=== PATIENT | male | born 1945 | race Caucasian/White ===

== ENCOUNTER → 2016-07-06 | Outpatient (CLI) | payer MEDICARE, BC ==
[2014-03-29 17:30] VITALS: BP 121/77
[~2016-07-06] MED LIST: ALPR0.5T PO; BUPR75TA6 PO; CELE50CA PO; CITA10TA8 PO; CLON0.12 PO; DESV50TA PO; DIAZ2TAB PO; DOCU100C PO; DULO20CA PO; FLUO10CA13 PO; GABA-585 PO; HYDR-963 PO; HYDR2TAB13 PO; HYDR8TAB PO; LIDO700A4 TP; LORA0.5T96 PO; MELO-150 PO; METH10OR PO; METH10TA2 PO; OXYC-250 PO; OXYC20TA PO; PREG20SO PO; PROP10TA PO; RIZA10TA PO; RIZA10TA6 PO; SERT100T PO; SERT25TA PO; SERT50TA PO; SUMA50TA3 PO; TEST1.25 TD; TEST30SO TD; TIZA4CAP3 PO; TIZA4TAB PO; TOPI25TA32 PO; ZOLP5TAB PO; [UNRECOGNIZED DRUG - CODE] TD
--- NOTE | 2016-07-06 13:13 | PAIN ---
DATE OF SERVICE: 07/06/2016 PROGRESS NOTE DIAGNOSES: 1. Lumbar radiculopathy with post-lumbar laminectomy syndrome. 2. Cervical radiculopathy. 3. Myofascial pain. 4. Right chest wall pain. HISTORY OF PRESENT ILLNESS: The patient is a 71-year-old male who returns for followup status post medication management with both methadone and oxycodone. The patient also using a Voltaren gel and EMLA cream for his right chest. We did some intercostal blocks x 3 different occasions, initially with good results, but limited. After his injection, the patient reports the pain actually is not decreased at all. He is not interested in pursuing any further interventions for this pain. The patient still has significant pain in the low back, mid back, upper back, neck, shoulders, low back and legs, hips, becoming more debilitating. The patient reports he is unable to do any type of activity and essentially because of the pain, especially in the right chest wall, which has been very uncomfortable, again he had a fall on the right side, but about 7 months ago without significant improvement. The patient has had multiple x-rays of the ribs and spine without any significant findings to explain the pain. Initially, intercostal blocks were helping, but again this has become much less helpful as well. The patient reports he cannot get comfortable, at 8-9 on a scale of 10 without significant side effects with his medications, reports that medications do decrease the pain significantly, but only by about 50-60% at this time, again with no specific side effects with methadone and the oxycodone. The patient's old chart was reviewed and his current medication regimen updated. Current review of systems updated today as well. PHYSICAL EXAMINATION: VITAL SIGNS: Today, the patient's blood pressure 104/63, pulse 60, respirations 18, temperature 97.6 degrees Fahrenheit, height 6 feet 1 inch, weight 191 pounds. GENERAL: The patient is awake, alert, oriented, appropriate, very pleasant demeanor. HEENT: Head shows normocephalic, atraumatic. Extraocular movements are intact and symmetrical. Oral cavity shows mucous membranes moist and pink. Dentition is intact. NECK: Shows anterior throat supple. CHEST: Shows breath sounds clear to auscultation bilaterally. HEART: Shows S1 and S2 clear. The patient has significant tenderness in the right lateral aspect of the ribs from the mid to lower rib margin in the mid axillary line and most especially in the middle of the back in approximately T8-T9 region of the ribs with direct palpation over the ribs at about 10 cm from the midline to the right side, but without any palpable abnormalities or fractures noted. The patient has good chest excursion with inhalation and exhalation without significant increase in pain at this time. ABDOMEN: The patient's abdomen is soft, nontender, nondistended. No palpable organomegaly is noted. BACK: The patient's back shows well healed surgical scarring with diffuse tenderness throughout the upper, middle and lower distribution of the lumbar and thoracic paraspinous musculature, lower distribution without specific radiation. EXTREMITIES: The patient's extremities show deep tendon reflexes at 1+ in the patellar and tendo calcaneus tendons. Motor exam is approximately 4 on a scale of 5 with dorsiflexion, extension and equal. The patient is using a cane to ambulate. PLAN: Options were discussed with the patient and the patient's spouse who accompanies him to his visit today. We will foregoing further intercostal blocks at this time, we will also add levorphanol in substitution for oxycodone and see if this may help decrease the pain. He is most likely developing some physiologic tolerance to the oxycodone. We discussed this in some detail today. We have the levorphanol bordered and once this process and delivered, we will have him substitute the oxycodone with this to see if this may afford some better analgesia. Also, we will add naproxen at 500 mg twice daily to see if this may help some of the chest wall pain that he is experiencing as well. FIDENCIO QUINTANA MD DR: CAMERON/mayra JOB#: [id number] / [id number]
== END | disposition home or self-care (01) ==
LOC: PNCL 10:31
PROVIDERS: ATTEND Anesthesiology
DX: M96.1 Postlaminectomy syndrome, not elsewhere classified (principal); M54.12 Radiculopathy, cervical region; M79.1 Myalgia; R07.89 Other chest pain
CPT/HCPCS: G0463

== ENCOUNTER 2016-07-23 13:54 | Inpatient (IN) | payer MEDICARE, BC ==
[~2016-07-23] VITALS: Ht 185.4 cm; Wt 86.2 kg
--- NOTE | 2016-07-23 15:46 | EKG ---
[facility] [address] [place] [address] Test Date: 2016-07-23 Test Time: 15:40:37 Pat Name: DERREK HERMOSILLO Department: Room: Gender: M [employer] Teacher: : 1945 Requested By: MICHELLE CMAPOS Order Number: [id number] Reading MD: Siomara Portillo Measurements Intervals [place] Rate: 83 P: 90 CT: 114 QRS: 64 QRSD: 112 T: 39 QT: 414 QTc: 487 Interpretive Statements SINUS RHYTHM ATRIAL PREMATURE COMPLEX(ES) RI6.01 Unconfirmed report No previous ECG available for comparison Electronically Signed On 07-25-2016 20:52:21 X [employer] by Siomara Portillo
[2016-07-23 15:55] LABS: BASO # 0.1 x10^3/uL (0.0-0.2); BASO % 1 % (0-3); EOS % 0 % (0-3); HEMATOCRIT 39.5 % (39.0-53.0); HEMOGLOBIN 12.8 g/dL (13.0-17.5); LYMPH # 0.3 x10^3/uL (1.0-4.8); LYMPH % 2 % (24-48); MEAN CORPUSCULAR HEMOGLOBIN 26 pg (25-35); MEAN CORPUSCULAR HGB CONC 32 g/dL (31-37); MEAN CORPUSCULAR VOLUME 80 fL (79-100); MONO % 6 % (0-9); NEUT % 91 % (31-73); PLATELET COUNT 307 x10^3/uL (140-400); RED BLOOD COUNT 4.92 x10^6/uL (4.30-5.70); RED CELL DISTRIBUTION WIDTH 15.1 % (11.5-14.5); WHITE BLOOD COUNT 17.9 x10^3/uL (4.0-11.0)
--- NOTE | 2016-07-23 16:11 | RAD ---
Portable AP upright chest x-ray performed at 1537 Clinical indications weakness. Shortness of breath today. Comparison: None available. Findings: There is a dense consolidative lung infiltrate within the left upper lobe consistent with pneumonia. Right lung field is clear. No pleural effusion or pneumothorax is seen. The heart size is unremarkable. The left hilum and upper left mediastinum are obscured by the infiltrate. IMPRESSION: Left upper lobe consolidation consistent with pneumonia. Recommend follow-up chest x-ray after completion of antibiotic therapy since a malignant process has not been excluded. The left hilum and upper left mediastinum are obscured by the infiltrate.
[2016-07-23 16:12] LABS: BILIRUBIN,URINE MODERATE (NEG); GLUCOSE,URINE NEGATIVE (NEG); NITRITE,URINE NEGATIVE (NEG)
--- NOTE | 2016-07-23 16:15 | RAD ---
Clinical indications: Loss of balance. Hallucinations.. Technique: Noncontrast axial cross sectional scanning of the head was performed. PQRS Compliance Statement: One or more of the following individualized dose reduction techniques were utilized for this examination: 1. Automated exposure control 2. Adjustment of the mA and/or kV according to patient size 3. Use of iterative reconstruction technique Comparison: None available. Findings: No acute intracranial hemorrhage or midline shift or mass-effect or hydrocephalus or extra-axial fluid collection is seen. No focal hypodense area or sulci effacement is seen to indicate an acute infarct or edema radiographically. No skull fracture or pneumocephalus is seen. No opacification of the mastoid sinuses or the paranasal sinuses is seen. The maxillary sinuses are not completely seen in this study. Impression: No acute intracranial abnormality is seen.
[2016-07-23 16:23] LABS: CALCIUM 8.8 mg/dL (8.5-10.1); CREATININE 0.9 mg/dL (0.7-1.3); GFR 83.4; POTASSIUM 3.5 mmol/L (3.5-5.1)
[2016-07-23 16:24] LABS: ALBUMIN 1.9 g/dL (3.4-5.0); DIRECT BILIRUBIN 1.7 mg/dL (0.0-0.2); TOTAL BILIRUBIN 2.3 mg/dL (0.2-1.0); TOTAL PROTEIN 6.3 g/dL (6.4-8.2)
[2016-07-23 16:49] LABS: BACTERIA,URINE FEW /HPF (0-FEW); PROTEIN,URINE NEGATIVE (NEG-TRACE); RBC,URINE 0 /HPF (0-2)
[2016-07-23 16:55] LABS: PLT ESTIMATE ADEQUATE (ADEQUATE); TOXIC GRANULATION PRESENT
--- NOTE | 2016-07-23 16:55 | PHYS DOC ---
Past Medical History Past Medical History: Cancer Additional Past Medical Histor: CHRONIC BACK PAIN, SKIN CA Past Surgical History: Tonsillectomy Additional Past Surgical Histo: HERNIA, BACK, SKIN CA, R CATARACT Alcohol Use: None Drug Use: None Adult General Chief Complaint Chief Complaint: HALLUCINATIONS AUDIBLE/VISUAL HPI HPI 71-year-old male presenting to the emergency department with increasing fatigue and losing balance over the last week. He is also had a productive cough. He also reports auditory and visual hallucinations. He reports seeing people that are not there. He reports hearing things. It is worse in the morning and alleviated with rest. No exacerbating factors. Location lungs. Duration intermittent. Review of Systems Review of Systems Negative for abdominal pain nausea vomiting diaphoresis. All other review of systems is negative unless otherwise noted in history of present illness. Current Medications Current Medications Current Medications Medications (Trade) Dose Ordered Sig/Ronal Start Time Stop Time Status Last Admin Dose Admin Azithromycin 250 ml @ 250 mls/hr 1X ONCE 07/23/16 17:00 07/23/16 17:59 Ceftriaxone Sodium (Rocephin 1gm Ivpb For Omni) 50 ml @ 100 mls/hr 1X ONCE 07/23/16 17:00 07/23/16 17:29 Morphine Sulfate 2 mg 2 mg PRN Q2HR PRN 07/23/16 17:00 07/24/16 16:59 Ondansetron HCl (Zofran) 4 mg PRN Q8HRS PRN 07/23/16 17:00 07/24/16 16:59 Allergies Allergies Allergies Coded Allergies Type Severity Reaction Last Updated Verified No Known Drug Allergies 03/29/14 No Physical Exam Physical Exam Constitutional: Well developed, well nourished, no acute distress, non-toxic appearance. HENT: Normocephalic, atraumatic, bilateral external ears normal, oropharynx moist, no oral exudates, nose normal. [] Eyes: PERRLA, EOMI, conjunctiva normal, no discharge. [] Neck: Normal range of motion, no tenderness, supple, no stridor. Negative Brudzinski sign. Negative Kernig sign. Cardiovascular:Heart rate regular rhythm, no murmur [] Lungs & Thorax: Patient has minimal wheezing on the right more than left. Abdomen: Bowel sounds normal, soft, no tenderness, no masses, no pulsatile masses. [] Skin: Warm, dry, no erythema, no rash. Back: No tenderness, no CVA tenderness. [] Extremities: No tenderness, no cyanosis, no clubbing, ROM intact, no edema. [] No petechiae present. Neurologic: Alert and oriented X 3, normal motor function, normal sensory function, no focal deficits noted. Psychologic: Affect normal, judgement normal, mood normal. Current Patient Data Vital Signs Vital Signs Date Time Temp Pulse Resp B/P Pulse Ox O2 Delivery O2 Flow Rate FiO2 07/23/16 15:10 98.3 90 16 103/60 92 Room Air 98.3 Lab Values Laboratory Tests Test 07/23/16 15:40 07/23/16 16:00 White Blood Count 17.9x10^3/uL (4.0-11.0) H Red Blood Count 4.92x10^6/uL (4.30-5.70) Hemoglobin 12.8g/dL (13.0-17.5) L Hematocrit 39.5% (39.0-53.0) Mean Corpuscular Volume 80fL (79-100) Mean Corpuscular Hemoglobin 26pg (25-35) Mean Corpuscular Hemoglobin Concent 32g/dL (31-37) Red Cell Distribution Width 15.1% (11.5-14.5) H Platelet Count 307x10^3/uL (140-400) Neutrophils (%) (Auto) 91% (31-73) H Lymphocytes (%) (Auto) 2% (24-48) L Monocytes (%) (Auto) 6% (0-9) Eosinophils (%) (Auto) 0% (0-3) Basophils (%) (Auto) 1% (0-3) Neutrophils # (Auto) 16.3x10^3uL (1.8-7.7) H Lymphocytes # (Auto) 0.3x10^3/uL (1.0-4.8) L Monocytes # (Auto) 1.1x10^3/uL (0.0-1.1) Eosinophils # (Auto) 0.0x10^3/uL (0.0-0.7) Basophils # (Auto) 0.1x10^3/uL (0.0-0.2) Platelet Estimate Pending Sodium Level 135mmol/L (136-145) L Potassium Level 3.5mmol/L (3.5-5.1) Chloride Level 96mmol/L (98-107) L Carbon Dioxide Level 32mmol/L (21-32) Anion Gap 7 (6-14) Blood Urea Nitrogen 22mg/dL (8-26) Creatinine 0.9mg/dL (0.7-1.3) Estimated GFR (Cockcroft-Gault) 83.4 Glucose Level 84mg/dL (70-99) Calcium Level 8.8mg/dL (8.5-10.1) Total Bilirubin 2.3mg/dL (0.2-1.0) H Direct Bilirubin 1.7mg/dL (0.0-0.2) H Aspartate Amino Transferase (AST) 42U/L (15-37) H Alanine Aminotransferase (ALT) 20U/L (16-63) Alkaline Phosphatase 206U/L (46-116) H Troponin I Quantitative < 0.017ng/mL (0.000-0.055) VL-Xol-R-Type Natriuretic Peptide 885pg/mL (0-124) H Total Protein 6.3g/dL (6.4-8.2) L Albumin 1.9g/dL (3.4-5.0) L Lipase 52U/L (73-393) L Urine Collection Type Unknown Urine Color [place] Urine Clarity Clear Urine pH 6.0 Urine Specific [place] >=1.030 Urine Protein Negativemg/dL (NEG-TRACE) Urine Glucose (UA) Negativemg/dL (NEG) Urine Ketones (Stick) 40mg/dL (NEG) Urine Blood Negative (NEG) Urine Nitrite Negative (NEG) Urine Bilirubin Moderate (NEG) Urine Urobilinogen Dipstick 4.0mg/dL (0.2 mg/dL) Urine Leukocyte Esterase Trace (NEG) Urine RBC 0/HPF (0-2) Urine WBC 1-4/HPF (0-4) Urine Squamous Epithelial Cells None/LPF Urine Bacteria Few/HPF (0-FEW) Urine Mucus Mod/LPF Laboratory Tests 07/23/16 15:40 Laboratory Tests 07/23/16 15:40 EKG EKG Sinus rhythm with a regular rate. [place] is normal. Intervals are within normal limits. ST segments congruent. [] Radiology/Procedures Radiology/Procedures Chest x-ray shows pneumonia. CT unremarkable for acute pathology. Course & Med Decision Making Course & Med Decision Making Pertinent Labs and Imaging studies reviewed. (See chart for details) [] 71-year-old gentleman presenting to the emergency department with confusion intermittently with generalized weakness. He also had hallucinations. On physical exam the patient had a normal temperature. Normal pulse. Mildly low SaO2. He had mild wheezing on the right more than left. Blood work was obtained including blood culture. CBC showed leukocytosis. Urinalysis not suggestive of infection. Chemistry panel showed low albumin and elevated bilirubin troponin normal. Patient was given antibiotics and IV fluids and admitted to our hospital for further evaluation workup and care. Dragon Disclaimer Dragon Disclaimer This electronic medical record was generated, in whole or in part, using a voice recognition dictation system. Departure Departure Impression: Primary Impression: Pneumonia Additional Impressions: Confusion Hallucinations Uremia Disposition: ADMITTED INPATIENT Admitting Physician: Hiram Bowens Condition: IMPROVED Referrals: HIRAM BOWENS MD (PCP) Problem Qualifiers MICHELLE CAMPOS MD Jul 23, 2016 16:55
[2016-07-23] MEDS ORDERED: CEFTRIAXONE 1GM IVPB FOR OMNI 50 ML IV ONE (17:00)
[2016-07-23] MEDS ORDERED: ONDANSETRON PF 4 MG/2 ML VIAL. IV PRN (17:00)
[2016-07-23] MEDS ORDERED: AZITHRMYCN 500MG IVPB FOR OMNI 250 ML IV ONE (17:00)
[2016-07-23] MEDS ORDERED: MORPHINE SULFATE 2 MG/ML DISP.SYRIN. IV PRN (17:00)
[2016-07-23] MEDS ORDERED: IV NORMAL SALINE 500ML BAG 500 ML IV ONE (17:15)
[2016-07-23 19:15] VITALS: BP 110/50
[2016-07-23 19:30] VITALS: BP 108/73
[2016-07-23] MEDS: PROPRANOLOL 10 MG TABLET. PO SCH (22:44)
[2016-07-23] MEDS: SERTRALINE 50 MG TABLET. PO SCH (22:45)
[2016-07-23] MEDS: METHADONE 10 MG TABLET. PO SCH (22:45)
[2016-07-23] MEDS ORDERED: OXYCODONE IR 5 MG TABLET. PO PRN (22:45)
[2016-07-23 23:00] VITALS: BP_SYST 112; BP_SYST 129; BP_DIAS 57; BP_DIAS 77
[2016-07-24 03:30] VITALS: BP 110/72
[2016-07-24 04:00] LABS: BASO % 0 % (0-3); EOS % 1 % (0-3); HEMATOCRIT 39.4 % (39.0-53.0); HEMOGLOBIN 12.6 g/dL (13.0-17.5); LYMPH # 0.5 x10^3/uL (1.0-4.8); LYMPH % 3 % (24-48); MEAN CORPUSCULAR HEMOGLOBIN 26 pg (25-35); MEAN CORPUSCULAR HGB CONC 32 g/dL (31-37); MEAN CORPUSCULAR VOLUME 80 fL (79-100); MONO % 7 % (0-9); NEUT % 89 % (31-73); PLATELET COUNT 292 x10^3/uL (140-400); RED BLOOD COUNT 4.93 x10^6/uL (4.30-5.70); RED CELL DISTRIBUTION WIDTH 15.1 % (11.5-14.5)
[2016-07-24 04:16] LABS: CALCIUM 8.4 mg/dL (8.5-10.1); CREATININE 0.8 mg/dL (0.7-1.3); GFR 95.6; POTASSIUM 3.3 mmol/L (3.5-5.1)
[2016-07-24 07:05] VITALS: BP 108/51
[2016-07-24] MEDS: SERTRALINE 50 MG TABLET. PO SCH ×2 (08:30→20:43)
[2016-07-24] MEDS: DOCUSATE SODIUM 100 MG CAPSULE PO SCH ×2 (08:30→20:44)
[2016-07-24] MEDS: PROPRANOLOL 10 MG TABLET. PO SCH ×2 (08:31→20:42)
[2016-07-24] MEDS: METHADONE 10 MG TABLET. PO SCH ×2 (08:31→20:42)
[2016-07-24] MEDS ORDERED: PROPRANOLOL 10 MG TABLET. PO SCH (09:00)
[2016-07-24] MEDS ORDERED: METHADONE 10 MG TABLET. PO SCH (09:00)
[2016-07-24] MEDS ORDERED: SERTRALINE 50 MG TABLET. PO SCH (09:00)
--- NOTE | 2016-07-24 09:35 | PDOC ---
Provider Note Provider Note See admission H&P dictation #[id number] Impression: 1. Left upper lobe pneumonia, community-acquired: 2. Chronic back pain on chronic narcotics: 3. Hyperbilirubinemia of uncertain etiology: 4. Hypokalemia: 5. Severe protein malnutrition: 6. Hypoxemia secondary to #1 above: JL WEST MD Jul 24, 2016 09:35
[2016-07-24] MEDS ORDERED: POTASSIUM CHLORIDE 20 MEQ TABLET.ER. PO ONE (09:45)
[2016-07-24] MEDS: CEFTRIAXONE SODIUM 1 GM in IV NORMAL SALINE 50ML 50 ML IV SCH (10:28)
[2016-07-24] MEDS: AZITHROMYCIN 250 MG TABLET PO SCH (10:29)
--- NOTE | 2016-07-24 10:52 | HP ---
ADMIT DATE: 07/24/2016 ATTENDING SURGEON: Hiram Bowens MD CHIEF COMPLAINT: Cough and shortness of breath. HISTORY OF PRESENT ILLNESS: The patient is a 71-year-old male with a history of tobacco use, had onset approximately on 07/20 of significant fatigue. He also had a cough that was productive initially of clear sputum, but then turned yellow with occasional blood tinge. He did have some subjective fevers as well as shortness of breath. He denies any sick contacts. He has had some upper respiratory congestion. He is not having any improvement and was also on the day of admission having problems with his balance. He was also having some auditory and visual hallucinations. This prompted his evaluation in the Emergency Room. PAST MEDICAL HISTORY: Significant for chronic back pain, cervical and lumbar spinal stenosis, depression, hypogonadism, chronic and migraine headaches, thoracic myelopathy, narcotic bowel syndrome, heat intolerance, skin cancer. PAST SURGICAL HISTORY: Tonsillectomy, cholecystectomy, Rhino septoplasty, back surgeries x 4, bilateral carpal tunnel surgery, left little finger surgery, several skin cancer removals. SOCIAL HISTORY: The patient lives at home with his . He quit smoking in 1982 and has smoked for a number of years prior to that. He denies any alcohol use. ALLERGIES TO MEDICATIONS: No known drug allergies. FAMILY HISTORY: Noncontributory. MEDICATIONS: At the time of admission include Xanax 0.5 mg p.o. daily t.i.d. p.r.n., Colace 100 mg p.o. b.i.d., methadone 10 mg p.o. b.i.d., oxycodone immediate release 40 mg p.o. b.i.d., propranolol 10 mg p.o. b.i.d., Zoloft 50 mg p.o. b.i.d. REVIEW OF SYSTEMS: The patient has had some subjective fevers. He has had congestion. He is not having any swallowing difficulty. He did have the confusion as far as some hallucinations, which has since resolved. He denies any chest pain or palpitations. He does have chest wall pain on the right side from when he fell and injured his ribs earlier in the year in approximately 12/2015. He denies any diarrhea. He had emesis one time related to cough. He has not had any melena or blood in his emesis. He has been voiding without difficulty, but he notes that his urine has been darker in color. He has chronic back pain, which he takes medications regularly for that. He denies any lower extremity swelling. He normally ambulates okay. No unusual or new mood issues at present. PHYSICAL EXAMINATION: VITAL SIGNS: At the time of admission, temperature 98.3, pulse 90, respiratory rate 16, blood pressure 103/62, O2 sat 92%, that has dropped down to as low as 87% on room air earlier this morning. GENERAL: The patient is lying in bed in no acute distress. He appears alert and oriented. Mood and affect appear appropriate. Grooming and hygiene are okay. HEENT: The pupils are equal and round. The extraocular motions are intact. Sclerae are anicteric. Oropharynx is moist. NECK: Without JVD or bruit. CHEST: Has decreased air movement throughout without any wheezes at present. There is some tenderness to palpation along the right lower rib area. CARDIOVASCULAR: The heart has a regular rate and rhythm without murmur. ABDOMEN: Positive bowel sounds. Soft, nondistended. Minimal tenderness in the right upper quadrant. EXTREMITIES: There is no edema. NEUROLOGIC: Motor strength appears to be intact. He does walk with a cane. PSYCHIATRIC: Mood and affect appear appropriate. LABORATORY DATA: At the time of admission, WBC 17.9, hemoglobin 12.8, hematocrit 39.5, platelets 307 with a differential of 76, bands 18, 76 neutrophils, 18 bands. Urine shows specific gravity of greater than 1.030 with ketones of 40, moderate bilirubin, trace of leukocyte esterase, 1-4 wbc's, few bacteria, moderate mucus. Sodium 135, potassium 3.5, chloride 96, CO2 32, BUN 22, creatinine 0.9, glucose 84, total bilirubin 2.3, direct bilirubin 1.7, AST 42, ALT 20, alkaline phosphatase 206. BNP 885. Troponin less than 0.01, albumin was 1.9. Lipase was 52. CT of the head showed no acute abnormality. Chest x-ray shows left upper lobe consolidation consistent with pneumonia. Left hilum and upper left mediastinum are obscured by the infiltrate. The right lung field is clear. There is no effusion or pneumothorax. IMPRESSION: 1. Left upper lobe pneumonia, community-acquired. 2. Chronic back pain, on chronic narcotics. 3. Hyperbilirubinemia with some minimal right upper quadrant tenderness. 4. Hypokalemia. 5. Severe protein malnutrition. PLAN: The patient is admitted. He is started on Rocephin and azithromycin for community-acquired pneumonia. We will use nebulizer q.6h. supplemental oxygen as needed. We will encourage ambulation. We will attempt to get a sputum to identify the organism. We will repeat the LFTs in the morning and see if they have any improvement. If they are still elevated, we may need to do an ultrasound of the right upper quadrant to evaluate his elevated bilirubin. We will replace the potassium orally, nutrition consult for his protein malnutrition. We will continue his usual pain medications, which appears to be methadone 10 mg p.o. b.i.d. and oxycodone immediate release 40 mg p.o. b.i.d., although it is difficult to say as the patient does not know for sure the doses of his medications. We will also use p.r.n. oxycodone for other pain as well as Robitussin with codeine to help suppress his cough, which seems to be aggravating his chronic rib pain. JL WEST MD DR: BUNNY/mayra JOB#: [id number] / [id number] SUGEY
[2016-07-24 11:06] VITALS: BP 92/41
[2016-07-24] MEDS: OXYCODONE IR 5 MG TABLET. PO PRN (11:11)
[2016-07-24] MEDS: IPRATRPIUM/ALBUTEROL 0.5/2.5MG 3 ML NEBU. NEB SCH ×3 (11:11→19:39)
[2016-07-24 15:05] VITALS: BP 99/56
[2016-07-24 19:55] VITALS: BP 115/65
[2016-07-24] MEDS: GUAIFENESIN ER 600 MG TABLET.ER PO SCH (20:44)
[2016-07-24 23:49] VITALS: BP 95/58
[2016-07-25 03:25] VITALS: BP 110/69
[2016-07-25 07:09] LABS: ALBUMIN 1.5 g/dL (3.4-5.0); ALBUMIN/GLOBULIN RATIO 0.4 (1.0-1.7); CALCIUM 8.3 mg/dL (8.5-10.1); CREATININE 0.8 mg/dL (0.7-1.3); GFR 95.6; POTASSIUM 3.3 mmol/L (3.5-5.1); TOTAL BILIRUBIN 2.3 mg/dL (0.2-1.0); TOTAL PROTEIN 4.9 g/dL (6.4-8.2)
[2016-07-25] MEDS: IPRATRPIUM/ALBUTEROL 0.5/2.5MG 3 ML NEBU. NEB SCH ×4 (07:21→20:44)
[2016-07-25] MEDS: PROPRANOLOL 10 MG TABLET. PO SCH ×2 (08:10→20:37)
[2016-07-25] MEDS: OXYCODONE IR 5 MG TABLET. PO PRN ×2 (08:11→17:58)
[2016-07-25] MEDS: DOCUSATE SODIUM 100 MG CAPSULE PO SCH ×2 (08:11→20:37)
[2016-07-25] MEDS: METHADONE 10 MG TABLET. PO SCH ×2 (08:12→20:37)
[2016-07-25] MEDS: GUAIFENESIN ER 600 MG TABLET.ER PO SCH ×2 (08:12→20:36)
[2016-07-25] MEDS: AZITHROMYCIN 250 MG TABLET PO SCH (08:12)
[2016-07-25] MEDS: SERTRALINE 50 MG TABLET. PO SCH ×2 (08:12→20:37)
[2016-07-25 08:43] VITALS: BP 101/59
[2016-07-25] MEDS: CEFTRIAXONE SODIUM 1 GM in IV NORMAL SALINE 50ML 50 ML IV SCH (10:03)
[2016-07-25 11:58] VITALS: BP 100/49
[2016-07-25] MEDS: GUAIFENESIN/CODEINE 100mg/10mg 5 ML LIQUID. PO PRN ×2 (13:14→20:36)
--- NOTE | 2016-07-25 13:45 | PDOC ---
SUBJECTIVE Subjective Breathing a little bit better. Still coughing. He able to eat a little bit better today. Still has pain in the right lower ribs. Hasn't been able to ambulate too much. notes that he's been unsteady on his feet for the last week and a half. He's also had episodes of confusion over the last 1-2 weeks. OBJECTIVE Vital Signs Vital Signs Date Time Temp Pulse Resp B/P Pulse Ox O2 Delivery O2 Flow Rate FiO2 07/25/16 11:58 98.4 65 17 100/49 96 Room Air 98.4 07/25/16 11:37 Room Air 07/25/16 09:11 16 96 Room Air 07/25/16 08:43 97.7 78 17 101/59 96 Room Air 97.7 07/25/16 08:11 18 90 Room Air 07/25/16 08:10 63 110/69 07/25/16 08:00 Room Air 07/25/16 07:21 90 Room Air 07/25/16 07:00 07/25/16 03:25 96.8 63 16 110/69 91 Room Air 96.8 07/24/16 23:49 96.3 66 16 95/58 90 Room Air 96.3 07/24/16 20:42 73 115/65 07/24/16 20:00 Room Air 07/24/16 19:55 97.7 73 16 115/65 94 Room Air 97.7 07/24/16 19:40 94 Room Air 07/24/16 15:06 91 Room Air 07/24/16 15:05 98.1 77 20 99/56 89 Room Air 98.1 I & O Intake and Output 07/25/16 07:00 Intake Total 1600 ml Balance 1600 ml Intake Oral 1600 ml # Voids 6 PHYSICAL EXAM Physical Exam General: No acute distress. Sitting in bed. Mental status: Alert and oriented. Answering questions. Chest: Decreased air movement throughout. Tenderness to palpation over the right lower chest CV: Normal rate. Regular rhythm. No murmur. Abdomen: Normal bowel sounds. Soft. Not distended. Tenderness to palpation in the right upper quadrant Extremities: No lower extremity edema ASSESSMENT/PLAN Assessment/Plan 1. Left upper lobe pneumonia, community-acquired: Continue current antibiotics. Seems to be making some improvement. Continue nebulizer treatments as those are seeming to help per the patient. 2. Chronic back pain on chronic narcotics: Continue current medications as the pain seems to be relatively controlled. 3. Hyperbilirubinemia of uncertain etiology: Check right upper quadrant ultrasound. Check ammonia level due to reported problems with confusion in the last week per family 4. Hypokalemia: Replace orally 5. Severe protein malnutrition: Nutrition consult 6. Hypoxemia secondary to #1 above: Improving with treatment. 7. Gait stability issues: Consult physical therapy 8. Encephalopathy: Probably due to pneumonia and metabolic etiologies. Check ammonia level, evaluate for liver disease. Problems: COMMENT Lab Laboratory Tests Test 07/25/16 06:20 Sodium Level 140mmol/L (136-145) Potassium Level 3.3mmol/L (3.5-5.1) Chloride Level 102mmol/L (98-107) Carbon Dioxide Level 31mmol/L (21-32) Anion Gap 7 (6-14) Blood Urea Nitrogen 19mg/dL (8-26) Creatinine 0.8mg/dL (0.7-1.3) Estimated GFR (Cockcroft-Gault) 95.6 BUN/Creatinine Ratio 24 (6-20) Glucose Level 92mg/dL (70-99) Calcium Level 8.3mg/dL (8.5-10.1) Total Bilirubin 2.3mg/dL (0.2-1.0) Aspartate Amino Transf (AST/SGOT) 42U/L (15-37) Alanine Aminotransferase (ALT/SGPT) 27U/L (16-63) Alkaline Phosphatase 214U/L (46-116) Total Protein 4.9g/dL (6.4-8.2) Albumin 1.5g/dL (3.4-5.0) Albumin/Globulin Ratio 0.4 (1.0-1.7) JL WEST MD Jul 25, 2016 13:45
[2016-07-25] MEDS: POTASSIUM CHLORIDE 20 MEQ TABLET.ER. PO SCH ×2 (15:00→17:50)
[2016-07-25 15:29] VITALS: BP 94/64
[2016-07-25 19:43] VITALS: BP 106/71
[2016-07-25 23:50] VITALS: BP 105/63
[2016-07-26] VITALS (7 sets, daily range): BP systolic 70–133; BP diastolic 49–81
[2016-07-26] MEDS ORDERED: IPRATRPIUM/ALBUTEROL 0.5/2.5MG 3 ML NEBU. NEB ONE (04:15)
[2016-07-26 04:19] LABS: BASO # 0.1 x10^3/uL (0.0-0.2); BASO % 1 % (0-3); EOS % 3 % (0-3); HEMATOCRIT 40.6 % (39.0-53.0); HEMOGLOBIN 12.8 g/dL (13.0-17.5); LYMPH # 0.6 x10^3/uL (1.0-4.8); LYMPH % 4 % (24-48); MEAN CORPUSCULAR HEMOGLOBIN 25 pg (25-35); MEAN CORPUSCULAR HGB CONC 32 g/dL (31-37); MEAN CORPUSCULAR VOLUME 81 fL (79-100); MONO % 6 % (0-9); NEUT % 86 % (31-73); PLATELET COUNT 278 x10^3/uL (140-400); RED BLOOD COUNT 5.03 x10^6/uL (4.30-5.70); RED CELL DISTRIBUTION WIDTH 15.6 % (11.5-14.5); WHITE BLOOD COUNT 14.4 x10^3/uL (4.0-11.0)
[2016-07-26 04:39] LABS: ALBUMIN 1.6 g/dL (3.4-5.0); ALBUMIN/GLOBULIN RATIO 0.4 (1.0-1.7); CALCIUM 8.3 mg/dL (8.5-10.1); CREATININE 0.7 mg/dL (0.7-1.3); GFR 111.5; POTASSIUM 3.7 mmol/L (3.5-5.1); TOTAL BILIRUBIN 1.5 mg/dL (0.2-1.0); TOTAL PROTEIN 5.8 g/dL (6.4-8.2)
--- NOTE | 2016-07-26 07:39 | RAD ---
Right upper quadrant abdominal ultrasound, 07/26/2016: History: Abnormal liver function tests, confusion The gallbladder is distended. No gallstones are seen. The gallbladder wall measures 2 to 3 mm which is at the upper limits of normal in thickness. The common hepatic duct measures 6 mm which is at the upper limits of normal. No intrahepatic bile ductal dilatation is seen. There is no evidence of a hepatic mass. The pancreas was largely obscured by overlying bowel. The visualized portions of the right kidney are unremarkable. IMPRESSION: 1. The gallbladder is enlarged without sonographic evidence of cholelithiasis. 2. The common hepatic duct is at the upper limits of normal in size. 3. Obscuration of the pancreas due to overlying bowel.
[2016-07-26] MEDS: IPRATRPIUM/ALBUTEROL 0.5/2.5MG 3 ML NEBU. NEB SCH ×4 (08:07→18:16)
[2016-07-26] MEDS: PROPRANOLOL 10 MG TABLET. PO SCH ×2 (08:11→20:26)
[2016-07-26] MEDS: GUAIFENESIN ER 600 MG TABLET.ER PO SCH ×2 (08:11→20:27)
[2016-07-26] MEDS: SERTRALINE 50 MG TABLET. PO SCH ×2 (08:11→20:27)
[2016-07-26] MEDS: DOCUSATE SODIUM 100 MG CAPSULE PO SCH ×2 (08:11→20:27)
[2016-07-26] MEDS: METHADONE 10 MG TABLET. PO SCH ×2 (08:12→20:27)
[2016-07-26] MEDS: AZITHROMYCIN 250 MG TABLET PO SCH (08:12)
[2016-07-26] MEDS: GUAIFENESIN/CODEINE 100mg/10mg 5 ML LIQUID. PO PRN (08:12)
--- NOTE | 2016-07-26 09:26 | PDOC ---
PROGRESS NOTES Subjective Subjective Patient slightly improved since admit but significantly malnourished since last office eval. alb 3.8 -> 1.7, abd sono shows thickened GB and obscured view of pancreas with dilated CBD. CXR shows infiltrate that could obscure a mass. Patient has had no BM since 07/22. Low BP found to be giving additional pain meds. educated not to do this. Objective Objective Vital Signs Date Time Temp Pulse Resp B/P Pulse Ox O2 Delivery O2 Flow Rate FiO2 07/26/16 09:10 84 118/71 07/26/16 08:10 94 Room Air 07/26/16 07:00 98.4 20 98.4 Intake and Output 07/26/16 07:00 Intake Total 1040 ml Balance 1040 ml Intake Oral 1040 ml # Voids 9 Physical Exam Abdomen: Normal bowel sounds Heart: Regular rate Extremities: No edema General: Alert Lungs: Other (course bilate) Assessment Assessment Problems Medical Problems: (1) Confusion Status: Acute (2) Hallucinations Status: Acute (3) Pneumonia Status: Acute (4) Uremia Status: Acute 1. Left upper lobe pneumonia, community-acquired 2. Chronic back pain on chronic narcotics 3. Hyperbilirubinemia of uncertain etiology 4. Severe protein malnutrition 5. Hypoxemia secondary to #1 above: Improving with treatment. 6. Gait stability issues: Consult physical therapy 7. Encephalopathy Plan Plan of Care Check CT chest abd and pelvis consult pulm med and GI Continue IV antibx and PT Comment Review of Relevant I have reviewed the following items rubi (where applicable) has been applied. Labs Laboratory Tests Test 07/25/16 06:20 07/26/16 03:20 Sodium Level 140mmol/L (136-145) 138mmol/L (136-145) Potassium Level 3.3mmol/L (3.5-5.1) 3.7mmol/L (3.5-5.1) Chloride Level 102mmol/L (98-107) 100mmol/L (98-107) Carbon Dioxide Level 31mmol/L (21-32) 31mmol/L (21-32) Anion Gap 7 (6-14) 7 (6-14) Blood Urea Nitrogen 19mg/dL (8-26) 17mg/dL (8-26) Creatinine 0.8mg/dL (0.7-1.3) 0.7mg/dL (0.7-1.3) Estimated GFR (Cockcroft-Gault) 95.6 111.5 BUN/Creatinine Ratio 24 (6-20) 24 (6-20) Glucose Level 92mg/dL (70-99) 102mg/dL (70-99) Calcium Level 8.3mg/dL (8.5-10.1) 8.3mg/dL (8.5-10.1) Total Bilirubin 2.3mg/dL (0.2-1.0) 1.5mg/dL (0.2-1.0) Aspartate Amino Transf (AST/SGOT) 42U/L (15-37) 55U/L (15-37) Alanine Aminotransferase (ALT/SGPT) 27U/L (16-63) 35U/L (16-63) Alkaline Phosphatase 214U/L (46-116) 267U/L (46-116) Total Protein 4.9g/dL (6.4-8.2) 5.8g/dL (6.4-8.2) Albumin 1.5g/dL (3.4-5.0) 1.6g/dL (3.4-5.0) Albumin/Globulin Ratio 0.4 (1.0-1.7) 0.4 (1.0-1.7) White Blood Count 14.4x10^3/uL (4.0-11.0) Red Blood Count 5.03x10^6/uL (4.30-5.70) Hemoglobin 12.8g/dL (13.0-17.5) Hematocrit 40.6% (39.0-53.0) Mean Corpuscular Volume 81fL (79-100) Mean Corpuscular Hemoglobin 25pg (25-35) Mean Corpuscular Hemoglobin Concent 32g/dL (31-37) Red Cell Distribution Width 15.6% (11.5-14.5) Platelet Count 278x10^3/uL (140-400) Neutrophils (%) (Auto) 86% (31-73) Lymphocytes (%) (Auto) 4% (24-48) Monocytes (%) (Auto) 6% (0-9) Eosinophils (%) (Auto) 3% (0-3) Basophils (%) (Auto) 1% (0-3) Neutrophils # (Auto) 12.3x10^3uL (1.8-7.7) Lymphocytes # (Auto) 0.6x10^3/uL (1.0-4.8) Monocytes # (Auto) 0.9x10^3/uL (0.0-1.1) Eosinophils # (Auto) 0.4x10^3/uL (0.0-0.7) Basophils # (Auto) 0.1x10^3/uL (0.0-0.2) Ammonia 20mcmol/L (11-34) Laboratory Tests Test 07/26/16 03:20 White Blood Count 14.4x10^3/uL (4.0-11.0) Red Blood Count 5.03x10^6/uL (4.30-5.70) Hemoglobin 12.8g/dL (13.0-17.5) Hematocrit 40.6% (39.0-53.0) Mean Corpuscular Volume 81fL (79-100) Mean Corpuscular Hemoglobin 25pg (25-35) Mean Corpuscular Hemoglobin Concent 32g/dL (31-37) Red Cell Distribution Width 15.6% (11.5-14.5) Platelet Count 278x10^3/uL (140-400) Neutrophils (%) (Auto) 86% (31-73) Lymphocytes (%) (Auto) 4% (24-48) Monocytes (%) (Auto) 6% (0-9) Eosinophils (%) (Auto) 3% (0-3) Basophils (%) (Auto) 1% (0-3) Neutrophils # (Auto) 12.3x10^3uL (1.8-7.7) Lymphocytes # (Auto) 0.6x10^3/uL (1.0-4.8) Monocytes # (Auto) 0.9x10^3/uL (0.0-1.1) Eosinophils # (Auto) 0.4x10^3/uL (0.0-0.7) Basophils # (Auto) 0.1x10^3/uL (0.0-0.2) Sodium Level 138mmol/L (136-145) Potassium Level 3.7mmol/L (3.5-5.1) Chloride Level 100mmol/L (98-107) Carbon Dioxide Level 31mmol/L (21-32) Anion Gap 7 (6-14) Blood Urea Nitrogen 17mg/dL (8-26) Creatinine 0.7mg/dL (0.7-1.3) Estimated GFR (Cockcroft-Gault) 111.5 BUN/Creatinine Ratio 24 (6-20) Glucose Level 102mg/dL (70-99) Calcium Level 8.3mg/dL (8.5-10.1) Total Bilirubin 1.5mg/dL (0.2-1.0) Aspartate Amino Transf (AST/SGOT) 55U/L (15-37) Alanine Aminotransferase (ALT/SGPT) 35U/L (16-63) Alkaline Phosphatase 267U/L (46-116) Ammonia 20mcmol/L (11-34) Total Protein 5.8g/dL (6.4-8.2) Albumin 1.6g/dL (3.4-5.0) Albumin/Globulin Ratio 0.4 (1.0-1.7) Microbiology 07/23/16 Blood Culture - Preliminary, Resulted NO GROWTH AFTER 2 DAYS 07/24/16 Gram Stain - Final, Complete 07/23/16 Urine Culture - Final, Complete 07/23/16 Urine Culture Result 1 (ARANZA) - Final, Complete Medications Current Medications Ondansetron HCl (Zofran) 4 mg PRN Q8HRS PRN IV NAUSEA/VOMITING; Start 07/23/16 at 17:00; Stop 07/24/16 at 16:59; Status DC Morphine Sulfate 2 mg 2 mg PRN Q2HR PRN IV PAIN; Start 07/23/16 at 17:00; Stop 07/24/16 at 16:59; Status DC Azithromycin 250 ml @ 250 mls/hr 1X ONCE IV Last administered on 07/23/16 18 :37; Start 07/23/16 at 17:00; Stop 07/23/16 at 17:59; Status DC Ceftriaxone Sodium 50 ml @ 100 mls/hr 1X ONCE IV Last administered on 18:09; Start 07/23/16 at 17:00; Stop 07/23/16 at 17:29; Status DC Sodium Chloride (Iv Sodium Chloride 0.9% 500ml Bag) 500 ml @ 500 mls/hr 1X ONCE IV Last administered on 07/23/16 18:08; Start 07/23/16 at 17:15; Stop at 18:14; Status DC Docusate Sodium (Colace) 100 mg BID PO Last administered on 07/26/16 08:11; Start 07/24/16 at 09:00 Propranolol HCl (Inderal) 10 mg BID PO ; Start 07/24/16 at 09:00; Stop 07/24/16 at 09:00; Status DC Sertraline HCl (Zoloft) 50 mg BID PO ; Start 07/24/16 at 09:00; Stop 07/24/16 at 09:00; Status DC Methadone HCl (Dolophine) 10 mg BID PO ; Start 07/24/16 at 09:00; Stop 07/24/16 at 09:00; Status DC Oxycodone HCl (Roxicodone) 40 mg PRN BID PRN PO SEVERE PAIN; Start 07/23/16 at 22:45; Stop 07/24/16 at 10:37; Status DC Methadone HCl (Dolophine) 10 mg BID PO Last administered on 07/26/16 08:12; Start 07/23/16 at 23:00 Propranolol HCl (Inderal) 10 mg BID PO Last administered on 07/25/16 20:37; Start 07/23/16 at 23:00 Sertraline HCl (Zoloft) 50 mg BID PO Last administered on 07/26/16 08:11; Start 07/23/16 at 23:00 Alprazolam (Xanax) 0.5 mg PRN TID PRN PO ANXIETY / AGITATION; Start 07/24/16 at 09:30 Oxycodone HCl (Roxicodone) 20 mg PRN Q6HRS PRN PO PAIN Last administered on 17:58; Start 07/24/16 at 09:30 Albuterol/ Ipratropium (Duoneb) 3 ml RTQID NEB Last administered on 07/26/16 08:07; Start 07/24/16 at 12:00 Guaifenesin (Mucinex) 600 mg BID PO Last administered on 07/26/16 08:11; Start 07/24/16 at 21:00 Guaifenesin/ Codeine Phosphate (Robitussin Ac) 5 ml PRN Q6HRS PRN PO COUGH Last administered on 07/26/16 08:12; Start 07/24/16 at 09:30 Guaifenesin/ Codeine Phosphate 10 ml 10 ml PRN Q6HRS PRN PO COUGH Last administered on 07/25/16 13:14; Start 07/24/16 at 09:30 Ceftriaxone Sodium/Sodium Chloride (Rocephin/Iv Sodium Chloride 0.9% 50ml) 50 ml @ 100 mls/hr Q24H IV Last administered on 07/25/16 10:03; Start 07/24/16 at 10:00 Azithromycin (Zithromax) 250 mg DAILY PO Last administered on 07/26/16 08:12; Start 07/24/16 at 09:30; Stop 07/28/16 at 09:29 Potassium Chloride (Klor-Con) 40 meq 1X ONCE PO Last administered on 10:28; Start 07/24/16 at 09:45; Stop 07/24/16 at 09:53; Status DC Potassium Chloride (Klor-Con) 40 meq BIDWMEALS PO Last administered on 17:50; Start 07/25/16 at 13:45; Stop 07/25/16 at 17:01; Status DC Albuterol/ Ipratropium (Duoneb) 3 ml 1X ONCE NEB Last administered on 03:57; Start 07/26/16 at 04:15; Stop 07/26/16 at 04:16; Status DC Active Scripts Active Reported Zoloft (Sertraline Hcl) 50 Mg Tablet 50 Mg PO BID Methadone Hcl 10 Mg Tablet 10 Mg PO BID Xanax (Alprazolam) 0.5 Mg Tablet 0.5 Mg PO DAILY PRN Stool Softener (Docusate Sodium) 100 Mg Capsule 100 Mg PO BID Propranolol Hcl 10 Mg Tablet 10 Mg PO BID Oxycodone Hcl 20 Mg Tablet 40 Mg PO [id number] Vitals/I & O Vital Sign - Last 24 Hours 07/25/16 07/25/16 07/25/16 07/25/16 11:37 11:58 15:29 16:07 Temp 98.4 97.9 98.4 97.9 Pulse 65 74 Resp 17 17 B/P 100/49 94/64 Pulse Ox 96 93 O2 Delivery Room Air Room Air Room Air Room Air 07/25/16 07/25/16 07/25/16 07/25/16 17:58 18:58 19:43 20:00 Temp 98.6 98.6 Pulse 78 Resp 18 16 B/P 106/71 Pulse Ox 93 91 O2 Delivery Room Air Room Air Room Air Room Air 07/25/16 07/25/16 07/26/16 07/26/16 20:37 23:50 02:57 03:58 Temp 98.8 98.1 98.8 98.1 Pulse 78 70 77 Resp 16 16 B/P 106/71 105/63 112/72 Pulse Ox 91 93 94 O2 Delivery Room Air Room Air Room Air 07/26/16 07/26/16 07/26/16 07/26/16 07:00 08:00 08:10 08:11 Temp 98.4 98.4 Pulse 73 73 Resp 20 B/P 70/49 70/49 Pulse Ox 94 94 O2 Delivery Room Air Room Air Room Air 07/26/16 09:10 Pulse 84 B/P 118/71 Intake and Output 07/25/16 07/25/16 07/26/16 15:00 23:00 07:00 Intake Total 680 ml 360 ml Balance 680 ml 360 ml VAISHALI FONTAINE MD Jul 26, 2016 09:26
[2016-07-26] MEDS ORDERED: BISACODYL 10 MG SUPP.RECT PR PRN (09:30)
[2016-07-26] MEDS: CEFTRIAXONE SODIUM 1 GM in IV NORMAL SALINE 50ML 50 ML IV SCH (10:15)
[2016-07-26] MEDS ORDERED: DICLOFENAC SODIUM 1% TOPICAL GEL 100GM TUBE. TP PRN (10:30)
--- NOTE | 2016-07-26 10:33 | PDOC ---
Provider Note Provider Note dictated Pneumonia, suspect cavity NADER wt loss, need to r/o lung malignancy CHATO GARCIA MD Jul 26, 2016 10:33
--- NOTE | 2016-07-26 10:54 | CONS ---
DATE OF CONSULTATION: 07/26/2016 ATTENDING PHYSICIAN: Dr. Bowens. REASON FOR CONSULTATION: Pneumonia. HISTORY OF PRESENT ILLNESS: The patient is a 71-year-old male who has smoked for 33 years before quitting 25 years ago. He presented to the hospital complaining of persistent cough for the last 2 weeks. The cough has been productive of brown sputum. He has fevers at home as well. The patient has no nausea, vomiting and no diarrhea. After further discussion, he states he has lost about 20 pounds in the last 6-7 months. No history of deep vein thrombosis or pulmonary embolism. He also had a fall in December of last year and has been having rib pain since then without any improvement. I have reviewed the patient's chest x-ray and it shows that there is a left upper lobe consolidation with questionable cavitation. Consultation requested for further evaluation and management. PAST MEDICAL HISTORY: Tobacco use, suspect underlying COPD, history of spinal stenosis, depression, hypogonadism, history of migraine headaches, history of thoracic myelopathy, narcotic bowel syndrome and skin cancer. PAST SURGICAL HISTORY: Tonsillectomy, cholecystectomy, rhinoplasty and multiple other surgeries. SOCIAL HISTORY: Smoked for 33 years before quitting 25 years ago. ALLERGIES: None. CURRENT MEDICATIONS: All reviewed as listed in the MRAD including antibiotic, Rocephin and azithromycin. REVIEW OF SYSTEMS: Twelve-point systems obtained. Pertinent positives discussed in history of present illness, otherwise noncontributory. All systems that were negative were reviewed as well. PHYSICAL EXAMINATION: VITAL SIGNS: Initial blood pressure recorded was 70/49, but it was inaccurate and RN rechecked it this morning and is 118 systolic. Pulse ox 94% on room air, afebrile. HEENT: Sclerae nonicteric. NECK: Supple. LUNGS: Diminished breath sounds. CARDIOVASCULAR: Regular rate and rhythm. ABDOMEN: Soft, nontender. EXTREMITIES: No pitting edema. LABORATORY DATA: Reviewed. White cell count initially was 17.9, it is trending down. BUN 17, creatinine 0.7. Albumin is 1.6. IMPRESSION: 1. Extensive cavitary consolidation in the left upper lobe in a patient with wt loss. Need to rule out malignancy. The patient has lost about 20 pounds in 6-7 months. 2. Unexplained weight loss. Need to do CT chest, abdomen and pelvis. Need to rule out lung malignancy. 3. Underlying chronic obstructive pulmonary disease, smoked for 33 years before quitting 25 years ago. 4. Right-sided rib pain since fall in December of last year. We will do CT chest to rule out any lytic lesions. RECOMMENDATIONS: 1. Continue with present antibiotics. 2. Proceed with CT chest to assess for any mass or cavity in the left upper lobe. 3. Bronchodilators. 4. Oxygen p.r.n. 5. Discussed with the patient's . We will make further recommendations after review of the CT chest, abdomen and pelvis. 6. d/w Para CHATO GARCIA MD DR: JOSE RAFAEL/nts JOB#: [id number] / [id number] VAISHALI Gutierrez MD MTDD
[2016-07-26] MEDS ORDERED: KETOROLAC TROMETHAMINE 30 MG/ML SYRINGE. IV PRN (11:15)
[2016-07-26] MEDS ORDERED: CONTRAST GIVEN MC PRN (11:15)
[2016-07-26] MEDS ORDERED: IOHEXOL 240 MG/ML 50ML VIAL. IV ONE (11:30)
[2016-07-26] MEDS ORDERED: IOHEXOL 300 MG/ML 75 ML VIAL IV ONE (11:30)
--- NOTE | 2016-07-26 11:59 | PDOC2 ---
GI CONSULT Reason For Consult: Elevated LFTs, weight loss, constipation HPI: HPI: 71 y/o male admitted w/ CAP (c/o SOA, cough, problems w/ balance, and hallucinations). LFTs noted to be elevated; latest as follows: bili 1.5 (From 2.3), direct bili 1.7, AST 55 (from 42), ALT 35 (from 20), Alk Phos 206 (from 267). Abd US w/ distended gallbladder, borderline gallbladder wall thickening, and borderline common hepatic duct dilatation. Additional h/o constipation likely related to narcotic use, currently treated w/ Miralax and Dulcolax w/ some improvement. Denies abdominal pain, n/v, reflux/heartburn, hematochezia, melena. Has lost about 20 pounds in the past [address] A/P ordered. Colonoscopy 2000: diverticulosis; EGD 2001 w/ hiatal hernia and Schatzki's ring. PMH: PMH: chronic back pain, cervical and lumbar spinal stenosis, depression, hypogonadism , chronic and migraine headaches, thoracic myelopathy, narcotic bowel syndrome, skin cancer, tonsillectomy, rhino septoplasty, back surgeries x 4, bilateral carpal tunnel surgery, left little finger surgery, several skin cancer removals Social History: Smoke: Quit Drugs: None ROS: GEN: Denies fevers, chills, sweats HEENT: Denies blurred vision, sore throat CV: Denies chest pain RESP: +SOA, cough GI: Per HPI : Denies hematuria, dysuria ENDO: +weight loss NEURO: Denies confusion, dizziness MSK: +back pain SKIN: Denies jaundice, pruritus VItals: Vitals: Vital Signs Date Time Temp Pulse Resp B/P Pulse Ox O2 Delivery O2 Flow Rate FiO2 07/26/16 11:43 95 Room Air 07/26/16 11:00 99.0 74 18 103/62 99.0 Labs: Labs: Laboratory Tests Test 07/26/16 03:20 White Blood Count 14.4x10^3/uL (4.0-11.0) Red Blood Count 5.03x10^6/uL (4.30-5.70) Hemoglobin 12.8g/dL (13.0-17.5) Hematocrit 40.6% (39.0-53.0) Mean Corpuscular Volume 81fL (79-100) Mean Corpuscular Hemoglobin 25pg (25-35) Mean Corpuscular Hemoglobin Concent 32g/dL (31-37) Red Cell Distribution Width 15.6% (11.5-14.5) Platelet Count 278x10^3/uL (140-400) Neutrophils (%) (Auto) 86% (31-73) Lymphocytes (%) (Auto) 4% (24-48) Monocytes (%) (Auto) 6% (0-9) Eosinophils (%) (Auto) 3% (0-3) Basophils (%) (Auto) 1% (0-3) Neutrophils # (Auto) 12.3x10^3uL (1.8-7.7) Lymphocytes # (Auto) 0.6x10^3/uL (1.0-4.8) Monocytes # (Auto) 0.9x10^3/uL (0.0-1.1) Eosinophils # (Auto) 0.4x10^3/uL (0.0-0.7) Basophils # (Auto) 0.1x10^3/uL (0.0-0.2) Sodium Level 138mmol/L (136-145) Potassium Level 3.7mmol/L (3.5-5.1) Chloride Level 100mmol/L (98-107) Carbon Dioxide Level 31mmol/L (21-32) Anion Gap 7 (6-14) Blood Urea Nitrogen 17mg/dL (8-26) Creatinine 0.7mg/dL (0.7-1.3) Estimated GFR (Cockcroft-Gault) 111.5 BUN/Creatinine Ratio 24 (6-20) Glucose Level 102mg/dL (70-99) Calcium Level 8.3mg/dL (8.5-10.1) Total Bilirubin 1.5mg/dL (0.2-1.0) Aspartate Amino Transf (AST/SGOT) 55U/L (15-37) Alanine Aminotransferase (ALT/SGPT) 35U/L (16-63) Alkaline Phosphatase 267U/L (46-116) Ammonia 20mcmol/L (11-34) Total Protein 5.8g/dL (6.4-8.2) Albumin 1.6g/dL (3.4-5.0) Albumin/Globulin Ratio 0.4 (1.0-1.7) Allergies: Coded Allergies: No Known Drug Allergies (Unverified , 03/29/14) Medications: Current Medications Medications (Trade) Dose Ordered Sig/Ronal Route PRN Reason Start Time Stop Time Status Last Admin Dose Admin Potassium Chloride (Klor-Con) 40 meq BIDWMEALS PO 07/25/16 13:45 07/25/16 17:01 DC 07/25/16 17:50 Albuterol/ Ipratropium (Duoneb) 3 ml 1X ONCE NEB 07/26/16 04:15 07/26/16 04:16 DC 07/26/16 03:57 Diclofenac Sodium (Voltaren) 1 ruddy PRN Q4HRS PRN TP PAIN 07/26/16 10:30 07/26/16 11:13 Imaging: Imaging: Head CT Impression: No acute intracranial abnormality is seen. CXR IMPRESSION: Left upper lobe consolidation consistent with pneumonia. Recommend follow-up chest x-ray after completion of antibiotic therapy since a malignant process has not been excluded. The left hilum and upper left mediastinum are obscured by the infiltrate. RUQ US The gallbladder is distended. No gallstones are seen. The gallbladder wall measures 2 to 3 mm which is at the upper limits of normal in thickness. The common hepatic duct measures 6 mm which is at the upper limits of normal. No intrahepatic bile ductal dilatation is seen. There is no evidence of a hepatic mass. The pancreas was largely obscured by overlying bowel. The visualized portions of the right kidney are unremarkable. IMPRESSION: 1. The gallbladder is enlarged without sonographic evidence of cholelithiasis. 2. The common hepatic duct is at the upper limits of normal in size. 3. Obscuration of the pancreas due to overlying bowel. PE: GEN: NAD, sitting on edge of bed HEENT: Atraumatic, PERRL LUNGS: poor air flow, decreased, some wheezing bilaterally HEART: RRR ABD: NABS, S/ND/NT EXTREMITY: No edema SKIN: No rashes, no jaundice NEURO/PSYCH: A & O 3 OTHER: present A/P: A/P: Elevated LFTs -as above, bili from 2.3 to 1.5, some increase in AST, ALT, Alk Phos Abnormal RUQ US -distended gallbladder, ?wall thickening, ?dilated common hepatic duct -CT A/P ordered CAP -pulm following Weight loss -unintentional Constipation -chronic, likely narcotic-induced CRC screen -- Monitor labs, await CT results. KAYLEE AKHTAR Jul 26, 2016 11:59
[2016-07-26] MEDS: POLYETHYLENE GLYCOL 3350 17 GM PACKET. PO SCH (12:39)
[2016-07-26] MEDS: OXYCODONE IR 5 MG TABLET. PO PRN ×2 (12:48→19:19)
--- NOTE | 2016-07-26 14:53 | RAD ---
Indication: Abnormal liver function tests and questionable lung mass. Axial imaging through the chest, abdomen and pelvis was performed after the administration of intravenous contrast. No prior studies are available for comparison. CT chest: No axillary lymphadenopathy is detected. No definite mediastinal or right hilar lymphadenopathy is detected. Extensive interstitial and airspace parenchymal density throughout the left upper lobe is identified. There is some air density noted within the area of consolidation in the left upper lobe suprahilar location consistent with cavitation. This is inseparable from the left hilum where abnormal soft tissue does appear to encase the left main pulmonary artery. The remainder of the lung knight are clear. Evaluation of the bony structures does show abnormal lytic destructive process involving the posterior right seventh rib with adjacent cyst soft tissue component and pleural thickening. This most likely represents a metastatic lesion. Impression: 1.Abnormal soft tissue masslike density in the left hilum encasing the left main pulmonary artery and a portion of the left upper lobe bronchus. The area of abnormal soft tissue density measures approximate 6.3 cm transverse x 4.3 cm AP. There is extensive infiltrate in the left upper lobe as well as cavitation. Findings are concerning for a left hilar neoplasm with cavitation and probable postobstructive pneumonitis. 2. Destructive process involving the right posterior seventh rib, consistent with a metastatic lesion. CT abdomen and pelvis: There is a tiny low density in the dome of the liver, too small to characterize. No other liver lesions are detected. Gallbladder is unremarkable. The pancreas and spleen are unremarkable. No adrenal mass is detected. Kidneys are unremarkable. The aorta is nonaneurysmal. No central retroperitoneal or mesenteric lymphadenopathy is seen. No definite pelvic lymphadenopathy is detected. Postop changes in the lower thoracic spine are noted with small fluid collection noted at the surgical bed consistent with small postoperative seroma Impression: Unremarkable CT of the abdomen and pelvis. PQRS Compliance Statement: One or more of the following individualized dose reduction techniques were utilized for this examination: 1. Automated exposure control 2. Adjustment of the mA and/or kV according to patient size 3. Use of iterative reconstruction technique
[2016-07-27 02:46] VITALS: BP 131/84
[2016-07-27 05:45] LABS: INR 1.3 (0.8-1.1); PROTHROMBIN TIME PATIENT 15.8 SEC (11.7-14.0)
[2016-07-27 07:14] VITALS: BP 125/66
[2016-07-27] MEDS: METHADONE 10 MG TABLET. PO SCH ×2 (07:47→20:12)
[2016-07-27] MEDS: DOCUSATE SODIUM 100 MG CAPSULE PO SCH ×2 (07:47→21:00)
[2016-07-27] MEDS: AZITHROMYCIN 250 MG TABLET PO SCH (07:47)
[2016-07-27] MEDS: GUAIFENESIN ER 600 MG TABLET.ER PO SCH ×2 (07:47→21:00)
[2016-07-27] MEDS: SERTRALINE 50 MG TABLET. PO SCH ×2 (07:47→20:12)
[2016-07-27] MEDS: PROPRANOLOL 10 MG TABLET. PO SCH ×2 (07:47→20:12)
[2016-07-27] MEDS: POLYETHYLENE GLYCOL 3350 17 GM PACKET. PO SCH (07:47)
[2016-07-27] MEDS: IPRATRPIUM/ALBUTEROL 0.5/2.5MG 3 ML NEBU. NEB SCH ×4 (08:13→19:07)
[2016-07-27 08:38] LABS: ALBUMIN 1.9 g/dL (3.4-5.0); TOTAL BILIRUBIN 1.5 mg/dL (0.2-1.0); TOTAL PROTEIN 5.9 g/dL (6.4-8.2)
[2016-07-27] MEDS ORDERED: FENTANYL PF 100 MCG/2 ML VIAL. IV PRN (09:00)
[2016-07-27] MEDS: FENTANYL PF 100 MCG/2 ML VIAL. IV PRN ×3 (09:11→17:31)
--- NOTE | 2016-07-27 09:15 | PDOC ---
PROGRESS NOTES Subjective Subjective Patient C/O pain off po pain meds for procedure planned this am. fentanyl IV ordered. CT chest showed likely lung mass with cavitation. Possibility of CA discussed with patient and . Objective Objective Vital Signs Date Time Temp Pulse Resp B/P Pulse Ox O2 Delivery O2 Flow Rate FiO2 07/27/16 08:14 Room Air 07/27/16 07:14 98.7 112 20 125/66 92 98.7 Intake and Output 07/27/16 07:00 Intake Total 1200 ml Balance 1200 ml Intake Oral 1150 ml IV Total 50 ml # Voids 4 Physical Exam Abdomen: Normal bowel sounds Heart: Regular rate Extremities: No edema General: Alert Lungs: Other (course with mucous plugging) Assessment Assessment Problems Medical Problems: (1) Confusion Status: Acute (2) Hallucinations Status: Acute (3) Pneumonia Status: Acute (4) Uremia Status: Acute 1. Left upper lobe pneumonia, community-acquired & post obstructive 2. Lung mass with cavitary lesion and possible rib met 3. Hyperbilirubinemia of uncertain etiology 4. Severe protein malnutrition 5. Hypoxemia secondary to #1 above: Improving with treatment. 6. Gait stability issues 7. Encephalopathy-improved 8. Chronic back pain on chronic narcotics Plan Plan of Care Continue Pulm Eval Continue IV antibx Continue Pain control Proceed with PT Home on PO meds when stable Comment Review of Relevant I have reviewed the following items rubi (where applicable) has been applied. Labs Laboratory Tests Test 07/26/16 03:20 07/27/16 04:57 White Blood Count 14.4x10^3/uL (4.0-11.0) Red Blood Count 5.03x10^6/uL (4.30-5.70) Hemoglobin 12.8g/dL (13.0-17.5) Hematocrit 40.6% (39.0-53.0) Mean Corpuscular Volume 81fL (79-100) Mean Corpuscular Hemoglobin 25pg (25-35) Mean Corpuscular Hemoglobin Concent 32g/dL (31-37) Red Cell Distribution Width 15.6% (11.5-14.5) Platelet Count 278x10^3/uL (140-400) Neutrophils (%) (Auto) 86% (31-73) Lymphocytes (%) (Auto) 4% (24-48) Monocytes (%) (Auto) 6% (0-9) Eosinophils (%) (Auto) 3% (0-3) Basophils (%) (Auto) 1% (0-3) Neutrophils # (Auto) 12.3x10^3uL (1.8-7.7) Lymphocytes # (Auto) 0.6x10^3/uL (1.0-4.8) Monocytes # (Auto) 0.9x10^3/uL (0.0-1.1) Eosinophils # (Auto) 0.4x10^3/uL (0.0-0.7) Basophils # (Auto) 0.1x10^3/uL (0.0-0.2) Sodium Level 138mmol/L (136-145) Potassium Level 3.7mmol/L (3.5-5.1) Chloride Level 100mmol/L (98-107) Carbon Dioxide Level 31mmol/L (21-32) Anion Gap 7 (6-14) Blood Urea Nitrogen 17mg/dL (8-26) Creatinine 0.7mg/dL (0.7-1.3) Estimated GFR (Cockcroft-Gault) 111.5 BUN/Creatinine Ratio 24 (6-20) Glucose Level 102mg/dL (70-99) Calcium Level 8.3mg/dL (8.5-10.1) Total Bilirubin 1.5mg/dL (0.2-1.0) 1.5mg/dL (0.2-1.0) Aspartate Amino Transf (AST/SGOT) 55U/L (15-37) 58U/L (15-37) Alanine Aminotransferase (ALT/SGPT) 35U/L (16-63) 44U/L (16-63) Alkaline Phosphatase 267U/L (46-116) 267U/L (46-116) Ammonia 20mcmol/L (11-34) Total Protein 5.8g/dL (6.4-8.2) 5.9g/dL (6.4-8.2) Albumin 1.6g/dL (3.4-5.0) 1.9g/dL (3.4-5.0) Albumin/Globulin Ratio 0.4 (1.0-1.7) Prothrombin Time 15.8SEC (11.7-14.0) Prothromb Time International Ratio 1.3 (0.8-1.1) Direct Bilirubin 1.0mg/dL (0.0-0.2) Laboratory Tests Test 07/27/16 04:57 Prothrombin Time 15.8SEC (11.7-14.0) Prothromb Time International Ratio 1.3 (0.8-1.1) Total Bilirubin 1.5mg/dL (0.2-1.0) Direct Bilirubin 1.0mg/dL (0.0-0.2) Aspartate Amino Transf (AST/SGOT) 58U/L (15-37) Alanine Aminotransferase (ALT/SGPT) 44U/L (16-63) Alkaline Phosphatase 267U/L (46-116) Total Protein 5.9g/dL (6.4-8.2) Albumin 1.9g/dL (3.4-5.0) Microbiology 07/23/16 Blood Culture - Preliminary, Resulted NO GROWTH AFTER 3 DAYS 07/24/16 Gram Stain - Final, Complete 07/23/16 Urine Culture - Final, Complete 07/23/16 Urine Culture Result 1 (ARANZA) - Final, Complete Medications Current Medications Ondansetron HCl (Zofran) 4 mg PRN Q8HRS PRN IV NAUSEA/VOMITING; Start 07/23/16 at 17:00; Stop 07/24/16 at 16:59; Status DC Morphine Sulfate 2 mg 2 mg PRN Q2HR PRN IV PAIN; Start 07/23/16 at 17:00; Stop 07/24/16 at 16:59; Status DC Azithromycin 250 ml @ 250 mls/hr 1X ONCE IV Last administered on 07/23/16 18 :37; Start 07/23/16 at 17:00; Stop 07/23/16 at 17:59; Status DC Ceftriaxone Sodium 50 ml @ 100 mls/hr 1X ONCE IV Last administered on 18:09; Start 07/23/16 at 17:00; Stop 07/23/16 at 17:29; Status DC Sodium Chloride (Iv Sodium Chloride 0.9% 500ml Bag) 500 ml @ 500 mls/hr 1X ONCE IV Last administered on 07/23/16 18:08; Start 07/23/16 at 17:15; Stop at 18:14; Status DC Docusate Sodium (Colace) 100 mg BID PO Last administered on 07/26/16 08:11; Start 07/24/16 at 09:00 Propranolol HCl (Inderal) 10 mg BID PO ; Start 07/24/16 at 09:00; Stop 07/24/16 at 09:00; Status DC Sertraline HCl (Zoloft) 50 mg BID PO ; Start 07/24/16 at 09:00; Stop 07/24/16 at 09:00; Status DC Methadone HCl (Dolophine) 10 mg BID PO ; Start 07/24/16 at 09:00; Stop 07/24/16 at 09:00; Status DC Oxycodone HCl (Roxicodone) 40 mg PRN BID PRN PO SEVERE PAIN; Start 07/23/16 at 22:45; Stop 07/24/16 at 10:37; Status DC Methadone HCl (Dolophine) 10 mg BID PO Last administered on 07/26/16 20:27; Start 07/23/16 at 23:00 Propranolol HCl (Inderal) 10 mg BID PO Last administered on 07/26/16 20:26; Start 07/23/16 at 23:00 Sertraline HCl (Zoloft) 50 mg BID PO Last administered on 07/26/16 20:27; Start 07/23/16 at 23:00 Alprazolam (Xanax) 0.5 mg PRN TID PRN PO ANXIETY / AGITATION; Start 07/24/16 at 09:30 Oxycodone HCl (Roxicodone) 20 mg PRN Q6HRS PRN PO PAIN Last administered on 19:19; Start 07/24/16 at 09:30 Albuterol/ Ipratropium (Duoneb) 3 ml RTQID NEB Last administered on 07/27/16 08:13; Start 07/24/16 at 12:00 Guaifenesin (Mucinex) 600 mg BID PO Last administered on 07/26/16 20:27; Start 07/24/16 at 21:00 Guaifenesin/ Codeine Phosphate (Robitussin Ac) 5 ml PRN Q6HRS PRN PO COUGH Last administered on 07/26/16 08:12; Start 07/24/16 at 09:30 Guaifenesin/ Codeine Phosphate 10 ml 10 ml PRN Q6HRS PRN PO COUGH Last administered on 07/25/16 13:14; Start 07/24/16 at 09:30 Ceftriaxone Sodium/Sodium Chloride (Rocephin/Iv Sodium Chloride 0.9% 50ml) 50 ml @ 100 mls/hr Q24H IV Last administered on 07/26/16 10:15; Start 07/24/16 at 10:00 Azithromycin (Zithromax) 250 mg DAILY PO Last administered on 07/26/16 08:12; Start 07/24/16 at 09:30; Stop 07/28/16 at 09:29 Potassium Chloride (Klor-Con) 40 meq 1X ONCE PO Last administered on 10:28; Start 07/24/16 at 09:45; Stop 07/24/16 at 09:53; Status DC Potassium Chloride (Klor-Con) 40 meq BIDWMEALS PO Last administered on 17:50; Start 07/25/16 at 13:45; Stop 07/25/16 at 17:01; Status DC Albuterol/ Ipratropium (Duoneb) 3 ml 1X ONCE NEB Last administered on 03:57; Start 07/26/16 at 04:15; Stop 07/26/16 at 04:16; Status DC Polyethylene Glycol (miraLAX PACKET) 17 gm DAILY PO Last administered on 12:39; Start 07/26/16 at 10:00 Bisacodyl (Dulcolax Supp) 10 mg PRN DAILY PRN IN CONSTIPATION Last administered on 07/26/16 12:39; Start 07/26/16 at 09:30 Diclofenac Sodium (Voltaren) 1 ruddy PRN Q4HRS PRN TP PAIN Last administered on 11:13; Start 07/26/16 at 10:30; Stop 07/26/16 at 15:20; Status DC Ketorolac Tromethamine (Toradol) 30 mg PRN Q6HRS PRN IV PAIN; Start 07/26/16 at 11:15; Stop 07/26/16 at 15:20; Status DC Iohexol (Omnipaque 240 Mg/ml) 30 ml 1X ONCE IV ; Start 07/26/16 at 11:30; Stop 07/26/16 at 11:31; Status DC Iohexol (Omnipaque 300 Mg/ml) 75 ml 1X ONCE IV Last administered on 07/26/16t 12:13; Start 07/26/16 at 11:30; Stop 07/26/16 at 11:31; Status DC Info (Do NOT chart on this entry -- for MONITORING) 1 each PRN DAILY PRN MC SEE COMMENTS; Start 07/26/16 at 11:15; Stop 07/28/16 at 11:14 Fentanyl Citrate (Fentanyl 2ml Vial) 50 mcg PRN Q3HRS PRN IV PAIN; Start at 09:00 Fentanyl Citrate (Fentanyl 2ml Vial) 100 mcg PRN Q3HRS PRN IV PAIN; Start 07/27 at 09:00 Active Scripts Active Reported Zoloft (Sertraline Hcl) 50 Mg Tablet 50 Mg PO BID Methadone Hcl 10 Mg Tablet 10 Mg PO BID Xanax (Alprazolam) 0.5 Mg Tablet 0.5 Mg PO DAILY PRN Stool Softener (Docusate Sodium) 100 Mg Capsule 100 Mg PO BID Propranolol Hcl 10 Mg Tablet 10 Mg PO BID Oxycodone Hcl 20 Mg Tablet 40 Mg PO [id number] Vitals/I & O Vital Sign - Last 24 Hours 07/26/16 07/26/16 07/26/16 07/26/16 09:10 11:00 11:43 12:48 Temp 99.0 99.0 Pulse 84 74 Resp 18 18 B/P 118/71 103/62 Pulse Ox 93 95 95 O2 Delivery Room Air Room Air Room Air 07/26/16 07/26/16 07/26/16 07/26/16 13:52 15:00 15:39 18:18 Temp 98.6 98.6 Pulse 67 Resp 18 20 B/P 113/55 Pulse Ox 95 93 95 O2 Delivery Room Air Room Air Room Air Room Air 07/26/16 07/26/16 07/26/16 07/26/16 19:19 19:40 20:00 20:26 Temp 98.0 98.0 Pulse 105 67 Resp 18 18 B/P 133/81 113/55 Pulse Ox 95 O2 Delivery Room Air Room Air Room Air 07/26/16 07/27/16 07/27/16 07/27/16 22:19 02:46 07:14 08:14 Temp 97.9 99.0 98.7 97.9 99.0 98.7 Pulse 81 83 112 Resp 18 18 20 B/P 123/78 131/84 125/66 Pulse Ox 94 97 92 O2 Delivery Room Air Room Air Room Air Room Air Intake and Output 07/26/16 07/26/16 07/27/16 15:00 23:00 07:00 Intake Total 300 ml 700 ml 200 ml Balance 300 ml 700 ml 200 ml VAISHALI FONTAINE MD Jul 27, 2016 09:15
--- NOTE | 2016-07-27 09:52 | PDOC ---
Subjective: Subjective: Per - has rib pain, wants IV pain meds (currently NPO). No GI complaints. Objective: Objective: Per RN - bronch today. Vital Signs: Vital Signs Date Time Temp Pulse Resp B/P Pulse Ox O2 Delivery O2 Flow Rate FiO2 07/27/16 09:11 18 92 Room Air 07/27/16 07:14 98.7 112 125/66 98.7 Labs: Laboratory Tests Test 07/27/16 04:57 Prothrombin Time 15.8SEC Prothromb Time International Ratio 1.3 Total Bilirubin 1.5mg/dL Direct Bilirubin 1.0mg/dL Aspartate Amino Transf (AST/SGOT) 58U/L Alanine Aminotransferase (ALT/SGPT) 44U/L Alkaline Phosphatase 267U/L Total Protein 5.9g/dL Albumin 1.9g/dL Imaging: CT chest/A/P 07/26/16 Impression: 1.Abnormal soft tissue masslike density in the left hilum encasing the left main pulmonary artery and a portion of the left upper lobe bronchus. The area of abnormal soft tissue density measures approximate 6.3 cm transverse x 4.3 cm AP. There is extensive infiltrate in the left upper lobe as well as cavitation. Findings are concerning for a left hilar neoplasm with cavitation and probable postobstructive pneumonitis. 2. Destructive process involving the right posterior seventh rib, consistent with a metastatic lesion. 3. Unremarkable CT of the abdomen and pelvis. PE: GEN: NAD LUNGS: CTAB anteriorly HEART: RRR ABD: S/ND/NT NEURO/PSYCH: A & O 3 MSK: right rib tenderness A/P: Elevated LFTs -as above, bili from 2.3 to 1.5, some increase in AST, ALT, Alk Phos -distended gallbladder on US, tiny low density in the dome of the liver on CT ( otherwise normal liver, unremarkable gallbladder) Lung lung mass, CAP -pulm following, bronch today Weight loss -unintentional Constipation -chronic, likely narcotic-induced -currently on Miralax -- LFTs stable. Continue treatment for constipation. Await bronchoscopy. KAYLEE AKHTAR Jul 27, 2016 09:52
[2016-07-27] MEDS: CEFTRIAXONE SODIUM 1 GM in IV NORMAL SALINE 50ML 50 ML IV SCH (10:00)
[2016-07-27] MEDS ORDERED: PROPOFOL 40 ML IV ONE (10:20)
--- NOTE | 2016-07-27 10:41 | PDOC ---
PULMONARY PROGRESS NOTES Subjective no change Vitals Vital Signs Date Time Temp Pulse Resp B/P Pulse Ox O2 Delivery O2 Flow Rate FiO2 07/27/16 10:21 Room Air 07/27/16 10:21 83 18 97 07/27/16 07:14 98.7 125/66 98.7 General: Alert, No acute distress Lungs: Other (decrease left) Cardiovascular: S1 Abdomen: Soft Neuro Exam: Alert Extremities: No Edema Skin: Warm Labs Laboratory Tests Test 07/26/16 03:20 07/27/16 04:57 White Blood Count 14.4x10^3/uL (4.0-11.0) Red Blood Count 5.03x10^6/uL (4.30-5.70) Hemoglobin 12.8g/dL (13.0-17.5) Hematocrit 40.6% (39.0-53.0) Mean Corpuscular Volume 81fL (79-100) Mean Corpuscular Hemoglobin 25pg (25-35) Mean Corpuscular Hemoglobin Concent 32g/dL (31-37) Red Cell Distribution Width 15.6% (11.5-14.5) Platelet Count 278x10^3/uL (140-400) Neutrophils (%) (Auto) 86% (31-73) Lymphocytes (%) (Auto) 4% (24-48) Monocytes (%) (Auto) 6% (0-9) Eosinophils (%) (Auto) 3% (0-3) Basophils (%) (Auto) 1% (0-3) Neutrophils # (Auto) 12.3x10^3uL (1.8-7.7) Lymphocytes # (Auto) 0.6x10^3/uL (1.0-4.8) Monocytes # (Auto) 0.9x10^3/uL (0.0-1.1) Eosinophils # (Auto) 0.4x10^3/uL (0.0-0.7) Basophils # (Auto) 0.1x10^3/uL (0.0-0.2) Sodium Level 138mmol/L (136-145) Potassium Level 3.7mmol/L (3.5-5.1) Chloride Level 100mmol/L (98-107) Carbon Dioxide Level 31mmol/L (21-32) Anion Gap 7 (6-14) Blood Urea Nitrogen 17mg/dL (8-26) Creatinine 0.7mg/dL (0.7-1.3) Estimated GFR (Cockcroft-Gault) 111.5 BUN/Creatinine Ratio 24 (6-20) Glucose Level 102mg/dL (70-99) Calcium Level 8.3mg/dL (8.5-10.1) Total Bilirubin 1.5mg/dL (0.2-1.0) 1.5mg/dL (0.2-1.0) Aspartate Amino Transf (AST/SGOT) 55U/L (15-37) 58U/L (15-37) Alanine Aminotransferase (ALT/SGPT) 35U/L (16-63) 44U/L (16-63) Alkaline Phosphatase 267U/L (46-116) 267U/L (46-116) Ammonia 20mcmol/L (11-34) Total Protein 5.8g/dL (6.4-8.2) 5.9g/dL (6.4-8.2) Albumin 1.6g/dL (3.4-5.0) 1.9g/dL (3.4-5.0) Albumin/Globulin Ratio 0.4 (1.0-1.7) Prothrombin Time 15.8SEC (11.7-14.0) Prothromb Time International Ratio 1.3 (0.8-1.1) Direct Bilirubin 1.0mg/dL (0.0-0.2) Laboratory Tests Test 07/27/16 04:57 Prothrombin Time 15.8SEC (11.7-14.0) Prothromb Time International Ratio 1.3 (0.8-1.1) Total Bilirubin 1.5mg/dL (0.2-1.0) Direct Bilirubin 1.0mg/dL (0.0-0.2) Aspartate Amino Transf (AST/SGOT) 58U/L (15-37) Alanine Aminotransferase (ALT/SGPT) 44U/L (16-63) Alkaline Phosphatase 267U/L (46-116) Total Protein 5.9g/dL (6.4-8.2) Albumin 1.9g/dL (3.4-5.0) Medications Active Scripts Medications Dose Route/Sig Days Date Category Zoloft (Sertraline Hcl) 50 Mg Tablet 50 Mg PO BID 08/07/15 Reported Methadone Hcl 10 Mg Tablet 10 Mg PO BID 08/07/15 Reported Xanax (Alprazolam) 0.5 Mg Tablet 0.5 Mg PO DAILY PRN 08/16/13 Reported Stool Softener (Docusate Sodium) 100 Mg Capsule 100 Mg PO BID 08/16/13 Reported Propranolol Hcl 10 Mg Tablet 10 Mg PO BID 08/16/13 Reported Oxycodone Hcl 20 Mg Tablet 40 Mg PO [id number] 08/16/[address] CHEST 1.Abnormal soft tissue masslike density in the left hilum encasing the left main pulmonary artery and a portion of the left upper lobe bronchus. The area of abnormal soft tissue density measures approximate 6.3 cm transverse x 4.3 cm AP. There is extensive infiltrate in the left upper lobe as well as cavitation. Findings are concerning for a left hilar neoplasm with cavitation and probable postobstructive pneumonitis. 2. Destructive process involving the right posterior seventh rib, consistent with a metastatic lesion. CT abdomen and pelvis: There is a tiny low density in the dome of the liver, too small to characterize. No other liver lesions are detected. Gallbladder is unremarkable. The pancreas and spleen are unremarkable. No adrenal mass is detected. Kidneys are unremarkable. The aorta is nonaneurysmal. No central retroperitoneal or mesenteric lymphadenopathy is seen. No definite pelvic lymphadenopathy is detected. Postop changes in the lower thoracic spine are noted with small fluid collection noted at the surgical bed consistent with small postoperative seroma Impression: Unremarkable CT of the abdomen and pelvis. Impression . 1. Extensive cavitary consolidation in the left upper lobe in a patient with wt loss.The patient has lost about 20 pounds in 6-7 months[address] chest c/w left hilar mass/post obstructive pneumonia / endobronchial lesion NADER and lytic lesion right 7th rib. Findings c/w malignancy 2. Unexplained weight loss due to suspected lung malignancy. 3. Underlying chronic obstructive pulmonary disease, smoked for 33 years before quitting 25 years ago. 4. Right-sided rib pain since fall in December of last year. CT chest with lytic lesions right 7 th rib Plan . 1. Continue with present antibiotics. 2. Proceed with Bronch. R/B explained. He agrees 3. Bronchodilators. 4. Oxygen p.r.n. 5. Discussed with the patient's . We will make further recommendations CHATO GARCIA MD Jul 27, 2016 10:41
--- NOTE | 2016-07-27 12:40 | PDOC4 ---
PROCEDURE Procedure Bronch dictated totally occluded NADER/Lingula and sig. narrowing of LLLopening lesion on both VC and prince suspicious for malignancy f/u biopsy CHATO GARCIA MD Jul 27, 2016 12:40
[2016-07-27] MEDS: AA 3%/ELECTROLYTE-TPN SOLN/GLY 1,000 ML IV SCH (14:19)
[2016-07-27] MEDS: OXYCODONE IR 5 MG TABLET. PO PRN ×2 (14:24→20:12)
--- NOTE | 2016-07-27 15:01 | OP ---
DATE OF SURGERY: BRONCHOSCOPY INDICATIONS: Lung mass. Informed consent was obtained from the patient. All risks and benefits were explained. He agreed to proceed with the procedure. Sedation conducted via propofol by anesthesia. Bronchoscope was introduced through the left nostril. The upper area was passed. Vocal cords were reached. There were lesions on both the vocal cords suspicious for cancer. The trachea was entered. Muna was sharp. There was a small lesion at the muna suspicious for cancer. Right lung was first examined. There were some light yellow secretions seen in the right lung which were aspirated. No endobronchial lesions seen in the right upper, right middle, or right lower lobe. There was significant amount of copious purulent secretions seen in the distal trachea and opening of the left main stem bronchus. All secretions were removed. The mucosa in the left mainstem was very friable and was oozing blood, multiple squirts. Epinephrine was used to stop the bleeding. Once the bleeding was stopped, multiple biopsies from the endobronchial lesion were performed. No significant bleeding noted. There was total occlusion of the left upper lobe and lingula and significant narrowing of the left lower lobe bronchus. Bronchial wash was performed from this left upper lobe as well. The patient tolerated the procedure well. IMPRESSION: 1. Lesions at both the vocal cords and muna suspicious for malignancy. 2. Totally occluded left upper lobe and lingula by endobronchial tumor and significant narrowing of the left lower lobe opening by the tumor. Mucosa of left lung very friable, suspicious for tumor invasion. 3. Bronchial wash/BAL and multiple biopsies were performed from the endobronchial lesion. 4. Follow the results of the biopsies and cultures. CHATO GARCIA MD DR: JOSE RAFAEL/mayra JOB#: [id number] / [id number] SUGEY
[2016-07-27] MEDS ORDERED: GADOBUTROL 10 MMOL/10 ML VIAL IV ONE (15:45)
--- NOTE | 2016-07-27 16:34 | RAD ---
BRAIN WO/W CONTRAST Indication: METS CHECK, NEW DIAGNOSIS OF LUNG CANCER, NO SX HX, NO PRIORS, 8ML GADAVIST, CALL REPORT TO [facility] AT [phone] Reason: LUNG MASS - EVAL FOR METS / Spl. Instructions: / History: COMPARISON: None TECHNIQUE: Axial diffusion weighted imaging was obtained. Additional sagittal T1, axial T1, axial FLAIR, and axial T2 weighted imaging of the brain was also performed. Postcontrast T1 weighted imaging was also performed after intravenous administration of gadolinium based contrast. FINDINGS: There is a small focus of restricted diffusion in the left cerebellar hemisphere compatible with presence of an acute infarct. There is no significant edema and no associated abnormal enhancement. There is no mass effect or hemorrhage. No other areas of infarction are identified. No abnormal intracranial enhancement. No evidence of acute intracranial hemorrhage. No restricted diffusion to indicate acute infarct. No extra-axial fluid collections. No midline shift or mass effect. Ventricular size is appropriate. There is no abnormal intracranial enhancement to suggest presence of metastatic disease. No midline shift. Ventricles are normal in size. IMPRESSION: - Small focus of acute infarction in the left cerebellar hemisphere. No associated hemorrhage or mass effect. - No evidence for intracranial metastatic disease. Electronically signed by: Jayson Chester (Jul 27, 2016 16:30:33)
--- NOTE | 2016-07-27 16:54 | PDOC ---
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 Bronch just done with bx in process. Bone scan to follow today. MRI head small left cerebellar stroke no occult met disease Bronch also noted bilateral VC lesions . Impression: St IV bronchogenic carcinoma. Await bx result. Anticipate palliative treatment to primary and rt rib lesion Need med onc eval after bx result obtained. Need ENT assessment of VC lesions and possible bx. Discussed with patient and family ALYSE NESS MD Jul 27, 2016 16:54
[2016-07-27 19:00] VITALS: BP_SYST 106; BP_SYST 120; BP_DIAS 66; BP_DIAS 69
[2016-07-27] MEDS: ALPRAZOLAM 0.5 MG TABLET PO PRN (20:11)
[2016-07-27] MEDS: GUAIFENESIN/CODEINE 100mg/10mg 5 ML LIQUID. PO PRN (20:11)
[2016-07-27] MEDS ORDERED: VANCOMYCIN 2 GM in IV NORMAL SALINE 500ML BAG 500 ML IV ONE (21:30)
[2016-07-27 23:00] VITALS: BP 120/66
[2016-07-27] MEDS: PIPERACILLIN/TAZOBACTAM 3.375 GM in IV NORMAL SALINE 50ML 50 ML IV SCH (23:56)
[2016-07-28] MEDS: FENTANYL PF 100 MCG/2 ML VIAL. IV PRN ×4 (00:09→20:22)
[2016-07-28] MEDS: VANCOMYCIN PER PHARMACY MC PRN ×2 (00:36→14:18)
--- NOTE | 2016-07-28 02:32 | CONS ---
DATE OF CONSULTATION: 07/27/2016 REASON - lung mass REQUESTED by Dr Geovany Navarro HISTORY OF PRESENT ILLNESS: The patient is a 71-year-old gentleman who has a history of smoking 1-1/2 pack of cigarettes per day for 33 years that he quit in 1992. He was admitted to [facility] on 07/23/2016 with complaints of persistent cough off 2-3 weeks' duration. He also had productive brownish sputum but no hemoptysis. He has had fever. No nausea, vomiting or diarrhea. He has lost about 20 pounds in about 6 months prior to admission. He had a history of fall in December 2015 and he has been having rib pain since then. He reports having had a chest x-ray at that time that did not show any fracture. He underwent further evaluation with a CT chest, abdomen and pelvis on 07/26/2016. This revealed abnormal soft tissue mass like density in the left hilum encasing the left main pulmonary artery and a portion of the left upper lobe bronchus measuring 6.3 cm x 4.3 cm. There was extensive infiltrate in the left upper lobe as well as cavitation. The findings are concerning for left hilar neoplasm with cavitation and probable postobstructive pneumonitis. a destructive process is noted in the right posterior 7th rib consistent with metastatic lesion. CT scan of the head on 07/23/2016 was done for evaluation of hallucination, loss of balance and there was no intracranial abnormality. He was evaluated by Dr. Geovany Navarro and the patient underwent a bronchoscopy on 07/27/2016. This revealed totally occluded left upper lobe/lingula and significant narrowing of the left lower lobe opening. There was nodules noted on both vocal cords and prince suspicious for malignancy. Biopsies were obtained and the results are still pending. I was asked to see the patient because of clinical suspicion of lung cancer. PAST MEDICAL HISTORY: Spinal stenosis, depression, hypogonadism, migraine headaches, thoracic myelopathy, chronic back pain, narcotic bowel syndrome and skin cancer. PAST SURGICAL HISTORY: Tonsillectomy, cholecystectomy, rhinoplasty and multiple other surgeries. SOCIAL HISTORY: He has smoked 33 years, 1-1/2 pack per day that he quit in 1992. FAMILY HISTORY: Negative for lung cancer. REVIEW OF SYSTEMS: A 12-point review of system was performed. Pertinent positives are mentioned in the history of present illness. Rest of the system review is negative. PHYSICAL EXAMINATION: GENERAL APPEARANCE: The patient is a 71-year-old gentleman who is in no acute cardiorespiratory distress. VITAL SIGNS: Blood pressure 93/57, temperature 98.5. HEENT: Atraumatic, normocephalic. Eyes: No icterus. NECK: Supple. CHEST: Bilaterally symmetrical. HEART: S1, S2 normal. ABDOMEN: Soft, nontender. CENTRAL NERVOUS SYSTEM: No focal deficits. LYMPHATICS: No lymphadenopathy. SKIN: No rashes. PSYCHOLOGIC: Mood and affect are appropriate. MUSCULOSKELETAL: No joint effusions. LABORATORY DATA: WBC 14.4, hemoglobin 12.8, platelet count 278, bands 18%. Creatinine 0.7, total bilirubin 1.5. Direct bilirubin 1.0, AST 58, ALT 44, alkaline phosphatase 267, albumin 1.9. IMPRESSION AND PLAN: 1. Left hilar lung mass with postobstructive pneumonitis with evidence of endobronchial lesion and cavitation and a right 7th rib lytic lesion clinically suggestive of lung cancer with metastatic disease to the rib. I will obtain further evaluation with a bone scan. I will also await pathology results from the bronchoscopy done on 07/27/2016 which revealed endobronchial lesion. I discussed in detail with the patient and his and the family members regarding the clinical impression of lung cancer and the clinical impression of stage IV malignancy with the involvement of the right posterior 7th rib. I will obtain staging workup with MRI of the brain and bone scan. CT head has been negative, but he did have hallucinations at the time of admission. After the availability of the histology, I will discuss further regarding the role of palliative chemotherapy. Dr. Storm Garner from Radiation Oncology will also be consulted because of evidence of postobstructive pneumonitis. 2. Bone metastasis. He has evidence of right 7th rib lytic lesion. I will obtain bone scan. 3. Elevated liver function tests. Appreciate GI consultation. Bilirubin has improved from 2.3 to 1.5. Etiology is thought to be multifactorial. Continue to monitor. AMANDA COULTER MD DR: JOSE RAUL/mayra JOB#: [id number] / [id number] GEOVANY Fregoso MD, TERRY MD MTDD
[2016-07-28 03:00] VITALS: BP 123/55
[2016-07-28] MEDS: AA 3%/ELECTROLYTE-TPN SOLN/GLY 1,000 ML IV SCH ×2 (04:22→20:22)
--- NOTE | 2016-07-28 05:02 | CONS ---
DATE OF CONSULTATION: 07/27/2016 REFERRING PHYSICIAN: Dr. Geovany Navarro. 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 He has just undergone bronchoscopy and biopsy earlier today. He presented with obstructive pneumonitis from proximal airway compromise. We were asked to see him regarding the role of radiation treatment in his care. HISTORY OF PRESENT ILLNESS: The patient is a 71-year-old gentleman, who in December 2015 fell and injured his right chest wall resulting in significant right lateral chest wall pain. X-rays at that time were unremarkable for obvious fracture. His pain never improved despite treatment with intercostal pain blocks and anti-inflammatory treatment. Earlier this month, he has had new onset of confusion, fatigue, increased sleeping and falls associated with decreased appetite and 20-pound weight loss. During this time, he has had increasing cough productive of discolored brown sputum. He has had one episode of vomiting with no headaches or nausea. Following admission, he has undergone CT scan of the chest, abdomen, and pelvis on 07/26/2016. This revealed a mass in the left hilum encasing the left main pulmonary artery and the left upper lobe bronchus. There was extensive infiltrate in the left upper lobe with cavitation, consistent with post-obstructive pneumonitis. There was obstructive process involving the right posterior 7th rib, consistent with metastatic disease. Abdomen and pelvis revealed somewhat distended gallbladder, with no stones. Normal-appearing liver with a tiny indeterminate low-density lesion in the dome. No other intra-abdominal findings. MRI scan of the brain done earlier today revealed a tiny left cerebellar stroke with no enhancing intracranial metastatic lesions. Bronchoscopy done earlier today by Dr. Navarro revealed lesions on both vocal cords suspicious for malignancy; small lesion in the prince suspicious for malignancy; right lung clear; totally occluded left upper lobe lingular airway with significant narrowing of the left lower lobe opening by tumor; mucosa was suspicious for tumor invasion in the left mainstem distally. Biopsies were performed, results are in process. He is scheduled to undergo bone scan later this afternoon. PAST MEDICAL HISTORY: Remarkable for chronic migraine; depression; 4 back surgeries in the past in the thoracic, lumbar, cervical regions; inguinal herniorrhaphy; vasectomy; septoplasty. 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 ALLERGIES: No known allergies. MEDICATIONS: See hospital list. SOCIAL HISTORY: for 47 years. Three children, one in [place], one in [facility], one in [place]. Distant history of smoking less than a pack a day for 20 years. Quit many years ago. 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 Was heavily involved in grandchildren's basketball and baseball activities. PHYSICAL EXAMINATION: GENERAL: Revealed a pleasant gentleman in no acute distress, appearing older than his previous visit when seen in the past for treated skin cancer here in March 2016. HEENT: Revealed well-healed temporal region from prior resected and irradiated skin cancer. LYMPH NODES: He had no cervical or supraclavicular adenopathy. LUNGS: Coarse rhonchi in the left field, clear on the right. HEART: Regular. ABDOMEN: Mild distention. Minimal tenderness. EXTREMITIES: Reveal no clubbing, cyanosis, or edema. NEUROLOGIC: He had no focal neurologic deficits noted. LABORATORY STUDIES: Hemoglobin 12.8, white count 14,400, platelet count 278,000. Chemistry panel revealed a mildly elevated bilirubin now at 1.5, normal electrolytes, creatinine 0.7, mildly elevated alk phos 267, and AST 55. ASSESSMENT AND PLAN: In summary, my impression is that of stage IV (T4N0M1) bronchogenic carcinoma of the left proximal airway extending into the prince. Await bronchoscopy results with biopsy obtained earlier today. 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 At this time, I favor palliative radiation therapy to his left primary lesion and right rib involvement concurrently, following obtaining his bronchoscopy biopsy path result. In addition, he should be seen by ENT to assess his true vocal cords with possible biopsy to confirm malignancy there as well. This is of secondary concern compared to his post-obstructive pneumonitis, which is currently is major issue. Following his biopsy he should be seen by Dr Griffith or Dr Moore to address the role of systemic treatment in his care. I discussed this in detail with the patient, his and children. Thank you for allowing us to participate in his evaluation. ALYSE NESS MD DR: CUATE/mayra JOB#: [id number] / [id number] FIDENCIO Diaz MD, VAISHALI MAYES
[2016-07-28] MEDS: PIPERACILLIN/TAZOBACTAM 3.375 GM in IV NORMAL SALINE 50ML 50 ML IV SCH ×3 (05:10→17:02)
[2016-07-28 07:00] VITALS: BP 118/80
[2016-07-28] MEDS: IPRATRPIUM/ALBUTEROL 0.5/2.5MG 3 ML NEBU. NEB SCH ×4 (07:31→19:42)
--- NOTE | 2016-07-28 07:45 | RAD ---
Radionuclide bone scan, 07/27/2016: History: Bone metastases, lung cancer Whole body imaging was performed following an IV injection of 20 mCi of technetium 99m MDP. No previous bone scan is available for comparison purposes. The following findings are delineated: 1. There is increased activity within a segment of the posterior aspect of the right seventh rib. This corresponds in location to a destructive lesion seen on the recent CT study. The appearance is compatible with metastatic disease. There are two tiny nonspecific foci of increased activity in the posterolateral aspect of the left sixth rib as well. 2. There is increased activity along the anterior aspects 2 adjacent lower ribs on the right. Correlation with the recent CT study of 07/26/2016 shows small fractures at these levels. Abnormal activity in the same level in adjacent ribs such as this is often due to trauma rather malignancy. The patient does give a history of a fall. 3. No abnormal spinal or pelvic uptake is seen. 4. Symmetrical increased activity at both shoulders is likely arthritic in nature. 5. Increased activity at the left first CMC level is also probably arthritic. 6. No other significant osseous abnormality is detected. IMPRESSION: Abnormal activity in several right ribs as described above, probably representing a combination of bony metastases and fractures.
[2016-07-28] MEDS: AZITHROMYCIN 250 MG TABLET PO SCH (08:23)
[2016-07-28] MEDS: POLYETHYLENE GLYCOL 3350 17 GM PACKET. PO SCH (08:23)
[2016-07-28] MEDS: METHADONE 10 MG TABLET. PO SCH ×3 (08:23→20:23)
[2016-07-28] MEDS: GUAIFENESIN ER 600 MG TABLET.ER PO SCH ×2 (08:23→21:47)
[2016-07-28] MEDS: PROPRANOLOL 10 MG TABLET. PO SCH ×2 (08:23→21:48)
[2016-07-28] MEDS: SERTRALINE 50 MG TABLET. PO SCH ×2 (08:24→20:23)
[2016-07-28] MEDS: DOCUSATE SODIUM 100 MG CAPSULE PO SCH ×2 (08:24→21:47)
[2016-07-28] MEDS: OXYCODONE IR 5 MG TABLET. PO PRN (08:31)
--- NOTE | 2016-07-28 09:46 | PDOC ---
PULMONARY PROGRESS NOTES Subjective no change Vitals Vital Signs Date Time Temp Pulse Resp B/P Pulse Ox O2 Delivery O2 Flow Rate FiO2 07/28/16 08:31 19 93 Room Air 5.0 07/28/16 08:23 83 118/80 07/28/16 07:00 98.5 98.5 General: Alert, No acute distress Lungs: Other (left lung) Cardiovascular: S1 Abdomen: Soft Neuro Exam: Alert Extremities: No Edema Skin: Warm Labs Laboratory Tests Test 07/27/16 04:57 Prothrombin Time 15.8SEC (11.7-14.0) Prothromb Time International Ratio 1.3 (0.8-1.1) Total Bilirubin 1.5mg/dL (0.2-1.0) Direct Bilirubin 1.0mg/dL (0.0-0.2) Aspartate Amino Transf (AST/SGOT) 58U/L (15-37) Alanine Aminotransferase (ALT/SGPT) 44U/L (16-63) Alkaline Phosphatase 267U/L (46-116) Total Protein 5.9g/dL (6.4-8.2) Albumin 1.9g/dL (3.4-5.0) Medications Active Scripts Medications Dose Route/Sig Days Date Category Zoloft (Sertraline Hcl) 50 Mg Tablet 50 Mg PO BID 08/07/15 Reported Methadone Hcl 10 Mg Tablet 10 Mg PO BID 08/07/15 Reported Xanax (Alprazolam) 0.5 Mg Tablet 0.5 Mg PO DAILY PRN 08/16/13 Reported Stool Softener (Docusate Sodium) 100 Mg Capsule 100 Mg PO BID 08/16/13 Reported Propranolol Hcl 10 Mg Tablet 10 Mg PO BID 08/16/13 Reported Oxycodone Hcl 20 Mg Tablet 40 Mg PO [id number] 08/16/[address] CHEST 1.Abnormal soft tissue masslike density in the left hilum encasing the left main pulmonary artery and a portion of the left upper lobe bronchus. The area of abnormal soft tissue density measures approximate 6.3 cm transverse x 4.3 cm AP. There is extensive infiltrate in the left upper lobe as well as cavitation. Findings are concerning for a left hilar neoplasm with cavitation and probable postobstructive pneumonitis. 2. Destructive process involving the right posterior seventh rib, consistent with a metastatic lesion. CT abdomen and pelvis: There is a tiny low density in the dome of the liver, too small to characterize. No other liver lesions are detected. Gallbladder is unremarkable. The pancreas and spleen are unremarkable. No adrenal mass is detected. Kidneys are unremarkable. The aorta is nonaneurysmal. No central retroperitoneal or mesenteric lymphadenopathy is seen. No definite pelvic lymphadenopathy is detected. Postop changes in the lower thoracic spine are noted with small fluid collection noted at the surgical bed consistent with small postoperative seroma Impression: Unremarkable CT of the abdomen and pelvis. Impression . 1. Extensive cavitary consolidation in the left upper lobe in a patient with wt loss.The patient has lost about 20 pounds in 6-7 months[address] chest c/w left hilar mass/post obstructive pneumonia / endobronchial lesion NADER and lytic lesion right 7th rib. Findings c/w malignancy 2. Unexplained weight loss due to suspected lung malignancy. 3. Underlying chronic obstructive pulmonary disease, smoked for 33 years before quitting 25 years ago. 4. Right-sided rib pain since fall in December of last year. CT chest with lytic lesions right 7 th rib Plan . 1. Continue with present antibiotics. changed to BS coverage 2. s/p Bronch with totally occluded NADER/LINGULA/ and Narrowed LLL opening, lesion at prince/both VC suspicious for malignancy 3. Bronchodilators. 4. Oxygen p.r.n. 5. Discussed with pathologist. Preliminary biopsy c/w poorly Differenciated NSCLC 6. f/u medical/radiation oncology recommendations. CHATO GARCIA MD Jul 28, 2016 09:46
--- NOTE | 2016-07-28 10:59 | PDOC ---
Provider Note Provider Note Not sleeping well due to machine beeping overnight. Path poorly diff NSCLC Bone scan positive at post rib on right in region of bone destruction, two small spots of uptake in ant right ribs corresponding to small fractures seen on CT. He did have aknown fall onto this side of chest wall in the past) Impression: Metastatic NSCLC , plan on treatment to primary lesion and right rib involvement Will simulate 07/29/2015. Discussed with patient and daughter. ALYSE NESS MD Jul 28, 2016 10:59
[2016-07-28 11:00] VITALS: BP 105/57
--- NOTE | 2016-07-28 11:44 | PDOC ---
Objective: Objective: Reviewed other notes. RN has requested pain management consult. Pt sleeping - did not awaken. Daughter, [place], w/o GI concerns. Vital Signs: Vital Signs Date Time Temp Pulse Resp B/P Pulse Ox O2 Delivery O2 Flow Rate FiO2 07/28/16 11:33 Room Air 07/28/16 11:00 98.4 80 20 105/57 93 98.4 07/28/16 09:31 5.0 Imaging: Brain MRI IMPRESSION: - Small focus of acute infarction in the left cerebellar hemisphere. No associated hemorrhage or mass effect. - No evidence for intracranial metastatic disease. Bone Scan IMPRESSION: Abnormal activity in several right ribs as described above, probably representing a combination of bony metastases and fractures. PE: GEN: NAD LUNGS: CTAB HEART: RRR ABD: NABS, S/ND/NT NEURO/PSYCH: A & O 3 A/P: Metastatic NSCLC Elevated LFTs -bili better yesterday -distended gallbladder on US, tiny low density in the dome of the liver on CT ( otherwise normal liver, unremarkable gallbladder) Chronic constipation - controlled -on Miralax -- Ongoing discussion re: cancer treatment. Continue same per GI. KAYLEE AKHTAR Jul 28, 2016 11:44
[2016-07-28] MEDS: VANCOMYCIN 1.25 GM in IV NORMAL SALINE 250ML 250 ML IV SCH ×2 (12:47→20:25)
--- NOTE | 2016-07-28 13:15 | PDOC ---
PROGRESS NOTES Subjective Subjective Patient feeling better but very weak. Poor PO intake noted and ProcalAmine ongoing. MRI brain shows new small CVA but no mets. Case d/w Dr. 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 Son and daughter in room during todays visit. Objective Objective Vital Signs Date Time Temp Pulse Resp B/P Pulse Ox O2 Delivery O2 Flow Rate FiO2 07/28/16 11:33 Room Air 07/28/16 11:00 98.4 80 20 105/57 93 98.4 07/28/16 09:31 5.0 Intake and Output 07/28/16 07:00 Intake Total 836 ml Output Total 1000 ml Balance -164 ml Intake Oral 600 ml IV Total 236 ml Output Urine Total 1000 ml Physical Exam Abdomen: Normal bowel sounds Heart: Regular rate Extremities: No edema General: Other (Fatigued and sleepy with pain treatment) Lungs: Other (course) Assessment Assessment Problems Medical Problems: (1) Confusion Status: Acute (2) Hallucinations Status: Acute (3) Pneumonia Status: Acute (4) Uremia Status: Acute 1. Left upper lobe pneumonia post obstructive 2. 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 New Cerebellar CVA 4. Severe protein malnutrition 5. Hypoxemia secondary to #1 above: Improving with treatment. 6. Gait stability issues 7. Encephalopathy-improved 8. Chronic back pain on chronic narcotics Plan Plan of Care Continue PPN continue PT efforts Proceed with Rad & Heme onc care Continue antibx iv Consult pain clinic at family request Comment Review of Relevant I have reviewed the following items rubi (where applicable) has been applied. Labs Laboratory Tests Test 07/27/16 04:57 Prothrombin Time 15.8SEC (11.7-14.0) Prothromb Time International Ratio 1.3 (0.8-1.1) Total Bilirubin 1.5mg/dL (0.2-1.0) Direct Bilirubin 1.0mg/dL (0.0-0.2) Aspartate Amino Transf (AST/SGOT) 58U/L (15-37) Alanine Aminotransferase (ALT/SGPT) 44U/L (16-63) Alkaline Phosphatase 267U/L (46-116) Total Protein 5.9g/dL (6.4-8.2) Albumin 1.9g/dL (3.4-5.0) Microbiology 07/23/16 Blood Culture - Preliminary, Resulted NO GROWTH AFTER 4 DAYS 07/27/16 Gram Stain - Final, Complete 07/23/16 Urine Culture - Final, Complete 07/23/16 Urine Culture Result 1 (ARANZA) - Final, Complete Medications Current Medications Ondansetron HCl (Zofran) 4 mg PRN Q8HRS PRN IV NAUSEA/VOMITING; Start 07/23/16 at 17:00; Stop 07/24/16 at 16:59; Status DC Morphine Sulfate 2 mg 2 mg PRN Q2HR PRN IV PAIN; Start 07/23/16 at 17:00; Stop 07/24/16 at 16:59; Status DC Azithromycin 250 ml @ 250 mls/hr 1X ONCE IV Last administered on 07/23/16 18 :37; Start 07/23/16 at 17:00; Stop 07/23/16 at 17:59; Status DC Ceftriaxone Sodium 50 ml @ 100 mls/hr 1X ONCE IV Last administered on 18:09; Start 07/23/16 at 17:00; Stop 07/23/16 at 17:29; Status DC Sodium Chloride (Iv Sodium Chloride 0.9% 500ml Bag) 500 ml @ 500 mls/hr 1X ONCE IV Last administered on 07/23/16 18:08; Start 07/23/16 at 17:15; Stop at 18:14; Status DC Docusate Sodium (Colace) 100 mg BID PO Last administered on 07/28/16 08:24; Start 07/24/16 at 09:00 Propranolol HCl (Inderal) 10 mg BID PO ; Start 07/24/16 at 09:00; Stop 07/24/16 at 09:00; Status DC Sertraline HCl (Zoloft) 50 mg BID PO ; Start 07/24/16 at 09:00; Stop 07/24/16 at 09:00; Status DC Methadone HCl (Dolophine) 10 mg BID PO ; Start 07/24/16 at 09:00; Stop 07/24/16 at 09:00; Status DC Oxycodone HCl (Roxicodone) 40 mg PRN BID PRN PO SEVERE PAIN; Start 07/23/16 at 22:45; Stop 07/24/16 at 10:37; Status DC Methadone HCl (Dolophine) 10 mg BID PO Last administered on 07/28/16 08:23; Start 07/23/16 at 23:00; Stop 07/28/16 at 13:05; Status DC Propranolol HCl (Inderal) 10 mg BID PO Last administered on 07/28/16 08:23; Start 07/23/16 at 23:00 Sertraline HCl (Zoloft) 50 mg BID PO Last administered on 07/28/16 08:24; Start 07/23/16 at 23:00 Alprazolam (Xanax) 0.5 mg PRN TID PRN PO ANXIETY / AGITATION Last administered on 07/27/16 20:11; Start 07/24/16 at 09:30 Oxycodone HCl (Roxicodone) 20 mg PRN Q6HRS PRN PO PAIN Last administered on 08:31; Start 07/24/16 at 09:30 Albuterol/ Ipratropium (Duoneb) 3 ml RTQID NEB Last administered on 07/28/16 11:32; Start 07/24/16 at 12:00 Guaifenesin (Mucinex) 600 mg BID PO Last administered on 07/28/16 08:23; Start 07/24/16 at 21:00 Guaifenesin/ Codeine Phosphate (Robitussin Ac) 5 ml PRN Q6HRS PRN PO COUGH Last administered on 07/26/16 08:12; Start 07/24/16 at 09:30 Guaifenesin/ Codeine Phosphate 10 ml 10 ml PRN Q6HRS PRN PO COUGH Last administered on 07/27/16 20:11; Start 07/24/16 at 09:30 Ceftriaxone Sodium/Sodium Chloride (Rocephin/Iv Sodium Chloride 0.9% 50ml) 50 ml @ 100 mls/hr Q24H IV Last administered on 07/27/16 10:00; Start 07/24/16 at 10:00; Stop 07/27/16 at 20:54; Status DC Azithromycin (Zithromax) 250 mg DAILY PO Last administered on 07/28/16 08:23; Start 07/24/16 at 09:30; Stop 07/28/16 at 09:29; Status DC Potassium Chloride (Klor-Con) 40 meq 1X ONCE PO Last administered on 10:28; Start 07/24/16 at 09:45; Stop 07/24/16 at 09:53; Status DC Potassium Chloride (Klor-Con) 40 meq BIDWMEALS PO Last administered on 17:50; Start 07/25/16 at 13:45; Stop 07/25/16 at 17:01; Status DC Albuterol/ Ipratropium (Duoneb) 3 ml 1X ONCE NEB Last administered on 03:57; Start 07/26/16 at 04:15; Stop 07/26/16 at 04:16; Status DC Polyethylene Glycol (miraLAX PACKET) 17 gm DAILY PO Last administered on 08:23; Start 07/26/16 at 10:00 Bisacodyl (Dulcolax Supp) 10 mg PRN DAILY PRN [place] CONSTIPATION Last administered on 07/26/16 12:39; Start 07/26/16 at 09:30 Diclofenac Sodium (Voltaren) 1 ruddy PRN Q4HRS PRN TP PAIN Last administered on 11:13; Start 07/26/16 at 10:30; Stop 07/26/16 at 15:20; Status DC Ketorolac Tromethamine (Toradol) 30 mg PRN Q6HRS PRN IV PAIN; Start 07/26/16 at 11:15; Stop 07/26/16 at 15:20; Status DC Iohexol (Omnipaque 240 Mg/ml) 30 ml 1X ONCE IV ; Start 07/26/16 at 11:30; Stop 07/26/16 at 11:31; Status DC Iohexol (Omnipaque 300 Mg/ml) 75 ml 1X ONCE IV Last administered on 07/26/16 12:13; Start 07/26/16 at 11:30; Stop 07/26/16 at 11:31; Status DC Info (Do NOT chart on this entry -- for MONITORING) 1 each PRN DAILY PRN MC SEE COMMENTS; Start 07/26/16 at 11:15; Stop 07/28/16 at 11:14; Status DC Fentanyl Citrate (Fentanyl 2ml Vial) 50 mcg PRN Q3HRS PRN IV PAIN; Start at 09:00 Fentanyl Citrate 100 mcg 100 mcg PRN Q3HRS PRN IV PAIN Last administered on 04:22; Start 07/27/16 at 09:00 Propofol 40 ml @ As Directed STK-MED ONCE IV ; Start 07/27/16 at 10:20; Stop at 10:21; Status DC Amino Acids/ Glycerin/ Electrolytes (Procalamine) 1,000 ml @ 80 mls/hr [id number] IV Last administered on 07/28/16 04:22; Start 07/27/16 at 14:00 Gadobutrol 8 mmol 8 mmol 1X ONCE IV Last administered on 07/27/16 15:59; Start 07/27/16 at 15:45; Stop 07/27/16 at 15:46; Status DC Piperacillin Sod/ Tazobactam Sod/ Sodium Chloride (Zosyn/Iv Sodium Chloride 0.9 % 50ml) 50 ml @ 100 mls/hr Q6HRS IV Last administered on 07/28/16 05:10; Start 07/28/16 at 00:00 Vancomycin HCl 1 each 1 each PRN DAILY PRN MC SEE COMMENTS Last administered on 07/28/16 00:36; Start 07/27/16 at 21:00 Vancomycin HCl 2 gm/Sodium Chloride 500 ml @ 250 mls/hr 1X ONCE IV Last administered on 07/27/16 23:55; Start 07/27/16 at 21:30; Stop 07/27/16 at 23:29 ; Status DC Vancomycin HCl/ Sodium Chloride (Iv Sodium Chloride 0.9% 250ml) 250 ml @ 167 mls/hr Q12H IV Last administered on 07/28/16 12:47; Start 07/28/16 at 11:00 Vancomycin HCl 1 each 1X ONCE MC ; Start 07/29/16 at 10:30; Stop 07/29/16 at 10 :31 Methadone HCl (Dolophine) 10 mg Q8HRS PO ; Start 07/28/16 at 14:00; Status UNV Active Scripts Active Reported Zoloft (Sertraline Hcl) 50 Mg Tablet 50 Mg PO BID Methadone Hcl 10 Mg Tablet 10 Mg PO BID Xanax (Alprazolam) 0.5 Mg Tablet 0.5 Mg PO DAILY PRN Stool Softener (Docusate Sodium) 100 Mg Capsule 100 Mg PO BID Propranolol Hcl 10 Mg Tablet 10 Mg PO BID Oxycodone Hcl 20 Mg Tablet 40 Mg PO [id number] Vitals/I & O Vital Sign - Last 24 Hours 07/27/16 07/27/16 07/27/16 07/27/16 14:24 16:09 17:31 18:01 Resp 18 17 Pulse Ox 90 90 O2 Delivery Room Air Room Air Room Air O2 Flow Rate 5.0 5.0 5.0 07/27/16 07/27/16 07/27/16 07/27/16 19:00 19:08 20:00 20:12 Temp 99.2 99.2 Pulse 110 90 Resp 20 B/P 106/69 Pulse Ox 93 91 O2 Delivery Room Air Room Air 07/27/16 07/27/16 07/28/16 07/28/16 20:12 23:00 00:09 00:39 Temp 98.6 98.6 Pulse 82 Resp 20 20 19 20 B/P 120/66 Pulse Ox 91 92 92 O2 Delivery Room Air Room Air O2 Flow Rate 5.0 07/28/16 07/28/16 07/28/16 07/28/16 03:00 04:22 04:52 07:00 Temp 98.3 98.5 98.3 98.5 Pulse 86 83 Resp 18 20 B/P 123/55 118/80 Pulse Ox 94 92 92 93 O2 Delivery Room Air Room Air Room Air 07/28/16 07/28/16 07/28/16 07/28/16 07:31 08:00 08:23 08:31 Pulse 83 Resp 19 B/P 118/80 Pulse Ox 93 93 O2 Delivery Room Air Room Air Room Air O2 Flow Rate 5.0 5.0 07/28/16 07/28/16 07/28/16 09:31 11:00 11:33 Temp 98.4 98.4 Pulse 80 Resp 16 20 B/P 105/57 Pulse Ox 93 93 O2 Delivery Room Air Room Air Room Air O2 Flow Rate 5.0 Intake and Output 07/27/16 07/27/16 07/28/16 15:00 23:00 07:00 Intake Total 200 ml 636 ml Output Total 500 ml 500 ml Balance 200 ml 136 ml -500 ml VAISHALI FONTAINE MD Jul 28, 2016 13:15
--- NOTE | 2016-07-28 14:59 | PDOC ---
SUBJECTIVE Subjective right chest pain OBJECTIVE Objective Pt. with chronic pain and post lumbar laminectomy syndrome, with right chest wall pain, known to me Vital Signs Vital Signs Date Time Temp Pulse Resp B/P Pulse Ox O2 Delivery O2 Flow Rate FiO2 07/28/16 13:37 16 93 Room Air 5.0 07/28/16 13:07 16 93 Room Air 5.0 07/28/16 11:33 Room Air 07/28/16 11:00 98.4 80 20 105/57 93 Room Air 98.4 07/28/16 09:31 16 93 Room Air 5.0 07/28/16 08:31 19 93 Room Air 5.0 07/28/16 08:23 83 118/80 07/28/16 08:00 Room Air 5.0 07/28/16 07:31 93 Room Air 07/28/16 07:00 98.5 83 20 118/80 93 Room Air 98.5 07/28/16 04:22 92 Room Air 07/28/16 03:00 98.3 86 18 123/55 94 98.3 07/28/16 00:09 19 92 Room Air 07/27/16 23:00 98.6 82 20 120/66 92 98.6 07/27/16 20:12 20 91 Room Air 5.0 07/27/16 20:12 90 07/27/16 20:00 Room Air 07/27/16 19:08 91 Room Air 07/27/16 19:00 99.2 110 20 106/69 93 99.2 07/27/16 17:31 17 90 Room Air 5.0 07/27/16 16:09 Room Air I & O Intake and Output 07/28/16 07:00 Intake Total 836 ml Output Total 1000 ml Balance -164 ml Intake Oral 600 ml IV Total 236 ml Output Urine Total 1000 ml PHYSICAL EXAM Physical Exam awake but drowsy, appropriate tender palp right lat thorax ASSESSMENT/PLAN Assessment/Plan Pt. on routine home Methadone and oxycodone. Agree with fentanyl IV for PRN breakthrough pain Oncology, and Radiation as planned ENT eval pending Problems: FIDENCIO QUINTANA MD Jul 28, 2016 14:59
--- NOTE | 2016-07-28 17:19 | PATHOLOGY ---
CYTOPATHOLOGY REPORT CLINICAL HISTORY: Lung mass. See also [id number]. SPECIMEN(S) RECEIVED: A.Bronchoalveolar lavage, NADER B.Bronchial wash, Left main stem FINAL DIAGNOSIS: A. Left upper lobe, bronchoalveolar lavage, ThinPrep: - No malignant cells identified. -Rare focally reactive bronchial epithelial cells are identified within a background of scattered inflammatory cells and red blood cells. B. Left mainstem bronchial washing, ThinPrep: Atypical cells identified. -Atypical squamous epithelial cells and few bronchial epithelial cells and pulmonary macrophages identified within a background of obscuring acute inflammation. (JPM:csd; d/t: 07/28/2016) PATHOLOGIST: Iker Booth M.D. REPORT ELECTRONICALLY SIGNED BY: Iker Booth M.D. DATE/TIME: 07/28/2016 17:18 GROSS PATHOLOGY: A.Bronchoalveolar lavage, NADER: The specimen is submitted unfixed, labeled "Derrek Martino". Received by the Cytology Department is three mL of cloudy pink fluid. One ThinPrep slide was prepared. B. Bronchial wash, Left main stem: The specimen is submitted unfixed, labeled "Derrek Martino". Received by the Cytology Department is four mL of cloudy pink fluid. One ThinPrep slide was prepared. (clt 07.27.2016) PUNCH PRESS SETTER(S): STEPHANY Pack([facility]) INITIAL CPT CODE(S): A; 57667 B; 81101 Professional services performed by [facility] [place] [address] Technical services performed by [facility] at [address] [place] [address], [facility] [address] [address]. PATIENT: DERREK MARTINO /AGE: 7 1945 (Age: 71) SEX: M PATIENT #: [id number] ALT CASE #: SPECIMEN COLLECTION DATE: 07/27/2016 SPECIMEN RECEIVED DATE: 07/27/[address] [facility] [address] [place] [address], [address] [place] [address] PHONE: [phone] DIRECTOR: Venkat Aldana M.D. * * * END OF REPORT * * *
--- NOTE | 2016-07-28 17:46 | PDOC2 ---
NEUROLOGY CONSULT Date of Admission Date of Admission DATE: 07/28/16 TIME: 17:24 Reason for Consult Reason for Consult: IMPRESSION: Acute small left cerebellum infarct. Metabolic encephalopathy. Pneumonia. Lung cancer, non small cell. Metastatic fractures in ribs. Gait instability. Thoracic myelopathy. Leukocytosis. Hyperbilirubinemia. Hypoalbuminemia. Visual and auditory hallucinations. Skin cancer. RECOMMENDATIONS/PLAN: ASA 325 mg daily. Carotid A US + Doppler. Echo. Fasting lipid panel in am. Lab: see orders. Treat medical diseases. Oncology treatment. Discussed with his , daughter and [id number] at bedside. HISTORY OF THE PRESENT ILLNESS: 71-y-old male patient with above medical and oncological diseases was revealed a small stroke, so Neurology was called for consultation. His brain MRI was reviewed and believed as stroke at this tiem rather than metastatic brain disease; howeve, he is at risk of cerebral metastatic disease. PAST MEDICAL HISTORY: Please see above. PAST SURGERY HISTORY: Tonsillectomy Cholecystectomy Hernia Repair Skin cancer removal ALLERGY: NKDA MEDICATIONS: Refer to [facility] FAMILY HISTORY: H Non contributory. SOCIAL HISTORY: Denies current smoking, drinking, and illicit drug use. He smoked < 1pack of cigarettes a day for about 20 years in the past. REVIEW OF SYSTEMS: Constitutional: No malnutrition, weight loss, cachexia. Head: No recent traumatic brain or head injury. Skin: No edema, or rash. Ear: No infection, tinnitus. Eyes: No vision loss or color blindness. Nose: No bleeding or purulent discharges. Hearing: Hearing decrease. Neck: No recent injury. Cardiac: No IL, arrhythmia. Pulmonary: Pneumonia, lung cancer. GI: No GI ulcer, GI bleeding. Urinary/genital: No dysuria, hematuria, incontinence, urinary retention. Endocrinologic: No cousin face, craniofacial dysmorphism, polydactyly, goiter. Skeletomuscular: No muscular atrophy, deformity. Neurological: see HP. Psychiatric: Denies drug use/abuse. Otherwise, not [id number] review of systems. PHYSICAL EXAMINATION: General appearance is in subacute distress. HEENT: Normocephalic and nontraumatic. Eyes, nose, ears, and throat are unremarkable. Neck is supple. No lymphadenopathy. No crepitus. Cardiovascular: S1, S2, regular rate and rhythm. Pulmonary: Mildly decreased to auscultation bilaterally. Abdomen: Bowel sounds are positive. Extremities: No rash, lesions, or edema. No restriction of range of motion NEUROLOGICAL EXAMINATION: Sleepiness but arousable. Not fully oriented to time, but knows place and person. PERRL. EOMI. Horizontal nystagmus noted. CN: no focal findings. Muscle tone: within normal. Muscle strength: 5 UE, 4+ LE DTR: 2 Plantar reflex: Flexor response bilaterally Gait: not examined in bed. Sensory exam: no acute abnormal findings. Cerebellar signs elicited. F-T-N test not accurate bilaterally. Current Medications Current Medications Current Medications Ondansetron HCl (Zofran) 4 mg PRN Q8HRS PRN IV NAUSEA/VOMITING; Start 07/23/16 at 17:00; Stop 07/24/16 at 16:59; Status DC Morphine Sulfate 2 mg 2 mg PRN Q2HR PRN IV PAIN; Start 07/23/16 at 17:00; Stop 07/24/16 at 16:59; Status DC Azithromycin 250 ml @ 250 mls/hr 1X ONCE IV Last administered on 07/23/16 18 :37; Start 07/23/16 at 17:00; Stop 07/23/16 at 17:59; Status DC Ceftriaxone Sodium 50 ml @ 100 mls/hr 1X ONCE IV Last administered on 18:09; Start 07/23/16 at 17:00; Stop 07/23/16 at 17:29; Status DC Sodium Chloride (Iv Sodium Chloride 0.9% 500ml Bag) 500 ml @ 500 mls/hr 1X ONCE IV Last administered on 07/23/16 18:08; Start 07/23/16 at 17:15; Stop at 18:14; Status DC Docusate Sodium (Colace) 100 mg BID PO Last administered on 07/28/16 08:24; Start 07/24/16 at 09:00 Propranolol HCl (Inderal) 10 mg BID PO ; Start 07/24/16 at 09:00; Stop 07/24/16 at 09:00; Status DC Sertraline HCl (Zoloft) 50 mg BID PO ; Start 07/24/16 at 09:00; Stop 07/24/16 at 09:00; Status DC Methadone HCl (Dolophine) 10 mg BID PO ; Start 07/24/16 at 09:00; Stop 07/24/16 at 09:00; Status DC Oxycodone HCl (Roxicodone) 40 mg PRN BID PRN PO SEVERE PAIN; Start 07/23/16 at 22:45; Stop 07/24/16 at 10:37; Status DC Methadone HCl (Dolophine) 10 mg BID PO Last administered on 07/28/16 08:23; Start 07/23/16 at 23:00; Stop 07/28/16 at 13:05; Status DC Propranolol HCl (Inderal) 10 mg BID PO Last administered on 07/28/16 08:23; Start 07/23/16 at 23:00 Sertraline HCl (Zoloft) 50 mg BID PO Last administered on 07/28/16 08:24; Start 07/23/16 at 23:00 Alprazolam (Xanax) 0.5 mg PRN TID PRN PO ANXIETY / AGITATION Last administered on 07/27/16 20:11; Start 07/24/16 at 09:30 Oxycodone HCl (Roxicodone) 20 mg PRN Q6HRS PRN PO PAIN Last administered on 08:31; Start 07/24/16 at 09:30 Albuterol/ Ipratropium (Duoneb) 3 ml RTQID NEB Last administered on 07/28/16 15:17; Start 07/24/16 at 12:00 Guaifenesin (Mucinex) 600 mg BID PO Last administered on 07/28/16 08:23; Start 07/24/16 at 21:00 Guaifenesin/ Codeine Phosphate (Robitussin Ac) 5 ml PRN Q6HRS PRN PO COUGH Last administered on 07/26/16 08:12; Start 07/24/16 at 09:30 Guaifenesin/ Codeine Phosphate 10 ml 10 ml PRN Q6HRS PRN PO COUGH Last administered on 07/27/16 20:11; Start 07/24/16 at 09:30 Ceftriaxone Sodium/Sodium Chloride (Rocephin/Iv Sodium Chloride 0.9% 50ml) 50 ml @ 100 mls/hr Q24H IV Last administered on 07/27/16 10:00; Start 07/24/16 at 10:00; Stop 07/27/16 at 20:54; Status DC Azithromycin (Zithromax) 250 mg DAILY PO Last administered on 07/28/16 08:23; Start 07/24/16 at 09:30; Stop 07/28/16 at 09:29; Status DC Potassium Chloride (Klor-Con) 40 meq 1X ONCE PO Last administered on 10:28; Start 07/24/16 at 09:45; Stop 07/24/16 at 09:53; Status DC Potassium Chloride (Klor-Con) 40 meq BIDWMEALS PO Last administered on 17:50; Start 07/25/16 at 13:45; Stop 07/25/16 at 17:01; Status DC Albuterol/ Ipratropium (Duoneb) 3 ml 1X ONCE NEB Last administered on 03:57; Start 07/26/16 at 04:15; Stop 07/26/16 at 04:16; Status DC Polyethylene Glycol (miraLAX PACKET) 17 gm DAILY PO Last administered on 08:23; Start 07/26/16 at 10:00 Bisacodyl (Dulcolax Supp) 10 mg PRN DAILY PRN [place] CONSTIPATION Last administered on 07/26/16 12:39; Start 07/26/16 at 09:30 Diclofenac Sodium (Voltaren) 1 ruddy PRN Q4HRS PRN TP PAIN Last administered on 11:13; Start 07/26/16 at 10:30; Stop 07/26/16 at 15:20; Status DC Ketorolac Tromethamine (Toradol) 30 mg PRN Q6HRS PRN IV PAIN; Start 07/26/16 at 11:15; Stop 07/26/16 at 15:20; Status DC Iohexol (Omnipaque 240 Mg/ml) 30 ml 1X ONCE IV ; Start 07/26/16 at 11:30; Stop 07/26/16 at 11:31; Status DC Iohexol (Omnipaque 300 Mg/ml) 75 ml 1X ONCE IV Last administered on 07/26/16 12:13; Start 07/26/16 at 11:30; Stop 07/26/16 at 11:31; Status DC Info (Do NOT chart on this entry -- for MONITORING) 1 each PRN DAILY PRN MC SEE COMMENTS; Start 07/26/16 at 11:15; Stop 07/28/16 at 11:14; Status DC Fentanyl Citrate (Fentanyl 2ml Vial) 50 mcg PRN Q3HRS PRN IV PAIN; Start at 09:00 Fentanyl Citrate 100 mcg 100 mcg PRN Q3HRS PRN IV PAIN Last administered on 13:07; Start 07/27/16 at 09:00 Propofol 40 ml @ As Directed STK-MED ONCE IV ; Start 07/27/16 at 10:20; Stop at 10:21; Status DC Amino Acids/ Glycerin/ Electrolytes (Procalamine) 1,000 ml @ 80 mls/hr [id number] IV Last administered on 07/28/16 04:22; Start 07/27/16 at 14:00 Gadobutrol 8 mmol 8 mmol 1X ONCE IV Last administered on 07/27/16 15:59; Start 07/27/16 at 15:45; Stop 07/27/16 at 15:46; Status DC Piperacillin Sod/ Tazobactam Sod/ Sodium Chloride (Zosyn/Iv Sodium Chloride 0.9 % 50ml) 50 ml @ 100 mls/hr Q6HRS IV Last administered on 07/28/16 17:02; Start 07/28/16 at 00:00 Vancomycin HCl 1 each 1 each PRN DAILY PRN MC SEE COMMENTS Last administered on 07/28/16 14:18; Start 07/27/16 at 21:00 Vancomycin HCl 2 gm/Sodium Chloride 500 ml @ 250 mls/hr 1X ONCE IV Last administered on 07/27/16 23:55; Start 07/27/16 at 21:30; Stop 07/27/16 at 23:29 ; Status DC Vancomycin HCl/ Sodium Chloride (Iv Sodium Chloride 0.9% 250ml) 250 ml @ 167 mls/hr Q12H IV Last administered on 07/28/16 12:47; Start 07/28/16 at 11:00 Vancomycin HCl 1 each 1X ONCE MC ; Start 07/29/16 at 10:30; Stop 07/29/16 at 10 :31 Methadone HCl (Dolophine) 10 mg Q8HRS PO Last administered on 1/25/17at 17:03; Start 07/28/16 at 14:00 Aspirin (Lilo Aspirin) 325 mg [id number] PO ; Start 07/28/16 at 18:00 Active Scripts Active Reported Zoloft (Sertraline Hcl) 50 Mg Tablet 50 Mg PO BID Methadone Hcl 10 Mg Tablet 10 Mg PO BID Xanax (Alprazolam) 0.5 Mg Tablet 0.5 Mg PO DAILY PRN Stool Softener (Docusate Sodium) 100 Mg Capsule 100 Mg PO BID Propranolol Hcl 10 Mg Tablet 10 Mg PO BID Oxycodone Hcl 20 Mg Tablet 40 Mg PO [id number] Allergies Allergies: Coded Allergies: No Known Drug Allergies (Unverified , 07/27/16) Vitals VITALS Vital Signs Date Time Temp Pulse Resp B/P Pulse Ox O2 Delivery O2 Flow Rate FiO2 07/28/16 15:18 Room Air 07/28/16 13:37 16 93 5.0 07/28/16 11:00 98.4 80 105/57 98.4 Labs Labs Laboratory Tests Test 07/27/16 04:57 07/28/16 16:37 Prothrombin Time 15.8SEC (11.7-14.0) Prothromb Time International Ratio 1.3 (0.8-1.1) Total Bilirubin 1.5mg/dL (0.2-1.0) Direct Bilirubin 1.0mg/dL (0.0-0.2) Aspartate Amino Transf (AST/SGOT) 58U/L (15-37) Alanine Aminotransferase (ALT/SGPT) 44U/L (16-63) Alkaline Phosphatase 267U/L (46-116) Total Protein 5.9g/dL (6.4-8.2) Albumin 1.9g/dL (3.4-5.0) Thyroid Stimulating Hormone (TSH) 2.440uIU/mL (0.358-3.74) Laboratory Tests Test 07/28/16 16:37 Thyroid Stimulating Hormone (TSH) 2.440uIU/mL (0.358-3.74) LIDA TILLMAN MD Jul 28, 2016 17:46
[2016-07-28] MEDS: ASPIRIN 325 MG TABLET PO SCH (18:14)
[2016-07-28 19:34] VITALS: BP 115/78
[2016-07-28] MEDS: ALPRAZOLAM 0.5 MG TABLET PO PRN (20:23)
[2016-07-28] MEDS: GUAIFENESIN/CODEINE 100mg/10mg 5 ML LIQUID. PO PRN (20:24)
[2016-07-28 22:51] VITALS: BP 120/68
[2016-07-29] MEDS: PIPERACILLIN/TAZOBACTAM 3.375 GM in IV NORMAL SALINE 50ML 50 ML IV SCH ×4 (00:01→18:00)
[2016-07-29] MEDS: FENTANYL PF 100 MCG/2 ML VIAL. IV PRN ×2 (00:04→03:54)
[2016-07-29 02:18] LABS: VITAMIN D25(OH)TOTAL 28.6 ng/mL (30.0-100.0)
[2016-07-29 02:43] VITALS: BP 126/63
[2016-07-29] MEDS: AA 3%/ELECTROLYTE-TPN SOLN/GLY 1,000 ML IV SCH ×2 (03:30→17:25)
[2016-07-29] MEDS: METHADONE 10 MG TABLET. PO SCH ×3 (06:06→21:39)
[2016-07-29 07:00] VITALS: BP 100/69
[2016-07-29] MEDS: IPRATRPIUM/ALBUTEROL 0.5/2.5MG 3 ML NEBU. NEB SCH ×5 (07:26→19:24)
--- NOTE | 2016-07-29 07:47 | RAD ---
Carotid ultrasound, 07/28/2016: History: Headaches, pneumonia Duplex evaluation of the carotid arteries in neck was performed including grayscale, color-flow and spectral Doppler analysis. There is mild smooth plaquing at the carotid bifurcations. The Doppler data obtained from the bifurcations reveals no significant focal velocity acceleration to suggest a hemodynamically significant carotid stenosis. The peak systolic velocity in the right internal carotid artery is 61 cm/s and on the left is 66 cm/s. Antegrade flow is present in both vertebral arteries in the neck. IMPRESSION: Mild atherosclerotic plaquing at the carotid bifurcations with no duplex evidence of significant carotid stenosis. Note: Stenosis calculations for CT, MRA and conventional angiography are based upon determination of the distal ICA diameter in accordance with the NASCET methodology. Stenosis calculations for Doppler studies are derived from validated velocity criteria which are known to correlate with NASCET methodology of determining stenosis.
[2016-07-29] MEDS: POLYETHYLENE GLYCOL 3350 17 GM PACKET. PO SCH (09:00)
[2016-07-29] MEDS: ASPIRIN 325 MG TABLET PO SCH (09:08)
[2016-07-29] MEDS: GUAIFENESIN ER 600 MG TABLET.ER PO SCH ×2 (09:09→21:39)
[2016-07-29] MEDS: SERTRALINE 50 MG TABLET. PO SCH ×2 (09:09→21:39)
[2016-07-29] MEDS: PROPRANOLOL 10 MG TABLET. PO SCH ×2 (09:09→21:39)
[2016-07-29] MEDS: DOCUSATE SODIUM 100 MG CAPSULE PO SCH ×2 (09:09→21:39)
--- NOTE | 2016-07-29 10:53 | PDOC ---
Provider Note Provider Note DATE OF f/u: 07/29/2016 HISTORY OF PRESENT ILLNESS: The patient is a 71-year-old gentleman who has a history of smoking 1-1/2 pack of cigarettes per day for 33 years that he quit in 1992. He was admitted to [facility] on 07/23/2016 with complaints of persistent cough off 2-3 weeks' duration. He also had productive brownish sputum but no hemoptysis. He has had fever. No nausea, vomiting or diarrhea. He has lost about 20 pounds in about 6 months prior to admission. He had a history of fall in December 2015 and he has been having rib pain since then. He reports having had a chest x-ray at that time that did not show any fracture. He underwent further evaluation with a CT chest, abdomen and pelvis on 07/26/2016. This revealed abnormal soft tissue mass like density in the left hilum encasing the left main pulmonary artery and a portion of the left upper lobe bronchus measuring 6.3 cm x 4.3 cm. There was extensive infiltrate in the left upper lobe as well as cavitation. The findings are concerning for left hilar neoplasm with cavitation and probable postobstructive pneumonitis. a destructive process is noted in the right posterior 7th rib consistent with metastatic lesion. CT scan of the head on 07/23/2016 was done for evaluation of hallucination, loss of balance and there was no intracranial abnormality. He was evaluated by Dr. Geovany Navarro and the patient underwent a bronchoscopy on 07/27/2016. This revealed totally occluded left upper lobe/lingula and significant narrowing of the left lower lobe opening. There was nodules noted on both vocal cords and prince suspicious for malignancy. Biopsies were obtained and the results are still pending. I was asked to see the patient because of clinical suspicion of lung cancer. PAST MEDICAL HISTORY: Spinal stenosis, depression, hypogonadism, migraine headaches, thoracic myelopathy, chronic back pain, narcotic bowel syndrome and skin cancer. PAST SURGICAL HISTORY: Tonsillectomy, cholecystectomy, rhinoplasty and multiple other surgeries. SOCIAL HISTORY: He has smoked 33 years, 1-1/2 pack per day that he quit in 1992. FAMILY HISTORY: Negative for lung cancer. REVIEW OF SYSTEMS: A 12-point review of system was performed. Pertinent positives are mentioned in the history of present illness. Rest of the system review is negative. He has rt sided CP. PHYSICAL EXAMINATION: GENERAL APPEARANCE: The patient is a 71-year-old gentleman who is in no acute cardiorespiratory distress. CHEST: Bilaterally symmetrical. HEART: S1, S2 normal. ABDOMEN: Soft, nontender. CENTRAL NERVOUS SYSTEM: No focal deficits. LYMPHATICS: No lymphadenopathy. SKIN: No rashes. PSYCHOLOGIC: Mood and affect are appropriate. MUSCULOSKELETAL: No joint effusions. IMPRESSION AND PLAN: 1. NSCLC (prelim verbal report) - Left hilar lung mass with postobstructive pneumonitis with evidence of endobronchial lesion and cavitation and a right 7th rib lytic lesion clinically suggestive of lung cancer with metastatic disease to the rib. Bone scan 07/27/16- Abnormal activity in several right ribs as described above, probably representing a combination of bony metastases and fractures. MRI of the brain 07/27/16 - Small focus of acute infarction in the left cerebellar hemisphere. No associated hemorrhage or mass effect. No evidence for intracranial metastatic disease. I will also await final pathology results from the bronchoscopy done on 07/27/2016 which revealed endobronchial lesion. I discussed in detail with the patient and his and the family members regarding the clinical impression of lung cancer and the clinical impression of stage IV malignancy with the involvement of the right posterior 7th rib. I discuss further regarding the role of palliative chemotherapy and targeted therapy. I d/w Dr. Storm Garner from Radiation Oncology and he plans treatment to primary lesion and right rib involvement because of evidence of postobstructive pneumonitis. 2. Bone metastasis. Bone scan 07/27/16- Abnormal activity in several right ribs as described above, probably representing a combination of bony metastases and fractures. Appreciate pain management consult. 3. Elevated liver function tests. Appreciate GI consultation. Bilirubin has improved from 2.3 to 1.5. Etiology is thought to be multifactorial. Continue to monitor. 4. Acute CVA - MRI of the brain 07/27/16 - Small focus of acute infarction in the left cerebellar hemisphere. No associated hemorrhage or mass effect. No evidence for intracranial metastatic disease. Appreciate neurology consult. He would not be eligible for avastin due to acute CVA, AMANDA COULTER MD Jul 29, 2016 10:53
[2016-07-29 11:00] VITALS: BP 105/72
[2016-07-29] MEDS: VANCOMYCIN 1.25 GM in IV NORMAL SALINE 250ML 250 ML IV SCH (11:00)
[2016-07-29 11:01] LABS: CHOLESTEROL/HDL RATIO 4.4
[2016-07-29] MEDS: OXYCODONE IR 5 MG TABLET. PO PRN (11:59)
--- NOTE | 2016-07-29 12:18 | PDOC ---
Subjective: Subjective: No GI complaints. Objective: Objective: Per RN - no GI complaints. Vital Signs: Vital Signs Date Time Temp Pulse Resp B/P Pulse Ox O2 Delivery O2 Flow Rate FiO2 07/29/16 11:59 Room Air 07/29/16 09:09 78 100/69 07/29/16 07:27 92 07/29/16 07:00 98.5 16 98.5 07/28/16 13:37 5.0 Labs: Laboratory Tests Test 07/28/16 16:37 07/29/16 10:20 Vitamin B12 Level 929pg/mL 25-Hydroxy Vitamin D Total 28.6ng/mL Thyroid Stimulating Hormone (TSH) 2.440uIU/mL Triglycerides Level 92mg/dL Cholesterol Level 115mg/dL LDL Cholesterol, Calculated 71mg/dL VLDL Cholesterol, Calculated 18mg/dL HDL Cholesterol 26mg/dL Cholesterol/HDL Ratio 4.4 Vancomycin Level Trough 6.1mcg/mL Vancomycin Last Dose Date 07/28/16 Vancomycin Last Dose Time 2300 PE: GEN: NAD, sitting on edge of bed HEART: RRR ABD: non-tender NEURO/PSYCH: A & O 3 OTHER: family present A/P: Metastatic NSCLC Elevated LFTs - improved -distended gallbladder on US, tiny low density in the dome of the liver on CT ( otherwise normal liver, unremarkable gallbladder) Chronic constipation - controlled -on Miralax -- Lung cancer treatment to begin soon. Continue same per GI. KAYLEE AKHTAR Jul 29, 2016 12:18
[2016-07-29] MEDS: VANCOMYCIN PER PHARMACY MC PRN ×3 (12:19→12:32)
--- NOTE | 2016-07-29 12:48 | PDOC ---
PULMONARY PROGRESS NOTES Subjective no change Vitals Vital Signs Date Time Temp Pulse Resp B/P Pulse Ox O2 Delivery O2 Flow Rate FiO2 07/29/16 11:59 Room Air 07/29/16 11:00 98.4 74 16 105/72 93 98.4 07/28/16 13:37 5.0 General: Alert, No acute distress Lungs: Other (left lung) Cardiovascular: S1 Abdomen: Soft Neuro Exam: Alert Extremities: No Edema Skin: Warm Labs Laboratory Tests Test 07/28/16 16:37 07/29/16 10:20 Vitamin B12 Level 929pg/mL (211-946) 25-Hydroxy Vitamin D Total 28.6ng/mL (30.0-100.0) Thyroid Stimulating Hormone (TSH) 2.440uIU/mL (0.358-3.74) Triglycerides Level 92mg/dL (0-150) Cholesterol Level 115mg/dL (0-200) LDL Cholesterol, Calculated 71mg/dL (0-100) VLDL Cholesterol, Calculated 18mg/dL (0-40) HDL Cholesterol 26mg/dL (40-60) Cholesterol/HDL Ratio 4.4 Vancomycin Level Trough 6.1mcg/mL (10.0-20.0) Vancomycin Last Dose Date 07/28/16 Vancomycin Last Dose Time 2300 Laboratory Tests Test 07/28/16 16:37 07/29/16 10:20 Vitamin B12 Level 929pg/mL (211-946) 25-Hydroxy Vitamin D Total 28.6ng/mL (30.0-100.0) Thyroid Stimulating Hormone (TSH) 2.440uIU/mL (0.358-3.74) Triglycerides Level 92mg/dL (0-150) Cholesterol Level 115mg/dL (0-200) LDL Cholesterol, Calculated 71mg/dL (0-100) VLDL Cholesterol, Calculated 18mg/dL (0-40) HDL Cholesterol 26mg/dL (40-60) Cholesterol/HDL Ratio 4.4 Vancomycin Level Trough 6.1mcg/mL (10.0-20.0) Vancomycin Last Dose Date 07/28/16 Vancomycin Last Dose Time 2300 Medications Active Scripts Medications Dose Route/Sig Days Date Category Zoloft (Sertraline Hcl) 50 Mg Tablet 50 Mg PO BID 08/07/15 Reported Methadone Hcl 10 Mg Tablet 10 Mg PO BID 08/07/15 Reported Xanax (Alprazolam) 0.5 Mg Tablet 0.5 Mg PO DAILY PRN 08/16/13 Reported Stool Softener (Docusate Sodium) 100 Mg Capsule 100 Mg PO BID 08/16/13 Reported Propranolol Hcl 10 Mg Tablet 10 Mg PO BID 08/16/13 Reported Oxycodone Hcl 20 Mg Tablet 40 Mg PO [id number] 08/16/[address] CHEST 1.Abnormal soft tissue masslike density in the left hilum encasing the left main pulmonary artery and a portion of the left upper lobe bronchus. The area of abnormal soft tissue density measures approximate 6.3 cm transverse x 4.3 cm AP. There is extensive infiltrate in the left upper lobe as well as cavitation. Findings are concerning for a left hilar neoplasm with cavitation and probable postobstructive pneumonitis. 2. Destructive process involving the right posterior seventh rib, consistent with a metastatic lesion. CT abdomen and pelvis: There is a tiny low density in the dome of the liver, too small to characterize. No other liver lesions are detected. Gallbladder is unremarkable. The pancreas and spleen are unremarkable. No adrenal mass is detected. Kidneys are unremarkable. The aorta is nonaneurysmal. No central retroperitoneal or mesenteric lymphadenopathy is seen. No definite pelvic lymphadenopathy is detected. Postop changes in the lower thoracic spine are noted with small fluid collection noted at the surgical bed consistent with small postoperative seroma Impression: Unremarkable CT of the abdomen and pelvis. Impression . 1. Extensive cavitary consolidation in the left upper lobe in a patient with wt loss.The patient has lost about 20 pounds in 6-7 months.ct chest c/w left hilar mass/post obstructive pneumonia / endobronchial lesion NADER and lytic lesion right 7th rib. Findings c/w malignancy 2. Unexplained weight loss due to suspected lung malignancy. 3. Underlying chronic obstructive pulmonary disease, smoked for 33 years before quitting 25 years ago. 4. Right-sided rib pain since fall in December of last year. CT chest with lytic lesions right 7 th rib 5. New small CVA Plan . 1. Continue with present antibiotics./BS coverage. cxr in am 2. s/p Bronch with totally occluded NADER/LINGULA/ and Narrowed LLL opening, lesion at prince/both VC suspicious for malignancy 3. Bronchodilators. 4. Oxygen p.r.n. 5. Discussed with pathologist. Preliminary biopsy c/w poorly Differenciated NSCLC 6. f/u medical/radiation oncology recommendations. d/w family. ADDEND: d/w Dr Moore. Need more tissue for EGFR,ALK,ROS-1. PD-L1 testing/ Plan bx of right rib mets - CHATO GARCIA MD Jul 29, 2016 12:48
[2016-07-29 13:04] LABS: ALBUMIN 1.9 g/dL (3.4-5.0); DIRECT BILIRUBIN 0.8 mg/dL (0.0-0.2); TOTAL BILIRUBIN 1.2 mg/dL (0.2-1.0); TOTAL PROTEIN 6.2 g/dL (6.4-8.2)
--- NOTE | 2016-07-29 13:08 | PDOC ---
Provider Note Provider Note ADDENDUM: Plan bx of right rib mets - need tissue for EGFR,ALK,ROS-1. PD-L1 testing AMANDA COULTER MD Jul 29, 2016 13:08
--- NOTE | 2016-07-29 13:21 | PDOC ---
Provider Note Provider Note Feeling better overall. Less pain noted and energy is better. Path NSCLC favoring adenocarcinoma. Scan tissue insufficient for receptor studies. Simulated today with treatment to follow on Tuesday08/02/2016 to left lung and right rib met. Anticipate rib biopsy on 07/30/2016 for sufficient tissue to perform receptor studies to consider targeted therapy after radiation. We will also do nasopharyngoscopy after dc to evaluate vocal cords and then consider ENT assessment for bx. ALYSE NESS MD Jul 29, 2016 13:21
[2016-07-29] MEDS: VANCOMYCIN 1.5 GM in IV NORMAL SALINE 500ML BAG 500 ML IV SCH ×2 (13:23→21:40)
--- NOTE | 2016-07-29 14:06 | PDOC ---
PROGRESS NOTES Assessment Assessment Acute small left cerebellum infarct. Metabolic encephalopathy. Pneumonia. Lung cancer, non small cell. Metastatic fractures in ribs. Gait instability. Thoracic myelopathy. Leukocytosis. Hyperbilirubinemia. Hypoalbuminemia. Visual and auditory hallucinations. Skin cancer. Vit D insufficience. RECOMMENDATIONS/PLAN: Continue ASA 325 mg daily. Echo: reports pending. Treat medical diseases. Oncology treatment. Vit D and Ca++ supplement. Discussed with his and daughter and [id number] at bedside. Carotid A US + Doppler on 07/28: No high grade stenosis. Lipid panel on 07/29: WNL HISTORY OF THE PRESENT ILLNESS: 71-y-old male patient with above medical and oncological diseases was revealed a small stroke, so Neurology was called for consultation. His brain MRI was reviewed and believed as stroke at this tiem rather than metastatic brain disease; howeve, he is at risk of cerebral metastatic disease. He states he is doing better on 07/29. PAST MEDICAL HISTORY: Please see above. PAST SURGERY HISTORY: Tonsillectomy Cholecystectomy Hernia Repair Skin cancer removal ALLERGY: NKDA MEDICATIONS: Refer to [facility] FAMILY HISTORY: H Non contributory. SOCIAL HISTORY: Denies current smoking, drinking, and illicit drug use. He smoked < 1pack of cigarettes a day for about 20 years in the past. REVIEW OF SYSTEMS: Constitutional: No malnutrition, weight loss, cachexia. Head: No recent traumatic brain or head injury. Skin: No edema, or rash. Ear: No infection, tinnitus. Eyes: No vision loss or color blindness. Nose: No bleeding or purulent discharges. Hearing: Hearing decrease. Neck: No recent injury. Cardiac: No RI, arrhythmia. Pulmonary: Pneumonia, lung cancer. GI: No GI ulcer, GI bleeding. Urinary/genital: No dysuria, hematuria, incontinence, urinary retention. Endocrinologic: No cousin face, craniofacial dysmorphism, polydactyly, goiter. Skeletomuscular: No muscular atrophy, deformity. Neurological: see HP. Psychiatric: Denies drug use/abuse. Otherwise, not -soqqn review of systems. PHYSICAL EXAMINATION: General appearance is in subacute distress. HEENT: Normocephalic and nontraumatic. Eyes, nose, ears, and throat are unremarkable. Neck is supple. No lymphadenopathy. No crepitus. Cardiovascular: S1, S2, regular rate and rhythm. Pulmonary: Mildly decreased to auscultation bilaterally. Abdomen: Bowel sounds are positive. Extremities: No rash, lesions, or edema. No restriction of range of motion NEUROLOGICAL EXAMINATION: Awake. Oriented to time, place and person. PERRL. EOMI. Horizontal nystagmus noted. CN: no focal findings. Muscle tone: within normal. Muscle strength: 5 UE, 4+ LE DTR: 2 Plantar reflex: Flexor response bilaterally Gait: not examined in bed. Sensory exam: no acute abnormal findings. Cerebellar signs elicited. F-T-N test not accurate bilaterally. Objective Objective Vital Signs Date Time Temp Pulse Resp B/P Pulse Ox O2 Delivery O2 Flow Rate FiO2 07/29/16 13:22 Room Air 07/29/16 11:00 98.4 74 16 105/72 93 98.4 07/28/16 13:37 5.0 Intake and Output 07/29/16 07:00 Intake Total 940 ml Output Total 900 ml Balance 40 ml Intake Oral 940 ml Output Urine Total 900 ml # Voids 4 Vitals Signs Vitals VS - Last 72 Hours, by Label Date Time Temp Pulse Resp B/P Pulse Ox O2 Delivery O2 Flow Rate FiO2 07/29/16 13:22 Room Air 07/29/16 12:02 Room Air 07/29/16 11:59 Room Air 07/29/16 11:12 Room Air 07/29/16 11:00 98.4 74 16 105/72 93 Room Air 98.4 07/29/16 09:11 Room Air 07/29/16 09:09 78 100/69 07/29/16 07:57 Room Air 07/29/16 07:27 92 Room Air 07/29/16 07:00 98.5 78 16 100/69 92 98.5 07/29/16 04:24 20 92 Room Air 07/29/16 03:54 19 92 Room Air 07/29/16 02:43 98.1 82 18 126/63 94 Room Air 98.1 07/29/16 00:04 19 92 Room Air 07/28/16 22:51 97.8 81 18 120/68 94 Room Air 97.8 07/28/16 21:48 80 105/57 07/28/16 20:00 Room Air 07/28/16 19:43 Room Air 07/28/16 19:34 98.1 90 18 115/78 96 Nasal Cannula 98.1 1/25/17 15:18 Room Air 07/28/16 13:37 5.0 07/28/16 13:07 16 93 Room Air 5.0 07/28/16 11:33 Room Air 07/28/16 11:00 98.4 80 20 105/57 93 Room Air 98.4 07/28/16 09:31 16 93 5.0 07/28/16 08:31 19 93 Room Air 5.0 07/28/16 08:23 83 118/80 07/28/16 08:00 Room Air 5.0 07/28/16 07:31 93 Room Air 07/28/16 07:00 98.5 83 20 118/80 93 Room Air 98.5 Laboratory Laboratory Laboratory Tests Test 07/28/16 16:37 07/29/16 10:20 Vitamin B12 Level 929pg/mL (211-946) 25-Hydroxy Vitamin D Total 28.6ng/mL (30.0-100.0) Thyroid Stimulating Hormone (TSH) 2.440uIU/mL (0.358-3.74) Total Bilirubin 1.2mg/dL (0.2-1.0) Direct Bilirubin 0.8mg/dL (0.0-0.2) Aspartate Amino Transf (AST/SGOT) 51U/L (15-37) Alanine Aminotransferase (ALT/SGPT) 46U/L (16-63) Alkaline Phosphatase 203U/L (46-116) Total Protein 6.2g/dL (6.4-8.2) Albumin 1.9g/dL (3.4-5.0) Triglycerides Level 92mg/dL (0-150) Cholesterol Level 115mg/dL (0-200) LDL Cholesterol, Calculated 71mg/dL (0-100) VLDL Cholesterol, Calculated 18mg/dL (0-40) HDL Cholesterol 26mg/dL (40-60) Cholesterol/HDL Ratio 4.4 Vancomycin Level Trough 6.1mcg/mL (10.0-20.0) Vancomycin Last Dose Date 07/28/16 Vancomycin Last Dose Time 2300 Microbiology 07/23/16 Blood Culture - Final, Complete NO GROWTH AFTER 5 DAYS 07/27/16 AFB Specimen Processing Tissue - Final, Resulted 07/27/16 Acid Fast Bacilli Culture, Resulted Pending 07/27/16 Gram Stain - Final, Resulted 07/27/16 Fungal Culture, Resulted Pending 07/27/16 Fungal Culture Result 1, Resulted Pending 07/23/16 Urine Culture - Final, Complete 07/23/16 Urine Culture Result 1 (ARANZA) - Final, Complete Medication Medications Current Medications Aspirin 325 mg 325 mg [id number] PO Last administered on 07/29/16 09:08; Start 07/28/16 at 18:00 Vancomycin HCl 1 each 1X ONCE MC Last administered on 07/29/16 10:30; Start 07/29/16 at 10:30; Stop 07/29/16 at 10:31; Status DC Vancomycin HCl 1 each 1X ONCE MC ; Start 07/30/16 at 11:00; Stop 07/30/16 at 11 :01 Vancomycin HCl/ Sodium Chloride (Iv Sodium Chloride 0.9% 500ml Bag) 500 ml @ 250 mls/hr Q8H IV Last administered on 07/29/16 13:23; Start 07/29/16 at 11:30 Comment Review of Relevant I have reviewed the following items rubi (where applicable) has been applied. LIDA TILLMAN MD Jul 29, 2016 14:06
[2016-07-29 15:00] VITALS: BP 104/62
--- NOTE | 2016-07-29 16:01 | PATHOLOGY ---
PATHOLOGY REPORT * * * * * * * * FINAL DIAGNOSIS: Left upper lobe, bronchial biopsies: - POORLY DIFFERENTIATED ADENOCARCINOMA. SEE COMMENT. COMMENT: Sections of the left upper lobe bronchial biopsy reveal segments of bronchial mucosa showing a malignant epithelial neoplasm. The malignant cells are present in solid nests which focally undermine the surface bronchial epithelium. The malignant cells are large and possess modest amounts of pale eosinophilic cytoplasm. The malignant cells possess enlarged, rounded to ovoid nuclei containing prominent nucleoli. The neoplasm shows no definitive evidence of keratinization or gland formation. There are also segments of acute inflammatory exudate present. A panel of immunoperoxidase stains is obtained and yields the following results: Cytokeratin 7: tumor cells positive Cytokeratin 5/6: tumor cells negative; surface epithelium positive P63: tumor cells negative; surface epithelium positive P40: tumor cells negative; surface epithelium positive Napsin A: tumor cells negative TTF-1: tumor cells positive The morphologic and immunophenotypic findings are supportive of the diagnosis of a poorly differentiated adenocarcinoma. The case is also examined by Dr. Nesha Walker, who concurs with the diagnosis. The results are reported to Dr. Moore on 07/29/16 at 12:30 PM. (JPM:all; d/t: 07/28-) Special stains performed: immunoperoxidase stains for CK7, CK5/6, p63, p40, TTF-1, napsin A REPORT ELECTRONICALLY SIGNED BY: Iker Booth M.D. DATE/TIME: 07/29/2016 16:00 * * * * * * * * GROSS PATHOLOGY: Received in formalin labeled "Derrek Martino Jr.," and additionally labeled on the requisition as, "biopsy NADER". Received are three segments of calixto soft tissue measuring 0.2 x 0.2 x 0.1 cm in aggregate dimensions and ranging from 0.1 to 0.2 cm in maximum dimension. The specimen is submitted entirely in cassette A1. (CAA; 07/27/2016) INITIAL CPT CODE(S): A; 63233, 84821, 87338, 36115, 72021, 81223, 11320 Professional services performed by [facility] at [facility] [address] [place] [id number] Technical services performed by [facility] at [address] [place] [address], [address], [place] [address]. SPECIMEN(S) RECEIVED: A.Bronchial biopsy NADER CLINICAL HISTORY: Lung mass PATIENT: DERREK MARTINO /AGE: 7 1945 (Age: 71) PATIENT #: [id number] ALT CASE #: SPECIMEN COLLECTION DATE: 07/27/2016 SPECIMEN RECEIVED DATE: 07/27/2016 [facility] - [address] [place] [address] - PHONE: [phone] * * * END OF REPORT * * *
--- NOTE | 2016-07-29 16:51 | PDOC ---
PROGRESS NOTES Subjective Subjective Patient ambulating in halls with walker. Patient continues to have chronic pain. Patient states that no makes him agitated. We will plan on switching fentanyl to Dilaudid and monitor patient's symptoms. [facility] Continue IV antibiotics and pulmonary toilet. Objective Objective Vital Signs Date Time Temp Pulse Resp B/P Pulse Ox O2 Delivery O2 Flow Rate FiO2 07/29/16 16:04 Room Air 07/29/16 15:00 98.5 86 18 104/62 90 98.5 07/28/16 13:37 5.0 Intake and Output 07/29/16 07:00 Intake Total 940 ml Output Total 900 ml Balance 40 ml Intake Oral 940 ml Output Urine Total 900 ml # Voids 4 Physical Exam Abdomen: Normal bowel sounds Heart: Regular rate Extremities: No edema General: Alert Lungs: Other (coarse breath sounds bilaterally with peak is plugging noted) Assessment Assessment Problems Medical Problems: (1) Confusion Status: Acute (2) Hallucinations Status: Acute (3) Pneumonia Status: Acute (4) Uremia Status: Acute 1. Left upper lobe pneumonia post obstructive 2. 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 New Cerebellar CVA 4. Severe protein malnutrition 5. Hypoxemia secondary to #1 above: Improving with treatment. 6. Gait stability issues 7. Encephalopathy-improved 8. Chronic back pain on chronic narcotics Plan Plan of Care Continue PPN continue IV antibiotics continue PT and OT modalities change pain medication radiation treatments planned for 08/03/16 Comment Review of Relevant I have reviewed the following items rubi (where applicable) has been applied. Labs Laboratory Tests Test 07/28/16 16:37 07/29/16 10:20 Vitamin B12 Level 929pg/mL (211-946) 25-Hydroxy Vitamin D Total 28.6ng/mL (30.0-100.0) Thyroid Stimulating Hormone (TSH) 2.440uIU/mL (0.358-3.74) Total Bilirubin 1.2mg/dL (0.2-1.0) Direct Bilirubin 0.8mg/dL (0.0-0.2) Aspartate Amino Transf (AST/SGOT) 51U/L (15-37) Alanine Aminotransferase (ALT/SGPT) 46U/L (16-63) Alkaline Phosphatase 203U/L (46-116) Total Protein 6.2g/dL (6.4-8.2) Albumin 1.9g/dL (3.4-5.0) Triglycerides Level 92mg/dL (0-150) Cholesterol Level 115mg/dL (0-200) LDL Cholesterol, Calculated 71mg/dL (0-100) VLDL Cholesterol, Calculated 18mg/dL (0-40) HDL Cholesterol 26mg/dL (40-60) Cholesterol/HDL Ratio 4.4 Vancomycin Level Trough 6.1mcg/mL (10.0-20.0) Vancomycin Last Dose Date 07/28/16 Vancomycin Last Dose Time 2300 Laboratory Tests Test 07/29/16 10:20 Total Bilirubin 1.2mg/dL (0.2-1.0) Direct Bilirubin 0.8mg/dL (0.0-0.2) Aspartate Amino Transf (AST/SGOT) 51U/L (15-37) Alanine Aminotransferase (ALT/SGPT) 46U/L (16-63) Alkaline Phosphatase 203U/L (46-116) Total Protein 6.2g/dL (6.4-8.2) Albumin 1.9g/dL (3.4-5.0) Triglycerides Level 92mg/dL (0-150) Cholesterol Level 115mg/dL (0-200) LDL Cholesterol, Calculated 71mg/dL (0-100) VLDL Cholesterol, Calculated 18mg/dL (0-40) HDL Cholesterol 26mg/dL (40-60) Cholesterol/HDL Ratio 4.4 Vancomycin Level Trough 6.1mcg/mL (10.0-20.0) Vancomycin Last Dose Date 07/28/16 Vancomycin Last Dose Time 2300 Microbiology 07/23/16 Blood Culture - Final, Complete NO GROWTH AFTER 5 DAYS 07/27/16 AFB Specimen Processing Tissue - Final, Resulted 07/27/16 Acid Fast Bacilli Culture, Resulted Pending 07/27/16 Gram Stain - Final, Resulted 07/27/16 Fungal Culture, Resulted Pending 07/27/16 Fungal Culture Result 1, Resulted Pending 07/23/16 Urine Culture - Final, Complete 07/23/16 Urine Culture Result 1 (ARANZA) - Final, Complete Medications Current Medications Ondansetron HCl (Zofran) 4 mg PRN Q8HRS PRN IV NAUSEA/VOMITING; Start 07/23/16 at 17:00; Stop 07/24/16 at 16:59; Status DC Morphine Sulfate 2 mg 2 mg PRN Q2HR PRN IV PAIN; Start 07/23/16 at 17:00; Stop 07/24/16 at 16:59; Status DC Azithromycin 250 ml @ 250 mls/hr 1X ONCE IV Last administered on 07/23/16 18 :37; Start 07/23/16 at 17:00; Stop 07/23/16 at 17:59; Status DC Ceftriaxone Sodium 50 ml @ 100 mls/hr 1X ONCE IV Last administered on 18:09; Start 07/23/16 at 17:00; Stop 07/23/16 at 17:29; Status DC Sodium Chloride (Iv Sodium Chloride 0.9% 500ml Bag) 500 ml @ 500 mls/hr 1X ONCE IV Last administered on 07/23/16 18:08; Start 07/23/16 at 17:15; Stop at 18:14; Status DC Docusate Sodium (Colace) 100 mg BID PO Last administered on 07/29/16 09:09; Start 07/24/16 at 09:00 Propranolol HCl (Inderal) 10 mg BID PO ; Start 07/24/16 at 09:00; Stop 07/24/16 at 09:00; Status DC Sertraline HCl (Zoloft) 50 mg BID PO ; Start 07/24/16 at 09:00; Stop 07/24/16 at 09:00; Status DC Methadone HCl (Dolophine) 10 mg BID PO ; Start 07/24/16 at 09:00; Stop 07/24/16 at 09:00; Status DC Oxycodone HCl (Roxicodone) 40 mg PRN BID PRN PO SEVERE PAIN; Start 07/23/16 at 22:45; Stop 07/24/16 at 10:37; Status DC Methadone HCl (Dolophine) 10 mg BID PO Last administered on 07/28/16 08:23; Start 07/23/16 at 23:00; Stop 07/28/16 at 13:05; Status DC Propranolol HCl (Inderal) 10 mg BID PO Last administered on 07/29/16 09:09; Start 07/23/16 at 23:00 Sertraline HCl (Zoloft) 50 mg BID PO Last administered on 07/29/16 09:09; Start 07/23/16 at 23:00 Alprazolam (Xanax) 0.5 mg PRN TID PRN PO ANXIETY / AGITATION Last administered on 07/28/16 20:23; Start 07/24/16 at 09:30 Oxycodone HCl (Roxicodone) 20 mg PRN Q6HRS PRN PO PAIN Last administered on 11:59; Start 07/24/16 at 09:30 Albuterol/ Ipratropium (Duoneb) 3 ml RTQID NEB Last administered on 07/29/16 16:04; Start 07/24/16 at 12:00 Guaifenesin (Mucinex) 600 mg BID PO Last administered on 07/29/16 09:09; Start 07/24/16 at 21:00 Guaifenesin/ Codeine Phosphate (Robitussin Ac) 5 ml PRN Q6HRS PRN PO COUGH Last administered on 07/26/16 08:12; Start 07/24/16 at 09:30 Guaifenesin/ Codeine Phosphate 10 ml 10 ml PRN Q6HRS PRN PO COUGH Last administered on 07/28/16 20:24; Start 07/24/16 at 09:30 Ceftriaxone Sodium/Sodium Chloride (Rocephin/Iv Sodium Chloride 0.9% 50ml) 50 ml @ 100 mls/hr Q24H IV Last administered on 07/27/16 10:00; Start 07/24/16 at 10:00; Stop 07/27/16 at 20:54; Status DC Azithromycin (Zithromax) 250 mg DAILY PO Last administered on 07/28/16 08:23; Start 07/24/16 at 09:30; Stop 07/28/16 at 09:29; Status DC Potassium Chloride (Klor-Con) 40 meq 1X ONCE PO Last administered on 10:28; Start 07/24/16 at 09:45; Stop 07/24/16 at 09:53; Status DC Potassium Chloride (Klor-Con) 40 meq BIDWMEALS PO Last administered on 17:50; Start 07/25/16 at 13:45; Stop 07/25/16 at 17:01; Status DC Albuterol/ Ipratropium (Duoneb) 3 ml 1X ONCE NEB Last administered on 03:57; Start 07/26/16 at 04:15; Stop 07/26/16 at 04:16; Status DC Polyethylene Glycol (miraLAX PACKET) 17 gm DAILY PO Last administered on 08:23; Start 07/26/16 at 10:00 Bisacodyl (Dulcolax Supp) 10 mg PRN DAILY PRN VA CONSTIPATION Last administered on 07/26/16 12:39; Start 07/26/16 at 09:30 Diclofenac Sodium (Voltaren) 1 ruddy PRN Q4HRS PRN TP PAIN Last administered on 11:13; Start 07/26/16 at 10:30; Stop 07/26/16 at 15:20; Status DC Ketorolac Tromethamine (Toradol) 30 mg PRN Q6HRS PRN IV PAIN; Start 07/26/16 at 11:15; Stop 07/26/16 at 15:20; Status DC Iohexol (Omnipaque 240 Mg/ml) 30 ml 1X ONCE IV ; Start 07/26/16 at 11:30; Stop 07/26/16 at 11:31; Status DC Iohexol (Omnipaque 300 Mg/ml) 75 ml 1X ONCE IV Last administered on 07/26/16 12:13; Start 07/26/16 at 11:30; Stop 07/26/16 at 11:31; Status DC Info (Do NOT chart on this entry -- for MONITORING) 1 each PRN DAILY PRN MC SEE COMMENTS; Start 07/26/16 at 11:15; Stop 07/28/16 at 11:14; Status DC Fentanyl Citrate (Fentanyl 2ml Vial) 50 mcg PRN Q3HRS PRN IV PAIN Last administered on 07/29/16 09:11; Start 07/27/16 at 09:00; Stop 07/29/16 at 15:42 ; Status DC Fentanyl Citrate 100 mcg 100 mcg PRN Q3HRS PRN IV PAIN Last administered on 03:54; Start 07/27/16 at 09:00; Stop 07/29/16 at 15:42; Status DC Propofol 40 ml @ As Directed STK-MED ONCE IV ; Start 07/27/16 at 10:20; Stop at 10:21; Status DC Amino Acids/ Glycerin/ Electrolytes (Procalamine) 1,000 ml @ 80 mls/hr [id number] IV Last administered on 07/28/16 20:22; Start 07/27/16 at 14:00 Gadobutrol 8 mmol 8 mmol 1X ONCE IV Last administered on 07/27/16 15:59; Start 07/27/16 at 15:45; Stop 07/27/16 at 15:46; Status DC Piperacillin Sod/ Tazobactam Sod/ Sodium Chloride (Zosyn/Iv Sodium Chloride 0.9 % 50ml) 50 ml @ 100 mls/hr Q6HRS IV Last administered on 07/29/16 12:21; Start 07/28/16 at 00:00 Vancomycin HCl 1 each 1 each PRN DAILY PRN MC SEE COMMENTS Last administered on 07/29/16 12:32; Start 07/27/16 at 21:00 Vancomycin HCl 2 gm/Sodium Chloride 500 ml @ 250 mls/hr 1X ONCE IV Last administered on 07/27/16 23:55; Start 07/27/16 at 21:30; Stop 07/27/16 at 23:29 ; Status DC Vancomycin HCl/ Sodium Chloride (Iv Sodium Chloride 0.9% 250ml) 250 ml @ 167 mls/hr Q12H IV Last administered on 07/28/16 20:25; Start 07/28/16 at 11:00; Stop 07/29/16 at 11:23; Status DC Vancomycin HCl 1 each 1X ONCE MC Last administered on 07/29/16 10:30; Start 07/29/16 at 10:30; Stop 07/29/16 at 10:31; Status DC Methadone HCl (Dolophine) 10 mg Q8HRS PO Last administered on 07/29/16 14:24; Start 07/28/16 at 14:00 Aspirin 325 mg 325 mg [id number] PO Last administered on 07/29/16 09:08; Start 07/28/16 at 18:00 Vancomycin HCl/ Sodium Chloride (Iv Sodium Chloride 0.9% 500ml Bag) 500 ml @ 250 mls/hr Q8H IV Last administered on 07/29/16 13:23; Start 07/29/16 at 11:30 Vancomycin HCl 1 each 1X ONCE MC ; Start 07/30/16 at 11:00; Stop 07/30/16 at 11 :01 Hydromorphone HCl (Dilaudid) 2 mg PRN Q3HRS PRN IV PAIN SEVERE; Start 07/29/16 at 15:45 Active Scripts Active Reported Zoloft (Sertraline Hcl) 50 Mg Tablet 50 Mg PO BID Methadone Hcl 10 Mg Tablet 10 Mg PO BID Xanax (Alprazolam) 0.5 Mg Tablet 0.5 Mg PO DAILY PRN Stool Softener (Docusate Sodium) 100 Mg Capsule 100 Mg PO BID Propranolol Hcl 10 Mg Tablet 10 Mg PO BID Oxycodone Hcl 20 Mg Tablet 40 Mg PO [id number] Vitals/I & O Vital Sign - Last 24 Hours 07/28/16 07/28/16 07/28/16 07/28/16 19:34 19:43 20:00 21:48 Temp 98.1 98.1 Pulse 90 80 Resp 18 B/P 115/78 105/57 Pulse Ox 96 O2 Delivery Nasal Cannula Room Air Room Air 07/28/16 07/29/16 07/29/16 07/29/16 22:51 00:04 02:43 03:54 Temp 97.8 98.1 97.8 98.1 Pulse 81 82 Resp 18 19 18 19 B/P 120/68 126/63 Pulse Ox 94 92 94 92 O2 Delivery Room Air Room Air Room Air Room Air 07/29/16 07/29/16 07/29/16 07/29/16 04:24 07:00 07:27 07:57 Temp 98.5 98.5 Pulse 78 Resp 20 16 B/P 100/69 Pulse Ox 92 92 92 O2 Delivery Room Air Room Air Room Air 07/29/16 07/29/16 07/29/16 07/29/16 09:09 09:11 11:00 11:12 Temp 98.4 98.4 Pulse 78 74 Resp 16 B/P 100/69 105/72 Pulse Ox 93 O2 Delivery Room Air Room Air Room Air 07/29/16 07/29/16 07/29/16 07/29/16 11:59 12:02 13:22 15:00 Temp 98.5 98.5 Pulse 86 Resp 18 B/P 104/62 Pulse Ox 90 O2 Delivery Room Air Room Air Room Air Room Air 07/29/16 16:04 O2 Delivery Room Air Intake and Output 07/28/16 07/28/16 07/29/16 15:00 23:00 07:00 Intake Total 400 ml 540 ml Output Total 900 ml Balance 400 ml -360 ml VAISHALI FONTAINE MD Jul 29, 2016 16:51
[2016-07-29] MEDS: HYDROMORPHONE 2 MG/ML VIAL. IV PRN ×2 (17:25→21:40)
[2016-07-29 19:00] VITALS: BP 102/60
--- NOTE | 2016-07-29 21:01 | CARD ---
APPROVED REPORT EXAM: Two-dimensional and M-mode echocardiogram with Doppler and color Doppler. Other Information Quality : Limited Rhythm : NSR INDICATION CVA/TIA Echo Enhancing Agent Indication: Rule Out Septal Defect Agent/Amount Used: Agitated Saline 8mL 2D DIMENSIONS Left Atrium(2D)3.0 (1.6-4.0cm)IVSd0.9 (0.7-1.1cm) Aortic Root(2D)3.7 (2.0-3.7cm)LVDd4.9 (3.9-5.9cm) LVOT Diameter2.0 (1.8-2.4cm)PWd0.9 (0.7-1.1cm) LVDs3.8 (2.5-4.0cm)FS (%) 21.0 % SV54.9 mlLVEF(%)50.7 (>50%) Aortic Valve AoV Peak Matt.98.2cm/sAoV VTI21.2cm AO Peak GR.3.9mmHgLVOT VTI 18.36cm AO Mean GR.2mmHg Mitral Valve MV E Yfeumnti78.8cm/sMV E Peak Gr.3mmHg MV DECEL [id number] A Lhubqwlj76.1cm/s MV E Mean Gr.1mmHgMV RCQ85sd E/A Ratio1.1MV A [id number] MVA (PHT)3.93cm2 TDI Lateral E' P. V10.36cm/sMedial E' P. V10.94cm/s E/Lateral E'8.0E/Medial E'7.6 Tricuspid Valve TR P. [id number]/sRAP [id number] TR Peak Gr.[id number] LEFT VENTRICLE The left ventricle is normal size. There is normal left ventricular wall thickness. Left ventricle sy stolic function is normal. The Ejection Fraction is 50-55%. There is normal LV segmental wall motion. The left ventricular diastolic function and filling is normal .. RIGHT VENTRICLE The right ventricle is normal size. The right ventricular systolic function is normal. ATRIA The left atrium size is normal. The right atrium size is normal. The interatrial septum is intact wit h no evidence for an atrial septal defect or patent foramen ovale as noted on 2-D or Doppler imaging. Injection of bubbles documented no interatrial shunt. AORTIC VALVE The aortic valve is not well visualized. Doppler and Color Flow revealed no significant aortic regurg itation. There is no significant aortic valvular stenosis. MITRAL VALVE The mitral valve is normal in structure and function. There is no mitral valve stenosis. TRICUSPID VALVE The tricuspid valve is normal in structure and function. Doppler and Color Flow revealed mild tricusp id regurgitation. The PA pressure was estimated at 45 mmHg. There is no tricuspid valve stenosis. PULMONIC VALVE The pulmonic valve is not well visualized. Doppler and Color Flow revealed no pulmonic valvular regur gitation. There is no pulmonic valvular stenosis. GREAT VESSELS The aortic root is normal in size. The IVC is normal in size and collapses >50% with inspiration. PERICARDIAL EFFUSION There is no evidence of significant pericardial effusion. Critical Notification Critical Value: No <Conclusion> The left ventricle is normal size. There is normal left ventricular wall thickness. Left ventricle systolic function is normal. The Ejection Fraction is 50-55%. The left ventricular diastolic function and filling is normal .. There is no evidence of significant pericardial effusion. There is no mitral stenosis and a mild mitral regurgitation The left atrium is of a normal size There is no aortic stenosis or regurgitation The right ventricle is of a normal size with normal systolic function Doppler and Color Flow revealed mild tricuspid regurgitation. The PA pressure was estimated at 45 mmHg. The pulmonic valve is normal Air contrast injected into the right headr showed no shunt. IMPRESSION, 1. No source of emboliztion is seen on this TTE 2.No right to l,rft shunt
[2016-07-29 23:00] VITALS: BP 111/72
[2016-07-30] VITALS (12 sets, daily range): BP systolic 108–135; BP diastolic 68–78
[2016-07-30] MEDS: PIPERACILLIN/TAZOBACTAM 3.375 GM in IV NORMAL SALINE 50ML 50 ML IV SCH ×5 (02:15→23:51)
[2016-07-30] MEDS: VANCOMYCIN 1.5 GM in IV NORMAL SALINE 500ML BAG 500 ML IV SCH (04:21)
[2016-07-30] MEDS: HYDROMORPHONE 2 MG/ML VIAL. IV PRN (04:25)
[2016-07-30] MEDS: AA 3%/ELECTROLYTE-TPN SOLN/GLY 1,000 ML IV SCH ×2 (04:30→19:22)
[2016-07-30] MEDS: METHADONE 10 MG TABLET. PO SCH ×3 (04:32→20:55)
[2016-07-30] MEDS: IPRATRPIUM/ALBUTEROL 0.5/2.5MG 3 ML NEBU. NEB SCH ×3 (07:07→20:35)
--- NOTE | 2016-07-30 07:45 | RAD ---
Indication: Post obstructive pneumonia. Time of exam 0711 hours. Comparison is made with prior chest from 07/23/2016. Extensive airspace infiltrate in the left upper lobe persists and is similar to perhaps slightly more consolidated when compared with prior. The right lung is fairly clear. No effusion is seen. There is no pneumothorax. Impression: Continued extensive left upper lobe infiltrate, slightly more consolidated on today's study when compared with exam one week earlier.
[2016-07-30] MEDS: ASPIRIN 325 MG TABLET PO SCH (08:00)
[2016-07-30] MEDS ORDERED: LIDOCAINE 1% / SOD BICARB 8.4% 20 ML VIAL. IJ ONE ×2 (08:45→09:45)
[2016-07-30] MEDS ORDERED: FENTANYL PF 250 MCG/5 ML VIAL. ONE (08:53)
[2016-07-30] MEDS ORDERED: NALOXONE 0.4 MG/ML VIAL. ONE (08:53)
[2016-07-30] MEDS ORDERED: MIDAZOLAM HCL/PF 5 MG/5 ML VIAL ONE (08:53)
[2016-07-30] MEDS ORDERED: FLUMAZENIL 0.5 MG/5 ML VIAL. IV ONE (08:53)
--- NOTE | 2016-07-30 08:57 | PDOC ---
PROGRESS NOTES Subjective Subjective Patient improved. Rib Bx planned today. Po intake improved Objective Objective Vital Signs Date Time Temp Pulse Resp B/P Pulse Ox O2 Delivery O2 Flow Rate FiO2 07/30/16 07:07 91 Room Air 07/30/16 07:00 98.1 79 19 124/76 98.1 07/28/16 13:37 5.0 Intake and Output 07/30/16 07:00 Intake Total 650 ml Output Total 500 ml Balance 150 ml Intake Oral 650 ml Output Urine Total 500 ml # Voids 6 Physical Exam Abdomen: Normal bowel sounds Heart: Regular rate Extremities: No edema General: Alert Lungs: Clear to auscultation Assessment Assessment Problems Medical Problems: (1) Confusion Status: Acute (2) Hallucinations Status: Acute (3) Pneumonia Status: Acute (4) Uremia Status: Acute 1. Left upper lobe pneumonia post obstructive 2. 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 New Cerebellar CVA 4. Severe protein malnutrition 5. Hypoxemia secondary to #1 above: Improving with treatment. 6. Gait stability issues 7. Encephalopathy-improved 8. Chronic back pain on chronic narcotics Plan Plan of Care Rib bx today Continue PT - patient wants to go home but PT recc inpatient rehab Patient still on IV antibx for post obstructive pneumonia Radiation tx planned for Wednesday 08/02 D/C ProcalAmine Comment Review of Relevant I have reviewed the following items rubi (where applicable) has been applied. Labs Laboratory Tests Test 07/28/16 16:37 07/29/16 10:20 Vitamin B12 Level 929pg/mL (211-946) 25-Hydroxy Vitamin D Total 28.6ng/mL (30.0-100.0) Thyroid Stimulating Hormone (TSH) 2.440uIU/mL (0.358-3.74) Total Bilirubin 1.2mg/dL (0.2-1.0) Direct Bilirubin 0.8mg/dL (0.0-0.2) Aspartate Amino Transf (AST/SGOT) 51U/L (15-37) Alanine Aminotransferase (ALT/SGPT) 46U/L (16-63) Alkaline Phosphatase 203U/L (46-116) Total Protein 6.2g/dL (6.4-8.2) Albumin 1.9g/dL (3.4-5.0) Triglycerides Level 92mg/dL (0-150) Cholesterol Level 115mg/dL (0-200) LDL Cholesterol, Calculated 71mg/dL (0-100) VLDL Cholesterol, Calculated 18mg/dL (0-40) HDL Cholesterol 26mg/dL (40-60) Cholesterol/HDL Ratio 4.4 Vancomycin Level Trough 6.1mcg/mL (10.0-20.0) Vancomycin Last Dose Date 07/28/16 Vancomycin Last Dose Time 2300 Laboratory Tests Test 07/29/16 10:20 Total Bilirubin 1.2mg/dL (0.2-1.0) Direct Bilirubin 0.8mg/dL (0.0-0.2) Aspartate Amino Transf (AST/SGOT) 51U/L (15-37) Alanine Aminotransferase (ALT/SGPT) 46U/L (16-63) Alkaline Phosphatase 203U/L (46-116) Total Protein 6.2g/dL (6.4-8.2) Albumin 1.9g/dL (3.4-5.0) Triglycerides Level 92mg/dL (0-150) Cholesterol Level 115mg/dL (0-200) LDL Cholesterol, Calculated 71mg/dL (0-100) VLDL Cholesterol, Calculated 18mg/dL (0-40) HDL Cholesterol 26mg/dL (40-60) Cholesterol/HDL Ratio 4.4 Vancomycin Level Trough 6.1mcg/mL (10.0-20.0) Vancomycin Last Dose Date 07/28/16 Vancomycin Last Dose Time 2300 Microbiology 07/23/16 Blood Culture - Final, Complete NO GROWTH AFTER 5 DAYS 07/27/16 AFB Specimen Processing Tissue - Final, Resulted 07/27/16 Acid Fast Bacilli Culture, Resulted Pending 07/27/16 Gram Stain - Final, Resulted 07/27/16 Fungal Culture, Resulted Pending 07/27/16 Fungal Culture Result 1, Resulted Pending 07/23/16 Urine Culture - Final, Complete 07/23/16 Urine Culture Result 1 (ARANZA) - Final, Complete Medications Current Medications Ondansetron HCl (Zofran) 4 mg PRN Q8HRS PRN IV NAUSEA/VOMITING; Start 07/23/16 at 17:00; Stop 07/24/16 at 16:59; Status DC Morphine Sulfate 2 mg 2 mg PRN Q2HR PRN IV PAIN; Start 07/23/16 at 17:00; Stop 07/24/16 at 16:59; Status DC Azithromycin 250 ml @ 250 mls/hr 1X ONCE IV Last administered on 07/23/16 18 :37; Start 07/23/16 at 17:00; Stop 07/23/16 at 17:59; Status DC Ceftriaxone Sodium 50 ml @ 100 mls/hr 1X ONCE IV Last administered on 18:09; Start 07/23/16 at 17:00; Stop 07/23/16 at 17:29; Status DC Sodium Chloride (Iv Sodium Chloride 0.9% 500ml Bag) 500 ml @ 500 mls/hr 1X ONCE IV Last administered on 07/23/16 18:08; Start 07/23/16 at 17:15; Stop at 18:14; Status DC Docusate Sodium (Colace) 100 mg BID PO Last administered on 07/29/16 21:39; Start 07/24/16 at 09:00 Propranolol HCl (Inderal) 10 mg BID PO ; Start 07/24/16 at 09:00; Stop 07/24/16 at 09:00; Status DC Sertraline HCl (Zoloft) 50 mg BID PO ; Start 07/24/16 at 09:00; Stop 07/24/16 at 09:00; Status DC Methadone HCl (Dolophine) 10 mg BID PO ; Start 07/24/16 at 09:00; Stop 07/24/16 at 09:00; Status DC Oxycodone HCl (Roxicodone) 40 mg PRN BID PRN PO SEVERE PAIN; Start 07/23/16 at 22:45; Stop 07/24/16 at 10:37; Status DC Methadone HCl (Dolophine) 10 mg BID PO Last administered on 07/28/16 08:23; Start 07/23/16 at 23:00; Stop 07/28/16 at 13:05; Status DC Propranolol HCl (Inderal) 10 mg BID PO Last administered on 07/29/16 21:39; Start 07/23/16 at 23:00 Sertraline HCl (Zoloft) 50 mg BID PO Last administered on 07/29/16 21:39; Start 07/23/16 at 23:00 Alprazolam (Xanax) 0.5 mg PRN TID PRN PO ANXIETY / AGITATION Last administered on 07/28/16 20:23; Start 07/24/16 at 09:30 Oxycodone HCl (Roxicodone) 20 mg PRN Q6HRS PRN PO PAIN Last administered on 11:59; Start 07/24/16 at 09:30 Albuterol/ Ipratropium (Duoneb) 3 ml RTQID NEB Last administered on 07/30/16 07:07; Start 07/24/16 at 12:00 Guaifenesin (Mucinex) 600 mg BID PO Last administered on 07/29/16 21:39; Start 07/24/16 at 21:00 Guaifenesin/ Codeine Phosphate (Robitussin Ac) 5 ml PRN Q6HRS PRN PO COUGH Last administered on 07/26/16 08:12; Start 07/24/16 at 09:30 Guaifenesin/ Codeine Phosphate 10 ml 10 ml PRN Q6HRS PRN PO COUGH Last administered on 07/28/16 20:24; Start 07/24/16 at 09:30 Ceftriaxone Sodium/Sodium Chloride (Rocephin/Iv Sodium Chloride 0.9% 50ml) 50 ml @ 100 mls/hr Q24H IV Last administered on 07/27/16 10:00; Start 07/24/16 at 10:00; Stop 07/27/16 at 20:54; Status DC Azithromycin (Zithromax) 250 mg DAILY PO Last administered on 07/28/16 08:23; Start 07/24/16 at 09:30; Stop 07/28/16 at 09:29; Status DC Potassium Chloride (Klor-Con) 40 meq 1X ONCE PO Last administered on 10:28; Start 07/24/16 at 09:45; Stop 07/24/16 at 09:53; Status DC Potassium Chloride (Klor-Con) 40 meq BIDWMEALS PO Last administered on 17:50; Start 07/25/16 at 13:45; Stop 07/25/16 at 17:01; Status DC Albuterol/ Ipratropium (Duoneb) 3 ml 1X ONCE NEB Last administered on 03:57; Start 07/26/16 at 04:15; Stop 07/26/16 at 04:16; Status DC Polyethylene Glycol (miraLAX PACKET) 17 gm DAILY PO Last administered on 08:23; Start 07/26/16 at 10:00 Bisacodyl (Dulcolax Supp) 10 mg PRN DAILY PRN TN CONSTIPATION Last administered on 07/26/16 12:39; Start 07/26/16 at 09:30 Diclofenac Sodium (Voltaren) 1 ruddy PRN Q4HRS PRN TP PAIN Last administered on 11:13; Start 07/26/16 at 10:30; Stop 07/26/16 at 15:20; Status DC Ketorolac Tromethamine (Toradol) 30 mg PRN Q6HRS PRN IV PAIN; Start 07/26/16 at 11:15; Stop 07/26/16 at 15:20; Status DC Iohexol (Omnipaque 240 Mg/ml) 30 ml 1X ONCE IV ; Start 07/26/16 at 11:30; Stop 07/26/16 at 11:31; Status DC Iohexol (Omnipaque 300 Mg/ml) 75 ml 1X ONCE IV Last administered on 07/26/16 12:13; Start 07/26/16 at 11:30; Stop 07/26/16 at 11:31; Status DC Info (Do NOT chart on this entry -- for MONITORING) 1 each PRN DAILY PRN MC SEE COMMENTS; Start 07/26/16 at 11:15; Stop 07/28/16 at 11:14; Status DC Fentanyl Citrate (Fentanyl 2ml Vial) 50 mcg PRN Q3HRS PRN IV PAIN Last administered on 07/29/16 09:11; Start 07/27/16 at 09:00; Stop 07/29/16 at 15:42 ; Status DC Fentanyl Citrate 100 mcg 100 mcg PRN Q3HRS PRN IV PAIN Last administered on 03:54; Start 07/27/16 at 09:00; Stop 07/29/16 at 15:42; Status DC Propofol 40 ml @ As Directed STK-MED ONCE IV ; Start 07/27/16 at 10:20; Stop at 10:21; Status DC Amino Acids/ Glycerin/ Electrolytes (Procalamine) 1,000 ml @ 80 mls/hr [id number] IV Last administered on 07/29/16 17:25; Start 07/27/16 at 14:00 Gadobutrol 8 mmol 8 mmol 1X ONCE IV Last administered on 07/27/16 15:59; Start 07/27/16 at 15:45; Stop 07/27/16 at 15:46; Status DC Piperacillin Sod/ Tazobactam Sod/ Sodium Chloride (Zosyn/Iv Sodium Chloride 0.9 % 50ml) 50 ml @ 100 mls/hr Q6HRS IV Last administered on 07/30/16 05:12; Start 07/28/16 at 00:00 Vancomycin HCl 1 each 1 each PRN DAILY PRN MC SEE COMMENTS Last administered on 07/29/16 12:32; Start 07/27/16 at 21:00 Vancomycin HCl 2 gm/Sodium Chloride 500 ml @ 250 mls/hr 1X ONCE IV Last administered on 07/27/16 23:55; Start 07/27/16 at 21:30; Stop 07/27/16 at 23:29 ; Status DC Vancomycin HCl/ Sodium Chloride (Iv Sodium Chloride 0.9% 250ml) 250 ml @ 167 mls/hr Q12H IV Last administered on 07/28/16 20:25; Start 07/28/16 at 11:00; Stop 07/29/16 at 11:23; Status DC Vancomycin HCl 1 each 1X ONCE MC Last administered on 07/29/16 10:30; Start 07/29/16 at 10:30; Stop 07/29/16 at 10:31; Status DC Methadone HCl (Dolophine) 10 mg Q8HRS PO Last administered on 07/29/16 21:39; Start 07/28/16 at 14:00 Aspirin 325 mg 325 mg [id number] PO Last administered on 07/29/16 09:08; Start 07/28/16 at 18:00 Vancomycin HCl/ Sodium Chloride (Iv Sodium Chloride 0.9% 500ml Bag) 500 ml @ 250 mls/hr Q8H IV Last administered on 07/30/16 04:21; Start 07/29/16 at 11:30 Vancomycin HCl 1 each 1X ONCE MC ; Start 07/30/16 at 11:00; Stop 07/30/16 at 11 :01 Hydromorphone HCl (Dilaudid) 2 mg PRN Q3HRS PRN IV PAIN SEVERE Last administered on 07/30/16t 04:25; Start 07/29/16 at 15:45 Lidocaine/Sodium Bicarbonate (Buffered Lidocaine 1%) 20 ml STK-MED ONCE IJ ; Start 07/30/16 at 08:45; Stop 07/30/16 at 08:46; Status DC Active Scripts Active Reported Zoloft (Sertraline Hcl) 50 Mg Tablet 50 Mg PO BID Methadone Hcl 10 Mg Tablet 10 Mg PO BID Xanax (Alprazolam) 0.5 Mg Tablet 0.5 Mg PO DAILY PRN Stool Softener (Docusate Sodium) 100 Mg Capsule 100 Mg PO BID Propranolol Hcl 10 Mg Tablet 10 Mg PO BID Oxycodone Hcl 20 Mg Tablet 40 Mg PO [id number] Vitals/I & O Vital Sign - Last 24 Hours 07/29/16 07/29/16 07/29/16 07/29/16 09:09 09:11 11:00 11:12 Temp 98.4 98.4 Pulse 78 74 Resp 16 B/P 100/69 105/72 Pulse Ox 93 O2 Delivery Room Air Room Air Room Air 07/29/16 07/29/16 07/29/16 07/29/16 11:59 12:02 13:22 15:00 Temp 98.5 98.5 Pulse 86 Resp 18 B/P 104/62 Pulse Ox 90 O2 Delivery Room Air Room Air Room Air Room Air 07/29/16 07/29/16 07/29/16 07/29/16 16:04 17:25 19:00 19:25 Temp 98.1 98.1 Pulse 79 Resp 21 B/P 102/60 Pulse Ox 90 92 O2 Delivery Room Air Room Air Room Air Room Air 07/29/16 07/29/16 07/29/16 07/29/16 20:00 21:39 21:40 22:10 Pulse 79 Resp 19 18 B/P 102/60 Pulse Ox 92 O2 Delivery Room Air Room Air 07/29/16 07/30/16 07/30/16 07/30/16 23:00 03:00 04:25 04:55 Temp 99.9 97.9 99.9 97.9 Pulse 83 81 Resp 20 19 20 B/P 111/72 109/68 Pulse Ox 92 92 92 92 O2 Delivery Room Air Room Air Room Air Room Air 07/30/16 07/30/16 07:00 07:07 Temp 98.1 98.1 Pulse 79 Resp 19 B/P 124/76 Pulse Ox 91 91 O2 Delivery Room Air Room Air Intake and Output 07/29/16 07/29/16 07/30/16 15:00 23:00 07:00 Intake Total 250 ml 400 ml Output Total 500 ml Balance -250 ml 400 ml VAISHALI FONTAINE MD Jul 30, 2016 08:57
[2016-07-30] MEDS: DOCUSATE SODIUM 100 MG CAPSULE PO SCH ×2 (09:00→20:54)
[2016-07-30] MEDS: GUAIFENESIN ER 600 MG TABLET.ER PO SCH ×2 (09:00→20:55)
[2016-07-30] MEDS: PROPRANOLOL 10 MG TABLET. PO SCH ×2 (09:00→20:57)
[2016-07-30] MEDS: SERTRALINE 50 MG TABLET. PO SCH ×2 (09:00→20:55)
[2016-07-30] MEDS: POLYETHYLENE GLYCOL 3350 17 GM PACKET. PO SCH (09:00)
--- NOTE | 2016-07-30 09:11 | PDOC ---
Provider Note Provider Note DATE OF f/u: 07/30/2016 HISTORY OF PRESENT ILLNESS: The patient is a 71-year-old gentleman who has a history of smoking 1-1/2 pack of cigarettes per day for 33 years that he quit in 1992. He was admitted to [facility] on 07/23/2016 with complaints of persistent cough off 2-3 weeks' duration. He also had productive brownish sputum but no hemoptysis. He has had fever. No nausea, vomiting or diarrhea. He has lost about 20 pounds in about 6 months prior to admission. He had a history of fall in December 2015 and he has been having rib pain since then. He reports having had a chest x-ray at that time that did not show any fracture. He underwent further evaluation with a CT chest, abdomen and pelvis on 07/26/2016. This revealed abnormal soft tissue mass like density in the left hilum encasing the left main pulmonary artery and a portion of the left upper lobe bronchus measuring 6.3 cm x 4.3 cm. There was extensive infiltrate in the left upper lobe as well as cavitation. The findings are concerning for left hilar neoplasm with cavitation and probable postobstructive pneumonitis. a destructive process is noted in the right posterior 7th rib consistent with metastatic lesion. CT scan of the head on 07/23/2016 was done for evaluation of hallucination, loss of balance and there was no intracranial abnormality. He was evaluated by Dr. Geovany Navarro and the patient underwent a bronchoscopy on 07/27/2016. This revealed totally occluded left upper lobe/lingula and significant narrowing of the left lower lobe opening. There was nodules noted on both vocal cords and prince suspicious for malignancy. Biopsies were obtained and the results are still pending. I was asked to see the patient because of clinical suspicion of lung cancer. PAST MEDICAL HISTORY: Spinal stenosis, depression, hypogonadism, migraine headaches, thoracic myelopathy, chronic back pain, narcotic bowel syndrome and skin cancer. REVIEW OF SYSTEMS: He has rt sided CP. PHYSICAL EXAMINATION: GENERAL APPEARANCE: The patient is a 71-year-old gentleman who is in no acute cardiorespiratory distress. CHEST: Bilaterally symmetrical. HEART: S1, S2 normal. ABDOMEN: Soft, nontender. CENTRAL NERVOUS SYSTEM: No focal deficits. LYMPHATICS: No lymphadenopathy. SKIN: No rashes. PSYCHOLOGIC: Mood and affect are appropriate. MUSCULOSKELETAL: No joint effusions. IMPRESSION AND PLAN: 1. NSCLC - POORLY DIFFERENTIATED ADENOCARCINOMA - Left hilar lung mass with postobstructive pneumonitis with evidence of endobronchial lesion and cavitation and a right 7th rib lytic lesion clinically suggestive of lung cancer with metastatic disease to the rib. Bone scan 07/27/16- Abnormal activity in several right ribs as described above, probably representing a combination of bony metastases and fractures. MRI of the brain 07/27/16 - Small focus of acute infarction in the left cerebellar hemisphere. No associated hemorrhage or mass effect. No evidence for intracranial metastatic disease. I reviewed final pathology results from the bronchoscopy done on 07/27/2016 which revealed endobronchial lesion. I d/w Dr Booth and need more tissue for biomarker testing. Plan bx of right rib mets - need tissue for EGFR,ALK,ROS-1. PD-L1 testing. I d/w Dr Eagle and Dr Bowens. I discussed in detail with the patient and his and the family members regarding the clinical impression of lung cancer and the clinical impression of stage IV malignancy with the involvement of the right posterior 7th rib. I discussed further regarding the role of palliative chemotherapy and targeted therapy. I d/w Dr. Storm Garner from [facility] and he plans treatment to primary lesion and right rib involvement because of evidence of postobstructive pneumonitis. 2. Bone metastasis. Bone scan 07/27/16- Abnormal activity in several right ribs as described above, probably representing a combination of bony metastases and fractures. Appreciate pain management consult. 3. Elevated liver function tests. Appreciate GI consultation. Bilirubin has improved from 2.3 to 1.5. Etiology is thought to be multifactorial. Continue to monitor. 4. Acute CVA - MRI of the brain 07/27/16 - Small focus of acute infarction in the left cerebellar hemisphere. No associated hemorrhage or mass effect. No evidence for intracranial metastatic disease. Appreciate neurology consult. He would not be eligible for avastin due to acute CVA, AMANDA COULTER MD Jul 30, 2016 09:11
[2016-07-30] MEDS ORDERED: MIDAZOLAM HCL/PF 5 MG/5 ML VIAL IV ONE (09:45)
[2016-07-30] MEDS ORDERED: FENTANYL PF 250 MCG/5 ML VIAL. IV ONE (09:45)
[2016-07-30] MEDS ORDERED: KETOROLAC TROMETHAMINE 60 MG/2 ML SYRINGE. ONE (09:56)
[2016-07-30] MEDS ORDERED: KETOROLAC TROMETHAMINE 30 MG/ML SYRINGE. IV ONE (10:00)
--- NOTE | 2016-07-30 10:05 | PDOC ---
MODERATE SEDATION ASSESSMENT RISKS/ALTERNATIVES Risks/Alternatives Risks and alternatives of this type of sedation and procedure discussed with: RISK/ALTERNATIVES: Patient H & P ON CHART H & P H & P on chart and reviewed for co-morbid conditions and appropriate labs. H&P ON CHART: Yes STATUS PREG STATUS ASSESSED: N/A MEDS/ALLERGIES REVIEWED Meds/Allergies Reviewed Medications and Allergies including time and route of recently administered narcotics and sedatives. MEDS/ALLERGIES REVIEWED: Yes ASA RATING ASA RATING: III AIRWAY ASSESSMENT Airway Assessment Airway patency, oral function limitations, presence of caps, crowns, dentures, partials, and ability to extend neck assessed. AIRWAY ASSESSMENT: Yes MALLAMPATI SCORE MALLAMPATI SCORE: II PRE-SEDATION ASSESSMENT PRE-SEDATION ASSESSMENT: Yes CRISTIANE MOORE MD Jul 30, 2016 10:05
--- NOTE | 2016-07-30 10:09 | PDOC ---
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 No apparent complication. Disposition Disposition From IR/CT return to 662. F/u with Dr Bowens and Dr Moore. Full report to follow. CRISTIANE MOORE MD Jul 30, 2016 10:09
--- NOTE | 2016-07-30 10:32 | RAD ---
CT-guided biopsy right seventh rib destructive lesion Indication: 71-year-old male with non-small cell left lung cancer, and with right seventh rib destructive metastatic lesion. CT-guided rib lesion biopsy has been requested for genetic tumor markers. Anesthesia: 27 minutes moderate sedation was provided utilizing a total of 2 mg Versed and 100 mcg fentanyl, IV. The patient was appropriately monitored by a qualified independent observer throughout the time of moderate sedation. Consent: The procedure was explained in its entirety to the patient and/or the patient's designated door to door sales representative by a member of the treatment team. This included a discussion of risks and benefits and acceptable alternatives to the procedure, as well as expected consequences of no treatment at all. Discussion of risks included, but was not limited to, those that are most frequent and those that are rare, but possibly severe or life-threatening, as well as the possibility of unforeseen complications. Procedure: Informed consent was obtained from the patient. He was placed prone on the CT scanner. Preliminary noncontrast CT images confirmed the previously described destructive lesion involving posterolateral aspect of right seventh rib. An overlying right posterior skin site suitable for CT-guided biopsy was selected and marked. That area was prepped and draped in the usual sterile fashion. Conscious sedation was provided with IV Versed and fentanyl. Using aseptic technique, local anesthesia, and CT guidance, a 13-gauge guide needle was successfully advanced to posteromedial margin of the right seventh rib lesion. 2 14-gauge core biopsy samples were then obtained, and were submitted in formalin to pathology. The biopsy guide needle was removed and a sterile dressing was applied. Patient tolerated the procedure well without apparent complication. Completion CT images revealed no evidence of significant postbiopsy bleeding and no evidence of underlying pneumothorax. Impression: Successful, uneventful CT-guided biopsy of destructive lesion involving posterolateral aspect of right seventh rib, as described. 2 14-gauge core biopsy samples were submitted to pathology for genetic tumor markers. PQRS Compliance Statement: One or more of the following individualized dose reduction techniques was utilized for this procedure: 1. Automated exposure control. 2. Adjustment of MA and/or KV according to patient size. 3. Iterative reconstruction technique.
--- NOTE | 2016-07-30 11:24 | PDOC ---
Subjective: Subjective: Has been up w/ PT, had biopsy earlier. No GI complaints. Objective: Vital Signs: Vital Signs Date Time Temp Pulse Resp B/P Pulse Ox O2 Delivery O2 Flow Rate FiO2 07/30/16 11:14 93 Room Air 07/30/16 09:50 14 2.0 07/30/16 09:45 84 07/30/16 09:00 117/76 07/30/16 07:00 98.1 98.1 Imaging: CXR 07/30/16 Impression: Continued extensive left upper lobe infiltrate, slightly more consolidated on today's study when compared with exam one week earlier. PE: GEN: NAD, up walking w/ PT ABD: BS+, non-tender MSK: right rib pain NEURO/PSYCH: A & O 3 OTHER: present A/P: Metastatic NSCLC Elevated LFTs - improved Chronic constipation - controlled on Miralax CVA -- Stable per GI. Continue treatment for constipation. KAYLEE AKHTAR Jul 30, 2016 11:24
[2016-07-30] MEDS: OXYCODONE IR 5 MG TABLET. PO PRN ×2 (13:27→20:55)
[2016-07-30] MEDS: VANCOMYCIN PER PHARMACY MC PRN (14:17)
--- NOTE | 2016-07-30 15:29 | PDOC ---
PROGRESS NOTES Assessment Assessment Acute small left cerebellum infarct. Metabolic encephalopathy. Pneumonia. Lung cancer, non small cell. Metastatic fractures in ribs. Gait instability. Thoracic myelopathy. Leukocytosis. Hyperbilirubinemia. Hypoalbuminemia. Visual and auditory hallucinations. Skin cancer. Vit D insufficience. RECOMMENDATIONS/PLAN: Continue ASA 325 mg daily. continue Lipitor HS. Treat medical diseases. Oncology treatment. Vit D and Ca++ supplement. Discussed with his again at bedside on 07/30/16. Carotid A US + Doppler on 07/28: No high grade stenosis. Lipid panel on 07/29: WNL HISTORY OF THE PRESENT ILLNESS: 71-y-old male patient with above medical and oncological diseases was revealed a small stroke, so Neurology was called for consultation. His brain MRI was reviewed and believed as stroke at this tiem rather than metastatic brain disease; howeve, he is at risk of cerebral metastatic disease. He states he is doing better on 07/29. PAST MEDICAL HISTORY: Please see above. PAST SURGERY HISTORY: Tonsillectomy Cholecystectomy Hernia Repair Skin cancer removal ALLERGY: NKDA MEDICATIONS: Refer to [facility] FAMILY HISTORY: H Non contributory. SOCIAL HISTORY: Denies current smoking, drinking, and illicit drug use. He smoked < 1pack of cigarettes a day for about 20 years in the past. REVIEW OF SYSTEMS: Constitutional: No malnutrition, weight loss, cachexia. Head: No recent traumatic brain or head injury. Skin: No edema, or rash. Ear: No infection, tinnitus. Eyes: No vision loss or color blindness. Nose: No bleeding or purulent discharges. Hearing: Hearing decrease. Neck: No recent injury. Cardiac: No PR, arrhythmia. Pulmonary: Pneumonia, lung cancer. GI: No GI ulcer, GI bleeding. Urinary/genital: No dysuria, hematuria, incontinence, urinary retention. Endocrinologic: No cousin face, craniofacial dysmorphism, polydactyly, goiter. Skeletomuscular: No muscular atrophy, deformity. Neurological: see HP. Psychiatric: Denies drug use/abuse. Otherwise, not [id number] review of systems. PHYSICAL EXAMINATION: General appearance is in subacute distress. HEENT: Normocephalic and nontraumatic. Eyes, nose, ears, and throat are unremarkable. Neck is supple. No lymphadenopathy. No crepitus. Cardiovascular: S1, S2, regular rate and rhythm. Pulmonary: Mildly decreased to auscultation bilaterally. Abdomen: Bowel sounds are positive. Extremities: No rash, lesions, or edema. No restriction of range of motion NEUROLOGICAL EXAMINATION: Awake. Oriented to time, place and person. PERRL. EOMI. Horizontal nystagmus noted. CN: no focal findings. Muscle tone: within normal. Muscle strength: 5 UE, 4+ LE DTR: 2 Plantar reflex: Flexor response bilaterally Gait: able to walk. Sensory exam: no acute abnormal findings. No cerebellar signs elicited. F-T-N test not accurate bilaterally. Objective Objective Vital Signs Date Time Temp Pulse Resp B/P Pulse Ox O2 Delivery O2 Flow Rate FiO2 07/30/16 15:05 Room Air 07/30/16 11:37 96.4 82 19 123/75 92 96.4 07/30/16 09:50 2.0 Intake and Output 07/30/16 07:00 Intake Total 650 ml Output Total 500 ml Balance 150 ml Intake Oral 650 ml Output Urine Total 500 ml # Voids 6 Vitals Signs Vitals VS - Last 72 Hours, by Label Date Time Temp Pulse Resp B/P Pulse Ox O2 Delivery O2 Flow Rate FiO2 07/30/16 15:05 Room Air 07/30/16 13:27 Room Air 07/30/16 11:37 96.4 82 19 123/75 92 Room Air 96.4 07/30/16 11:14 93 Room Air 07/30/16 11:00 Room Air 07/30/16 09:50 14 100 Nasal Cannula 2.0 07/30/16 09:45 84 14 100 Nasal Cannula 2.0 07/30/16 09:40 85 97 Nasal Cannula 2.0 07/30/16 09:31 86 100 Nasal Cannula 2.0 07/30/16 09:26 85 95 Nasal Cannula 2.0 07/30/16 09:21 84 96 Nasal Cannula 2.0 07/30/16 09:15 84 15 92 Room Air 07/30/16 09:00 84 117/76 07/30/16 08:12 Room Air 07/30/16 07:07 91 Room Air 07/30/16 07:00 98.1 79 19 124/76 91 Room Air 98.1 07/30/16 04:55 92 Room Air 07/30/16 04:25 20 92 Room Air 07/30/16 03:00 97.9 81 19 109/68 92 Room Air 97.9 07/29/16 23:00 99.9 83 20 111/72 92 Room Air 99.9 07/29/16 22:10 18 07/29/16 21:40 19 92 Room Air 07/29/16 21:39 79 102/60 07/29/16 20:00 Room Air 07/29/16 19:25 92 Room Air 07/29/16 19:00 98.1 79 21 102/60 90 Room Air 98.1 07/29/16 17:25 Room Air 07/29/16 16:04 Room Air 07/29/16 15:00 98.5 86 18 104/62 90 Room Air 98.5 07/29/16 12:02 Room Air 07/29/16 11:59 Room Air 07/29/16 11:12 Room Air 07/29/16 11:00 98.4 74 16 105/72 93 Room Air 98.4 07/29/16 09:11 Room Air 07/29/16 09:09 78 100/69 07/29/16 07:57 Room Air 07/29/16 07:27 92 Room Air 07/29/16 07:00 98.5 78 16 100/69 92 98.5 Laboratory Laboratory Laboratory Tests Test 07/30/16 11:00 Vancomycin Level Trough 23.7mcg/mL (10.0-20.0) Vancomycin Last Dose Date 07/30/16 Vancomycin Last Dose Time 0330 Microbiology 07/23/16 Blood Culture - Final, Complete NO GROWTH AFTER 5 DAYS 07/27/16 AFB Specimen Processing Tissue - Final, Resulted 07/27/16 Acid Fast Bacilli Culture, Resulted Pending 07/27/16 Gram Stain - Final, Resulted 07/27/16 Fungal Culture, Resulted Pending 07/27/16 Fungal Culture Result 1, Resulted Pending 07/23/16 Urine Culture - Final, Complete 07/23/16 Urine Culture Result 1 (ARANZA) - Final, Complete Medication Medications Current Medications Fentanyl Citrate (Fentanyl 5ml Vial) 100 mcg 1X ONCE IV Last administered on t 09:50; Start 07/30/16 at 09:45; Stop 07/30/16 at 09:47; Status DC Fentanyl Citrate (Fentanyl 5ml Vial) 250 mcg STK-MED ONCE .ROUTE ; Start at 08:53; Stop 07/30/16 at 08:54; Status DC Flumazenil (Romazicon) 0.5 mg STK-MED ONCE IV ; Start 07/30/16 at 08:53; Stop at 08:54; Status DC Hydromorphone HCl (Dilaudid) 2 mg PRN Q3HRS PRN IV PAIN SEVERE Last administered on 07/30/16 04:25; Start 07/29/16 at 15:45 Ketorolac Tromethamine (Toradol) 60 mg 1X ONCE IV Last administered on 10:00; Start 07/30/16 at 10:00; Stop 07/30/16 at 10:01; Status DC Ketorolac Tromethamine 60 mg 60 mg STK-MED ONCE .ROUTE ; Start 07/30/16 at 09:56 ; Stop 07/30/16 at 09:57; Status DC Lidocaine/Sodium Bicarbonate (Buffered Lidocaine 1%) 4 ml 1X ONCE IJ Last administered on 07/30/16 09:45; Start 07/30/16 at 09:45; Stop 07/30/16 at 09:47 ; Status DC Lidocaine/Sodium Bicarbonate (Buffered Lidocaine 1%) 20 ml STK-MED ONCE IJ ; Start 07/30/16 at 08:45; Stop 07/30/16 at 08:46; Status DC Midazolam HCl (Versed) 2 mg 1X ONCE IV Last administered on 07/30/16 09:49; Start 07/30/16 at 09:45; Stop 07/30/16 at 09:47; Status DC Midazolam HCl (Versed) 5 mg STK-MED ONCE .ROUTE ; Start 07/30/16 at 08:53; Stop 07/30/16 at 08:54; Status DC Naloxone HCl (Narcan) 0.4 mg STK-MED ONCE .ROUTE ; Start 07/30/16 at 08:53; Stop 07/30/16 at 08:54; Status DC Vancomycin HCl 1 each 1X ONCE MC Last administered on 07/30/16 11:00; Start 07/30/16 at 11:00; Stop 07/30/16 at 11:01; Status DC Vancomycin HCl/ Sodium Chloride (Iv Sodium Chloride 0.9% 500ml Bag) 500 ml @ 250 mls/hr Q12HR IV ; Start 07/30/16 at 21:00 Comment Review of Relevant I have reviewed the following items rubi (where applicable) has been applied. LIDA TILLMAN MD Jul 30, 2016 15:29
--- NOTE | 2016-07-30 18:49 | RAD ---
PROCEDURE Portable chest radiograph 07/30/2016 HISTORY PICC line placement. FINDINGS An AP portable semi erect digital radiograph of the chest was obtained. Comparison study is dated earlier today at 0711 hours. A right arm PICC has been placed. The tip of this catheter extends to overlie the right atrium of the heart. The cardiac silhouette is normal in size. The thoracic aorta is mildly tortuous. Left upper lobe infiltrate is unchanged. No pneumothorax or pleural effusion is noted. The osseous structures are unchanged. IMPRESSION Interval placement of a right arm PICC. The tip of this catheter extends to overlie the superior vena cava. Electronically signed by: Sunday Padilla MD (Jul 30, 2016 18:47:22)
[2016-07-30] MEDS ORDERED: VANCOMYCIN 1.5 GM in IV NORMAL SALINE 500ML BAG 500 ML IV SCH (21:00)
[2016-07-31] MEDS: GUAIFENESIN/CODEINE 100mg/10mg 5 ML LIQUID. PO PRN (02:08)
[2016-07-31] MEDS: HYDROMORPHONE 2 MG/ML VIAL. IV PRN ×3 (02:12→20:37)
[2016-07-31 03:55] VITALS: BP 113/71
[2016-07-31] MEDS: AA 3%/ELECTROLYTE-TPN SOLN/GLY 1,000 ML IV SCH (05:30)
[2016-07-31] MEDS: OXYCODONE IR 5 MG TABLET. PO PRN ×3 (05:54→16:33)
[2016-07-31] MEDS: METHADONE 10 MG TABLET. PO SCH ×3 (05:54→20:35)
[2016-07-31] MEDS: PIPERACILLIN/TAZOBACTAM 3.375 GM in IV NORMAL SALINE 50ML 50 ML IV SCH ×3 (05:59→17:42)
[2016-07-31 07:00] VITALS: BP 125/77
[2016-07-31] MEDS: IPRATRPIUM/ALBUTEROL 0.5/2.5MG 3 ML NEBU. NEB SCH ×4 (08:46→19:27)
[2016-07-31] MEDS: GUAIFENESIN ER 600 MG TABLET.ER PO SCH ×2 (08:54→20:35)
[2016-07-31] MEDS: ASPIRIN 325 MG TABLET PO SCH (08:54)
[2016-07-31] MEDS: SERTRALINE 50 MG TABLET. PO SCH ×2 (08:58→20:35)
[2016-07-31] MEDS: POLYETHYLENE GLYCOL 3350 17 GM PACKET. PO SCH (08:58)
[2016-07-31] MEDS: PROPRANOLOL 10 MG TABLET. PO SCH ×2 (08:58→20:36)
[2016-07-31] MEDS: DOCUSATE SODIUM 100 MG CAPSULE PO SCH ×2 (08:58→21:00)
--- NOTE | 2016-07-31 11:05 | PDOC ---
PULMONARY PROGRESS NOTES Subjective no change Vitals Vital Signs Date Time Temp Pulse Resp B/P Pulse Ox O2 Delivery O2 Flow Rate FiO2 07/31/16 08:58 100 125/77 07/31/16 08:47 94 Room Air 07/31/16 07:00 97.8 20 97.8 07/31/16 06:54 2.0 General: Alert, No acute distress Lungs: Other (left lung/ decrease bs) Cardiovascular: S1 Abdomen: Soft Neuro Exam: Alert Extremities: No Edema Skin: Warm Labs Laboratory Tests Test 07/30/16 11:00 Vancomycin Level Trough 23.7mcg/mL (10.0-20.0) Vancomycin Last Dose Date 07/30/16 Vancomycin Last Dose Time 0330 Medications Active Scripts Medications Dose Route/Sig Days Date Category Zoloft (Sertraline Hcl) 50 Mg Tablet 50 Mg PO BID 08/07/15 Reported Methadone Hcl 10 Mg Tablet 10 Mg PO BID 08/07/15 Reported Xanax (Alprazolam) 0.5 Mg Tablet 0.5 Mg PO DAILY PRN 08/16/13 Reported Stool Softener (Docusate Sodium) 100 Mg Capsule 100 Mg PO BID 08/16/13 Reported Propranolol Hcl 10 Mg Tablet 10 Mg PO BID 08/16/13 Reported Oxycodone Hcl 20 Mg Tablet 40 Mg PO [id number] 08/16/[address] CHEST 1.Abnormal soft tissue masslike density in the left hilum encasing the left main pulmonary artery and a portion of the left upper lobe bronchus. The area of abnormal soft tissue density measures approximate 6.3 cm transverse x 4.3 cm AP. There is extensive infiltrate in the left upper lobe as well as cavitation. Findings are concerning for a left hilar neoplasm with cavitation and probable postobstructive pneumonitis. 2. Destructive process involving the right posterior seventh rib, consistent with a metastatic lesion. CT abdomen and pelvis: There is a tiny low density in the dome of the liver, too small to characterize. No other liver lesions are detected. Gallbladder is unremarkable. The pancreas and spleen are unremarkable. No adrenal mass is detected. Kidneys are unremarkable. The aorta is nonaneurysmal. No central retroperitoneal or mesenteric lymphadenopathy is seen. No definite pelvic lymphadenopathy is detected. Postop changes in the lower thoracic spine are noted with small fluid collection noted at the surgical bed consistent with small postoperative seroma Impression: Unremarkable CT of the abdomen and pelvis. Impression . 1. Extensive post obstructive cavitary consolidation in the left upper lobe . Bronch with endobronchial lesion NADER/ Lingula and lytic lesion right 7th rib. Findings c/w malignancy/ Biopsy NSCLC 2. Unexplained weight loss due to lung malignancy. 3. Underlying chronic obstructive pulmonary disease, smoked for 33 years before quitting 25 years ago. 4. Right-sided rib pain since fall in December of last year. CT chest with lytic lesions right 7 th rib 5. New small CVA Plan . 1. Continue with present antibiotics./BS coverage. cxr unchanged 2. s/p Bronch with totally occluded NADER/LINGULA/ and Narrowed LLL opening, lesion at [facility]/both VC suspicious for malignancy/ Biopsy c/w NSCLC 3. Bronchodilators. 4. Oxygen p.r.n. 5. Discussed with pathologist. Preliminary biopsy c/w poorly Differentiated NSCLC 6. f/u medical/radiation oncology recommendations. d/w family. 7. d/w Dr Moore. Need more tissue for EGFR,ALK,ROS-1. PD-L1 testing/ s/p bx of right rib mets - 8. will see him tuesday CHATO GARCIA MD Jul 31, 2016 11:05
[2016-07-31 11:15] VITALS: BP 115/73
--- NOTE | 2016-07-31 14:38 | PDOC ---
PROGRESS NOTES Subjective Subjective Patient reports breathing is a little better. Pain about the same. Objective Objective Vital Signs Date Time Temp Pulse Resp B/P Pulse Ox O2 Delivery O2 Flow Rate FiO2 07/31/16 11:53 94 Room Air 07/31/16 11:15 98.1 84 20 115/73 98.1 07/31/16 06:54 2.0 Intake and Output 07/31/16 07:00 Intake Total 910 ml Output Total 600 ml Balance 310 ml Intake Oral 910 ml Output Urine Total 600 ml # Voids 6 Physical Exam Abdomen: Normal bowel sounds, Soft, No tenderness Heart: Regular rate Extremities: No edema General: Alert, Oriented X3, No acute distress Lungs: Other (BS decreased throughout but otherwise CTA) Assessment Assessment Problems Medical Problems: (1) Confusion Status: Acute (2) Hallucinations Status: Acute (3) Pneumonia Status: Acute (4) Uremia Status: Acute Plan Plan of Care 1. Post-obstructive pneumonia - improving, continue Zosyn. Not hypoxic on RA. 2. 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 3. new CVA - stable, continue therapies. 4. chronic pain - stable, continue his usual po pain meds. Also taking some prn Dilaudid. Comment Review of Relevant I have reviewed the following items rubi (where applicable) has been applied. Labs Laboratory Tests Test 07/30/16 11:00 Vancomycin Level Trough 23.7mcg/mL (10.0-20.0) Vancomycin Last Dose Date 07/30/16 Vancomycin Last Dose Time 0330 Microbiology 07/23/16 Blood Culture - Final, Complete NO GROWTH AFTER 5 DAYS 07/27/16 AFB Specimen Processing Tissue - Final, Resulted 07/27/16 Acid Fast Bacilli Culture, Resulted Pending 07/27/16 Gram Stain - Final, Resulted 07/27/16 Fungal Culture, Resulted Pending 07/27/16 Fungal Culture Result 1, Resulted Pending 07/23/16 Urine Culture - Final, Complete 07/23/16 Urine Culture Result 1 (ARANZA) - Final, Complete Medications Current Medications Ondansetron HCl (Zofran) 4 mg PRN Q8HRS PRN IV NAUSEA/VOMITING; Start 07/23/16 at 17:00; Stop 07/24/16 at 16:59; Status DC Morphine Sulfate 2 mg 2 mg PRN Q2HR PRN IV PAIN; Start 07/23/16 at 17:00; Stop 07/24/16 at 16:59; Status DC Azithromycin 250 ml @ 250 mls/hr 1X ONCE IV Last administered on 07/23/16 18 :37; Start 07/23/16 at 17:00; Stop 07/23/16 at 17:59; Status DC Ceftriaxone Sodium 50 ml @ 100 mls/hr 1X ONCE IV Last administered on 18:09; Start 07/23/16 at 17:00; Stop 07/23/16 at 17:29; Status DC Sodium Chloride (Iv Sodium Chloride 0.9% 500ml Bag) 500 ml @ 500 mls/hr 1X ONCE IV Last administered on 07/23/16 18:08; Start 07/23/16 at 17:15; Stop at 18:14; Status DC Docusate Sodium (Colace) 100 mg BID PO Last administered on 07/31/16 08:58; Start 07/24/16 at 09:00 Propranolol HCl (Inderal) 10 mg BID PO ; Start 07/24/16 at 09:00; Stop 07/24/16 at 09:00; Status DC Sertraline HCl (Zoloft) 50 mg BID PO ; Start 07/24/16 at 09:00; Stop 07/24/16 at 09:00; Status DC Methadone HCl (Dolophine) 10 mg BID PO ; Start 07/24/16 at 09:00; Stop 07/24/16 at 09:00; Status DC Oxycodone HCl (Roxicodone) 40 mg PRN BID PRN PO SEVERE PAIN; Start 07/23/16 at 22:45; Stop 07/24/16 at 10:37; Status DC Methadone HCl (Dolophine) 10 mg BID PO Last administered on 07/28/16 08:23; Start 07/23/16 at 23:00; Stop 07/28/16 at 13:05; Status DC Propranolol HCl (Inderal) 10 mg BID PO Last administered on 07/31/16 08:58; Start 07/23/16 at 23:00 Sertraline HCl (Zoloft) 50 mg BID PO Last administered on 07/31/16 08:58; Start 07/23/16 at 23:00 Alprazolam (Xanax) 0.5 mg PRN TID PRN PO ANXIETY / AGITATION Last administered on 07/28/16 20:23; Start 07/24/16 at 09:30 Oxycodone HCl (Roxicodone) 20 mg PRN Q6HRS PRN PO PAIN Last administered on 09:02; Start 07/24/16 at 09:30 Albuterol/ Ipratropium (Duoneb) 3 ml RTQID NEB Last administered on 07/31/16 11:52; Start 07/24/16 at 12:00 Guaifenesin (Mucinex) 600 mg BID PO Last administered on 07/31/16 08:54; Start 07/24/16 at 21:00 Guaifenesin/ Codeine Phosphate (Robitussin Ac) 5 ml PRN Q6HRS PRN PO COUGH Last administered on 07/26/16 08:12; Start 07/24/16 at 09:30 Guaifenesin/ Codeine Phosphate 10 ml 10 ml PRN Q6HRS PRN PO COUGH Last administered on 07/31/16 02:08; Start 07/24/16 at 09:30 Ceftriaxone Sodium/Sodium Chloride (Rocephin/Iv Sodium Chloride 0.9% 50ml) 50 ml @ 100 mls/hr Q24H IV Last administered on 07/27/16 10:00; Start 07/24/16 at 10:00; Stop 07/27/16 at 20:54; Status DC Azithromycin (Zithromax) 250 mg DAILY PO Last administered on 07/28/16 08:23; Start 07/24/16 at 09:30; Stop 07/28/16 at 09:29; Status DC Potassium Chloride (Klor-Con) 40 meq 1X ONCE PO Last administered on 10:28; Start 07/24/16 at 09:45; Stop 07/24/16 at 09:53; Status DC Potassium Chloride (Klor-Con) 40 meq BIDWMEALS PO Last administered on 17:50; Start 07/25/16 at 13:45; Stop 07/25/16 at 17:01; Status DC Albuterol/ Ipratropium (Duoneb) 3 ml 1X ONCE NEB Last administered on 03:57; Start 07/26/16 at 04:15; Stop 07/26/16 at 04:16; Status DC Polyethylene Glycol (miraLAX PACKET) 17 gm DAILY PO Last administered on 08:58; Start 07/26/16 at 10:00 Bisacodyl (Dulcolax Supp) 10 mg PRN DAILY PRN [place] CONSTIPATION Last administered on 07/26/16 12:39; Start 07/26/16 at 09:30 Diclofenac Sodium (Voltaren) 1 ruddy PRN Q4HRS PRN TP PAIN Last administered on 11:13; Start 07/26/16 at 10:30; Stop 07/26/16 at 15:20; Status DC Ketorolac Tromethamine (Toradol) 30 mg PRN Q6HRS PRN IV PAIN; Start 07/26/16 at 11:15; Stop 07/26/16 at 15:20; Status DC Iohexol (Omnipaque 240 Mg/ml) 30 ml 1X ONCE IV ; Start 07/26/16 at 11:30; Stop 07/26/16 at 11:31; Status DC Iohexol (Omnipaque 300 Mg/ml) 75 ml 1X ONCE IV Last administered on 07/26/16 12:13; Start 07/26/16 at 11:30; Stop 07/26/16 at 11:31; Status DC Info (Do NOT chart on this entry -- for MONITORING) 1 each PRN DAILY PRN MC SEE COMMENTS; Start 07/26/16 at 11:15; Stop 07/28/16 at 11:14; Status DC Fentanyl Citrate (Fentanyl 2ml Vial) 50 mcg PRN Q3HRS PRN IV PAIN Last administered on 07/29/16 09:11; Start 07/27/16 at 09:00; Stop 07/29/16 at 15:42 ; Status DC Fentanyl Citrate 100 mcg 100 mcg PRN Q3HRS PRN IV PAIN Last administered on 03:54; Start 07/27/16 at 09:00; Stop 07/29/16 at 15:42; Status DC Propofol 40 ml @ As Directed STK-MED ONCE IV ; Start 07/27/16 at 10:20; Stop at 10:21; Status DC Amino Acids/ Glycerin/ Electrolytes (Procalamine) 1,000 ml @ 80 mls/hr [id number] IV Last administered on 07/30/16 19:22; Start 07/27/16 at 14:00; Stop at 13:03; Status DC Gadobutrol 8 mmol 8 mmol 1X ONCE IV Last administered on 07/27/16 15:59; Start 07/27/16 at 15:45; Stop 07/27/16 at 15:46; Status DC Piperacillin Sod/ Tazobactam Sod/ Sodium Chloride (Zosyn/Iv Sodium Chloride 0.9 % 50ml) 50 ml @ 100 mls/hr Q6HRS IV Last administered on 07/31/16 12:14; Start 07/28/16 at 00:00 Vancomycin HCl 1 each 1 each PRN DAILY PRN MC SEE COMMENTS Last administered on 07/30/16 14:17; Start 07/27/16 at 21:00; Stop 07/30/16 at 18:33; Status DC Vancomycin HCl 2 gm/Sodium Chloride 500 ml @ 250 mls/hr 1X ONCE IV Last administered on 07/27/16 23:55; Start 07/27/16 at 21:30; Stop 07/27/16 at 23:29 ; Status DC Vancomycin HCl/ Sodium Chloride (Iv Sodium Chloride 0.9% 250ml) 250 ml @ 167 mls/hr Q12H IV Last administered on 07/28/16 20:25; Start 07/28/16 at 11:00; Stop 07/29/16 at 11:23; Status DC Vancomycin HCl 1 each 1X ONCE MC Last administered on 07/29/16 10:30; Start 07/29/16 at 10:30; Stop 07/29/16 at 10:31; Status DC Methadone HCl (Dolophine) 10 mg Q8HRS PO Last administered on 07/31/16 14:17; Start 07/28/16 at 14:00 Aspirin 325 mg 325 mg [id number] PO Last administered on 07/31/16 08:54; Start 07/28/16 at 18:00 Vancomycin HCl/ Sodium Chloride (Iv Sodium Chloride 0.9% 500ml Bag) 500 ml @ 250 mls/hr Q8H IV Last administered on 07/30/16 04:21; Start 07/29/16 at 11:30 ; Stop 07/30/16 at 12:18; Status DC Vancomycin HCl 1 each 1X ONCE MC Last administered on 07/30/16 11:00; Start 07/30/16 at 11:00; Stop 07/30/16 at 11:01; Status DC Hydromorphone HCl (Dilaudid) 2 mg PRN Q3HRS PRN IV PAIN SEVERE Last administered on 07/31/16 12:20; Start 07/29/16 at 15:45 Lidocaine/Sodium Bicarbonate (Buffered Lidocaine 1%) 20 ml STK-MED ONCE IJ ; Start 07/30/16 at 08:45; Stop 07/30/16 at 08:46; Status DC Naloxone HCl (Narcan) 0.4 mg STK-MED ONCE .ROUTE ; Start 07/30/16 at 08:53; Stop 07/30/16 at 08:54; Status DC Flumazenil (Romazicon) 0.5 mg STK-MED ONCE IV ; Start 07/30/16 at 08:53; Stop at 08:54; Status DC Midazolam HCl (Versed) 5 mg STK-MED ONCE .ROUTE ; Start 07/30/16 at 08:53; Stop 07/30/16 at 08:54; Status DC Fentanyl Citrate (Fentanyl 5ml Vial) 250 mcg STK-MED ONCE .ROUTE ; Start at 08:53; Stop 07/30/16 at 08:54; Status DC Lidocaine/Sodium Bicarbonate (Buffered Lidocaine 1%) 4 ml 1X ONCE IJ Last administered on 07/30/16 09:45; Start 07/30/16 at 09:45; Stop 07/30/16 at 09:47 ; Status DC Midazolam HCl (Versed) 2 mg 1X ONCE IV Last administered on 07/30/16 09:49; Start 07/30/16 at 09:45; Stop 07/30/16 at 09:47; Status DC Fentanyl Citrate (Fentanyl 5ml Vial) 100 mcg 1X ONCE IV Last administered on 09:50; Start 07/30/16 at 09:45; Stop 07/30/16 at 09:47; Status DC Ketorolac Tromethamine (Toradol) 60 mg 1X ONCE IV Last administered on t 10:00; Start 07/30/16 at 10:00; Stop 07/30/16 at 10:01; Status DC Ketorolac Tromethamine 60 mg 60 mg STK-MED ONCE .ROUTE ; Start 07/30/16 at 09:56 ; Stop 07/30/16 at 09:57; Status DC Vancomycin HCl/ Sodium Chloride (Iv Sodium Chloride 0.9% 500ml Bag) 500 ml @ 250 mls/hr Q12HR IV ; Start 07/30/16 at 21:00; Stop 07/30/16 at 21:00; Status DC Active Scripts Active Reported Zoloft (Sertraline Hcl) 50 Mg Tablet 50 Mg PO BID Methadone Hcl 10 Mg Tablet 10 Mg PO BID Xanax (Alprazolam) 0.5 Mg Tablet 0.5 Mg PO DAILY PRN Stool Softener (Docusate Sodium) 100 Mg Capsule 100 Mg PO BID Propranolol Hcl 10 Mg Tablet 10 Mg PO BID Oxycodone Hcl 20 Mg Tablet 40 Mg PO [id number] Vitals/I & O Vital Sign - Last 24 Hours 07/30/16 07/30/16 07/30/16 07/30/16 15:00 19:51 20:15 20:37 Temp 97.5 98.4 97.5 98.4 Pulse 80 84 Resp 18 16 B/P 129/78 122/68 Pulse Ox 93 92 93 O2 Delivery Room Air Room Air Room Air 07/30/16 07/30/16 07/30/16 07/31/16 20:55 20:57 23:38 02:12 Temp 98.1 98.1 Pulse 84 75 Resp 16 B/P 122/68 115/75 Pulse Ox 93 93 93 O2 Delivery Room Air Room Air Room Air O2 Flow Rate 2.0 2.0 07/31/16 07/31/16 07/31/16 07/31/16 02:45 03:55 05:54 06:54 Temp 98.8 98.8 Pulse 82 Resp 16 B/P 113/71 Pulse Ox 93 93 93 93 O2 Delivery Room Air Room Air Room Air Room Air O2 Flow Rate 2.0 2.0 2.0 07/31/16 07/31/16 07/31/16 07/31/16 07:00 08:00 08:47 08:58 Temp 97.8 97.8 Pulse 100 100 Resp 20 B/P 125/77 125/77 Pulse Ox 94 94 O2 Delivery Room Air Room Air Room Air 07/31/16 07/31/16 11:15 11:53 Temp 98.1 98.1 Pulse 84 Resp 20 B/P 115/73 Pulse Ox 93 94 O2 Delivery Room Air Room Air Intake and Output 07/30/16 07/30/16 07/31/16 15:00 23:00 07:00 Intake Total 200 ml 710 ml Output Total 600 ml Balance -400 ml 710 ml CHASE VELASQUEZ MD Jul 31, 2016 14:38
[2016-07-31 14:40] VITALS: BP 102/66
[2016-07-31 19:35] VITALS: BP 114/86
[2016-07-31 22:55] VITALS: BP 116/69
[2016-08-01] MEDS: PIPERACILLIN/TAZOBACTAM 3.375 GM in IV NORMAL SALINE 50ML 50 ML IV SCH ×4 (00:10→17:59)
[2016-08-01] MEDS: HYDROMORPHONE 2 MG/ML VIAL. IV PRN ×3 (00:11→20:55)
[2016-08-01 03:13] VITALS: BP 117/79
[2016-08-01] MEDS: METHADONE 10 MG TABLET. PO SCH ×3 (06:21→20:53)
[2016-08-01] MEDS: IPRATRPIUM/ALBUTEROL 0.5/2.5MG 3 ML NEBU. NEB SCH ×4 (07:31→19:21)
[2016-08-01 08:00] VITALS: BP 112/68
[2016-08-01] MEDS: ASPIRIN 325 MG TABLET PO SCH (08:07)
[2016-08-01] MEDS: OXYCODONE IR 5 MG TABLET. PO PRN ×2 (08:07→17:58)
[2016-08-01] MEDS: PROPRANOLOL 10 MG TABLET. PO SCH ×2 (08:08→21:00)
[2016-08-01] MEDS: SERTRALINE 50 MG TABLET. PO SCH ×2 (08:08→20:53)
[2016-08-01] MEDS: DOCUSATE SODIUM 100 MG CAPSULE PO SCH ×2 (08:08→20:53)
[2016-08-01] MEDS: GUAIFENESIN ER 600 MG TABLET.ER PO SCH ×2 (08:08→21:00)
[2016-08-01] MEDS: POLYETHYLENE GLYCOL 3350 17 GM PACKET. PO SCH (08:10)
--- NOTE | 2016-08-01 10:44 | PDOC ---
PROGRESS NOTES Subjective Subjective Patient without complaint, pain is controlled. Objective Objective Vital Signs Date Time Temp Pulse Resp B/P Pulse Ox O2 Delivery O2 Flow Rate FiO2 08/01/16 08:12 Room Air 2.0 08/01/16 08:08 108 117/79 08/01/16 08:00 97.6 18 90 97.6 Intake and Output 08/01/16 07:00 # Voids 13 Physical Exam Abdomen: Normal bowel sounds, Soft, No tenderness Heart: Regular rate Extremities: No edema General: Alert, Oriented X3, No acute distress Lungs: Other (BS decreased throughout but otherwise CTA) Assessment Assessment Problems Medical Problems: (1) Confusion Status: Acute (2) Hallucinations Status: Acute (3) Pneumonia Status: Acute (4) Uremia Status: Acute Plan Plan of Care 1. Post-obstructive pneumonia - stable, not hypoxic on RA, continue Zosyn, change to po abx at discharge. 2. non-small cell lung cancer - patient to start XRT tomorrow, then chemotx to follow. 3. new CVA - stable, continue therapies. Patient is able to ambulate around the unit with a roller walker and his 's help. 4. chronic pain - stable, continue his usual po meds, he is also taking prn Dilaudid. Comment Review of Relevant I have reviewed the following items rubi (where applicable) has been applied. Labs Laboratory Tests Test 07/30/16 11:00 Vancomycin Level Trough 23.7mcg/mL (10.0-20.0) Vancomycin Last Dose Date 07/30/16 Vancomycin Last Dose Time 0330 Microbiology 07/23/16 Blood Culture - Final, Complete NO GROWTH AFTER 5 DAYS 07/27/16 AFB Specimen Processing Tissue - Final, Resulted 07/27/16 Acid Fast Bacilli Culture, Resulted Pending 07/27/16 Gram Stain - Final, Resulted 07/27/16 Fungal Culture, Resulted Pending 07/27/16 Fungal Culture Result 1, Resulted Pending 07/23/16 Urine Culture - Final, Complete 07/23/16 Urine Culture Result 1 (ARANZA) - Final, Complete Medications Current Medications Ondansetron HCl (Zofran) 4 mg PRN Q8HRS PRN IV NAUSEA/VOMITING; Start 07/23/16 at 17:00; Stop 07/24/16 at 16:59; Status DC Morphine Sulfate 2 mg 2 mg PRN Q2HR PRN IV PAIN; Start 07/23/16 at 17:00; Stop 07/24/16 at 16:59; Status DC Azithromycin 250 ml @ 250 mls/hr 1X ONCE IV Last administered on 07/23/16 18 :37; Start 07/23/16 at 17:00; Stop 07/23/16 at 17:59; Status DC Ceftriaxone Sodium 50 ml @ 100 mls/hr 1X ONCE IV Last administered on 18:09; Start 07/23/16 at 17:00; Stop 07/23/16 at 17:29; Status DC Sodium Chloride (Iv Sodium Chloride 0.9% 500ml Bag) 500 ml @ 500 mls/hr 1X ONCE IV Last administered on 07/23/16 18:08; Start 07/23/16 at 17:15; Stop at 18:14; Status DC Docusate Sodium (Colace) 100 mg BID PO Last administered on 08/01/16 08:08; Start 07/24/16 at 09:00 Propranolol HCl (Inderal) 10 mg BID PO ; Start 07/24/16 at 09:00; Stop 07/24/16 at 09:00; Status DC Sertraline HCl (Zoloft) 50 mg BID PO ; Start 07/24/16 at 09:00; Stop 07/24/16 at 09:00; Status DC Methadone HCl (Dolophine) 10 mg BID PO ; Start 07/24/16 at 09:00; Stop 07/24/16 at 09:00; Status DC Oxycodone HCl (Roxicodone) 40 mg PRN BID PRN PO SEVERE PAIN; Start 07/23/16 at 22:45; Stop 07/24/16 at 10:37; Status DC Methadone HCl (Dolophine) 10 mg BID PO Last administered on 07/28/16 08:23; Start 07/23/16 at 23:00; Stop 07/28/16 at 13:05; Status DC Propranolol HCl (Inderal) 10 mg BID PO Last administered on 08/01/16 08:08; Start 07/23/16 at 23:00 Sertraline HCl (Zoloft) 50 mg BID PO Last administered on 08/01/16 08:08; Start 07/23/16 at 23:00 Alprazolam (Xanax) 0.5 mg PRN TID PRN PO ANXIETY / AGITATION Last administered on 07/28/16 20:23; Start 07/24/16 at 09:30 Oxycodone HCl (Roxicodone) 20 mg PRN Q6HRS PRN PO PAIN Last administered on 08:07; Start 07/24/16 at 09:30 Albuterol/ Ipratropium (Duoneb) 3 ml RTQID NEB Last administered on 08/01/16 07:31; Start 07/24/16 at 12:00 Guaifenesin (Mucinex) 600 mg BID PO Last administered on 08/01/16 08:08; Start 07/24/16 at 21:00 Guaifenesin/ Codeine Phosphate (Robitussin Ac) 5 ml PRN Q6HRS PRN PO COUGH Last administered on 07/26/16 08:12; Start 07/24/16 at 09:30 Guaifenesin/ Codeine Phosphate 10 ml 10 ml PRN Q6HRS PRN PO COUGH Last administered on 07/31/16 02:08; Start 07/24/16 at 09:30 Ceftriaxone Sodium/Sodium Chloride (Rocephin/Iv Sodium Chloride 0.9% 50ml) 50 ml @ 100 mls/hr Q24H IV Last administered on 07/27/16 10:00; Start 07/24/16 at 10:00; Stop 07/27/16 at 20:54; Status DC Azithromycin (Zithromax) 250 mg DAILY PO Last administered on 07/28/16 08:23; Start 07/24/16 at 09:30; Stop 07/28/16 at 09:29; Status DC Potassium Chloride (Klor-Con) 40 meq 1X ONCE PO Last administered on 10:28; Start 07/24/16 at 09:45; Stop 07/24/16 at 09:53; Status DC Potassium Chloride (Klor-Con) 40 meq BIDWMEALS PO Last administered on 17:50; Start 07/25/16 at 13:45; Stop 07/25/16 at 17:01; Status DC Albuterol/ Ipratropium (Duoneb) 3 ml 1X ONCE NEB Last administered on 03:57; Start 07/26/16 at 04:15; Stop 07/26/16 at 04:16; Status DC Polyethylene Glycol (miraLAX PACKET) 17 gm DAILY PO Last administered on 08:10; Start 07/26/16 at 10:00 Bisacodyl (Dulcolax Supp) 10 mg PRN DAILY PRN IN CONSTIPATION Last administered on 07/26/16 12:39; Start 07/26/16 at 09:30 Diclofenac Sodium (Voltaren) 1 ruddy PRN Q4HRS PRN TP PAIN Last administered on 11:13; Start 07/26/16 at 10:30; Stop 07/26/16 at 15:20; Status DC Ketorolac Tromethamine (Toradol) 30 mg PRN Q6HRS PRN IV PAIN; Start 07/26/16 at 11:15; Stop 07/26/16 at 15:20; Status DC Iohexol (Omnipaque 240 Mg/ml) 30 ml 1X ONCE IV ; Start 07/26/16 at 11:30; Stop 07/26/16 at 11:31; Status DC Iohexol (Omnipaque 300 Mg/ml) 75 ml 1X ONCE IV Last administered on 07/26/16 12:13; Start 07/26/16 at 11:30; Stop 07/26/16 at 11:31; Status DC Info (Do NOT chart on this entry -- for MONITORING) 1 each PRN DAILY PRN MC SEE COMMENTS; Start 07/26/16 at 11:15; Stop 07/28/16 at 11:14; Status DC Fentanyl Citrate (Fentanyl 2ml Vial) 50 mcg PRN Q3HRS PRN IV PAIN Last administered on 07/29/16 09:11; Start 07/27/16 at 09:00; Stop 07/29/16 at 15:42 ; Status DC Fentanyl Citrate 100 mcg 100 mcg PRN Q3HRS PRN IV PAIN Last administered on 03:54; Start 07/27/16 at 09:00; Stop 07/29/16 at 15:42; Status DC Propofol 40 ml @ As Directed STK-MED ONCE IV ; Start 07/27/16 at 10:20; Stop at 10:21; Status DC Amino Acids/ Glycerin/ Electrolytes (Procalamine) 1,000 ml @ 80 mls/hr [id number] IV Last administered on 07/30/16 19:22; Start 07/27/16 at 14:00; Stop at 13:03; Status DC Gadobutrol 8 mmol 8 mmol 1X ONCE IV Last administered on 07/27/16 15:59; Start 07/27/16 at 15:45; Stop 07/27/16 at 15:46; Status DC Piperacillin Sod/ Tazobactam Sod/ Sodium Chloride (Zosyn/Iv Sodium Chloride 0.9 % 50ml) 50 ml @ 100 mls/hr Q6HRS IV Last administered on 08/01/16 06:22; Start 07/28/16 at 00:00 Vancomycin HCl 1 each 1 each PRN DAILY PRN MC SEE COMMENTS Last administered on 07/30/16 14:17; Start 07/27/16 at 21:00; Stop 07/30/16 at 18:33; Status DC Vancomycin HCl 2 gm/Sodium Chloride 500 ml @ 250 mls/hr 1X ONCE IV Last administered on 07/27/16 23:55; Start 07/27/16 at 21:30; Stop 07/27/16 at 23:29 ; Status DC Vancomycin HCl/ Sodium Chloride (Iv Sodium Chloride 0.9% 250ml) 250 ml @ 167 mls/hr Q12H IV Last administered on 07/28/16 20:25; Start 07/28/16 at 11:00; Stop 07/29/16 at 11:23; Status DC Vancomycin HCl 1 each 1X ONCE MC Last administered on 07/29/16 10:30; Start 07/29/16 at 10:30; Stop 07/29/16 at 10:31; Status DC Methadone HCl (Dolophine) 10 mg Q8HRS PO Last administered on 08/01/16 06:21; Start 07/28/16 at 14:00 Aspirin 325 mg 325 mg [id number] PO Last administered on 08/01/16 08:07; Start 07/28/16 at 18:00 Vancomycin HCl/ Sodium Chloride (Iv Sodium Chloride 0.9% 500ml Bag) 500 ml @ 250 mls/hr Q8H IV Last administered on 07/30/16 04:21; Start 07/29/16 at 11:30 ; Stop 07/30/16 at 12:18; Status DC Vancomycin HCl 1 each 1X ONCE MC Last administered on 07/30/16 11:00; Start 07/30/16 at 11:00; Stop 07/30/16 at 11:01; Status DC Hydromorphone HCl (Dilaudid) 2 mg PRN Q3HRS PRN IV PAIN SEVERE Last administered on 08/01/16 00:11; Start 07/29/16 at 15:45 Lidocaine/Sodium Bicarbonate (Buffered Lidocaine 1%) 20 ml STK-MED ONCE IJ ; Start 07/30/16 at 08:45; Stop 07/30/16 at 08:46; Status DC Naloxone HCl (Narcan) 0.4 mg STK-MED ONCE .ROUTE ; Start 07/30/16 at 08:53; Stop 07/30/16 at 08:54; Status DC Flumazenil (Romazicon) 0.5 mg STK-MED ONCE IV ; Start 07/30/16 at 08:53; Stop at 08:54; Status DC Midazolam HCl (Versed) 5 mg STK-MED ONCE .ROUTE ; Start 07/30/16 at 08:53; Stop 07/30/16 at 08:54; Status DC Fentanyl Citrate (Fentanyl 5ml Vial) 250 mcg STK-MED ONCE .ROUTE ; Start at 08:53; Stop 07/30/16 at 08:54; Status DC Lidocaine/Sodium Bicarbonate (Buffered Lidocaine 1%) 4 ml 1X ONCE IJ Last administered on 07/30/16 09:45; Start 07/30/16 at 09:45; Stop 07/30/16 at 09:47 ; Status DC Midazolam HCl (Versed) 2 mg 1X ONCE IV Last administered on 07/30/16 09:49; Start 07/30/16 at 09:45; Stop 07/30/16 at 09:47; Status DC Fentanyl Citrate (Fentanyl 5ml Vial) 100 mcg 1X ONCE IV Last administered on 09:50; Start 07/30/16 at 09:45; Stop 07/30/16 at 09:47; Status DC Ketorolac Tromethamine (Toradol) 60 mg 1X ONCE IV Last administered on t 10:00; Start 07/30/16 at 10:00; Stop 07/30/16 at 10:01; Status DC Ketorolac Tromethamine 60 mg 60 mg STK-MED ONCE .ROUTE ; Start 07/30/16 at 09:56 ; Stop 07/30/16 at 09:57; Status DC Vancomycin HCl/ Sodium Chloride (Iv Sodium Chloride 0.9% 500ml Bag) 500 ml @ 250 mls/hr Q12HR IV ; Start 07/30/16 at 21:00; Stop 07/30/16 at 21:00; Status DC Active Scripts Active Reported Zoloft (Sertraline Hcl) 50 Mg Tablet 50 Mg PO BID Methadone Hcl 10 Mg Tablet 10 Mg PO BID Xanax (Alprazolam) 0.5 Mg Tablet 0.5 Mg PO DAILY PRN Stool Softener (Docusate Sodium) 100 Mg Capsule 100 Mg PO BID Propranolol Hcl 10 Mg Tablet 10 Mg PO BID Oxycodone Hcl 20 Mg Tablet 40 Mg PO [id number] Vitals/I & O Vital Sign - Last 24 Hours 07/31/16 07/31/16 07/31/16 07/31/16 11:15 11:53 14:40 15:54 Temp 98.1 98.2 98.1 98.2 Pulse 84 83 Resp 20 18 B/P 115/73 102/66 Pulse Ox 93 94 94 94 O2 Delivery Room Air Room Air Room Air Room Air 07/31/16 07/31/16 07/31/16 07/31/16 16:33 17:37 19:27 19:35 Temp 98.6 98.6 Pulse 91 Resp 16 B/P 114/86 Pulse Ox 92 91 O2 Delivery Room Air Room Air Room Air Room Air 07/31/16 07/31/16 07/31/16 07/31/16 20:00 20:36 20:37 21:07 Pulse 83 Resp 18 B/P 102/66 Pulse Ox 96 O2 Delivery Room Air Room Air O2 Flow Rate 2.0 2.0 07/31/16 08/01/16 08/01/16 08/01/16 22:55 00:11 00:41 03:13 Temp 98.1 98.5 98.1 98.5 Pulse 82 108 Resp 16 20 20 20 B/P 116/69 117/79 Pulse Ox 97 96 96 93 O2 Delivery Room Air Room Air Room Air Room Air 08/01/16 08/01/16 08/01/16 08/01/16 07:32 08:00 08:08 08:12 Temp 97.6 97.6 Pulse 79 108 Resp 18 B/P 112/68 117/79 Pulse Ox 92 90 O2 Delivery Room Air Room Air Room Air O2 Flow Rate 2.0 CHASE VELASQUEZ MD Aug 01, 2016 10:44
[2016-08-01 11:00] VITALS: BP 104/71
[2016-08-01 15:00] VITALS: BP 98/64
[2016-08-01 19:35] VITALS: BP 112/74
[2016-08-01] MEDS: ALPRAZOLAM 0.5 MG TABLET PO PRN (20:54)
[2016-08-01] MEDS: GUAIFENESIN/CODEINE 100mg/10mg 5 ML LIQUID. PO PRN (20:57)
[2016-08-01 22:50] VITALS: BP 99/62
[2016-08-02] MEDS: PIPERACILLIN/TAZOBACTAM 3.375 GM in IV NORMAL SALINE 50ML 50 ML IV SCH ×2 (00:46→06:10)
[2016-08-02] MEDS: HYDROMORPHONE 2 MG/ML VIAL. IV PRN ×3 (00:47→11:39)
[2016-08-02 03:32] VITALS: BP 96/54
[2016-08-02] MEDS: METHADONE 10 MG TABLET. PO SCH ×2 (06:09→15:07)
[2016-08-02 07:30] VITALS: BP 92/68
[2016-08-02] MEDS: IPRATRPIUM/ALBUTEROL 0.5/2.5MG 3 ML NEBU. NEB SCH ×3 (07:52→15:12)
[2016-08-02] MEDS: PROPRANOLOL 10 MG TABLET. PO SCH (07:56)
[2016-08-02] MEDS: SERTRALINE 50 MG TABLET. PO SCH (08:13)
[2016-08-02] MEDS: GUAIFENESIN ER 600 MG TABLET.ER PO SCH (08:13)
[2016-08-02] MEDS: POLYETHYLENE GLYCOL 3350 17 GM PACKET. PO SCH (08:13)
[2016-08-02] MEDS: ASPIRIN 325 MG TABLET PO SCH (08:13)
[2016-08-02] MEDS: DOCUSATE SODIUM 100 MG CAPSULE PO SCH (08:13)
--- NOTE | 2016-08-02 08:19 | PDOC ---
PROGRESS NOTES Subjective Subjective Patient feeling better. Awaiting radiation. No BM for several days. still on IV antibx. PT recc acute rehab patient anxious to go home when stable. Objective Objective Vital Signs Date Time Temp Pulse Resp B/P Pulse Ox O2 Delivery O2 Flow Rate FiO2 08/02/16 07:56 90 92/68 08/02/16 07:52 Room Air 08/02/16 03:32 99.5 16 90 99.5 08/02/16 01:17 2.0 Intake and Output 08/02/16 07:00 Intake Total 540 ml Balance 540 ml Intake Oral 540 ml # Voids 11 Physical Exam Abdomen: Normal bowel sounds Heart: Regular rate Extremities: No edema General: Alert Lungs: Other (course bs right) Assessment Assessment Problems Medical Problems: (1) Confusion Status: Acute (2) Hallucinations Status: Acute (3) Pneumonia Status: Acute (4) Uremia Status: Acute 1. Left upper lobe pneumonia post obstructive 2. 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 New Cerebellar CVA 4. Severe protein malnutrition 5. Hypoxemia secondary to #1 above: Improving with treatment. 6. Gait stability issues 7. Encephalopathy-improved 8. Chronic back pain on chronic narcotics 9. constipation Plan Plan of Care Await Rad treatment Switch to PO antibx when ok with pulm med Continue PT Home with Home health and when stable Follow up with Rad and Heme onc Add Fleets enema Comment Review of Relevant I have reviewed the following items rubi (where applicable) has been applied. Labs Microbiology 07/23/16 Blood Culture - Final, Complete NO GROWTH AFTER 5 DAYS 07/27/16 AFB Specimen Processing Tissue - Final, Resulted 07/27/16 Acid Fast Bacilli Culture, Resulted Pending 07/27/16 Gram Stain - Final, Resulted 07/27/16 Fungal Culture, Resulted Pending 07/27/16 Fungal Culture Result 1, Resulted Pending 07/23/16 Urine Culture - Final, Complete 07/23/16 Urine Culture Result 1 (ARANZA) - Final, Complete Medications Current Medications Ondansetron HCl (Zofran) 4 mg PRN Q8HRS PRN IV NAUSEA/VOMITING; Start 07/23/16 at 17:00; Stop 07/24/16 at 16:59; Status DC Morphine Sulfate 2 mg 2 mg PRN Q2HR PRN IV PAIN; Start 07/23/16 at 17:00; Stop 07/24/16 at 16:59; Status DC Azithromycin 250 ml @ 250 mls/hr 1X ONCE IV Last administered on 07/23/16 18 :37; Start 07/23/16 at 17:00; Stop 07/23/16 at 17:59; Status DC Ceftriaxone Sodium 50 ml @ 100 mls/hr 1X ONCE IV Last administered on 18:09; Start 07/23/16 at 17:00; Stop 07/23/16 at 17:29; Status DC Sodium Chloride (Iv Sodium Chloride 0.9% 500ml Bag) 500 ml @ 500 mls/hr 1X ONCE IV Last administered on 07/23/16 18:08; Start 07/23/16 at 17:15; Stop at 18:14; Status DC Docusate Sodium (Colace) 100 mg BID PO Last administered on 08/01/16 20:53; Start 07/24/16 at 09:00 Propranolol HCl (Inderal) 10 mg BID PO ; Start 07/24/16 at 09:00; Stop 07/24/16 at 09:00; Status DC Sertraline HCl (Zoloft) 50 mg BID PO ; Start 07/24/16 at 09:00; Stop 07/24/16 at 09:00; Status DC Methadone HCl (Dolophine) 10 mg BID PO ; Start 07/24/16 at 09:00; Stop 07/24/16 at 09:00; Status DC Oxycodone HCl (Roxicodone) 40 mg PRN BID PRN PO SEVERE PAIN; Start 07/23/16 at 22:45; Stop 07/24/16 at 10:37; Status DC Methadone HCl (Dolophine) 10 mg BID PO Last administered on 07/28/16 08:23; Start 07/23/16 at 23:00; Stop 07/28/16 at 13:05; Status DC Propranolol HCl (Inderal) 10 mg BID PO Last administered on 08/01/16 08:08; Start 07/23/16 at 23:00 Sertraline HCl (Zoloft) 50 mg BID PO Last administered on 08/01/16 20:53; Start 07/23/16 at 23:00 Alprazolam (Xanax) 0.5 mg PRN TID PRN PO ANXIETY / AGITATION Last administered on 08/01/16 20:54; Start 07/24/16 at 09:30 Oxycodone HCl (Roxicodone) 20 mg PRN Q6HRS PRN PO PAIN Last administered on 17:58; Start 07/24/16 at 09:30 Albuterol/ Ipratropium (Duoneb) 3 ml RTQID NEB Last administered on 08/02/16 07:52; Start 07/24/16 at 12:00 Guaifenesin (Mucinex) 600 mg BID PO Last administered on 08/01/16 08:08; Start 07/24/16 at 21:00 Guaifenesin/ Codeine Phosphate (Robitussin Ac) 5 ml PRN Q6HRS PRN PO COUGH Last administered on 08/01/16 20:57; Start 07/24/16 at 09:30 Guaifenesin/ Codeine Phosphate 10 ml 10 ml PRN Q6HRS PRN PO COUGH Last administered on 07/31/16 02:08; Start 07/24/16 at 09:30 Ceftriaxone Sodium/Sodium Chloride (Rocephin/Iv Sodium Chloride 0.9% 50ml) 50 ml @ 100 mls/hr Q24H IV Last administered on 07/27/16 10:00; Start 07/24/16 at 10:00; Stop 07/27/16 at 20:54; Status DC Azithromycin (Zithromax) 250 mg DAILY PO Last administered on 07/28/16 08:23; Start 07/24/16 at 09:30; Stop 07/28/16 at 09:29; Status DC Potassium Chloride (Klor-Con) 40 meq 1X ONCE PO Last administered on 10:28; Start 07/24/16 at 09:45; Stop 07/24/16 at 09:53; Status DC Potassium Chloride (Klor-Con) 40 meq BIDWMEALS PO Last administered on 17:50; Start 07/25/16 at 13:45; Stop 07/25/16 at 17:01; Status DC Albuterol/ Ipratropium (Duoneb) 3 ml 1X ONCE NEB Last administered on 03:57; Start 07/26/16 at 04:15; Stop 07/26/16 at 04:16; Status DC Polyethylene Glycol (miraLAX PACKET) 17 gm DAILY PO Last administered on 08:10; Start 07/26/16 at 10:00 Bisacodyl (Dulcolax Supp) 10 mg PRN DAILY PRN WI CONSTIPATION Last administered on 07/26/16 12:39; Start 07/26/16 at 09:30 Diclofenac Sodium (Voltaren) 1 ruddy PRN Q4HRS PRN TP PAIN Last administered on 11:13; Start 07/26/16 at 10:30; Stop 07/26/16 at 15:20; Status DC Ketorolac Tromethamine (Toradol) 30 mg PRN Q6HRS PRN IV PAIN; Start 07/26/16 at 11:15; Stop 07/26/16 at 15:20; Status DC Iohexol (Omnipaque 240 Mg/ml) 30 ml 1X ONCE IV ; Start 07/26/16 at 11:30; Stop 07/26/16 at 11:31; Status DC Iohexol (Omnipaque 300 Mg/ml) 75 ml 1X ONCE IV Last administered on 07/26/16 12:13; Start 07/26/16 at 11:30; Stop 07/26/16 at 11:31; Status DC Info (Do NOT chart on this entry -- for MONITORING) 1 each PRN DAILY PRN MC SEE COMMENTS; Start 07/26/16 at 11:15; Stop 07/28/16 at 11:14; Status DC Fentanyl Citrate (Fentanyl 2ml Vial) 50 mcg PRN Q3HRS PRN IV PAIN Last administered on 07/29/16 09:11; Start 07/27/16 at 09:00; Stop 07/29/16 at 15:42 ; Status DC Fentanyl Citrate 100 mcg 100 mcg PRN Q3HRS PRN IV PAIN Last administered on 03:54; Start 07/27/16 at 09:00; Stop 07/29/16 at 15:42; Status DC Propofol 40 ml @ As Directed STK-MED ONCE IV ; Start 07/27/16 at 10:20; Stop at 10:21; Status DC Amino Acids/ Glycerin/ Electrolytes (Procalamine) 1,000 ml @ 80 mls/hr [id number] IV Last administered on 07/30/16 19:22; Start 07/27/16 at 14:00; Stop at 13:03; Status DC Gadobutrol 8 mmol 8 mmol 1X ONCE IV Last administered on 07/27/16 15:59; Start 07/27/16 at 15:45; Stop 07/27/16 at 15:46; Status DC Piperacillin Sod/ Tazobactam Sod/ Sodium Chloride (Zosyn/Iv Sodium Chloride 0.9 % 50ml) 50 ml @ 100 mls/hr Q6HRS IV Last administered on 08/02/16 06:10; Start 07/28/16 at 00:00 Vancomycin HCl 1 each 1 each PRN DAILY PRN MC SEE COMMENTS Last administered on 07/30/16 14:17; Start 07/27/16 at 21:00; Stop 07/30/16 at 18:33; Status DC Vancomycin HCl 2 gm/Sodium Chloride 500 ml @ 250 mls/hr 1X ONCE IV Last administered on 07/27/16 23:55; Start 07/27/16 at 21:30; Stop 07/27/16 at 23:29 ; Status DC Vancomycin HCl/ Sodium Chloride (Iv Sodium Chloride 0.9% 250ml) 250 ml @ 167 mls/hr Q12H IV Last administered on 07/28/16 20:25; Start 07/28/16 at 11:00; Stop 07/29/16 at 11:23; Status DC Vancomycin HCl 1 each 1X ONCE MC Last administered on 07/29/16 10:30; Start 07/29/16 at 10:30; Stop 07/29/16 at 10:31; Status DC Methadone HCl (Dolophine) 10 mg Q8HRS PO Last administered on 08/02/16 06:09; Start 07/28/16 at 14:00 Aspirin 325 mg 325 mg [id number] PO Last administered on 08/01/16 08:07; Start 07/28/16 at 18:00 Vancomycin HCl/ Sodium Chloride (Iv Sodium Chloride 0.9% 500ml Bag) 500 ml @ 250 mls/hr Q8H IV Last administered on 07/30/16 04:21; Start 07/29/16 at 11:30 ; Stop 07/30/16 at 12:18; Status DC Vancomycin HCl 1 each 1X ONCE MC Last administered on 07/30/16 11:00; Start 07/30/16 at 11:00; Stop 07/30/16 at 11:01; Status DC Hydromorphone HCl (Dilaudid) 2 mg PRN Q3HRS PRN IV PAIN SEVERE Last administered on 08/02/16 00:47; Start 07/29/16 at 15:45 Lidocaine/Sodium Bicarbonate (Buffered Lidocaine 1%) 20 ml STK-MED ONCE IJ ; Start 07/30/16 at 08:45; Stop 07/30/16 at 08:46; Status DC Naloxone HCl (Narcan) 0.4 mg STK-MED ONCE .ROUTE ; Start 07/30/16 at 08:53; Stop 07/30/16 at 08:54; Status DC Flumazenil (Romazicon) 0.5 mg STK-MED ONCE IV ; Start 07/30/16 at 08:53; Stop at 08:54; Status DC Midazolam HCl (Versed) 5 mg STK-MED ONCE .ROUTE ; Start 07/30/16 at 08:53; Stop 07/30/16 at 08:54; Status DC Fentanyl Citrate (Fentanyl 5ml Vial) 250 mcg STK-MED ONCE .ROUTE ; Start at 08:53; Stop 07/30/16 at 08:54; Status DC Lidocaine/Sodium Bicarbonate (Buffered Lidocaine 1%) 4 ml 1X ONCE IJ Last administered on 07/30/16 09:45; Start 07/30/16 at 09:45; Stop 07/30/16 at 09:47 ; Status DC Midazolam HCl (Versed) 2 mg 1X ONCE IV Last administered on 07/30/16 09:49; Start 07/30/16 at 09:45; Stop 07/30/16 at 09:47; Status DC Fentanyl Citrate (Fentanyl 5ml Vial) 100 mcg 1X ONCE IV Last administered on 09:50; Start 07/30/16 at 09:45; Stop 07/30/16 at 09:47; Status DC Ketorolac Tromethamine (Toradol) 60 mg 1X ONCE IV Last administered on 10:00; Start 07/30/16 at 10:00; Stop 07/30/16 at 10:01; Status DC Ketorolac Tromethamine 60 mg 60 mg STK-MED ONCE .ROUTE ; Start 07/30/16 at 09:56 ; Stop 07/30/16 at 09:57; Status DC Vancomycin HCl/ Sodium Chloride (Iv Sodium Chloride 0.9% 500ml Bag) 500 ml @ 250 mls/hr Q12HR IV ; Start 07/30/16 at 21:00; Stop 07/30/16 at 21:00; Status DC Active Scripts Active Reported Zoloft (Sertraline Hcl) 50 Mg Tablet 50 Mg PO BID Methadone Hcl 10 Mg Tablet 10 Mg PO BID Xanax (Alprazolam) 0.5 Mg Tablet 0.5 Mg PO DAILY PRN Stool Softener (Docusate Sodium) 100 Mg Capsule 100 Mg PO BID Propranolol Hcl 10 Mg Tablet 10 Mg PO BID Oxycodone Hcl 20 Mg Tablet 40 Mg PO [id number] Vitals/I & O Vital Sign - Last 24 Hours 08/01/16 08/01/16 08/01/16 08/01/16 11:00 11:34 15:00 15:40 Temp 97.8 98.1 97.8 98.1 Pulse 63 80 Resp 18 18 B/P 104/71 98/64 Pulse Ox 91 92 92 O2 Delivery Room Air Room Air Room Air Room Air 08/01/16 08/01/16 08/01/16 08/01/16 19:21 19:35 20:00 20:55 Temp 97.9 97.9 Pulse 80 Resp 16 20 B/P 112/74 Pulse Ox 94 94 96 O2 Delivery Room Air Room Air Room Air Room Air O2 Flow Rate 2.0 08/01/16 08/01/16 08/01/16 08/02/16 21:00 21:25 22:50 00:47 Temp 99.9 99.9 Pulse 80 101 Resp 20 16 18 B/P 98/64 99/62 Pulse Ox 91 96 O2 Delivery Room Air Room Air 08/02/16 08/02/16 08/02/16 08/02/16 01:17 03:32 07:52 07:56 Temp 99.5 99.5 Pulse 66 90 Resp 16 B/P 96/54 92/68 Pulse Ox 96 90 O2 Delivery Room Air Room Air Room Air O2 Flow Rate 2.0 Intake and Output 08/01/16 08/01/16 08/02/16 15:00 23:00 07:00 Intake Total 540 ml Balance 540 ml VAISHALI FONTAINE MD Aug 02, 2016 08:19
[2016-08-02] MEDS ORDERED: SODIUM PHOSPHATES 19/7GM 133 ML ENEMA. PR ONE (08:30)
--- NOTE | 2016-08-02 08:56 | PDOC ---
PROGRESS NOTES Subjective Subjective c/c - f/u of NSCLC HPI - has cough Objective Objective Vital Signs Date Time Temp Pulse Resp B/P Pulse Ox O2 Delivery O2 Flow Rate FiO2 08/02/16 08:14 Room Air 08/02/16 07:56 90 92/68 08/02/16 07:30 97.9 15 97 97.9 08/02/16 01:17 2.0 Intake and Output 08/02/16 07:00 Intake Total 540 ml Balance 540 ml Intake Oral 540 ml # Voids 11 Physical Exam Heart: Normal S1, Normal S2 General: Alert, Oriented X3 Lungs: Clear to auscultation Psych/Mental Status: Mental status NL Assessment Assessment Problems Medical Problems: (1) Confusion Status: Acute (2) Hallucinations Status: Acute (3) Pneumonia Status: Acute (4) Uremia Status: Acute IMPRESSION AND PLAN: 1. NSCLC - POORLY DIFFERENTIATED ADENOCARCINOMA - Left hilar lung mass with postobstructive pneumonitis with evidence of endobronchial lesion and cavitation and a right 7th rib lytic lesion clinically suggestive of lung cancer with metastatic disease to the rib. Bone scan 07/27/16- Abnormal activity in several right ribs as described above, probably representing a combination of bony metastases and fractures. MRI of the brain 07/27/16 - Small focus of acute infarction in the left cerebellar hemisphere. No associated hemorrhage or mass effect. No evidence for intracranial metastatic disease. I reviewed final pathology results from the bronchoscopy done on 07/27/2016 which revealed endobronchial lesion. I d/w Dr Booth and need more tissue for biomarker testing. s/p bx of right rib mets on 07/30/16, tolerated well- Ordered EGFR,ALK,ROS-1. PD-L1 testing. I d/w Dr Eagle and Dr Bowens. I d/w Dr. Storm Garner from [facility] and he plans treatment on 08/02/16 to primary lesion and right rib involvement because of evidence of postobstructive pneumonitis. 2. Bone metastasis. Bone scan 07/27/16- Abnormal activity in several right ribs as described above, probably representing a combination of bony metastases and fractures. Appreciate pain management consult. 3. Elevated liver function tests. Appreciate GI consultation. Bilirubin has improved from 2.3 to 1.5. Etiology is thought to be multifactorial. Continue to monitor. 4. Acute CVA - MRI of the brain 07/27/16 - Small focus of acute infarction in the left cerebellar hemisphere. No associated hemorrhage or mass effect. No evidence for intracranial metastatic disease. Appreciate neurology consult. He would not be eligible for avastin due to acute CVA, Comment Review of Relevant I have reviewed the following items rubi (where applicable) has been applied. Labs Microbiology 07/23/16 Blood Culture - Final, Complete NO GROWTH AFTER 5 DAYS 07/27/16 AFB Specimen Processing Tissue - Final, Resulted 07/27/16 Acid Fast Bacilli Culture, Resulted Pending 07/27/16 Gram Stain - Final, Resulted 07/27/16 Fungal Culture, Resulted Pending 07/27/16 Fungal Culture Result 1, Resulted Pending 07/23/16 Urine Culture - Final, Complete 07/23/16 Urine Culture Result 1 (ARANZA) - Final, Complete Medications Current Medications Ondansetron HCl (Zofran) 4 mg PRN Q8HRS PRN IV NAUSEA/VOMITING; Start 07/23/16 at 17:00; Stop 07/24/16 at 16:59; Status DC Morphine Sulfate 2 mg 2 mg PRN Q2HR PRN IV PAIN; Start 07/23/16 at 17:00; Stop 07/24/16 at 16:59; Status DC Azithromycin 250 ml @ 250 mls/hr 1X ONCE IV Last administered on 07/23/16 18 :37; Start 07/23/16 at 17:00; Stop 07/23/16 at 17:59; Status DC Ceftriaxone Sodium 50 ml @ 100 mls/hr 1X ONCE IV Last administered on 18:09; Start 07/23/16 at 17:00; Stop 07/23/16 at 17:29; Status DC Sodium Chloride (Iv Sodium Chloride 0.9% 500ml Bag) 500 ml @ 500 mls/hr 1X ONCE IV Last administered on 07/23/16 18:08; Start 07/23/16 at 17:15; Stop at 18:14; Status DC Docusate Sodium (Colace) 100 mg BID PO Last administered on 08/02/16 08:13; Start 07/24/16 at 09:00 Propranolol HCl (Inderal) 10 mg BID PO ; Start 07/24/16 at 09:00; Stop 07/24/16 at 09:00; Status DC Sertraline HCl (Zoloft) 50 mg BID PO ; Start 07/24/16 at 09:00; Stop 07/24/16 at 09:00; Status DC Methadone HCl (Dolophine) 10 mg BID PO ; Start 07/24/16 at 09:00; Stop 07/24/16 at 09:00; Status DC Oxycodone HCl (Roxicodone) 40 mg PRN BID PRN PO SEVERE PAIN; Start 07/23/16 at 22:45; Stop 07/24/16 at 10:37; Status DC Methadone HCl (Dolophine) 10 mg BID PO Last administered on 07/28/16 08:23; Start 07/23/16 at 23:00; Stop 07/28/16 at 13:05; Status DC Propranolol HCl (Inderal) 10 mg BID PO Last administered on 08/01/16 08:08; Start 07/23/16 at 23:00 Sertraline HCl (Zoloft) 50 mg BID PO Last administered on 08/02/16 08:13; Start 07/23/16 at 23:00 Alprazolam (Xanax) 0.5 mg PRN TID PRN PO ANXIETY / AGITATION Last administered on 08/01/16 20:54; Start 07/24/16 at 09:30 Oxycodone HCl (Roxicodone) 20 mg PRN Q6HRS PRN PO PAIN Last administered on 17:58; Start 07/24/16 at 09:30 Albuterol/ Ipratropium (Duoneb) 3 ml RTQID NEB Last administered on 08/02/16 07:52; Start 07/24/16 at 12:00 Guaifenesin (Mucinex) 600 mg BID PO Last administered on 08/02/16 08:13; Start 07/24/16 at 21:00 Guaifenesin/ Codeine Phosphate (Robitussin Ac) 5 ml PRN Q6HRS PRN PO COUGH Last administered on 08/01/16 20:57; Start 07/24/16 at 09:30 Guaifenesin/ Codeine Phosphate 10 ml 10 ml PRN Q6HRS PRN PO COUGH Last administered on 07/31/16 02:08; Start 07/24/16 at 09:30 Ceftriaxone Sodium/Sodium Chloride (Rocephin/Iv Sodium Chloride 0.9% 50ml) 50 ml @ 100 mls/hr Q24H IV Last administered on 07/27/16 10:00; Start 07/24/16 at 10:00; Stop 07/27/16 at 20:54; Status DC Azithromycin (Zithromax) 250 mg DAILY PO Last administered on 07/28/16 08:23; Start 07/24/16 at 09:30; Stop 07/28/16 at 09:29; Status DC Potassium Chloride (Klor-Con) 40 meq 1X ONCE PO Last administered on 10:28; Start 07/24/16 at 09:45; Stop 07/24/16 at 09:53; Status DC Potassium Chloride (Klor-Con) 40 meq BIDWMEALS PO Last administered on 17:50; Start 07/25/16 at 13:45; Stop 07/25/16 at 17:01; Status DC Albuterol/ Ipratropium (Duoneb) 3 ml 1X ONCE NEB Last administered on 03:57; Start 07/26/16 at 04:15; Stop 07/26/16 at 04:16; Status DC Polyethylene Glycol (miraLAX PACKET) 17 gm DAILY PO Last administered on 08:13; Start 07/26/16 at 10:00 Bisacodyl (Dulcolax Supp) 10 mg PRN DAILY PRN IA CONSTIPATION Last administered on 07/26/16 12:39; Start 07/26/16 at 09:30 Diclofenac Sodium (Voltaren) 1 ruddy PRN Q4HRS PRN TP PAIN Last administered on 11:13; Start 07/26/16 at 10:30; Stop 07/26/16 at 15:20; Status DC Ketorolac Tromethamine (Toradol) 30 mg PRN Q6HRS PRN IV PAIN; Start 07/26/16 at 11:15; Stop 07/26/16 at 15:20; Status DC Iohexol (Omnipaque 240 Mg/ml) 30 ml 1X ONCE IV ; Start 07/26/16 at 11:30; Stop 07/26/16 at 11:31; Status DC Iohexol (Omnipaque 300 Mg/ml) 75 ml 1X ONCE IV Last administered on 07/26/16 12:13; Start 07/26/16 at 11:30; Stop 07/26/16 at 11:31; Status DC Info (Do NOT chart on this entry -- for MONITORING) 1 each PRN DAILY PRN MC SEE COMMENTS; Start 07/26/16 at 11:15; Stop 07/28/16 at 11:14; Status DC Fentanyl Citrate (Fentanyl 2ml Vial) 50 mcg PRN Q3HRS PRN IV PAIN Last administered on 07/29/16 09:11; Start 07/27/16 at 09:00; Stop 07/29/16 at 15:42 ; Status DC Fentanyl Citrate 100 mcg 100 mcg PRN Q3HRS PRN IV PAIN Last administered on 03:54; Start 07/27/16 at 09:00; Stop 07/29/16 at 15:42; Status DC Propofol 40 ml @ As Directed STK-MED ONCE IV ; Start 07/27/16 at 10:20; Stop at 10:21; Status DC Amino Acids/ Glycerin/ Electrolytes (Procalamine) 1,000 ml @ 80 mls/hr [id number] IV Last administered on 07/30/16 19:22; Start 07/27/16 at 14:00; Stop at 13:03; Status DC Gadobutrol 8 mmol 8 mmol 1X ONCE IV Last administered on 07/27/16 15:59; Start 07/27/16 at 15:45; Stop 07/27/16 at 15:46; Status DC Piperacillin Sod/ Tazobactam Sod/ Sodium Chloride (Zosyn/Iv Sodium Chloride 0.9 % 50ml) 50 ml @ 100 mls/hr Q6HRS IV Last administered on 08/02/16 06:10; Start 07/28/16 at 00:00 Vancomycin HCl 1 each 1 each PRN DAILY PRN MC SEE COMMENTS Last administered on 07/30/16 14:17; Start 07/27/16 at 21:00; Stop 07/30/16 at 18:33; Status DC Vancomycin HCl 2 gm/Sodium Chloride 500 ml @ 250 mls/hr 1X ONCE IV Last administered on 07/27/16 23:55; Start 07/27/16 at 21:30; Stop 07/27/16 at 23:29 ; Status DC Vancomycin HCl/ Sodium Chloride (Iv Sodium Chloride 0.9% 250ml) 250 ml @ 167 mls/hr Q12H IV Last administered on 07/28/16 20:25; Start 07/28/16 at 11:00; Stop 07/29/16 at 11:23; Status DC Vancomycin HCl 1 each 1X ONCE MC Last administered on 07/29/16 10:30; Start 07/29/16 at 10:30; Stop 07/29/16 at 10:31; Status DC Methadone HCl (Dolophine) 10 mg Q8HRS PO Last administered on 08/02/16 06:09; Start 07/28/16 at 14:00 Aspirin 325 mg 325 mg [id number] PO Last administered on 08/02/16 08:13; Start 07/28/16 at 18:00 Vancomycin HCl/ Sodium Chloride (Iv Sodium Chloride 0.9% 500ml Bag) 500 ml @ 250 mls/hr Q8H IV Last administered on 07/30/16 04:21; Start 07/29/16 at 11:30 ; Stop 07/30/16 at 12:18; Status DC Vancomycin HCl 1 each 1X ONCE MC Last administered on 07/30/16 11:00; Start 07/30/16 at 11:00; Stop 07/30/16 at 11:01; Status DC Hydromorphone HCl (Dilaudid) 2 mg PRN Q3HRS PRN IV PAIN SEVERE Last administered on 08/02/16 08:14; Start 07/29/16 at 15:45 Lidocaine/Sodium Bicarbonate (Buffered Lidocaine 1%) 20 ml STK-MED ONCE IJ ; Start 07/30/16 at 08:45; Stop 07/30/16 at 08:46; Status DC Naloxone HCl (Narcan) 0.4 mg STK-MED ONCE .ROUTE ; Start 07/30/16 at 08:53; Stop 07/30/16 at 08:54; Status DC Flumazenil (Romazicon) 0.5 mg STK-MED ONCE IV ; Start 07/30/16 at 08:53; Stop at 08:54; Status DC Midazolam HCl (Versed) 5 mg STK-MED ONCE .ROUTE ; Start 07/30/16 at 08:53; Stop 07/30/16 at 08:54; Status DC Fentanyl Citrate (Fentanyl 5ml Vial) 250 mcg STK-MED ONCE .ROUTE ; Start at 08:53; Stop 07/30/16 at 08:54; Status DC Lidocaine/Sodium Bicarbonate (Buffered Lidocaine 1%) 4 ml 1X ONCE IJ Last administered on 07/30/16 09:45; Start 07/30/16 at 09:45; Stop 07/30/16 at 09:47 ; Status DC Midazolam HCl (Versed) 2 mg 1X ONCE IV Last administered on 07/30/16 09:49; Start 07/30/16 at 09:45; Stop 07/30/16 at 09:47; Status DC Fentanyl Citrate (Fentanyl 5ml Vial) 100 mcg 1X ONCE IV Last administered on 09:50; Start 07/30/16 at 09:45; Stop 07/30/16 at 09:47; Status DC Ketorolac Tromethamine (Toradol) 60 mg 1X ONCE IV Last administered on 10:00; Start 07/30/16 at 10:00; Stop 07/30/16 at 10:01; Status DC Ketorolac Tromethamine 60 mg 60 mg STK-MED ONCE .ROUTE ; Start 07/30/16 at 09:56 ; Stop 07/30/16 at 09:57; Status DC Vancomycin HCl/ Sodium Chloride (Iv Sodium Chloride 0.9% 500ml Bag) 500 ml @ 250 mls/hr Q12HR IV ; Start 07/30/16 at 21:00; Stop 07/30/16 at 21:00; Status DC Sodium Biphosphate/ Sodium Phosphate (Fleet Adult) 133 ml 1X ONCE IA ; Start at 08:30; Stop 08/02/16 at 08:31; Status DC Active Scripts Active Reported Zoloft (Sertraline Hcl) 50 Mg Tablet 50 Mg PO BID Methadone Hcl 10 Mg Tablet 10 Mg PO BID Xanax (Alprazolam) 0.5 Mg Tablet 0.5 Mg PO DAILY PRN Stool Softener (Docusate Sodium) 100 Mg Capsule 100 Mg PO BID Propranolol Hcl 10 Mg Tablet 10 Mg PO BID Oxycodone Hcl 20 Mg Tablet 40 Mg PO [id number] Vitals/I & O Vital Sign - Last 24 Hours 08/01/16 08/01/16 08/01/16 08/01/16 11:00 11:34 15:00 15:40 Temp 97.8 98.1 97.8 98.1 Pulse 63 80 Resp 18 18 B/P 104/71 98/64 Pulse Ox 91 92 92 O2 Delivery Room Air Room Air Room Air Room Air 08/01/16 08/01/16 08/01/16 08/01/16 19:21 19:35 20:00 20:55 Temp 97.9 97.9 Pulse 80 Resp 16 20 B/P 112/74 Pulse Ox 94 94 96 O2 Delivery Room Air Room Air Room Air Room Air O2 Flow Rate 2.0 08/01/16 08/01/16 08/01/16 08/02/16 21:00 21:25 22:50 00:47 Temp 99.9 99.9 Pulse 80 101 Resp 20 16 18 B/P 98/64 99/62 Pulse Ox 91 96 O2 Delivery Room Air Room Air 08/02/16 08/02/16 08/02/16 08/02/16 01:17 03:32 07:30 07:52 Temp 99.5 97.9 99.5 97.9 Pulse 66 92 Resp 16 15 B/P 96/54 92/68 Pulse Ox 96 90 97 O2 Delivery Room Air Room Air Room Air Room Air O2 Flow Rate 2.0 08/02/16 08/02/16 07:56 08:14 Pulse 90 B/P 92/68 O2 Delivery Room Air Intake and Output 08/01/16 08/01/16 08/02/16 15:00 23:00 07:00 Intake Total 540 ml Balance 540 ml AMANDA COULTER MD Aug 02, 2016 08:56
[2016-08-02 10:55] VITALS: BP 99/64
--- NOTE | 2016-08-02 11:58 | PDOC ---
PULMONARY PROGRESS NOTES Subjective PT wants to home Vitals Vital Signs Date Time Temp Pulse Resp B/P Pulse Ox O2 Delivery O2 Flow Rate FiO2 08/02/16 11:39 Room Air 08/02/16 10:55 99.3 101 20 99/64 92 99.3 08/02/16 01:17 2.0 ROS: No Nausea, No Chest Pain, No Abdominal Pain, No Increase Cough General: Alert, No acute distress Lungs: Other (left lung/ decrease bs) Cardiovascular: S1, S2 Abdomen: Soft, Non-tender Neuro Exam: Alert, Oriented Extremities: No Edema Skin: Warm Medications Active Scripts Medications Dose Route/Sig Days Date Category Zoloft (Sertraline Hcl) 50 Mg Tablet 50 Mg PO BID 08/07/15 Reported Methadone Hcl 10 Mg Tablet 10 Mg PO BID 08/07/15 Reported Xanax (Alprazolam) 0.5 Mg Tablet 0.5 Mg PO DAILY PRN 08/16/13 Reported Stool Softener (Docusate Sodium) 100 Mg Capsule 100 Mg PO BID 08/16/13 Reported Propranolol Hcl 10 Mg Tablet 10 Mg PO BID 08/16/13 Reported Oxycodone Hcl 20 Mg Tablet 40 Mg PO [id number] 08/16/[address] CHEST 1.Abnormal soft tissue masslike density in the left hilum encasing the left main pulmonary artery and a portion of the left upper lobe bronchus. The area of abnormal soft tissue density measures approximate 6.3 cm transverse x 4.3 cm AP. There is extensive infiltrate in the left upper lobe as well as cavitation. Findings are concerning for a left hilar neoplasm with cavitation and probable postobstructive pneumonitis. 2. Destructive process involving the right posterior seventh rib, consistent with a metastatic lesion. CT abdomen and pelvis: There is a tiny low density in the dome of the liver, too small to characterize. No other liver lesions are detected. Gallbladder is unremarkable. The pancreas and spleen are unremarkable. No adrenal mass is detected. Kidneys are unremarkable. The aorta is nonaneurysmal. No central retroperitoneal or mesenteric lymphadenopathy is seen. No definite pelvic lymphadenopathy is detected. Postop changes in the lower thoracic spine are noted with small fluid collection noted at the surgical bed consistent with small postoperative seroma Impression: Unremarkable CT of the abdomen and pelvis. Impression . 1. Extensive post obstructive cavitary consolidation in the left upper lobe . Bronch with endobronchial lesion NADER/ Lingula and lytic lesion right 7th rib. Findings c/w malignancy/ Biopsy NSCLC 2. Unexplained weight loss due to lung malignancy. 3. Underlying chronic obstructive pulmonary disease, smoked for 33 years before quitting 25 years ago. 4. Right-sided rib pain since fall in December of last year. CT chest with lytic lesions right 7 th rib 5. New small CVA Plan . pt to go home today 6 minutes walk po anitbx follow up in office in 2 months 1. Continue with present antibiotics./BS coverage. cxr unchanged 2. s/p Bronch with totally occluded NADER/LINGULA/ and Narrowed LLL opening, lesion at prince/both VC suspicious for malignancy/ Biopsy c/w NSCLC 3. Bronchodilators. 4. Oxygen p.r.n. 5. Discussed with pathologist. Preliminary biopsy c/w poorly Differentiated NSCLC 6. f/u medical/radiation oncology recommendations. d/w family. 7. tissue for EGFR,ALK,ROS-1. PD-L1 testing/ s/p bx of right rib matty - BALBIR GARCIA MD Aug 02, 2016 11:58
--- NOTE | 2016-08-02 12:00 | PDOC ---
Provider Note Provider Note Feeling better overall. Pain well controlled. Much more ambulatory over weekend. Chest wall bx on 07/30/2016 was well tolerated. Await histology assessment likely available 08/03/2016. Receptor studies will be available in 2 weeks. He initiated palliative radiation to left chest and mediastinum and right post- lateral chest wall today. Plan on a 10 day course of treatment overall. Will continue treatment as inpatient for now and then finish treatment as outpatient following DC. ALYSE NESS MD Aug 02, 2016 12:00
[2016-08-02] MEDS: OXYCODONE IR 5 MG TABLET. PO PRN ×2 (12:39→18:49)
[2016-08-02] MEDS ORDERED: ASPI325T4 PO (14:35)
[2016-08-02] MEDS ORDERED: POLY17PO5 PO (14:35)
[2016-08-02] MEDS ORDERED: AMOX1TAB11 PO (14:35)
[2016-08-02] MEDS ORDERED: IPRA3AMP NEB (14:35)
[2016-08-02] MEDS ORDERED: SERT50TA8 PO (14:35)
[2016-08-02] MEDS ORDERED: PROP10TA PO (14:35)
[2016-08-02 15:00] VITALS: BP 113/59
--- NOTE | 2016-08-02 15:27 | PATHOLOGY ---
PATHOLOGY REPORT * * * * * * * * FINAL DIAGNOSIS: Right rib mass, CT-guided biopsy: - METASTATIC POORLY DIFFERENTIATED ADENOCARCINOMA. COMMENT: Sections of the right rib CT-guided biopsy reveal a malignant epithelial neoplasm. The malignant cells are present in solid nests and cords and show focal abortive gland formation. The malignant cells have ample amounts of pale eosinophilic cytoplasm. The malignant cells posses moderately to markedly pleomorphic nuclei containing prominent nucleoli. Mitotic figures are present. The malignant cells are associated with a reactive desmoplastic stroma. There is focal lymphovascular tumor invasion. The malignant cells appear similar to that identified in the left upper lobe bronchial biopsy ([id number]). Tissue will be sent for EGFR, ALK, ROS-1, and PDL1 genetic marker testing, the results of which will be reported separately. The case is also examined by Dr. Flory Webster, who concurs with the diagnosis. (JPM:; d/t: 08/02/16) PROCEDURE REPORT (Order Date: 08/03/2016 00:00) INTERPRETATION: The slides were marked for testing, and sent at the request of Dr. Allan Moore. ALK, EGFR, ROS1 and PD-L1 testing was performed by [facility] on block A1. Please see SCANNED IMAGES under LABORATORY for separate report of results. (JPM:tino; d/t: 08/04/2016) COMMENT: PATHOLOGIST: Iker Booth M.D. REPORT ELECTRONICALLY SIGNED BY: Iker Booth M.D. DATE/TIME: 08/09/2016 12:07 REPORT ELECTRONICALLY SIGNED BY: Iker Booth M.D. DATE/TIME: 08/02/2016 15:26 * * * * * * * * GROSS PATHOLOGY: Received in formalin labeled "Jeffry Martino , right rib biopsy," are two distinct needle cores of calixto soft tissue ranging from 1.3 to 1.4 cm in length, which are submitted entirely in cassette A1. (CAA; 07/30/2016) INITIAL CPT CODE(S): A; 94835, 14756, 92739(2), 57517, 96452(2), 10986, 54244 Professional services performed by [facility] at [address] [address] Technical services performed by [facility] at [address] [place] [address], [address], [place] [address]. SPECIMEN(S) RECEIVED: A.Right rib met CLINICAL HISTORY: Non-small cell lung cancer with rib met, biopsy for EGFR, ALK, ROS-1, PD-L1 testing PATIENT: JEFFRY MARTINO Mau ALLAN /AGE: [id number] 1945 (Age: 71) PATIENT #: [id number] ALT CASE #: SPECIMEN COLLECTION DATE: 07/30/2016 SPECIMEN RECEIVED DATE: 07/30/2016 [facility] - [address] [place] [address] - PHONE: [phone] * * * END OF REPORT * * *
[2016-08-02 16:26] VITALS: BP 113/59
--- NOTE | 2016-08-02 16:39 | PDOC ---
PROGRESS NOTES Assessment Assessment Acute small left cerebellum infarct. Metabolic encephalopathy. Pneumonia. Lung cancer, non small cell. Metastatic fractures in ribs. Gait instability. Thoracic myelopathy. Leukocytosis. Hyperbilirubinemia. Hypoalbuminemia. Visual and auditory hallucinations. Skin cancer. Vit D insufficience. RECOMMENDATIONS/PLAN: Continue ASA 325 mg daily. Continue Lipitor HS. Treat medical diseases. Oncology treatment. Vit D and Ca++ supplement. Discussed with his again at bedside on 08/02/16. FU with Oncology and PCP. FU with Neurology as needed. Carotid A US + Doppler on 07/28: No high grade stenosis. Lipid panel on 07/29: WNL HISTORY OF THE PRESENT ILLNESS: 71-y-old male patient with above medical and oncological diseases was revealed a small stroke, so Neurology was called for consultation. His brain MRI was reviewed and believed as stroke at this tiem rather than metastatic brain disease; howeve, he is at risk of cerebral metastatic disease. He states he is doing better on 07/29. PAST MEDICAL HISTORY: Please see above. PAST SURGERY HISTORY: Tonsillectomy Cholecystectomy Hernia Repair Skin cancer removal ALLERGY: NKDA MEDICATIONS: Refer to MAR FAMILY HISTORY: H Non contributory. SOCIAL HISTORY: Denies current smoking, drinking, and illicit drug use. He smoked < 1pack of cigarettes a day for about 20 years in the past. REVIEW OF SYSTEMS: Constitutional: No malnutrition, weight loss, cachexia. Head: No recent traumatic brain or head injury. Skin: No edema, or rash. Ear: No infection, tinnitus. Eyes: No vision loss or color blindness. Nose: No bleeding or purulent discharges. Hearing: Hearing decrease. Neck: No recent injury. Cardiac: No MA, arrhythmia. Pulmonary: Pneumonia, lung cancer. GI: No GI ulcer, GI bleeding. Urinary/genital: No dysuria, hematuria, incontinence, urinary retention. Endocrinologic: No cousin face, craniofacial dysmorphism, polydactyly, goiter. Skeletomuscular: No muscular atrophy, deformity. Neurological: see HP. Psychiatric: Denies drug use/abuse. Otherwise, not [id number] review of systems. PHYSICAL EXAMINATION: General appearance is in no acute distress. HEENT: Normocephalic and nontraumatic. Eyes, nose, ears, and throat are unremarkable. Neck is supple. No lymphadenopathy. No crepitus. Cardiovascular: S1, S2, regular rate and rhythm. Pulmonary: Mildly decreased to auscultation bilaterally. Abdomen: Bowel sounds are positive. Extremities: No rash, lesions, or edema. No restriction of range of motion NEUROLOGICAL EXAMINATION: Awake. Oriented to time, place and person. PERRL. EOMI. Horizontal nystagmus noted. CN: no focal findings. Muscle tone: within normal. Muscle strength: 5- DTR: 2 Plantar reflex: Flexor response bilaterally Gait: able to walk. Sensory exam: no acute abnormal findings. F-T-N test not accurate bilaterally. Objective Objective Vital Signs Date Time Temp Pulse Resp B/P Pulse Ox O2 Delivery O2 Flow Rate FiO2 08/02/16 16:26 108 18 113/59 94 Room Air 08/02/16 10:55 99.3 99.3 08/02/16 01:17 2.0 Intake and Output 08/02/16 07:00 Intake Total 540 ml Balance 540 ml Intake Oral 540 ml # Voids 11 Vitals Signs Vitals VS - Last 72 Hours, by Label Date Time Temp Pulse Resp B/P Pulse Ox O2 Delivery O2 Flow Rate FiO2 08/02/16 16:26 108 18 113/59 94 Room Air 08/02/16 15:13 Room Air 08/02/16 15:07 Room Air 08/02/16 15:00 108 18 113/59 94 Room Air 08/02/16 12:39 Room Air 08/02/16 12:39 Room Air 08/02/16 11:39 Room Air 08/02/16 10:55 99.3 101 20 99/64 92 Room Air 99.3 08/02/16 08:14 Room Air 08/02/16 08:07 Room Air 08/02/16 07:56 90 92/68 08/02/16 07:52 Room Air 08/02/16 07:30 97.9 92 15 92/68 97 Room Air 97.9 08/02/16 03:32 99.5 66 16 96/54 90 Room Air 99.5 08/02/16 01:17 96 2.0 08/02/16 00:47 18 96 Room Air 08/01/16 22:50 99.9 101 16 99/62 91 Room Air 99.9 08/01/16 21:25 20 08/01/16 21:00 80 98/64 08/01/16 20:55 20 96 Room Air 08/01/16 20:00 Room Air 2.0 08/01/16 19:35 97.9 80 16 112/74 94 Room Air 97.9 08/01/16 19:21 94 Room Air 08/01/16 15:40 Room Air 08/01/16 15:00 98.1 80 18 98/64 92 Room Air 98.1 08/01/16 11:34 92 Room Air 08/01/16 11:00 97.8 63 18 104/71 91 Room Air 97.8 08/01/16 08:12 Room Air 2.0 08/01/16 08:08 108 117/79 08/01/16 08:00 97.6 79 18 112/68 90 Room Air 97.6 08/01/16 07:32 92 Room Air Laboratory Laboratory Microbiology 07/23/16 Blood Culture - Final, Complete NO GROWTH AFTER 5 DAYS 07/27/16 AFB Specimen Processing Tissue - Final, Resulted 07/27/16 Acid Fast Bacilli Culture, Resulted Pending 07/27/16 Gram Stain - Final, Resulted 07/27/16 Fungal Culture, Resulted Pending 07/27/16 Fungal Culture Result 1, Resulted Pending 07/23/16 Urine Culture - Final, Complete 07/23/16 Urine Culture Result 1 (ARANZA) - Final, Complete Medication Medications Current Medications Amoxicillin/ Clavulanate Potassium (Augmentin 875/ 125mg) 1 tab BID PO ; Start 08/02/16 at 21:00 Sodium Biphosphate/ Sodium Phosphate (Fleet Adult) 133 ml 1X ONCE UT ; Start at 08:30; Stop 08/02/16 at 08:31; Status DC Comment Review of Relevant I have reviewed the following items rubi (where applicable) has been applied. LIDA TILLMAN MD Aug 02, 2016 16:39
[2016-08-02] MEDS ORDERED: AMOXICILLIN/K CLAV 875/125MG TABLET. PO SCH (21:00)
--- NOTE | 2016-08-02 22:19 | DS ---
DATE OF DISCHARGE: 08/02/2016 ADMITTING DIAGNOSIS: Acute respiratory failure. SECONDARY DIAGNOSES: 1. Left upper lobe pneumonia. 2. Chronic back pain. 3. Severe protein malnutrition. 4. Metabolic encephalopathy. DISCHARGE DIAGNOSES: 1. 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 2. 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 3. Postobstructive left upper lobe pneumonia. 4. New cerebellar CVA. 5. Severe protein malnutrition. 6. Chronic back pain. 7. Constipation. 8. Debilitation and gait instability. HISTORY OF PRESENT ILLNESS AND HOSPITAL COURSE: This patient is a 71-year-old male who was admitted to the hospital with increased fatigue and shortness of breath, found to have pneumonia, was initially treated for community-acquired pneumonia, but was found to have severe malnutrition much different than previous evaluations in clinic setting. CAT scan of the chest was done revealing cavitary lesion consistent with lung cancer. Heme-Oncology and Radiation Oncology were consulted. Radiation oncology was done initially during the hospitalization. Patient was given IV antibiotics and proceeded with PT and OT modalities. The patient improved to the point where he was able to tolerate p.o. medications and transfer and ambulate with walker. Family requested discharge home rather than acute rehabilitation. The patient was discharged home with PT and OT modalities. DISCHARGE MEDICATIONS: Augmentin 875 one p.o. b.i.d. for 10 days, aspirin 325 mg daily, DuoNeb nebulizer treatments q. 6 hours, MiraLax 17 g packets daily and liquid, Xanax 0.5 daily p.r.n. anxiety, Colace stool softeners b.i.d., methadone 10 mg b.i.d., oxycodone 40 mg b.i.d., propranolol 10 mg b.i.d., Zoloft 50 mg daily. The patient will be followed in 1 week in the family practice clinic and continue PT and OT modalities, will follow up with heme-oncology and Radiation Oncology within the next week and radiation is ongoing daily up to 10 treatments. VAISHALI FONTAINE MD DR: ADELA/mayra JOB#: [id number] / [id number]
== END 2016-08-02 20:00 | disposition home or self-care (01) | DRG 853 ==
LOC: ER 13:54 → ED HOLD 16:33 → 6 SOUTH 19:22
PROVIDERS: ADMIT Family Medicine; ATTEND Family Medicine
PROC: 0B9K8ZX Drainage of Right Lung, Via Natural or Artificial Opening Endoscopic, Diagnostic (ICD-10-PCS; 2016-07-27)
PROC: 0W3B4ZZ Control Bleeding in Left Pleural Cavity, Percutaneous Endoscopic Approach (ICD-10-PCS; 2016-07-27)
PROC: 0B978ZX Drainage of Left Main Bronchus, Via Natural or Artificial Opening Endoscopic, Diagnostic (ICD-10-PCS; 2016-07-27)
PROC: 0BBK8ZX Excision of Right Lung, Via Natural or Artificial Opening Endoscopic, Diagnostic (ICD-10-PCS; 2016-07-27)
PROC: 02HV33Z Insertion of Infusion Device into Superior Vena Cava, Percutaneous Approach (ICD-10-PCS; principal; 2016-07-30)
PROC: B5181ZA Fluoroscopy of Superior Vena Cava using Low Osmolar Contrast, Guidance (ICD-10-PCS; 2016-07-30)
DX: A41.9 Sepsis, unspecified organism (principal); G93.41 Metabolic encephalopathy; E43 Unspecified severe protein-calorie malnutrition; J15.9 Unspecified bacterial pneumonia; I63.9 Cerebral infarction, unspecified; J96.01 Acute respiratory failure with hypoxia; C34.90 Malignant neoplasm of unspecified part of unspecified bronchus or lung; C79.51 Secondary malignant neoplasm of bone; G95.9 Disease of spinal cord, unspecified; J44.0 Chronic obstructive pulmonary disease with (acute) lower respiratory infection; R17 Unspecified jaundice; Z98.890 Other specified postprocedural states; C44.90 Unspecified malignant neoplasm of skin, unspecified; E29.1 Testicular hypofunction; E87.6 Hypokalemia; F32.9 Major depressive disorder, single episode, unspecified; G43.909 Migraine, unspecified, not intractable, without status migrainosus; G56.03 Carpal tunnel syndrome, bilateral upper limbs; G43.709 Chronic migraine without aura, not intractable, without status migrainosus; G89.29 Other chronic pain; K22.2 Esophageal obstruction; K59.09 Other constipation; K57.90 Diverticulosis of intestine, part unspecified, without perforation or abscess without bleeding; K44.9 Diaphragmatic hernia without obstruction or gangrene; K82.8 Other specified diseases of gallbladder; M48.06 Spinal stenosis, lumbar region; N19 Unspecified kidney failure; Z51.5 Encounter for palliative care; Z79.82 Long term (current) use of aspirin; Z79.891 Long term (current) use of opiate analgesic; Z80.1 Family history of malignant neoplasm of trachea, bronchus and lung; Z85.828 Personal history of other malignant neoplasm of skin; Z87.891 Personal history of nicotine dependence; Z91.81 History of falling; Z79.899 Other long term (current) drug therapy
CPT/HCPCS: 99285; C8929; 20220; 31622; 36415; 70450; 70553; 71010; 71260; 74177; 76705; 77012; 77290; 77295; 77300; 77334; 77387; 77412; 78306; 80048; 80053; 80061; 80076; 80202; 81001; 82140; 82306; 82607; 83690; 83880; 84443; 84484; 85007; 85027; 85610; 87040; 87070; 87086; 87102; 87116; 87186; 87205; 88112; 88305; 88341; 88342; 93005; 93880; 94250; 94620; 94640; 94760; 96365; 96374; 96375; A9503; A9585; J0456; J0690; J0696; J1170; J1885; J2250; J2543; J2704; J3010; J3370; J7040; J7050; J7620; Q0144; Q9967; 97110; 97116; G0641; J7030

== ENCOUNTER → 2016-08-26 | Outpatient (CLI) | payer MEDICARE, BC ==
[2016-08-02 10:55] VITALS: BP 99/64
[~2016-08-26] MED LIST changes: +AMOX1TAB11 PO; +ASPI325T4 PO; +IPRA3AMP NEB; +POLY17PO5 PO; +SERT50TA8 PO
--- NOTE | 2016-08-27 05:12 | PAIN ---
DATE OF SERVICE: 08/26/2016 DIAGNOSES: 1. Lumbar radiculopathy with post-lumbar laminectomy syndrome. 2. Cervical radiculopathy. 3. Myofascial pain. 4. Right chest wall pain with lung carcinoma and metastases. HISTORY OF PRESENT ILLNESS: The patient is a 71-year-old male who returns for followup status post medication management with both methadone and oxycodone. The patient has been undergoing radiation therapy as well as chemotherapy for his lung carcinoma, had previously had intercostal blocks as well on the right side with ongoing nausea, which is a mild level described by the patient, but still significant. The patient reports that the oncologist has been hesitant to try any Zofran or Compazine secondary to the patient taking methadone and oxycodone and we discussed some other options with him of this as well today. The patient reports otherwise pain medications fairly well controlled with the methadone and oxycodone combination to a level about 70%. The patient reports no side effects with the medication. Rates his pain a 9 on a scale of 10, mostly in the mid upper back and right chest and flank. He is seeing his radiation oncologist again tomorrow and will discuss further treatments with radiation therapy to the ribs on that date. The patient reports no new motor or sensory deficits, no new bowel or bladder incontinence or other complaints and no significant side effects with the medications. PHYSICAL EXAMINATION: VITAL SIGNS: The patient's blood pressure 86/52, pulse 78, respirations 18, temperature is 97.8 degrees Fahrenheit, weight is 175 pounds. GENERAL: The patient is awake, alert, oriented, appropriate, very pleasant demeanor. The patient accompanied by his spouse. HEENT: Shows normocephalic, atraumatic. Extraocular movements are intact, symmetrical. Oral cavity, mucous membranes moist and pink. Dentition is intact. NECK: Shows anterior throat supple without palpable lymphadenopathy noted. Swallow reflex is symmetrical. CHEST: Shows normal on inspection. Breath sounds are clear to auscultation bilaterally. HEART: Shows S1 and S2 clear. No murmurs are auscultated. ABDOMEN: Soft, nontender, nondistended. BACK: The patient's right rib cage shows some moderate tenderness in the mid axillary line as well as the anterior aspect of the inferior rib cage as well as the posterior aspect, but more on the mid axillary line and forward. The patient shows no significant tenderness over the rib palpation on the left side. The patient's back shows spine grossly midline. Lumbar paraspinous muscle shows some moderate tenderness. Well-healed surgical scarring is noted, diffusely tender throughout the upper, middle and lower distribution of paraspinous muscles. EXTREMITIES: Lower extremities show deep tendon reflexes at 1+ in the patellar tendons and are symmetrical. Motor exam is intact bilaterally with dorsiflexion and extension rated at 4 on a scale of 5, but is symmetrical. PLAN: Options were discussed with the patient and the patient's spouse. We will add scopolamine to the methadone and oxycodone regimen. The patient is given prescriptions and cautioned as to the regimen as well as side effects to be aware of. The patient will follow up in approximately 4 weeks or sooner if necessary. FIDENCIO QUINTANA MD DR: CAMERON/mayra JOB#: [id number] / [id number]
== END | disposition home or self-care (01) ==
LOC: PNCL 12:40
PROVIDERS: ATTEND Anesthesiology
DX: M54.16 Radiculopathy, lumbar region (principal); M96.1 Postlaminectomy syndrome, not elsewhere classified; M54.12 Radiculopathy, cervical region; M79.1 Myalgia; R07.89 Other chest pain; C34.90 Malignant neoplasm of unspecified part of unspecified bronchus or lung
CPT/HCPCS: G0463

== ENCOUNTER → 2016-09-23 | Outpatient (CLI) | payer MEDICARE, BC ==
[~2016-09-23] MED LIST changes: +[UNRECOGNIZED DRUG - CODE] IV
--- NOTE | 2016-09-23 12:58 | RAD ---
Indication history of lung malignancy. PA and lateral views of the chest were obtained and are compared to a single view examination July 30, 2016. Background emphysematous changes are noted. The heart and pulmonary vessels are within normal limits. There are changes in the left upper lobe likely reflecting pleural-parenchymal scarring. There is a new infiltrate in the left lower lobe, relative to the previous exam, suggesting superimposed pneumonia. IMPRESSION: New infiltrate in the left lower lobe suggesting pneumonia Changes in the left upper lobe suggesting pleural parenchymal scarring
== END | disposition home or self-care (01) ==
LOC: RAD 12:14
PROVIDERS: ATTEND Nurse Practitioner Adult Health
DX: R05 Cough (principal); Z85.118 Personal history of other malignant neoplasm of bronchus and lung
CPT/HCPCS: 71020

== ENCOUNTER 2016-09-30 12:16 | Emergency (ER) | payer MEDICARE, BC ==
[~2016-09-30] VITALS: Ht 185.4 cm; Wt 72.6 kg
[2016-09-30 12:38] VITALS: BP 133/68
--- NOTE | 2016-09-30 12:55 | EKG ---
[facility] [address] [place] [address] Test Date: 2016-09-30 Test Time: 12:30:29 Pat Name: DERREK KIMBROUGH Department: Room: Gender: M Drapery Hemmer Automatic: : 1945 Requested By: AILIN DAIGLE Order Number: [id number] Reading MD: Siomara Portillo Measurements Intervals Stanton Rate: 97 P: [place]: QRS: 39 QRSD: 88 T: 60 QT: 350 QTc: 449 Interpretive Statements IRREGULAR RHYTHM, NO P-WAVE FOUND LOW LIMB LEAD VOLTAGE POSSIBLY ABNORMAL ECG RI6.01 No previous ECG available for comparison Electronically Signed On 10-03-2016 18:39:09 CDT by Siomara Portillo
[2016-09-30] MEDS ORDERED: DIPHTH,PERTUSS(ACELL),TET TOX 0.5 ML DISP.SYRIN. VAX IM ONE (13:00)
[2016-09-30 13:04] LABS: BASO # 0.1 x10^3/uL (0.0-0.2); BASO % 1 % (0-3); EOS % 1 % (0-3); HEMATOCRIT 35.8 % (39.0-53.0); HEMOGLOBIN 11.1 g/dL (13.0-17.5); LYMPH # 0.6 x10^3/uL (1.0-4.8); LYMPH % 4 % (24-48); MEAN CORPUSCULAR HEMOGLOBIN 23 pg (25-35); MEAN CORPUSCULAR HGB CONC 31 g/dL (31-37); MEAN CORPUSCULAR VOLUME 75 fL (79-100); MONO % 7 % (0-9); NEUT % 87 % (31-73); PLATELET COUNT 364 x10^3/uL (140-400); RED BLOOD COUNT 4.79 x10^6/uL (4.30-5.70); RED CELL DISTRIBUTION WIDTH 17.2 % (11.5-14.5); WHITE BLOOD COUNT 15.4 x10^3/uL (4.0-11.0)
[2016-09-30] MEDS ORDERED: FENTANYL PF 100 MCG/2 ML VIAL. IV PRN (13:15)
[2016-09-30 13:17] LABS: INR 1.5 (0.8-1.1); PROTHROMBIN TIME PATIENT 17.1 SEC (11.7-14.0)
[2016-09-30 13:28] LABS: CREATININE 0.8 mg/dL (0.7-1.3); GFR 95.6
[2016-09-30 13:31] LABS: POTASSIUM 5.5 mmol/L (3.5-5.1)
[2016-09-30 13:32] LABS: ALBUMIN/GLOBULIN RATIO 0.4 (1.0-1.7); TOTAL BILIRUBIN 0.5 mg/dL (0.2-1.0); TOTAL PROTEIN 6.9 g/dL (6.4-8.2)
--- NOTE | 2016-09-30 13:50 | RAD ---
EXAM: Head CT without contrast; cervical spine CT without contrast; axial facial bone CT without contrast. HISTORY: Fall. TECHNIQUE: Computed tomographic images of the head, maxilla facial bones and cervical spine were obtained without contrast. One or more of the following individualized dose reduction techniques were utilized for this examination: 1. Automated exposure control. 2. Adjustment of the mA and/or kV according to patient size. 3. Use of iterative reconstruction technique. COMPARISON: 07/23/2016. FINDINGS: Head: There is no acute hemorrhage. There is no mass effect or midline shift. There is no hydrocephalus. There is subtle hypodensity within the cerebral white matter, likely due to chronic small vessel disease. There is a left parietal scalp hematoma. The mastoid air cells are clear. The temporomandibular joints are intact. No calvarial fracture is seen. Maxillofacial bones: There is a moderate right maxillary sinus mucous retention cyst. There is and air-fluid level within the sphenoid sinus. There are findings consistent with maxillary antrostomy/uncinectomy surgery. No displaced fracture is seen. There is minimal nasal septal deviation. There are findings consistent with right lens surgery. Cervical spine: There is slight retrolisthesis of C2 on C3 and C3 on C4. There is degenerative endplate remodeling at all levels. There is facet arthropathy at multiple levels. No suspicious osseous lesion is seen. At C2-C3, there is a disc bulge and endplate remodeling. There is uncovertebral arthropathy. There is moderate right and mild left foraminal stenosis. At C3-C4, there is a disc bulge and endplate osteophytosis. There is mild right facet arthropathy. There is uncovertebral arthropathy. There is moderate to severe right and moderate left foraminal stenosis. There is woix-ff-apwbrsmr central canal stenosis. At C4-C5, there is a disc bulge and endplate remodeling. There is mild to moderate right and severe left facet arthropathy. There is severe left foraminal stenosis. At C5-C6, there is a disc bulge and endplate remodeling. There is qwov-fd-wamnjdzo bilateral facet arthropathy. There is moderate bilateral foraminal stenosis. There is left apical pleural parenchymal scarring, partially included on the zrcfl-hj-nvmf. IMPRESSION: 1. Left parietal scalp hematoma. 2. No acute intracranial finding or evidence of acute cervical spine or maxilla facial bone trauma. 3. Multilevel degenerative change within the cervical spine, resulting in stenosis as described above. 4. Right maxillary and sphenoid sinus disease and evidence of prior maxillary antrostomy/uncinectomy surgery.
[2016-09-30 13:51] LABS: BILIRUBIN,URINE NEGATIVE (NEG); GLUCOSE,URINE NEGATIVE (NEG); NITRITE,URINE NEGATIVE (NEG); PH,URINE 6.5; PROTEIN,URINE 30 mg/dL (NEG-TRACE)
[2016-09-30 13:56] LABS: BARBITURATES NEG (NEG); BENZODIAZEPINES NEG (NEG); CANNABINOIDS NEG (NEG); COCAINE NEG (NEG); METHADONE POS (NEG); OPIATES POS (NEG); PHENCYCLIDINE NEG (NEG)
[2016-09-30 13:59] LABS: ETHANOL, URINE NEG (NEG)
[2016-09-30 14:00] LABS: BACTERIA,URINE 0 /HPF (0-FEW); RBC,URINE 20-40 /HPF (0-2); WBC,URINE OCC /HPF (0-4)
[2016-09-30 14:31] LABS: % BASOS 2 % (0-3); % EOS 1 % (0-5); ANISOCYTOSIS SLIGHT; HYPOCHROMIA SLIGHT; MICROCYTOSIS SLIGHT; PLT ESTIMATE ADEQUATE (ADEQUATE)
--- NOTE | 2016-09-30 14:54 | RAD ---
EXAM: Bilateral shoulders, 3 views. HISTORY: Fall. COMPARISON: None. FINDINGS: Internal and external rotation and transscapular views of both shoulders are obtained. There is mild bilateral acromioclavicular spurring, including small inferiorly directed distal clavicle or spurs. There is no fracture, dislocation or subluxation. There is a suspected bone island within the proximal right humeral diaphysis and left humeral head. There is pleural-based opacity within the left upper lobe. There is facet arthropathy throughout the visualized cervical spine. IMPRESSION: 1. Mild bilateral acromioclavicular osteoarthritis. 2. No acute osseous finding. 3. Left upper lobe pleural-based opacity, better characterized on a chest radiograph dated 09/23/2016.
--- NOTE | 2016-09-30 15:03 | PHYS DOC ---
Past Medical History Past Medical History: Cancer Additional Past Medical Histor: CHRONIC BACK PAIN, SKIN CA Past Surgical History: Tonsillectomy, Other Additional Past Surgical Histo: HERNIA, BACK, SKIN CA, R CATARACT Alcohol Use: None Drug Use: Methadone, Opiates Adult General Chief Complaint Chief Complaint: MULTIPLE TRAUMA/FALL HPI HPI Patient is a 71 year old male who presents with fall. Patient states he became weak & fell down the stairs at his home. There are 16 steps in the flight of stairs, doesn't know how far he fell & did not witness. She found him unconscious at the bottom of the stairs for unknown duration of time. EMS placed c-collar. He complains of headache, neck pain, bilateral shoulder pain. History of chronic back pain with no new back pain, denies hip pain. Last tetanus unknown. Denies use of blood thinners. History of multiple recent falls, states usually due to weakness. He is a patient in the pain clinic & takes opioids chronically. Denies any chest pain, palpitations, shortness of breath, lightheadedness preceding this fall. PCP is Dr. Bowens. Review of Systems Review of Systems Constitutional: Denies fever or chills Eyes: Denies change in visual acuity HENT: Denies nasal congestion or sore throat Respiratory: Denies cough or shortness of breath Cardiovascular: Denies chest pain or edema GI: Denies abdominal pain, nausea, vomiting Musculoskeletal: Reports neck pain & shoulder pain. Denies acute back pain Integument: Denies rash or skin lesions Reports abrasions. Neurologic: Reports headache, fdenies ocal weakness or sensory changes Current Medications Current Medications Current Medications Medications (Trade) Dose Ordered Sig/Ronal Start Time Stop Time Status Last Admin Dose Admin Diphtheria/ Tetanus/Acell Pertussis (Boostrix) 0.5 ml ONCE ONCE 09/30/16 13:00 09/30/16 13:01 DC 09/30/16 13:16 0.5 ML Fentanyl Citrate (Fentanyl 2ml Vial) 50 mcg PRN Q15MIN PRN 09/30/16 13:15 09/30/16 16:37 DC 09/30/16 13:13 50 MCG Allergies Allergies Allergies Coded Allergies Type Severity Reaction Last Updated Verified No Known Drug Allergies 07/27/16 No Physical Exam Physical Exam Constitutional: Well developed, well nourished, no acute distress, non-toxic appearance. HENT: Normocephalic, atraumatic, bilateral external ears normal, no hemotympanum , oropharynx moist, dried blood at bilateral nares with no active bleeding, no septal hematoma. right periorbital ecchymosis & abrasions Eyes: PERRLA, EOMI, conjunctiva normal, no discharge. Neck: supple, no stridor, c collar in place. Cardiovascular: RRR, no murmurs, no edema. Lungs & Thorax: LCTAB, no wheezing, no respiratory distress. no chest wall/ rib tenderness. Abdomen: soft, nontender, nondistended. Skin: Warm, dry, no erythema, no rash. scattered abrasions to right side of face, bilateral upper & lower extremities Back: No focal spinal tenderness or step offs Extremities: bilateral shoulders with no swelling or deformity, abrasions bilaterally, generalized tenderness over joint bilaterally, normal ROM bilaterally elicits mild pain, no elbow or wrist tenderness, radial pulse 2+ bilaterally, radial/median/ulnar nerve sensory & motor function intact bilaterally, normal axillary sensation bilaterally. Neurologic: Alert and oriented X 3, CN2-12 grossly intact, symmetric strength/ sensation to UE & LE, no focal deficits noted. Psychologic: Affect normal, judgement normal, mood normal. Current Patient Data Vital Signs Vital Signs Date Time Temp Pulse Resp B/P Pulse Ox O2 Delivery O2 Flow Rate FiO2 09/30/16 12:38 97.0 98 18 133/68 96 Room Air 97.0 Lab Values Laboratory Tests Test 09/30/16 12:50 09/30/16 13:42 White Blood Count 15.4x10^3/uL (4.0-11.0) H Red Blood Count 4.79x10^6/uL (4.30-5.70) Hemoglobin 11.1g/dL (13.0-17.5) L Hematocrit 35.8% (39.0-53.0) L Mean Corpuscular Volume 75fL (79-100) L Mean Corpuscular Hemoglobin 23pg (25-35) L Mean Corpuscular Hemoglobin Concent 31g/dL (31-37) Red Cell Distribution Width 17.2% (11.5-14.5) H Platelet Count 364x10^3/uL (140-400) Neutrophils (%) (Auto) 87% (31-73) H Lymphocytes (%) (Auto) 4% (24-48) L Monocytes (%) (Auto) 7% (0-9) Eosinophils (%) (Auto) 1% (0-3) Basophils (%) (Auto) 1% (0-3) Neutrophils # (Auto) 13.5x10^3uL (1.8-7.7) H Lymphocytes # (Auto) 0.6x10^3/uL (1.0-4.8) L Monocytes # (Auto) 1.1x10^3/uL (0.0-1.1) Eosinophils # (Auto) 0.2x10^3/uL (0.0-0.7) Basophils # (Auto) 0.1x10^3/uL (0.0-0.2) Segmented Neutrophils % 90% (35-66) H Lymphocytes % 3% (24-48) L Monocytes % 4% (0-10) Eosinophils % 1% (0-5) Basophils % 2% (0-3) Platelet Estimate Adequate (ADEQUATE) Hypochromasia Slight Anisocytosis Slight Microcytosis Slight Prothrombin Time 17.1SEC (11.7-14.0) H Prothrombin Time INR 1.5 (0.8-1.1) H PTT 39SEC (24-38) H Sodium Level 137mmol/L (136-145) Potassium Level 5.5mmol/L (3.5-5.1) H Chloride Level 100mmol/L (98-107) Carbon Dioxide Level 30mmol/L (21-32) Anion Gap 7 (6-14) Blood Urea Nitrogen 19mg/dL (8-26) Creatinine 0.8mg/dL (0.7-1.3) Estimated GFR (Cockcroft-Gault) 95.6 BUN/Creatinine Ratio 24 (6-20) H Glucose Level 139mg/dL (70-99) H Calcium Level 9.0mg/dL (8.5-10.1) Total Bilirubin 0.5mg/dL (0.2-1.0) Aspartate Amino Transferase (AST) 84U/L (15-37) H Alanine Aminotransferase (ALT) 62U/L (16-63) Alkaline Phosphatase 132U/L (46-116) H Troponin I Quantitative < 0.017ng/mL (0.000-0.055) JN-Xfj-B-Type Natriuretic Peptide 512pg/mL (0-124) H Total Protein 6.9g/dL (6.4-8.2) Albumin 2.0g/dL (3.4-5.0) L Albumin/Globulin Ratio 0.4 (1.0-1.7) L Ethyl Alcohol Level < 10mg/dL (0-10) Urine Collection Type Unknown Urine Color Yellow Urine Clarity Clear Urine pH 6.5 Urine Specific House 1.020 Urine Protein 30mg/dL (NEG-TRACE) Urine Glucose (UA) Negativemg/dL (NEG) Urine Ketones (Stick) Negativemg/dL (NEG) Urine Blood Moderate (NEG) Urine Nitrite Negative (NEG) Urine Bilirubin Negative (NEG) Urine Urobilinogen Dipstick 1.0mg/dL (0.2 mg/dL) Urine Leukocyte Esterase Trace (NEG) Urine RBC 20-40/HPF (0-2) Urine WBC Occ/HPF (0-4) Urine Bacteria 0/HPF (0-FEW) Urine Mucus Mod/LPF Urine Opiates Screen Pos (NEG) Urine Methadone Screen Pos (NEG) Urine Barbiturates Neg (NEG) Urine Phencyclidine Screen Neg (NEG) Urine Amphetamine/Methamphetamine Neg (NEG) Urine Benzodiazepines Screen Neg (NEG) Urine Cocaine Screen Neg (NEG) Urine Cannabinoids Screen Neg (NEG) Urine Ethyl Alcohol Neg (NEG) Laboratory Tests 09/30/16 12:50 Laboratory Tests 09/30/16 12:50 EKG EKG Interpreted by me: Normal sinus rhythm rate 97, no acute ST or T wave changes, normal intervals, no ectopy, artifact noted [] Radiology/Procedures Radiology/Procedures PROCEDURE: SHOULDER BILAT 2+V EXAM: Bilateral shoulders, 3 views. HISTORY: Fall. COMPARISON: None. FINDINGS: Internal and external rotation and transscapular views of both shoulders are obtained. There is mild bilateral acromioclavicular spurring, including small inferiorly directed distal clavicle or spurs. There is no fracture, dislocation or subluxation. There is a suspected bone island within the proximal right humeral diaphysis and left humeral head. There is pleural-based opacity within the left upper lobe. There is facet arthropathy throughout the visualized cervical spine. IMPRESSION: 1. Mild bilateral acromioclavicular osteoarthritis. 2. No acute osseous finding. 3. Left upper lobe pleural-based opacity, better characterized on a chest radiograph dated 09/23/2016. DICTATED and SIGNED BY: RABIA MARTINES MD DATE: 09/30/16 1449 PROCEDURE: HEAD AND CERVICAL SPINE WO; MAXILLOFACIAL WO CONTRAST EXAM: Head CT without contrast; cervical spine CT without contrast; axial facial bone CT without contrast. HISTORY: Fall. TECHNIQUE: Computed tomographic images of the head, maxilla facial bones and cervical spine were obtained without contrast. One or more of the following individualized dose reduction techniques were utilized for this examination: 1. Automated exposure control. 2. Adjustment of the mA and/or kV according to patient size. 3. Use of iterative reconstruction technique. COMPARISON: 07/23/2016. FINDINGS: Head: There is no acute hemorrhage. There is no mass effect or midline shift. There is no hydrocephalus. There is subtle hypodensity within the cerebral white matter, likely due to chronic small vessel disease. There is a left parietal scalp hematoma. The mastoid air cells are clear. The temporomandibular joints are intact. No calvarial fracture is seen. Maxillofacial bones: There is a moderate right maxillary sinus mucous retention cyst. There is and air-fluid level within the sphenoid sinus. There are findings consistent with maxillary antrostomy/uncinectomy surgery. No displaced fracture is seen. There is minimal nasal septal deviation. There are findings consistent with right lens surgery. Cervical spine: There is slight retrolisthesis of C2 on C3 and C3 on C4. There is degenerative endplate remodeling at all levels. There is facet arthropathy at multiple levels. No suspicious osseous lesion is seen. At C2-C3, there is a disc bulge and endplate remodeling. There is uncovertebral arthropathy. There is moderate right and mild left foraminal stenosis. At C3-C4, there is a disc bulge and endplate osteophytosis. There is mild right facet arthropathy. There is uncovertebral arthropathy. There is moderate to severe right and moderate left foraminal stenosis. There is [id number] central canal stenosis. At C4-C5, there is a disc bulge and endplate remodeling. There is mild to moderate right and severe left facet arthropathy. There is severe left foraminal stenosis. At C5-C6, there is a disc bulge and endplate remodeling. There is ynmx-wk-yggbteuz bilateral facet arthropathy. There is moderate bilateral foraminal stenosis. There is left apical pleural parenchymal scarring, partially included on the ypciy-if-kqlx. IMPRESSION: 1. Left parietal scalp hematoma. 2. No acute intracranial finding or evidence of acute cervical spine or maxilla facial bone trauma. 3. Multilevel degenerative change within the cervical spine, resulting in stenosis as described above. 4. Right maxillary and sphenoid sinus disease and evidence of prior maxillary antrostomy/uncinectomy surgery. DICTATED and SIGNED BY: RABIA MARTINES MD DATE: 09/30/16 4948[] Course & Med Decision Making Course & Med Decision Making Pertinent Labs and Imaging studies reviewed. (See chart for details) Patient presents with fall down the stairs & injuries as described above. C- collar in place upon arrival. Patient met criteria for trauma alert & nursing staff followed appropriate protocols. Patient received pain medication & tetanus booster. Imaging shows scalp hematoma & pneumonia for which he is currently taking oral antibiotics, but otherwise no acute traumatic injury. C- collar clinically cleared by me. I recommended admission to the hospital for further monitoring given fall from unknown height with loss of consciousness in patient 71 years of age with multiple recent falls. Patient firmly declined & his agreed with his preference to be discharged home, she felt comfortable caring for him & watching for deterioration. Discussed risks of leaving including worsening condition, undiagnosed condition, possibly , & he still prefers to go home. Recommend follow up with primary care physician in 2- 3 days. Come back immediately for mental status changes, focal neurologic deficit, uncontrolled vomiting, syncope, any otherwise worsening condition. Discharged home in stable condition. [] Dragon Disclaimer Dragon Disclaimer This electronic medical record was generated, in whole or in part, using a voice recognition dictation system. Departure Departure Impression: Primary Impression: Closed head injury Additional Impressions: Shoulder contusion Abrasions of multiple sites Disposition: 01 HOME, SELF-CARE Condition: STABLE Referrals: VAISHALI BOWENS MD (PCP) Patient Instructions: Head Injury, Adult, Rojh-bn-Ayrk Additional Instructions: You were seen in the emergency department today for head injury after a fall. Tests here did not show any significant brain injury or broken bones. You were offered admission to the hospital but preferred to go home. Please rest, use assistance if needed to walk around the house, try to avoid using the stairs. Stand slowly from sitting position. Follow-up with Dr. Bowens either tomorrow or Tuesday. Return to the emergency department for severe pain, confusion, difficulty walking or talking, uncontrolled vomiting, any otherwise worsening condition. Problem Qualifiers AILIN DAIGLE MD Sep 30, 2016 15:03
== END 2016-09-30 15:00 | disposition home or self-care (01) ==
LOC: ER 12:16
DX: S06.0X9A Concussion with loss of consciousness of unspecified duration, initial encounter (principal); S00.03XA Contusion of scalp, initial encounter; S40.012A Contusion of left shoulder, initial encounter; S40.011A Contusion of right shoulder, initial encounter; S00.11XA Contusion of right eyelid and periocular area, initial encounter; S40.812A Abrasion of left upper arm, initial encounter; S40.811A Abrasion of right upper arm, initial encounter; S80.812A Abrasion, left lower leg, initial encounter; S80.811A Abrasion, right lower leg, initial encounter; M54.2 Cervicalgia; F11.10 Opioid abuse, uncomplicated; F15.10 Other stimulant abuse, uncomplicated; G89.29 Other chronic pain; W10.8XXA Fall (on) (from) other stairs and steps, initial encounter; Y93.89 Activity, other specified; Y92.009 Unspecified place in unspecified non-institutional (private) residence as the place of occurrence of the external cause; Y99.8 Other external cause status
CPT/HCPCS: 36415; 70450; 70486; 72125; 73030; 80053; 80305; 80320; 81001; 83880; 84484; 85007; 85027; 85610; 85730; 87086; 90471; 90715; 93005; 96374; 99285; J3010; G0480; G0481

== ENCOUNTER → 2016-10-25 | Outpatient (CLI) | payer MEDICARE, BC ==
[2016-09-30 12:38] VITALS: BP 133/68
[~2016-10-25] MED LIST changes: +CONTRAST GIVEN MC PRN; +IOHEXOL 240 MG/ML 50ML VIAL. PO ONE; +IOHEXOL 300 MG/ML 75 ML VIAL IV ONE
--- NOTE | 2016-10-25 11:31 | RAD ---
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 Comparison: CT chest abdomen pelvis 07/26/2016. Technique: After administration of oral and intravenous contrast, 75 mL Omnipaque 300, helical CT of the chest, abdomen, and pelvis was performed from the lung apices through the ischial tuberosities. One or more of the following individualized dose reduction techniques were utilized for the study: Automated exposure control Adjustment of mA and/or kV according to patient's size Use of iterative reconstruction technique. Findings: No convincing mediastinal lymphadenopathy is seen. Mild heterogeneity of thyroid is seen. Thoracic aorta is without evidence of dissection. No pericardial thickening is identified. There is interval decrease in amount of soft tissue involving the left hilum adjacent to the left mainstem bronchus and left upper lobe bronchus. Overall amount of soft tissue in this location appears decreased in size from previous study, although exact measurements are somewhat difficult. Soft tissue could measure up to about 4 cm in transverse dimension x 3 cm in AP dimension (previously 6.3 x 4.3 cm, respectively). There is persistent cavitation involving the left upper lobe which appears to communicate with the left upper lobe bronchus, although this finding can be seen on previous study. There is interval reduction in amount of airspace disease involving the superior aspect of the left upper lobe, but there is increased amount of consolidation involving the lingula as well as the left lower lobe. Mild scattered areas of groundglass opacity can be seen involving the periphery of the right lung with a small focal nodular consolidation seen in the right middle lobe. Trace left pleural effusion is seen. Liver again demonstrates a subcentimeter low-attenuation lesion, not adequately characterized on this examination, unchanged. Spleen, pancreas, and bilateral adrenal glands are unremarkable. Gallbladder appears distended, but otherwise unremarkable. Bilateral kidneys enhance symmetrically. Aortic atherosclerosis is seen. No bowel obstruction or inflammation is seen. Urinary bladder is unremarkable. Colonic diverticulosis is noted, but there is no evidence of diverticulitis. The right retroperitoneum, lateral to the IVC demonstrates a small, nonspecific low-density soft tissue appearing mass which measures 1.7 x 1.1 cm; this can be seen on retrospective review on comparison study where it measured approximately 1.5 x 1.5 cm; this is probably without significant change and apparent differences secondary to plane of section. There is persistent permeative osteolysis involving the right posterior seventh rib, compatible with metastases. Healing fractures with sclerosis are seen involving the right anterior eighth and ninth ribs. Left posterolateral seventh and eighth ribs demonstrates subacute, healing fractures. Laminectomy changes are seen at T11-12. Impression: 1. The irregular soft tissue mass adjacent to the left hilum is apparently decreased in size from previous study, although exact measurements are somewhat difficult. Portions of the superior aspect of left upper lobe demonstrates interval decrease in airspace disease. 2. There is interval increased consolidation involving the lingula and left lower lobe. This finding could represent postradiation change (if appropriate history) versus progression of pneumonia. 3. Right lung demonstrate scattered, nonspecific peripheral areas of groundglass opacity as well as small nodular consolidation involving the right middle lobe. Attention on follow-up imaging. 4. Persistent right posterior seventh rib metastatic lesion. 5. Healing bilateral rib fractures. 6. Nonspecific, small soft tissue mass in the right retroperitoneum near the IVC. This might represent small lymph node, but is unchanged from previous study. Attention on follow-up imaging.
== END | disposition home or self-care (01) ==
LOC: CT 09:25
PROVIDERS: ATTEND Internal Medicine Hematology & Oncology
DX: C34.12 Malignant neoplasm of upper lobe, left bronchus or lung (principal)
CPT/HCPCS: 71260; 74177; Q9966; Q9967

== ENCOUNTER 2016-11-02 16:02 | Inpatient (IN) | payer MEDICARE, BC ==
[~2016-11-02] VITALS: Ht 185.4 cm; Wt 64.4 kg
[~2016-11-02 16:02] MED LIST changes: -CONTRAST GIVEN MC PRN; -IOHEXOL 240 MG/ML 50ML VIAL. PO ONE; -IOHEXOL 300 MG/ML 75 ML VIAL IV ONE; +POLY17PO29 PO; -POLY17PO5 PO
[2016-11-02] MEDS ORDERED: IV NORMAL SALINE 1000ML BAG 1,000 ML IV SCH (16:30)
[2016-11-02 16:32] LABS: BASO # 0.1 x10^3/uL (0.0-0.2); BASO % 1 % (0-3); EOS % 0 % (0-3); HEMATOCRIT 39.8 % (39.0-53.0); HEMOGLOBIN 12.8 g/dL (13.0-17.5); LYMPH # 0.3 x10^3/uL (1.0-4.8); LYMPH % 1 % (24-48); MEAN CORPUSCULAR HEMOGLOBIN 23 pg (25-35); MEAN CORPUSCULAR HGB CONC 32 g/dL (31-37); MEAN CORPUSCULAR VOLUME 71 fL (79-100); MONO % 2 % (0-9); NEUT % 96 % (31-73); PLATELET COUNT 409 x10^3/uL (140-400); RED BLOOD COUNT 5.61 x10^6/uL (4.30-5.70); RED CELL DISTRIBUTION WIDTH 17.9 % (11.5-14.5); WHITE BLOOD COUNT 28.4 x10^3/uL (4.0-11.0)
--- NOTE | 2016-11-02 16:34 | PHYS DOC ---
Past Medical History Past Medical History: Cancer (Stage 4 Lung Cancer) Additional Past Medical Histor: CHRONIC BACK PAIN, SKIN CA Past Surgical History: Tonsillectomy, Other Additional Past Surgical Histo: HERNIA, BACK, SKIN CA, R CATARACT Alcohol Use: None Drug Use: Methadone, Opiates Adult General Chief Complaint Chief Complaint: SHORTNESS OF BREATH HPI HPI Patient is a 71 year old male who presents from oncology clinic for concern of tachycardia and dyspnea. He states he has weeks of decreased energy, decreased appetite, and decreased liquid intake that is thought to be side effect of Keytruda chemo. Chemo was stopped 2 weeks ago due to side effects and he has been started on prednisone in the past week to assist with this, and states he is drinking better. However, he states he has worsening dyspnea here in the past few days. He has slight chronic cough associated with lung cancer, and denies changes to this. He denies chest pain, palpitations, orthopnea, diaphoresis, leg pain or swelling, hemoptysis, fever or chills, rhinorrhea, sore throat, nasal congestion, diarrhea, dysuria, abdominal pain. No prior history of pulmonary embolism or other clotting disorders. No chronic anticoagulation. Oncology clinic notes he has chronic leukocytosis in the 20-27 range. Which has been higher due to recent prednisone administration. Review of Systems Review of Systems Constitutional: Denies fever or chills [] Eyes: Denies change in visual acuity, redness, or eye pain [] HENT: Denies nasal congestion or sore throat [] Respiratory: Has cough and shortness of breath [] Cardiovascular: No additional information not addressed in HPI [] GI: Denies abdominal pain, nausea, vomiting, bloody stools or diarrhea [] : Denies dysuria or hematuria [] Musculoskeletal: Denies back pain or joint pain [] Integument: Denies rash or skin lesions [] Neurologic: Denies headache, focal weakness or sensory changes [] Endocrine: Denies polyuria or polydipsia [] Current Medications Current Medications Current Medications Medications (Trade) Dose Ordered Sig/Ronal Start Time Stop Time Status Last Admin Dose Admin Iohexol (Omnipaque 300 Mg/ml) 75 ml 1X ONCE 11/02/16 17:15 11/02/16 17:16 DC 11/02/16 17:09 75 ML Sodium Chloride (Iv Sodium Chloride 0.9% 1000ml Bag) 1,000 ml @ 1,000 mls/hr Q1H 11/02/16 16:30 11/02/16 17:29 DC 11/02/16 16:35 1,000 MLS/HR Allergies Allergies Allergies Coded Allergies Type Severity Reaction Last Updated Verified No Known Drug Allergies 07/27/16 No Physical Exam Physical Exam Constitutional: Well developed, well nourished, no acute distress, non-toxic appearance. [] HENT: Normocephalic, atraumatic, bilateral external ears normal, oropharynx moist, nose normal. [] Eyes: PERRLA, EOMI. [] Neck: Normal range of motion, supple. [] Cardiovascular:Heart rate regular rhythm [] Lungs & Thorax: Bilateral breath sounds clear to auscultation [] Abdomen: Bowel sounds normal, soft, no tenderness. [] Skin: Warm, dry, no erythema, no rash. [] Back: Normal ROM. [] Extremities: No tenderness, ROM intact, no edema, no palpable cord. [] Neurologic: Alert and oriented X 3, normal motor function, normal sensory function, no focal deficits noted. [] Psychologic: Affect normal, judgement normal, mood normal. [] Current Patient Data Vital Signs Vital Signs Date Time Temp Pulse Resp B/P Pulse Ox O2 Delivery O2 Flow Rate FiO2 11/02/16 17:49 90 20 100/74 96 Nasal Cannula 2 11/02/16 16:02 98.4 98.4 Lab Values Laboratory Tests Test 11/02/16 16:15 White Blood Count 28.4x10^3/uL (4.0-11.0) H Red Blood Count 5.61x10^6/uL (4.30-5.70) Hemoglobin 12.8g/dL (13.0-17.5) L Hematocrit 39.8% (39.0-53.0) Mean Corpuscular Volume 71fL (79-100) L Mean Corpuscular Hemoglobin 23pg (25-35) L Mean Corpuscular Hemoglobin Concent 32g/dL (31-37) Red Cell Distribution Width 17.9% (11.5-14.5) H Platelet Count 409x10^3/uL (140-400) H Neutrophils (%) (Auto) 96% (31-73) H Lymphocytes (%) (Auto) 1% (24-48) L Monocytes (%) (Auto) 2% (0-9) Eosinophils (%) (Auto) 0% (0-3) Basophils (%) (Auto) 1% (0-3) Neutrophils # (Auto) 27.4x10^3uL (1.8-7.7) H Lymphocytes # (Auto) 0.3x10^3/uL (1.0-4.8) L Monocytes # (Auto) 0.6x10^3/uL (0.0-1.1) Eosinophils # (Auto) 0.0x10^3/uL (0.0-0.7) Basophils # (Auto) 0.1x10^3/uL (0.0-0.2) Segmented Neutrophils % 93% (35-66) H Band Neutrophils % 4% (0-9) Monocytes % 3% (0-10) Toxic Granulation Mod Platelet Estimate Adequate (ADEQUATE) Hypochromasia Slight Anisocytosis Slight Microcytosis Mod D-Dimer (Marta) 1.46ug/mlFEU (0.00-0.50) H Sodium Level 132mmol/L (136-145) L Potassium Level 4.4mmol/L (3.5-5.1) Chloride Level 97mmol/L (98-107) L Carbon Dioxide Level 29mmol/L (21-32) Anion Gap 6 (6-14) Blood Urea Nitrogen 20mg/dL (8-26) Creatinine 0.8mg/dL (0.7-1.3) Estimated GFR (Cockcroft-Gault) 95.6 Glucose Level 139mg/dL (70-99) H Calcium Level 8.5mg/dL (8.5-10.1) Laboratory Tests 11/02/16 16:15 Laboratory Tests 11/02/16 16:15 EKG EKG EKG as interpreted by me as sinus tachycardia, rate 112, no ST-T changes, normal intervals, no ectopy Radiology/Procedures Radiology/Procedures CT angiogram chest IMPRESSION: 1. 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 2. Nonobstructing pulmonary embolus in a lingular pulmonary artery on the left. 3. Tiny subsegmental pulmonary embolus in the right upper lobe. 4. Worsening left lower lobe and lingular infiltrates compatible with pneumonia and/or postradiation change. 5. Unchanged mild right pulmonary infiltrates. DICTATED and SIGNED BY: ZELDA VIEYRA MD DATE: 11/02/16 9127 Course & Med Decision Making Course & Med Decision Making Pertinent Labs and Imaging studies reviewed. (See chart for details) Laboratory evaluation is largely unremarkable other than persistent leukocytosis. Imaging as above concerning for pulmonary embolism and pneumonitis associated with chemotherapy and possible postobstructive pneumonia. He will be admitted for multispecialty consultation and multiple therapy including anticoagulation and antibiotics. Discussed case with Dr. Christine, mononitrotoluene operator for Dr. Bowens, who agrees with plan and to admit. Discussed case with Dr. Servin, oncology, mononitrotoluene operator for Dr. Moore, who agrees with plan. Pulmonology consult placed. Yovanny Disclaimer Dragon Disclaimer This electronic medical record was generated, in whole or in part, using a voice recognition dictation system. Departure Departure Impression: Primary Impression: Pulmonary embolism Disposition: ADMITTED INPATIENT Condition: STABLE Referrals: VAISHALI BOWENS MD (PCP) Problem Qualifiers Primary Impression: Pulmonary embolism Pulmonary embolism type: other Chronicity: acute Acute cor pulmonale presence: without acute cor pulmonale Qualified Code: I26.99 - Other pulmonary embolism without acute cor pulmonale Dea RAMIREZ MD November 02, 2016 16:34
[2016-11-02 16:42] LABS: CALCIUM 8.5 mg/dL (8.5-10.1); CREATININE 0.8 mg/dL (0.7-1.3); GFR 95.6; POTASSIUM 4.4 mmol/L (3.5-5.1)
[2016-11-02 16:50] LABS: PLT ESTIMATE ADEQUATE (ADEQUATE)
[2016-11-02 16:55] LABS: ANISOCYTOSIS SLIGHT; HYPOCHROMIA SLIGHT; MICROCYTOSIS MOD; TOXIC GRANULATION MOD
[2016-11-02] MEDS ORDERED: IOHEXOL 300 MG/ML 75 ML VIAL IV ONE (17:15)
--- NOTE | 2016-11-02 17:46 | RAD ---
CTA of the chest with contrast, 11/02/2016: History: Increasing shortness of breath, lung cancer Multidetector CT imaging was performed following an IV bolus injection of iodinated contrast material. Multiplanar reconstructions were produced including coronal MIP images. Comparison is made to a study from 10/25/2016. There is a persistent cavitary mass in the central aspect of the left upper lobe communicating with the left upper lobe bronchus. This apparent represents a cavitary neoplasm in this patient with a history of lung cancer. There is associated narrowing of the left main pulmonary artery with lack of opacification of left upper lobe branches related to the neoplasm. There is a partially opacified branch extending into the lingula on the left which contains a filling defect compatible with a pulmonary embolus. There are extensive infiltrates in the left lower lobe and lingula which have worsened since 10/25/2016. There is a small filling defect in a subsegmental pulmonary artery in the medial aspect of the right upper lobe compatible with a pulmonary embolus. No definite right middle or right lower lobe emboli are seen. Emphysematous changes are present in the lungs. There are scattered linear pulmonary opacities on the right compatible with scarring. There are additional streaky peripheral and faint tree-in-bud opacities in the right lower lobe and right middle lobe suggesting pneumonia and/or scarring. Similar findings were present on 10/25/2016. There appears to be a trace amount of pleural fluid bilaterally. Again noted is a lytic lesion involving the posterior aspect of the right seventh rib compatible with a metastasis. Several additional old healing bilateral rib fractures are again noted. IMPRESSION: 1. 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 2. Nonobstructing pulmonary embolus in a lingular pulmonary artery on the left. 3. Tiny subsegmental pulmonary embolus in the right upper lobe. 4. Worsening left lower lobe and lingular infiltrates compatible with pneumonia and/or postradiation change. 5. Unchanged mild right pulmonary infiltrates. PQRS Compliance Statement: One or more of the following individualized dose reduction techniques were utilized for this examination: 1. Automated exposure control 2. Adjustment of the mA and/or kV according to patient size 3. Use of iterative reconstruction technique
[2016-11-02] MEDS ORDERED: levOFLOXacin PER PHARMACY 1 EACH EACH MC PRN (18:15)
[2016-11-02] MEDS ORDERED: ACETAMINOPHEN 325 MG TABLET. PO PRN (18:15)
[2016-11-02] MEDS ORDERED: MORPHINE SULFATE 4 MG/ML DISP.SYRIN. IV PRN (18:15)
[2016-11-02] MEDS ORDERED: ONDANSETRON PF 4 MG/2 ML VIAL. IV PRN (18:15)
[2016-11-02] MEDS ORDERED: PIP/TAZO PER PHARMACY MC PRN (18:15)
[2016-11-02] MEDS ORDERED: ANTI-COAG MONITOR BY PHARMACY. MC PRN (18:30)
[2016-11-02] MEDS ORDERED: VANCOMYCIN 1.5 GM in IV NORMAL SALINE 500ML BAG 500 ML IV ONE (19:00)
[2016-11-02] MEDS: VANCOMYCIN PER PHARMACY MC PRN (19:22)
--- NOTE | 2016-11-02 19:23 | ACF ---
Admission Forms Criteria PULMONARY EMBOLISM Clinical Indications for Admission to Inpatient Care (Place 'X' for any and all applicable criteria): Admission is indicated by ANY ONE of the following 1,2,3,4,5 [ ]I. Onset of hypoxia [ ]II. Hemodynamic instability 5 [ ]III. Massive pulmonary embolism (eg, acute embolism causing sustained hypotension, pulselessness, or bradycardia)5 [ ]IV. Need for IV narcotics (eg, to treat dyspnea) [ ]V. Current use of home oxygen therapy [ ]. Active bleeding [ ]VII. Recent surgery [ ]VIII. Active peptic ulcer disease [ ]IX. Documented extensive thrombosis (eg, clot in vena cava or above iliofemoral bifurcation) [ ]X. Embolism while on anticoagulation [ ]XI. 6 [X]XII. Appropriate monitoring and therapy cannot be provided in home or outpatient setting. [ ]XIII. Systemic or catheter-directed thrombolysis 5,7 [ ]XIV. Catheter embolectomy and fragmentation 6 [ ]XV. Vena cava filter placement5 [ ]XVI. Severely diminished cardiopulmonary reserve (eg, cor pulmonale, pulmonary hypertension) [ ]XVII. Severe renal failure (eg, GFR less than 30 mL/min/1.73m2 (0.5 mL/sec/ 1.73m2)) [ ]XVIII.Right ventricular dysfunction (eg, by echocardiogram) 6,11 [ ]XIX. Positive cardiac biomarker (eg, troponin T or I > 0.1 ng/mL (mcg/L), highly sensitive troponin I assay greater than 0.014 ng/mL (mcg/L), BNP or NT proBNP > assay threshold)5,8,9 [ ]XX. Known clotting abn or def (eg, liver disease, antithrombin III, protein C, or protein S abnormality) [ ]XXI. History of heparin-induced thrombocytopenia [ ]XXII. Inpatient admission required rather than observation care (Also use Pulmonary Embolism: Observation Care guideline as appropriate) because of ANY ONE of the following: [ ] a) Significant autoimmune (thrombocytopenia) or coagulopathic reaction occurs in response to anticoagulation [ ] b) Respiratory symptoms (eg, tachypnea, dyspnea) that are severe or persistent [ ] c) Other condition, treatment, or monitoring requiring inpatient admission Extended stay beyond goal length of stay may be needed for 3,28 [ ]a) Hemorrhage or recent surgery [ ]b) Recurrent thromboembolism [ ]c) Persistent hypoxemia [ ]d) Heparin-induced thrombocytopenia The original [facility] [employer] [facility] content created by [facility] has been revised. The portions of the content which have been revised are identified through the use of italic text or in bold, and [facility] has neither reviewed nor approved the modified material. All other unmodified content is copyright [facility]. Please see references footnoted in the original [facility] edition 2016 Admission Criteria Met?: Yes YOLY VALDIVIA November 02, 2016 19:23
[2016-11-02 20:50] VITALS: BP 94/65
[2016-11-02] MEDS ORDERED: POLY17PO29 PO (21:04)
[2016-11-02] MEDS ORDERED: PRED-220 PO (21:04)
[2016-11-02] MEDS ORDERED: PRED50TA PO (21:04)
[2016-11-02 23:18] VITALS: BP 94/65
[2016-11-02] MEDS: METHADONE 10 MG TABLET. PO SCH (23:36)
[2016-11-02] MEDS: oxyCODONE ER 40 MG TAB.ER.12H PO SCH (23:38)
[2016-11-03] MEDS: PIPERACILLIN/TAZOBACTAM 3.375 GM in IV NORMAL SALINE 50ML 50 ML IV SCH ×5 (00:06→23:22)
--- NOTE | 2016-11-03 06:45 | EKG ---
[facility] [address] [place] [address] Test Date: 2016-11-02 Test Time: 16:36:54 Pat Name: DERREK HERMOSILLO Department: Room: 578 1 Gender: M Lift Driver: : [id number] Requested By: Dea RAMIREZ Order Number: [id number] Reading MD: Siomara Portillo Measurements Intervals [place] Rate: 112 P: 90 MO: 120 QRS: 29 QRSD: 84 T: 116 QT: 332 QTc: 455 Interpretive Statements SINUS TACHYCARDIA LOW LIMB LEAD VOLTAGE OTHERWISE NORMAL ECG Electronically Signed On 11-03-2016 20:45:10 CDT by Siomara Portillo
[2016-11-03 07:00] VITALS: BP 84/57
[2016-11-03 08:06] VITALS: BP 84/57
[2016-11-03] MEDS: oxyCODONE ER 40 MG TAB.ER.12H PO SCH ×3 (08:40→23:21)
[2016-11-03] MEDS: METHADONE 10 MG TABLET. PO SCH ×3 (08:40→23:23)
--- NOTE | 2016-11-03 09:24 | PDOC ---
PROGRESS NOTES Subjective Subjective Patient reports he feels about the same as at admission yesterday. Denies cough or SOA. Objective Objective Vital Signs Date Time Temp Pulse Resp B/P Pulse Ox O2 Delivery O2 Flow Rate FiO2 11/03/16 08:40 88 Nasal Cannula 2.0 11/03/16 08:06 97.7 112 20 84/57 97.7 Intake and Output 11/03/16 07:00 Output Total 200 ml Balance -200 ml Output Urine Total 200 ml # Voids 1 Physical Exam Abdomen: Normal bowel sounds, Soft, No tenderness Heart: Regular rate Extremities: No edema General: Alert, Oriented X3, No acute distress Lungs: Other (BS moderately decreased throughout, no wheezes or crackles heard) Assessment Assessment Problems Medical Problems: (1) Pulmonary embolism Status: Acute Plan Plan of Care 1. Pulmonary emboli - several small emboli seen on CT yesterday. Patient mildly hypoxic on RA. Start Xarelto for tx. 2. pneumonia with metastatic lung cancer - presently on chemotx for this. CT showed increased infiltrate. Started on triple abx tx, consults with Pulmonary and Oncology pending. 3. tachycardia - improved overnight. Patient usually takes low dose Propranolol which would help with this but BP low today. Will hold B juan for now and follow. Patient denies symptoms at this time. 4. chronic back pain - appears stable, continue his usual po meds for this. 5. chronic constipation - continue Miralax and Colace daily. 6. chronic anxiety and depression - appears stable, continue home meds. Comment Review of Relevant I have reviewed the following items rubi (where applicable) has been applied. Labs Laboratory Tests Test 11/02/16 16:15 White Blood Count 28.4x10^3/uL (4.0-11.0) Red Blood Count 5.61x10^6/uL (4.30-5.70) Hemoglobin 12.8g/dL (13.0-17.5) Hematocrit 39.8% (39.0-53.0) Mean Corpuscular Volume 71fL (79-100) Mean Corpuscular Hemoglobin 23pg (25-35) Mean Corpuscular Hemoglobin Concent 32g/dL (31-37) Red Cell Distribution Width 17.9% (11.5-14.5) Platelet Count 409x10^3/uL (140-400) Neutrophils (%) (Auto) 96% (31-73) Lymphocytes (%) (Auto) 1% (24-48) Monocytes (%) (Auto) 2% (0-9) Eosinophils (%) (Auto) 0% (0-3) Basophils (%) (Auto) 1% (0-3) Neutrophils # (Auto) 27.4x10^3uL (1.8-7.7) Lymphocytes # (Auto) 0.3x10^3/uL (1.0-4.8) Monocytes # (Auto) 0.6x10^3/uL (0.0-1.1) Eosinophils # (Auto) 0.0x10^3/uL (0.0-0.7) Basophils # (Auto) 0.1x10^3/uL (0.0-0.2) Segmented Neutrophils % 93% (35-66) Band Neutrophils % 4% (0-9) Monocytes % 3% (0-10) Toxic Granulation Mod Platelet Estimate Adequate (ADEQUATE) Hypochromasia Slight Anisocytosis Slight Microcytosis Mod D-Dimer (Marta) 1.46ug/mlFEU (0.00-0.50) Sodium Level 132mmol/L (136-145) Potassium Level 4.4mmol/L (3.5-5.1) Chloride Level 97mmol/L (98-107) Carbon Dioxide Level 29mmol/L (21-32) Anion Gap 6 (6-14) Blood Urea Nitrogen 20mg/dL (8-26) Creatinine 0.8mg/dL (0.7-1.3) Estimated GFR (Cockcroft-Gault) 95.6 Glucose Level 139mg/dL (70-99) Calcium Level 8.5mg/dL (8.5-10.1) Laboratory Tests Test 11/02/16 16:15 White Blood Count 28.4x10^3/uL (4.0-11.0) Red Blood Count 5.61x10^6/uL (4.30-5.70) Hemoglobin 12.8g/dL (13.0-17.5) Hematocrit 39.8% (39.0-53.0) Mean Corpuscular Volume 71fL (79-100) Mean Corpuscular Hemoglobin 23pg (25-35) Mean Corpuscular Hemoglobin Concent 32g/dL (31-37) Red Cell Distribution Width 17.9% (11.5-14.5) Platelet Count 409x10^3/uL (140-400) Neutrophils (%) (Auto) 96% (31-73) Lymphocytes (%) (Auto) 1% (24-48) Monocytes (%) (Auto) 2% (0-9) Eosinophils (%) (Auto) 0% (0-3) Basophils (%) (Auto) 1% (0-3) Neutrophils # (Auto) 27.4x10^3uL (1.8-7.7) Lymphocytes # (Auto) 0.3x10^3/uL (1.0-4.8) Monocytes # (Auto) 0.6x10^3/uL (0.0-1.1) Eosinophils # (Auto) 0.0x10^3/uL (0.0-0.7) Basophils # (Auto) 0.1x10^3/uL (0.0-0.2) Segmented Neutrophils % 93% (35-66) Band Neutrophils % 4% (0-9) Monocytes % 3% (0-10) Toxic Granulation Mod Platelet Estimate Adequate (ADEQUATE) Hypochromasia Slight Anisocytosis Slight Microcytosis Mod D-Dimer (Marta) 1.46ug/mlFEU (0.00-0.50) Sodium Level 132mmol/L (136-145) Potassium Level 4.4mmol/L (3.5-5.1) Chloride Level 97mmol/L (98-107) Carbon Dioxide Level 29mmol/L (21-32) Anion Gap 6 (6-14) Blood Urea Nitrogen 20mg/dL (8-26) Creatinine 0.8mg/dL (0.7-1.3) Estimated GFR (Cockcroft-Gault) 95.6 Glucose Level 139mg/dL (70-99) Calcium Level 8.5mg/dL (8.5-10.1) Medications Current Medications Sodium Chloride (Iv Sodium Chloride 0.9% 1000ml Bag) 1,000 ml @ 1,000 mls/hr Q1H IV Last administered on 11/02/16t 16:35; Start 11/02/16 at 16:30; Stop at 17:29; Status DC Iohexol (Omnipaque 300 Mg/ml) 75 ml 1X ONCE IV Last administered on 11/02/16 17:09; Start 11/02/16 at 17:15; Stop 11/02/16 at 17:16; Status DC Ondansetron HCl (Zofran) 4 mg PRN Q8HRS PRN IV NAUSEA/VOMITING; Start 11/02/16 at 18:15; Stop 11/03/16 at 18:14 Morphine Sulfate 10 mg PRN Q2HR PRN IV PAIN; Start 11/02/16 at 18:15; Stop at 18:14 Acetaminophen (Tylenol) 650 mg PRN Q4HRS PRN PO FEVER; Start 11/02/16 at 18:15; Stop 11/03/16 at 18:14 Vancomycin HCl (Vanco Per Pharmacy) 1 each PRN DAILY PRN MC SEE COMMENTS Last administered on 11/02/16 19:22; Start 11/02/16 at 18:15 Piperacillin Sod/ Tazobactam Sod (Zosyn Per Pharmacy) 1 each PRN DAILY PRN MC SEE COMMENTS; Start 11/02/16 at 18:15 Levofloxacin/ Dextrose (Levaquin Per Pharmacy) 1 each PRN DAILY PRN MC SEE COMMENTS; Start 11/02/16 at 18:15 Enoxaparin Sodium (Lovenox 60mg Syringe) 60 mg Q12HR SQ Last administered on 08:41; Start 11/02/16 at 21:00 Info 1 each 1 each PRN DAILY PRN MC SEE COMMENTS; Start 11/02/16 at 18:30 Vancomycin HCl 1.5 gm/Sodium Chloride 500 ml @ 250 mls/hr 1X ONCE IV Last administered on 11/02/16 19:05; Start 11/02/16 at 19:00; Stop 11/02/16 at 20:59; Status DC Levofloxacin/ Dextrose (LEVAQUIN 750mg PREMIX) 150 ml @ 100 mls/hr 1X ONCE IV ; Start 11/02/16 at 21:00; Stop 11/02/16 at 21:00; Status DC Vancomycin HCl 1 each 1 each 1X ONCE MC ; Start 11/04/16 at 08:30; Stop 11/04/16 at 08:31 Levofloxacin/ Dextrose 100 ml @ 100 mls/hr Q24H IV ; Start 11/03/16 at 21:00 Vancomycin HCl 1 gm/Sodium Chloride 250 ml @ 250 mls/hr Q12H IV ; Start at 09:00 Levofloxacin/ Dextrose 150 ml @ 100 mls/hr 1X ONCE IV Last administered on 22:05; Start 11/02/16 at 21:00; Stop 11/02/16 at 22:29; Status DC Piperacillin Sod/ Tazobactam Sod/ Sodium Chloride (Zosyn/Iv Sodium Chloride 0.9 % 50ml) 50 ml @ 100 mls/hr Q6HRS IV Last administered on 11/03/16 06:17; Start 11/03/16 at 00:00 Methadone HCl (Dolophine) 20 mg TID PO Last administered on 11/03/16 08:40; Start 11/02/16 at 23:30 Oxycodone HCl (Oxycontin) 40 mg TID PO Last administered on 11/03/16 08:40; Start 11/03/16 at 00:00 Active Scripts Active Reported Miralax (Polyethylene Glycol 3350) 17 Gm Powd.pack 1 Packet PO PRN DAILY PRN Prednisone 10 Mg Tablet 10 Mg PO DAILY Prednisone 50 Mg Tablet 50 Mg PO DAILY Zoloft (Sertraline Hcl) 50 Mg Tablet 50 Mg PO HS Methadone Hcl 10 Mg Tablet 20 Mg PO TID Xanax (Alprazolam) 0.5 Mg Tablet 0.5 Mg PO DAILY PRN Stool Softener (Docusate Sodium) 100 Mg Capsule 100 Mg PO PRN BID PRN Propranolol Hcl 10 Mg Tablet 10 Mg PO DAILY Oxycodone Hcl 20 Mg Tablet 40 Mg PO TID Vitals/I & O Vital Sign - Last 24 Hours 11/02/16 11/02/16 11/02/16 11/02/16 16:02 16:11 16:45 17:19 Temp 98.4 98.4 Pulse 124 92 96 90 Resp 24 22 22 20 B/P 103/73 103/73 100/59 108/70 Pulse Ox 87 92 95 95 O2 Delivery Room Air Nasal Cannula Nasal Cannula Nasal Cannula O2 Flow Rate 2 2 2 11/02/16 11/02/16 11/02/16 11/02/16 17:49 19:03 19:33 20:03 Pulse 90 113 92 86 Resp 20 20 20 20 B/P 100/74 99/66 100/63 103/60 Pulse Ox 96 96 96 95 O2 Delivery Nasal Cannula Nasal Cannula Nasal Cannula Nasal Cannula O2 Flow Rate 2 2 2 2 11/02/16 11/02/16 11/02/16 11/02/16 20:30 20:50 23:18 23:38 Temp 97.9 98.8 97.9 98.8 Pulse 85 88 Resp 18 B/P 94/65 94/65 Pulse Ox 96 96 96 O2 Delivery Nasal Cannula Room Air Nasal Cannula Nasal Cannula O2 Flow Rate 2.0 2.0 2.0 11/03/16 11/03/16 11/03/16 11/03/16 02:57 04:26 07:00 08:06 Temp 97.7 97.7 97.7 97.7 Pulse 112 112 Resp 20 B/P 84/57 84/57 Pulse Ox 96 88 88 O2 Delivery Nasal Cannula Nasal Cannula Nasal Cannula Nasal Cannula O2 Flow Rate 2.0 2.0 2.0 2.0 11/03/16 08:40 Pulse Ox 88 O2 Delivery Nasal Cannula O2 Flow Rate 2.0 Intake and Output 11/02/16 11/02/16 11/03/16 15:00 23:00 07:00 Output Total 200 ml Balance -200 ml CHASE VELASQUEZ MD November 03, 2016 09:24
--- NOTE | 2016-11-03 09:55 | PDOC ---
Provider Note Provider Note dictated CHATO GARCIA MD November 03, 2016 09:55
[2016-11-03 10:08] LABS: CALCIUM 8.1 mg/dL (8.5-10.1); CREATININE 0.7 mg/dL (0.7-1.3); GFR 111.5; POTASSIUM 3.4 mmol/L (3.5-5.1); TOTAL BILIRUBIN 0.6 mg/dL (0.2-1.0)
[2016-11-03 10:12] LABS: DIRECT BILIRUBIN 0.4 mg/dL (0.0-0.2); TOTAL PROTEIN 5.7 g/dL (6.4-8.2)
[2016-11-03 10:13] LABS: ALBUMIN 1.8 g/dL (3.4-5.0); ALBUMIN/GLOBULIN RATIO 0.5 (1.0-1.7)
[2016-11-03 10:15] LABS: BASO % 0 % (0-3); EOS % 1 % (0-3); HEMATOCRIT 35.8 % (39.0-53.0); HEMOGLOBIN 11.3 g/dL (13.0-17.5); LYMPH # 0.6 x10^3/uL (1.0-4.8); LYMPH % 3 % (24-48); MEAN CORPUSCULAR HEMOGLOBIN 23 pg (25-35); MEAN CORPUSCULAR HGB CONC 32 g/dL (31-37); MEAN CORPUSCULAR VOLUME 72 fL (79-100); MONO % 4 % (0-9); NEUT % 93 % (31-73); PLATELET COUNT 354 x10^3/uL (140-400); RED BLOOD COUNT 4.99 x10^6/uL (4.30-5.70); RED CELL DISTRIBUTION WIDTH 18.3 % (11.5-14.5); WHITE BLOOD COUNT 22.1 x10^3/uL (4.0-11.0)
--- NOTE | 2016-11-03 10:21 | CONS ---
DATE OF CONSULTATION: ATTENDING PHYSICIAN: Dr. Bowens. REASON FOR CONSULTATION: Pulmonary embolism, lung cancer. HISTORY OF PRESENT ILLNESS: The patient is a 71-year-old male who has a history of stage IV lung cancer. He has a history of underlying COPD. He presented to the hospital with dyspnea and tachycardia. He has been losing weight and also has no appetite and has been very weak. His fluid intake and oral intake has been down. He stopped chemo about 2 weeks ago due to these side effects and was started on prednisone. The patient has a cough, which is productive of some white sputum. He was seen in the Emergency Room and a CT of the chest was performed, which was reviewed by me. There is an unchanged cavitary left upper lobe pulmonary mass involving the left hilum with associated obstruction of the several left upper lobe pulmonary arteries. There is a nonobstructing pulmonary embolism in the lingular pulmonary artery and questionable tiny subsegmental embolus in the right upper lobe. There is also left lower lobe and lingular consolidation, which is worsens and mild right pulmonary lung infiltrates. He is on 2 liters of oxygen normally, does not use oxygen. Consultation requested for further evaluation and management. He denies any nausea, vomiting or diarrhea. PAST MEDICAL HISTORY: History of stage IV lung cancer status post chemo and radiation, history of chronic back pain, history of skin cancer. PAST SURGICAL HISTORY: Hernia, back surgery, skin cancer removal and right cataract. ALLERGIES: None. CURRENT MEDICATIONS: Reviewed as listed in the [facility] including broad-spectrum antibiotics, vancomycin, Zosyn and Levaquin. He is also on Xarelto. REVIEW OF SYSTEMS: Twelve-point systems were obtained, pertinent positives discussed in history of present illness, otherwise noncontributory. All systems that were negative were reviewed as well. SOCIAL HISTORY: Quit tobacco in 1992 before that smoked for 33 years. PHYSICAL EXAMINATION: GENERAL: He appears to be weak, but in no distress. VITAL SIGNS: Blood pressure has been running low 84/57. Last recorded by sitting in a chair and asymptomatic, pulse ox is 88% to 96% on 2 liters. HEENT: Sclerae nonicteric. NECK: Supple. LUNGS: Diminished breath sounds on the left. CARDIOVASCULAR: Regular rate and rhythm. ABDOMEN: Soft. EXTREMITIES: With no pitting edema. He has loss of muscle mass significantly. LABORATORY DATA: A white cell count 28.4, hemoglobin 12.8, platelets are 409. BUN is 20 and creatinine 0.8. D-dimer 1.46. IMPRESSION: 1. Acute hypoxic respiratory failure secondary to multifactorial etiologies including a combination of progressive lung cancer with possible postobstructive consolidation versus radiation-induce changes, small pulmonary embolism involving the lingula and the right upper lobe, and underlying COPD along with progressive weakness secondary to malignancy. 2. Underlying chronic obstructive pulmonary disease. 3. Abnormal CT chest as discussed above. 4. Marked leukocytosis. RECOMMENDATIONS: 1. Continue with present oxygen. 2. Continue broad-spectrum antibiotics. 3. Continue anticoagulation with Xarelto. He would need lifelong treatment until cancer is resolved 4. Bronchodilators. 5. I have addressed advanced directives. He wants to stay full code. 6. Follow with Medical Oncology and Radiation Oncology recommendations. 7. Consider adding steroids for possible postradiation pneumonitis. CHATO GARCIA MD DR: JOSE RAFAEL/mayra JOB#: [id number] / [id number] SUGEY
[2016-11-03] MEDS ORDERED: GADOBUTROL 7.5 MMOL/7.5 ML VIAL IV ONE (10:30)
[2016-11-03 11:00] VITALS: BP 91/53
--- NOTE | 2016-11-03 11:12 | HP ---
ADMIT DATE: 11/02/2016 CHIEF COMPLAINT: Fatigue and tachycardia. HISTORY OF PRESENT ILLNESS: The patient is a 71-year-old male presently undergoing chemotherapy for treatment of stage IV non-small cell lung cancer. When seen in the Oncology Clinic on the day of admission, he was noted to be tachycardic and mildly hypoxic. The patient did not really have symptoms with this, but has been feeling increasingly weak and tired. He was sent to the Emergency Room for further evaluation. A CT of the chest showed several new small nonobstructing pulmonary emboli and the patient was admitted for further treatment. PAST MEDICAL HISTORY: Stage IV metastatic non-small cell lung cancer diagnosed in 07/2016. Chronic back pain with cervical and lumbar spinal stenosis, depression and anxiety, chronic headaches, narcotic bowel syndrome, skin cancer. PAST SURGICAL HISTORY: Tonsillectomy, cholecystectomy, septoplasty, several back surgeries, bilateral carpal tunnel surgery, several skin cancer removals. ALLERGIES: The patient has no known drug allergies. HOME MEDICATIONS: Xanax 0.5 mg p.r.n., Colace 100 mg daily, methadone 20 mg t.i.d., oxycodone 40 mg b.i.d., MiraLax daily. (The patient reports he has not been taking this regularly). Propranolol 10 mg daily, sertraline 50 mg daily, prednisone unknown dose as part of his chemotherapy. FAMILY HISTORY: Noncontributory. SOCIAL HISTORY: The patient is and lives at home with his . He has a long smoking history, but quit smoking cigarettes many years ago. He does not drink alcohol to excess. REVIEW OF SYSTEMS: The patient denies fever or chills. He denies increase in cough. He denies shortness of breath or dyspnea on exertion. He denies chest pain or palpitations. He denies abdominal pain, nausea or vomiting. He does have some intermittent ongoing constipation. His back pain has been fairly well controlled with his usual medication. He denies lower extremity edema. He had a significant weight loss around the time of his cancer diagnosis, but he reports this seems to have stabilized and he does not think he is losing any more weight. He has a fair appetite and is also trying to drink Boost supplements daily. PHYSICAL EXAMINATION: GENERAL: The patient is alert and oriented x 3, sitting up at the side of the bed in no acute distress. HEENT: PERRL, EOMI, sclerae clear. Oropharynx: Mucous membranes moist. NECK: Supple, without lymphadenopathy. CHEST: Breath sounds are moderately decreased throughout. No crackles or wheezes heard. CARDIOVASCULAR: Regular rhythm without murmur. ABDOMEN: Soft, nontender, normoactive bowel sounds are present. EXTREMITIES: Without edema. ASSESSMENT AND PLAN: 1. Pulmonary emboli. Several small emboli were seen on the CT yesterday. There was also some compressive narrowing of the left main pulmonary artery from the patient's known lung cancer. There is no evidence of a deep venous thrombosis on physical exam as the patient's legs are cachectic and show no edema at all. The patient was mildly hypoxic on room air at admission, but this is probably multifactorial. We will start Xarelto for treatment. 2. Pneumonia with metastatic lung cancer. The patient's chemotherapy is presently on hold. The CT showed increased infiltrates. The patient has been started on triple antibiotic treatment per Pulmonary's recommendation. Consults with Pulmonary Medicine and Oncology are pending. The patient has persistent leukocytosis, which is not new for him. 3. Tachycardia. This has improved overnight. The patient did receive some IV fluids for hydration. He usually takes a low-dose propranolol which would help with the tachycardia, but his blood pressure is somewhat low in the 80s and 90s systolic at this time. Therefore, we will hold the beta juan and follow this. The patient denies symptoms of chest pain or palpitations. 4. Chronic back pain. This appears stable. Continue his usual oral pain medication. 5. Chronic constipation. Resume MiraLax and Colace daily for better treatment of this. 6. Chronic anxiety and depression. This appears stable. Continue his home medications. CHASE VELASQUEZ MD DR: ADWOA/mayra JOB#: [id number] / [id number] SUGEY
--- NOTE | 2016-11-03 11:23 | RAD ---
PROCEDURE MRI brain with and without contrast. HISTORY Diplopia. Unsteady gait. Lung cancer. TECHNIQUE Sagittal T1, axial T1, axial T2, axial FLAIR, axial T2 gradient, diffusion imaging with ADC map, post-contrast axial, post-contrast sagittal, and post-contrast coronal sequences are provided. 6 milliliters of intravenous Gadavist was administered without complication. COMPARISON July 27, 2016. FINDINGS There is mild motion degradation. There is prominence of the ventricles and sulci. There is minimal probable small-vessel ischemic disease. There is no enhancing lesion to suggest metastatic disease. There is no restricted diffusion to suggest a new infarct. Small old left cerebellar infarct is noted. Intracranial flow voids are preserved. Clival marrow signal is preserved. Cervicomedullary junction is unremarkable. Pituitary is unremarkable. There is no suprasellar lesion. Small right maxillary retention cyst is noted. There has been widening of the maxillary ostia and ethmoid bullectomy. IMPRESSION 1. No evidence of metastatic disease. 2. No evidence of an acute infarct. 3. Brain parenchymal volume loss and minimal probable small-vessel ischemic disease. 4. Small old left cerebellar infarct. Electronically signed by: Scott Barger MD (November 03, 2016 11:21:59)
--- NOTE | 2016-11-03 11:47 | PDOC ---
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 Scans show tx response. Transaminitis- Ongoing since 10/25 despite holding keytruda and starting steroids. GI consulted. Diplopia, balance problems- MRI brain neg PE- Started eliquis Pneumonia- On Abx Dr. Moore will see tomorrow. GIGI BELLAMY DO November 03, 2016 11:47
[2016-11-03] MEDS: predniSONE 10 MG TABLET PO SCH (11:48)
[2016-11-03] MEDS: DOCUSATE SODIUM 100 MG CAPSULE. PO SCH (11:48)
[2016-11-03] MEDS: POLYETHYLENE GLYCOL 3350 17 GM PACKET. PO SCH (11:49)
[2016-11-03] MEDS: VANCOMYCIN 1 GM in IV NORMAL SALINE 250ML 250 ML IV SCH ×2 (11:49→21:58)
[2016-11-03] MEDS: IPRATRPIUM/ALBUTEROL 0.5/2.5MG 3 ML NEBU. NEB SCH ×3 (13:08→19:48)
--- NOTE | 2016-11-03 14:11 | PDOC2 ---
GI CONSULT Reason For Consult: Transaminitis HPI: HPI: 71 y/o male w/ metastatic lung cancer admitted w/ PE, now on Xarelto. Was on Keytruda, last dose 10/06/16, now held ( says was not tolerating) and on prednisone. Previously evaluated by GI in 07/2016 for elevated LFTs. Asked to see on this occasion for elevated LFTs despite holding Keytruda and adding prednisone. Previous workup significant to GI as below. H/o constipation treated w/ Miralax and Colace. Not eating much, has lost weight w/ treatment. No reflux, dysphagia, bleeding, or abd pain. GI-gallo --- Colonoscopy 2000: diverticulosis. EGD 2001 w/ hiatal hernia and Schatzki's ring. Abd US 07/2016:distended gallbladder, borderline gallbladder wall thickening, and borderline common hepatic duct dilatation. CT chest/A/P 10/2016: liver w/ unchanged subcentimeter low-attenuation lesion, distended gallbladder. PMH: PMH: chronic back pain, cervical and lumbar spinal stenosis, depression, hypogonadism , chronic and migraine headaches, thoracic myelopathy, narcotic bowel syndrome, skin cancer, tonsillectomy, rhino septoplasty, back surgeries x 4, bilateral carpal tunnel surgery, left little finger surgery, several skin cancer removals Social History: Smoke: Quit ALCOHOL: none Drugs: None ROS: GEN: Denies fevers, chills, sweats HEENT: Denies blurred vision, sore throat CV: Denies chest pain RESP: +SOA GI: Per HPI : Denies hematuria, dysuria ENDO: +weight loss NEURO: Denies confusion, dizziness MSK: +weakness, +chronic pain SKIN: Denies jaundice, pruritus VItals: Vitals: Vital Signs Date Time Temp Pulse Resp B/P Pulse Ox O2 Delivery O2 Flow Rate FiO2 11/03/16 13:32 92 Nasal Cannula 3.0 11/03/16 11:00 98.2 112 91/53 98.2 11/03/16 08:06 20 Labs: Labs: Laboratory Tests Test 11/02/16 16:15 11/03/16 09:30 White Blood Count 28.4x10^3/uL (4.0-11.0) 22.1x10^3/uL (4.0-11.0) Red Blood Count 5.61x10^6/uL (4.30-5.70) 4.99x10^6/uL (4.30-5.70) Hemoglobin 12.8g/dL (13.0-17.5) 11.3g/dL (13.0-17.5) Hematocrit 39.8% (39.0-53.0) 35.8% (39.0-53.0) Mean Corpuscular Volume 71fL (79-100) 72fL (79-100) Mean Corpuscular Hemoglobin 23pg (25-35) 23pg (25-35) Mean Corpuscular Hemoglobin Concent 32g/dL (31-37) 32g/dL (31-37) Red Cell Distribution Width 17.9% (11.5-14.5) 18.3% (11.5-14.5) Platelet Count 409x10^3/uL (140-400) 354x10^3/uL (140-400) Neutrophils (%) (Auto) 96% (31-73) 93% (31-73) Lymphocytes (%) (Auto) 1% (24-48) 3% (24-48) Monocytes (%) (Auto) 2% (0-9) 4% (0-9) Eosinophils (%) (Auto) 0% (0-3) 1% (0-3) Basophils (%) (Auto) 1% (0-3) 0% (0-3) Neutrophils # (Auto) 27.4x10^3uL (1.8-7.7) 20.5x10^3uL (1.8-7.7) Lymphocytes # (Auto) 0.3x10^3/uL (1.0-4.8) 0.6x10^3/uL (1.0-4.8) Monocytes # (Auto) 0.6x10^3/uL (0.0-1.1) 0.8x10^3/uL (0.0-1.1) Eosinophils # (Auto) 0.0x10^3/uL (0.0-0.7) 0.1x10^3/uL (0.0-0.7) Basophils # (Auto) 0.1x10^3/uL (0.0-0.2) 0.0x10^3/uL (0.0-0.2) Segmented Neutrophils % 93% (35-66) Band Neutrophils % 4% (0-9) Monocytes % 3% (0-10) Toxic Granulation Mod Platelet Estimate Adequate (ADEQUATE) Hypochromasia Slight Anisocytosis Slight Microcytosis Mod D-Dimer (Marta) 1.46ug/mlFEU (0.00-0.50) Sodium Level 132mmol/L (136-145) 135mmol/L (136-145) Potassium Level 4.4mmol/L (3.5-5.1) 3.4mmol/L (3.5-5.1) Chloride Level 97mmol/L (98-107) 101mmol/L (98-107) Carbon Dioxide Level 29mmol/L (21-32) 27mmol/L (21-32) Anion Gap 6 (6-14) 7 (6-14) Blood Urea Nitrogen 20mg/dL (8-26) 15mg/dL (8-26) Creatinine 0.8mg/dL (0.7-1.3) 0.7mg/dL (0.7-1.3) Estimated GFR (Cockcroft-Gault) 95.6 111.5 Glucose Level 139mg/dL (70-99) 115mg/dL (70-99) Calcium Level 8.5mg/dL (8.5-10.1) 8.1mg/dL (8.5-10.1) BUN/Creatinine Ratio 21 (6-20) Total Bilirubin 0.6mg/dL (0.2-1.0) Direct Bilirubin 0.4mg/dL (0.0-0.2) Aspartate Amino Transf (AST/SGOT) 59U/L (15-37) Alanine Aminotransferase (ALT/SGPT) 132U/L (16-63) Alkaline Phosphatase 268U/L (46-116) Total Protein 5.7g/dL (6.4-8.2) Albumin 1.8g/dL (3.4-5.0) Albumin/Globulin Ratio 0.5 (1.0-1.7) Allergies: Coded Allergies: No Known Drug Allergies (Unverified , 07/27/16) Medications: Current Medications Medications (Trade) Dose Ordered Sig/Ronal Route PRN Reason Start Time Stop Time Status Last Admin Dose Admin Sodium Chloride (Iv Sodium Chloride 0.9% 1000ml Bag) 1,000 ml @ 1,000 mls/hr Q1H IV 11/02/16 16:30 11/02/16 17:29 DC 11/02/16 16:35 Iohexol (Omnipaque 300 Mg/ml) 75 ml 1X ONCE IV 11/02/16 17:15 11/02/16 17:16 DC 11/02/16 17:09 Morphine Sulfate 10 mg PRN Q2HR PRN IV PAIN 11/02/16 18:15 11/03/16 18:14 11/03/16 12:10 Vancomycin HCl (Vanco Per Pharmacy) 1 each PRN DAILY PRN MC SEE COMMENTS 11/02/16 18:15 11/02/16 19:22 Enoxaparin Sodium 60 mg 60 mg Q12HR SQ 11/02/16 21:00 11/03/16 09:17 DC 11/03/16 08:41 Vancomycin HCl 1.5 gm/Sodium Chloride 500 ml @ 250 mls/hr 1X ONCE IV 11/02/16 19:00 11/02/16 20:59 DC 11/02/16 19:05 Vancomycin HCl 1 gm/Sodium Chloride 250 ml @ 250 mls/hr Q12H IV 11/03/16 09:00 11/03/16 11:49 Levofloxacin/ Dextrose 150 ml @ 100 mls/hr 1X ONCE IV 11/02/16 21:00 11/02/16 22:29 DC 11/02/16 22:05 Piperacillin Sod/ Tazobactam Sod/ Sodium Chloride (Zosyn/Iv Sodium Chloride 0.9% 50ml) 50 ml @ 100 mls/hr Q6HRS IV 11/03/16 00:00 11/03/16 13:33 Methadone HCl (Dolophine) 20 mg TID PO 11/02/16 23:30 11/03/16 13:32 Oxycodone HCl (Oxycontin) 40 mg TID PO 11/03/16 00:00 11/03/16 13:32 Polyethylene Glycol (miraLAX PACKET) 17 gm DAILY PO 11/03/16 09:15 11/03/16 11:49 Docusate Sodium (Colace) 100 mg DAILY PO 5/3/17 09:15 11/03/16 11:48 Prednisone (Prednisone) 30 mg DAILY PO 11/03/16 10:00 11/03/16 11:48 Albuterol/ Ipratropium (Duoneb) 3 ml RTQID NEB 11/03/16 10:00 11/03/16 13:08 Gadobutrol (Gadavist) 6 mmol 1X ONCE IV 11/03/16 10:30 11/03/16 10:31 DC 11/03/16 10:27 Imaging: Imaging: CT Chest/A/P 10/25/16 Impression: 1. The irregular soft tissue mass adjacent to the left hilum is apparently decreased in size from previous study, although exact measurements are somewhat difficult. Portions of the superior aspect of left upper lobe demonstrates interval decrease in airspace disease. 2. There is interval increased consolidation involving the lingula and left lower lobe. This finding could represent postradiation change (if appropriate history) versus progression of pneumonia. 3. Right lung demonstrate scattered, nonspecific peripheral areas of groundglass opacity as well as small nodular consolidation involving the right middle lobe. Attention on follow-up imaging. 4. Persistent right posterior seventh rib metastatic lesion. 5. Healing bilateral rib fractures. 6. Nonspecific, small soft tissue mass in the right retroperitoneum near the IVC. This might represent small lymph node, but is unchanged from previous study. Attention on follow-up imaging. Liver again demonstrates a subcentimeter low-attenuation lesion, not adequately characterized on this examination, unchanged. Spleen, pancreas, and bilateral adrenal glands are unremarkable. Gallbladder appears distended, but otherwise unremarkable. Chest CTA 11/02/16 IMPRESSION: 1. 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 2. Nonobstructing pulmonary embolus in a lingular pulmonary artery on the left. 3. Tiny subsegmental pulmonary embolus in the right upper lobe. 4. Worsening left lower lobe and lingular infiltrates compatible with pneumonia and/or postradiation change. 5. Unchanged mild right pulmonary infiltrates. Brain MRI 11/03/16 IMPRESSION 1. No evidence of metastatic disease. 2. No evidence of an acute infarct. 3. Brain parenchymal volume loss and minimal probable small-vessel ischemic disease. 4. Small old left cerebellar infarct. 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 Other per Dr. Prasad. KAYLEE AKHTAR November 03, 2016 14:11
[2016-11-03 15:00] VITALS: BP 92/54
[2016-11-03] MEDS ORDERED: RIVAROXABAN 15 MG TABLET. PO SCH (17:00)
[2016-11-03 19:50] VITALS: BP 86/54
[2016-11-03 22:41] VITALS: BP 105/68
[2016-11-03] MEDS: SERTRALINE 50 MG TABLET. PO SCH (23:21)
[2016-11-03] MEDS: APIXABAN 5 MG TABLET. PO SCH (23:21)
--- NOTE | 2016-11-04 00:22 | CONS ---
DATE OF CONSULTATION: 11/03/2016 REFERRING PROVIDER: Dr. Bowens. REASON FOR CONSULTATION: Lung cancer, PE. HISTORY OF PRESENT ILLNESS: The patient is a 71-year-old male treated by my colleague, Dr. Moore, for his stage IV lung adenocarcinoma. He was diagnosed in July with a left hilar mass encasing the left main pulmonary artery and left upper lobe bronchus measuring 6.3 cm. He also had a metastatic 7th rib lesion. His tumor was found to be highly PD-L1 positive at 85%. He was started on Keytruda with cycle 3 being given on 10/06/2016. His CT scan, most recently on 10/28/2016, has shown a treatment response with shrinkage of previous tumor lesion; however, on 10/25/2016, he began developing mild transaminitis. This worsened on 11/05/2016 with an AST 139, ALT 152, alkaline phosphatase 304. Bilirubin remains normal. He was started on prednisone as an outpatient with Dr. Moore. His LFTs have not yet improved. He was seen in clinic yesterday with tachycardia and continued shortness of breath. Therefore, he was sent to the Emergency Room for CT evaluation, which did confirm a left-sided nonobstructing pulmonary embolism and very small subsegmental right upper lobe PE. He has been started on Lovenox. He has also been noted to have persistent neutrophilia since at least 09/2016, though it has recently worsened. His CT imaging also did reveal some infiltrate concerning for pneumonia and he has been started on broad spectrum antibiotics for this. This morning, he did describe some double vision, recent falls. Therefore, I ordered an MRI of brain, which has returned unremarkable for any metastatic disease. PAST MEDICAL HISTORY: Spinal stenosis, lung cancer, depression, hypogonadism, migraines, thoracic myelopathy, chronic back pain, narcotic bowel syndrome and skin cancer. PAST SURGICAL HISTORY: Tonsillectomy, cholecystectomy, rhinoplasty, carpal tunnel release, cataract repair and tonsillectomy. FAMILY HISTORY: Dad had some form of cancer and diabetes. SOCIAL HISTORY: Previously smoked for 33 years, but quit in the . No alcohol or drug use. ALLERGIES: No known drug allergies. CURRENT MEDICATIONS: Tylenol, DuoNeb, Xanax, Colace, Levaquin, methadone, morphine, Zofran, OxyContin, Zosyn, MiraLax, prednisone, Xarelto, sertraline and vancomycin. REVIEW OF SYSTEMS: Ten-point review of systems completed and unremarkable with the exception of that mentioned in the HPI. He denies any abdominal pain. PHYSICAL EXAMINATION: VITAL SIGNS: Temperature 97.7, pulse 112, respiratory rate 20, blood pressure 84/57 and 88% O2 on 2 liters. GENERAL: He is alert and oriented. He is cachectic, but does not appear to be in any significant distress at this time. HEENT: Repeated clearing of his throat. No scleral icterus. Mucous membranes are dry. CARDIOVASCULAR: Heart is tachycardic, but regular in rhythm. LUNGS: Clear to auscultation bilaterally. ABDOMEN: Soft, nontender. No obvious organomegaly. EXTREMITIES: No edema. NEUROLOGIC: No focal deficits. IMAGING AND LABORATORY DATA: Brain MRI and CTA reviewed as above. Previous CT abdomen/pelvis reviewed with no obvious liver lesions. Oncology clinic notes, labs and inpatient labs reviewed as above. ASSESSMENT AND PLAN: The patient is a 71-year-old male with the following medical problems: 1. 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 Previously he has been on palliative Keytruda with his last dose being on 10/06/2016. Treatment has been held, as he has continued to have cough and transaminitis. However, he appears to be having an excellent treatment response. Treatment will be on hold until he recovers from these acute events. It is not clear if some of the liver dysfunction may be treatment related. 2. Double vision, falls. MRI brain was negative. 3. Acute on chronic neutrophilia. Possibly related to the underlying pneumonia. Now started on antibiotics. 4. Transaminitis, continues despite his last dose of Keytruda being one month ago. He was previously started on prednisone and remains on this. I am consulting GI. 5. Pulmonary embolism, acute. Would recommend discharging him on Eliquis. I changed the medication to reflect this. Thank you for alerting us of his admission. Dr. Moore will return tomorrow. GIGI BELLAMY DO DR: RADHA/mayra JOB#: [id number] / [id number] SUGEY
[2016-11-04] MEDS: PIPERACILLIN/TAZOBACTAM 3.375 GM in IV NORMAL SALINE 50ML 50 ML IV SCH ×3 (06:26→18:10)
[2016-11-04 07:00] VITALS: BP 97/64
[2016-11-04] MEDS: IPRATRPIUM/ALBUTEROL 0.5/2.5MG 3 ML NEBU. NEB SCH ×4 (07:29→20:09)
[2016-11-04] MEDS: APIXABAN 5 MG TABLET. PO SCH ×2 (08:40→20:39)
[2016-11-04] MEDS: predniSONE 10 MG TABLET PO SCH (08:40)
[2016-11-04] MEDS: oxyCODONE ER 40 MG TAB.ER.12H PO SCH ×3 (08:41→20:40)
[2016-11-04] MEDS: DOCUSATE SODIUM 100 MG CAPSULE. PO SCH (08:41)
[2016-11-04] MEDS: POLYETHYLENE GLYCOL 3350 17 GM PACKET. PO SCH (08:41)
[2016-11-04] MEDS: METHADONE 10 MG TABLET. PO SCH ×3 (08:41→20:39)
--- NOTE | 2016-11-04 09:17 | RAD ---
Indication elevated liver function tests. History of metastatic lung cancer. Grayscale imaging was performed targeted to the right upper quadrant. The gallbladder is somewhat distended measuring approximately 10.6 cm in greatest dimension. No cholelithiasis or wall thickening is seen. The common bile duct is not well demonstrated but significant intrahepatic bile duct dilatation is not suggested on this study. A focal mass is not seen in the visualized liver. There is some atherosclerotic plaquing seen associated with the visualized abdominal aorta. The right kidney appears normal. The pancreas was not well demonstrated and largely obscured. IMPRESSION: Distended gallbladder. No cholelithiasis seen. Midline structures largely obscured by gas
[2016-11-04] MEDS: VANCOMYCIN PER PHARMACY MC PRN (09:20)
--- NOTE | 2016-11-04 09:22 | PDOC ---
PROGRESS NOTES Subjective Subjective c/c - f/u of lung ca ROS - no CP Objective Objective Vital Signs Date Time Temp Pulse Resp B/P (MAP) Pulse Ox O2 Delivery O2 Flow Rate FiO2 11/04/16 08:41 Nasal Cannula 11/04/16 07:00 98.1 80 18 97/64 (75) 96 2.5 98.1 Intake and Output 11/04/16 07:00 Intake Total 600 ml Output Total 400 ml Balance 200 ml Intake Oral 600 ml Output Urine Total 400 ml # Voids 3 Physical Exam Heart: Normal S1, Normal S2 General: Alert, Oriented X3 Lungs: Clear to auscultation Assessment Assessment Problems Medical Problems: (1) Pulmonary embolism Status: Acute ASSESSMENT AND PLAN: 1. 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 Previously he has been on palliative Keytruda with his last dose being on 10/06/2016. Treatment has been held, as he has continued to have cough and transaminitis. However, he appears to be having an excellent treatment response. Treatment will be on hold until he recovers from these acute events. Suspect liver dysfunction may be treatment related. 2. Double vision, falls. MRI brain was negative. 3. Acute on chronic neutrophilia. Possibly related to the underlying pneumonia. Now started on antibiotics. 4. Transaminitis, continues despite his last dose of Keytruda being one month ago. He was previously started on prednisone and remains on this. 5. Pulmonary embolism, acute. Would recommend Eliquis. Comment Review of Relevant I have reviewed the following items rubi (where applicable) has been applied. Labs Laboratory Tests Test 11/02/16 16:15 11/03/16 09:30 11/04/16 08:35 White Blood Count 28.4 x10^3/uL (4.0-11.0) 22.1 x10^3/uL (4.0-11.0) Red Blood Count 5.61 x10^6/uL (4.30-5.70) 4.99 x10^6/uL (4.30-5.70) Hemoglobin 12.8 g/dL (13.0-17.5) 11.3 g/dL (13.0-17.5) Hematocrit 39.8 % (39.0-53.0) 35.8 % (39.0-53.0) Mean Corpuscular Volume 71 fL (79-100) 72 fL (79-100) Mean Corpuscular Hemoglobin 23 pg (25-35) 23 pg (25-35) Mean Corpuscular Hemoglobin Concent 32 g/dL (31-37) 32 g/dL (31-37) Red Cell Distribution Width 17.9 % (11.5-14.5) 18.3 % (11.5-14.5) Platelet Count 409 x10^3/uL (140-400) 354 x10^3/uL (140-400) Neutrophils (%) (Auto) 96 % (31-73) 93 % (31-73) Lymphocytes (%) (Auto) 1 % (24-48) 3 % (24-48) Monocytes (%) (Auto) 2 % (0-9) 4 % (0-9) Eosinophils (%) (Auto) 0 % (0-3) 1 % (0-3) Basophils (%) (Auto) 1 % (0-3) 0 % (0-3) Neutrophils # (Auto) 27.4 x10^3uL (1.8-7.7) 20.5 x10^3uL (1.8-7.7) Lymphocytes # (Auto) 0.3 x10^3/uL (1.0-4.8) 0.6 x10^3/uL (1.0-4.8) Monocytes # (Auto) 0.6 x10^3/uL (0.0-1.1) 0.8 x10^3/uL (0.0-1.1) Eosinophils # (Auto) 0.0 x10^3/uL (0.0-0.7) 0.1 x10^3/uL (0.0-0.7) Basophils # (Auto) 0.1 x10^3/uL (0.0-0.2) 0.0 x10^3/uL (0.0-0.2) Segmented Neutrophils % 93 % (35-66) Band Neutrophils % 4 % (0-9) Monocytes % 3 % (0-10) Toxic Granulation Mod Platelet Estimate Adequate (ADEQUATE) Hypochromasia Slight Anisocytosis Slight Microcytosis Mod D-Dimer (Marta) 1.46 ug/mlFEU (0.00-0.50) Sodium Level 132 mmol/L (136-145) 135 mmol/L (136-145) Potassium Level 4.4 mmol/L (3.5-5.1) 3.4 mmol/L (3.5-5.1) Chloride Level 97 mmol/L (98-107) 101 mmol/L (98-107) Carbon Dioxide Level 29 mmol/L (21-32) 27 mmol/L (21-32) Anion Gap 6 (6-14) 7 (6-14) Blood Urea Nitrogen 20 mg/dL (8-26) 15 mg/dL (8-26) Creatinine 0.8 mg/dL (0.7-1.3) 0.7 mg/dL (0.7-1.3) Estimated GFR (Cockcroft-Gault) 95.6 111.5 Glucose Level 139 mg/dL (70-99) 115 mg/dL (70-99) Calcium Level 8.5 mg/dL (8.5-10.1) 8.1 mg/dL (8.5-10.1) BUN/Creatinine Ratio 21 (6-20) Total Bilirubin 0.6 mg/dL (0.2-1.0) Direct Bilirubin 0.4 mg/dL (0.0-0.2) Aspartate Amino Transf (AST/SGOT) 59 U/L (15-37) Alanine Aminotransferase (ALT/SGPT) 132 U/L (16-63) Alkaline Phosphatase 268 U/L (46-116) Total Protein 5.7 g/dL (6.4-8.2) Albumin 1.8 g/dL (3.4-5.0) Albumin/Globulin Ratio 0.5 (1.0-1.7) Vancomycin Level Trough 15.9 mcg/mL (10.0-20.0) Vancomycin Last Dose Date 11/03/16 Vancomycin Last Dose Time 2100 Laboratory Tests Test 11/03/16 09:30 11/04/16 08:35 White Blood Count 22.1 x10^3/uL (4.0-11.0) Red Blood Count 4.99 x10^6/uL (4.30-5.70) Hemoglobin 11.3 g/dL (13.0-17.5) Hematocrit 35.8 % (39.0-53.0) Mean Corpuscular Volume 72 fL (79-100) Mean Corpuscular Hemoglobin 23 pg (25-35) Mean Corpuscular Hemoglobin Concent 32 g/dL (31-37) Red Cell Distribution Width 18.3 % (11.5-14.5) Platelet Count 354 x10^3/uL (140-400) Neutrophils (%) (Auto) 93 % (31-73) Lymphocytes (%) (Auto) 3 % (24-48) Monocytes (%) (Auto) 4 % (0-9) Eosinophils (%) (Auto) 1 % (0-3) Basophils (%) (Auto) 0 % (0-3) Neutrophils # (Auto) 20.5 x10^3uL (1.8-7.7) Lymphocytes # (Auto) 0.6 x10^3/uL (1.0-4.8) Monocytes # (Auto) 0.8 x10^3/uL (0.0-1.1) Eosinophils # (Auto) 0.1 x10^3/uL (0.0-0.7) Basophils # (Auto) 0.0 x10^3/uL (0.0-0.2) Sodium Level 135 mmol/L (136-145) Potassium Level 3.4 mmol/L (3.5-5.1) Chloride Level 101 mmol/L (98-107) Carbon Dioxide Level 27 mmol/L (21-32) Anion Gap 7 (6-14) Blood Urea Nitrogen 15 mg/dL (8-26) Creatinine 0.7 mg/dL (0.7-1.3) Estimated GFR (Cockcroft-Gault) 111.5 BUN/Creatinine Ratio 21 (6-20) Glucose Level 115 mg/dL (70-99) Calcium Level 8.1 mg/dL (8.5-10.1) Total Bilirubin 0.6 mg/dL (0.2-1.0) Direct Bilirubin 0.4 mg/dL (0.0-0.2) Aspartate Amino Transf (AST/SGOT) 59 U/L (15-37) Alanine Aminotransferase (ALT/SGPT) 132 U/L (16-63) Alkaline Phosphatase 268 U/L (46-116) Total Protein 5.7 g/dL (6.4-8.2) Albumin 1.8 g/dL (3.4-5.0) Albumin/Globulin Ratio 0.5 (1.0-1.7) Vancomycin Level Trough 15.9 mcg/mL (10.0-20.0) Vancomycin Last Dose Date 11/03/16 Vancomycin Last Dose Time 2100 Medications Current Medications Sodium Chloride 1,000 ml @ 1,000 mls/hr Q1H IV Last administered on 11/02/16 16:35; Start 11/02/16 at 16:30; Stop 11/02/16 at 17:29; Status DC Iohexol (Omnipaque 300 Mg/ml) 75 ml 1X ONCE IV Last administered on 11/02/16 17:09; Start 11/02/16 at 17:15; Stop 11/02/16 at 17:16; Status DC Ondansetron HCl (Zofran) 4 mg PRN Q8HRS PRN IV NAUSEA/VOMITING; Start 11/02/16 at 18:15; Stop 11/03/16 at 18:14; Status DC Morphine Sulfate 10 mg PRN Q2HR PRN IV PAIN Last administered on 11/03/16 12:10 ; Start 11/02/16 at 18:15; Stop 11/03/16 at 18:14; Status DC Acetaminophen (Tylenol) 650 mg PRN Q4HRS PRN PO FEVER; Start 11/02/16 at 18:15; Stop 11/03/16 at 18:14; Status DC Vancomycin HCl (Vanco Per Pharmacy) 1 each PRN DAILY PRN MC SEE COMMENTS Last administered on 11/02/16 19:22; Start 11/02/16 at 18:15 Piperacillin Sod/ Tazobactam Sod (Zosyn Per Pharmacy) 1 each PRN DAILY PRN MC SEE COMMENTS; Start 11/02/16 at 18:15 Levofloxacin/ Dextrose (Levaquin Per Pharmacy) 1 each PRN DAILY PRN MC SEE COMMENTS; Start 11/02/16 at 18:15 Enoxaparin Sodium (Lovenox 60mg Syringe) 60 mg Q12HR SQ Last administered on 08:41; Start 11/02/16 at 21:00; Stop 11/03/16 at 09:17; Status DC Info (Anti-Coagulation Monitoring By Pharmacy) 1 each PRN DAILY PRN MC SEE COMMENTS Last administered on 11/03/16 16:04; Start 11/02/16 at 18:30 Vancomycin HCl 1.5 gm/Sodium Chloride 500 ml @ 250 mls/hr 1X ONCE IV Last administered on 11/02/16 19:05; Start 11/02/16 at 19:00; Stop 11/02/16 at 20:59; Status DC Levofloxacin/ Dextrose 150 ml @ 100 mls/hr 1X ONCE IV ; Start 11/02/16 at 21:00 ; Stop 11/02/16 at 21:00; Status DC Vancomycin HCl 1 each 1X ONCE MC ; Start 11/04/16 at 08:30; Stop 11/04/16 at 08: 31; Status DC Levofloxacin/ Dextrose 100 ml @ 100 mls/hr Q24H IV Last administered on 20:26; Start 11/03/16 at 21:00 Vancomycin HCl 1 gm/Sodium Chloride 250 ml @ 250 mls/hr Q12H IV Last administered on 11/03/16 21:58; Start 11/03/16 at 09:00 Levofloxacin/ Dextrose 150 ml @ 100 mls/hr 1X ONCE IV Last administered on 22:05; Start 11/02/16 at 21:00; Stop 11/02/16 at 22:29; Status DC Piperacillin Sod/ Tazobactam Sod 3.375 gm/Sodium Chloride 50 ml @ 100 mls/hr Q6HRS IV Last administered on 11/04/16 06:26; Start 11/03/16 at 00:00 Methadone HCl (Dolophine) 20 mg TID PO Last administered on 11/04/16 08:41; Start 11/02/16 at 23:30 Oxycodone HCl (Oxycontin) 40 mg TID PO Last administered on 11/04/16 08:41; Start 11/03/16 at 00:00 Rivaroxaban (Xarelto) 15 mg BIDWMEALS PO ; Start 11/03/16 at 17:00; Stop 11/03/16 at 17:00; Status DC Polyethylene Glycol (miraLAX PACKET) 17 gm DAILY PO Last administered on 08:41; Start 11/03/16 at 09:15 Docusate Sodium (Colace) 100 mg DAILY PO Last administered on 11/04/16 08:41; Start 11/03/16 at 09:15 Alprazolam (Xanax) 0.5 mg PRN DAILY PRN PO ANXIETY / AGITATION; Start 11/03/16 at 09:30 Sertraline HCl (Zoloft) 50 mg HS PO Last administered on 11/03/16 23:21; Start 11/03/16 at 21:00 Prednisone (Prednisone) 30 mg DAILY PO Last administered on 11/04/16 08:40; Start 11/03/16 at 10:00 Albuterol/ Ipratropium (Duoneb) 3 ml RTQID NEB Last administered on 11/03/16 19 :48; Start 11/03/16 at 10:00 Gadobutrol (Gadavist) 6 mmol 1X ONCE IV Last administered on 11/03/16 10:27; Start 11/03/16 at 10:30; Stop 11/03/16 at 10:31; Status DC Apixaban (Eliquis) 10 mg BID PO Last administered on 11/04/16 08:40; Start 11/03 at 21:00; Stop 11/10/16 at 09:01 Apixaban (Eliquis) 5 mg BID PO ; Start 11/10/16 at 21:00 Active Scripts Active Reported Miralax (Polyethylene Glycol 3350) 17 Gm Powd.pack 1 Packet PO PRN DAILY PRN Prednisone 10 Mg Tablet 10 Mg PO DAILY Prednisone 50 Mg Tablet 50 Mg PO DAILY Zoloft (Sertraline Hcl) 50 Mg Tablet 50 Mg PO HS Methadone Hcl 10 Mg Tablet 20 Mg PO TID Xanax (Alprazolam) 0.5 Mg Tablet 0.5 Mg PO DAILY PRN Stool Softener (Docusate Sodium) 100 Mg Capsule 100 Mg PO PRN BID PRN Propranolol Hcl 10 Mg Tablet 10 Mg PO DAILY Oxycodone Hcl 20 Mg Tablet 40 Mg PO TID Vitals/I & O Vital Sign - Last 24 Hours 11/03/16 11/03/16 11/03/16 11/03/16 11:00 12:10 12:45 13:11 Temp 98.2 98.2 Pulse 112 B/P (MAP) 91/53 (66) Pulse Ox 92 92 92 92 O2 Delivery Nasal Cannula Nasal Cannula Nasal Cannula Nasal Cannula O2 Flow Rate 4.0 4.0 3.0 3.0 11/03/16 11/03/16 11/03/16 11/03/16 13:32 15:00 15:58 19:50 Temp 98.2 97.7 98.2 97.7 Pulse 96 100 Resp 18 16 B/P (MAP) 92/54 (67) 86/54 (65) Pulse Ox 92 95 95 O2 Delivery Nasal Cannula Nasal Cannula Nasal Cannula Nasal Cannula O2 Flow Rate 3.0 2.0 3.0 3.0 11/03/16 11/03/16 11/03/16 11/03/16 19:50 20:00 22:41 23:21 Temp 96.9 96.9 Pulse 90 Resp 20 16 B/P (MAP) 105/68 (80) Pulse Ox 98 97 97 O2 Delivery Nasal Cannula Nasal Cannula Nasal Cannula Nasal Cannula O2 Flow Rate 3.0 2.0 3.0 3.0 11/04/16 11/04/16 11/04/16 11/04/16 03:03 03:04 07:00 08:41 Temp 98.1 98.1 Pulse 80 Resp 15 18 B/P (MAP) 97/64 (75) Pulse Ox 97 96 O2 Delivery Nasal Cannula Nasal Cannula Nasal Cannula Nasal Cannula O2 Flow Rate 2.0 2.0 2.5 Intake and Output 11/03/16 11/03/16 11/04/16 15:00 23:00 07:00 Intake Total 600 ml Output Total 200 ml 200 ml Balance 400 ml -200 ml AMANDA COULTER MD November 04, 2016 09:22
[2016-11-04] MEDS: VANCOMYCIN 1 GM in IV NORMAL SALINE 250ML 250 ML IV SCH ×2 (09:48→20:41)
--- NOTE | 2016-11-04 09:52 | PDOC ---
PROGRESS NOTES Subjective Subjective Patient reports discomfort from back pain at present. Denies cough or SOA. Objective Objective Vital Signs Date Time Temp Pulse Resp B/P (MAP) Pulse Ox O2 Delivery O2 Flow Rate FiO2 11/04/16 08:41 Nasal Cannula 11/04/16 07:00 98.1 80 18 97/64 (75) 96 2.5 98.1 Intake and Output 11/04/16 06:59 Intake Total 600 ml Output Total 400 ml Balance 200 ml Intake Oral 600 ml Output Urine Total 400 ml # Voids 3 Physical Exam Abdomen: Normal bowel sounds, Soft, No tenderness Heart: Regular rate Extremities: No edema General: Alert, Oriented X3, Other (moderately uncomfortable due to back pain) Lungs: Other (BS decreased throughout, no wheezes or crackles heard) Assessment Assessment Problems Medical Problems: (1) Pulmonary embolism Status: Acute Plan Plan of Care 1. Pulmonary emboli - stable on O2, now on Eliquis for anticoagulation. 2. Pneumonia with stage IV lung cancer - continue triple abx tx. Chemotx on hold. 3. chronic back pain - not well controlled, continue his usual po meds and add prn Morphine IV, patient encouraged to take as needed. 4. tachycardia - improved, no significant ectopy on telemetry. Continue to hold Propranolol due to mild hypotension. 5. chronic anxiety and depression - stable, continue home meds. 6. moderate malnutrition - Albumin continues low. Continue diet and supplements as tolerated. 7. constipation - no BM yet. Continue daily meds and add Dulcolax prn. 8. hepatitis - LFT's still elevated. U/S shows distended GB as previously seen but no stones or evidence of acute infection. GI following. Comment Review of Relevant I have reviewed the following items rubi (where applicable) has been applied. Labs Laboratory Tests Test 11/02/16 16:15 11/03/16 09:30 11/04/16 08:35 White Blood Count 28.4 x10^3/uL (4.0-11.0) 22.1 x10^3/uL (4.0-11.0) Red Blood Count 5.61 x10^6/uL (4.30-5.70) 4.99 x10^6/uL (4.30-5.70) Hemoglobin 12.8 g/dL (13.0-17.5) 11.3 g/dL (13.0-17.5) Hematocrit 39.8 % (39.0-53.0) 35.8 % (39.0-53.0) Mean Corpuscular Volume 71 fL (79-100) 72 fL (79-100) Mean Corpuscular Hemoglobin 23 pg (25-35) 23 pg (25-35) Mean Corpuscular Hemoglobin Concent 32 g/dL (31-37) 32 g/dL (31-37) Red Cell Distribution Width 17.9 % (11.5-14.5) 18.3 % (11.5-14.5) Platelet Count 409 x10^3/uL (140-400) 354 x10^3/uL (140-400) Neutrophils (%) (Auto) 96 % (31-73) 93 % (31-73) Lymphocytes (%) (Auto) 1 % (24-48) 3 % (24-48) Monocytes (%) (Auto) 2 % (0-9) 4 % (0-9) Eosinophils (%) (Auto) 0 % (0-3) 1 % (0-3) Basophils (%) (Auto) 1 % (0-3) 0 % (0-3) Neutrophils # (Auto) 27.4 x10^3uL (1.8-7.7) 20.5 x10^3uL (1.8-7.7) Lymphocytes # (Auto) 0.3 x10^3/uL (1.0-4.8) 0.6 x10^3/uL (1.0-4.8) Monocytes # (Auto) 0.6 x10^3/uL (0.0-1.1) 0.8 x10^3/uL (0.0-1.1) Eosinophils # (Auto) 0.0 x10^3/uL (0.0-0.7) 0.1 x10^3/uL (0.0-0.7) Basophils # (Auto) 0.1 x10^3/uL (0.0-0.2) 0.0 x10^3/uL (0.0-0.2) Segmented Neutrophils % 93 % (35-66) Band Neutrophils % 4 % (0-9) Monocytes % 3 % (0-10) Toxic Granulation Mod Platelet Estimate Adequate (ADEQUATE) Hypochromasia Slight Anisocytosis Slight Microcytosis Mod D-Dimer (Marta) 1.46 ug/mlFEU (0.00-0.50) Sodium Level 132 mmol/L (136-145) 135 mmol/L (136-145) Potassium Level 4.4 mmol/L (3.5-5.1) 3.4 mmol/L (3.5-5.1) Chloride Level 97 mmol/L (98-107) 101 mmol/L (98-107) Carbon Dioxide Level 29 mmol/L (21-32) 27 mmol/L (21-32) Anion Gap 6 (6-14) 7 (6-14) Blood Urea Nitrogen 20 mg/dL (8-26) 15 mg/dL (8-26) Creatinine 0.8 mg/dL (0.7-1.3) 0.7 mg/dL (0.7-1.3) Estimated GFR (Cockcroft-Gault) 95.6 111.5 Glucose Level 139 mg/dL (70-99) 115 mg/dL (70-99) Calcium Level 8.5 mg/dL (8.5-10.1) 8.1 mg/dL (8.5-10.1) BUN/Creatinine Ratio 21 (6-20) Total Bilirubin 0.6 mg/dL (0.2-1.0) Direct Bilirubin 0.4 mg/dL (0.0-0.2) Aspartate Amino Transf (AST/SGOT) 59 U/L (15-37) Alanine Aminotransferase (ALT/SGPT) 132 U/L (16-63) Alkaline Phosphatase 268 U/L (46-116) Total Protein 5.7 g/dL (6.4-8.2) Albumin 1.8 g/dL (3.4-5.0) Albumin/Globulin Ratio 0.5 (1.0-1.7) Vancomycin Level Trough 15.9 mcg/mL (10.0-20.0) Vancomycin Last Dose Date 11/03/16 Vancomycin Last Dose Time 2100 Laboratory Tests Test 11/04/16 08:35 Vancomycin Level Trough 15.9 mcg/mL (10.0-20.0) Vancomycin Last Dose Date 11/03/16 Vancomycin Last Dose Time 2100 Medications Current Medications Sodium Chloride 1,000 ml @ 1,000 mls/hr Q1H IV Last administered on 11/02/16 16:35; Start 11/02/16 at 16:30; Stop 11/02/16 at 17:29; Status DC Iohexol (Omnipaque 300 Mg/ml) 75 ml 1X ONCE IV Last administered on 11/02/16 17:09; Start 11/02/16 at 17:15; Stop 11/02/16 at 17:16; Status DC Ondansetron HCl (Zofran) 4 mg PRN Q8HRS PRN IV NAUSEA/VOMITING; Start 11/02/16 at 18:15; Stop 11/03/16 at 18:14; Status DC Morphine Sulfate 10 mg PRN Q2HR PRN IV PAIN Last administered on 11/03/16 12:10 ; Start 11/02/16 at 18:15; Stop 11/03/16 at 18:14; Status DC Acetaminophen (Tylenol) 650 mg PRN Q4HRS PRN PO FEVER; Start 11/02/16 at 18:15; Stop 11/03/16 at 18:14; Status DC Vancomycin HCl (Vanco Per Pharmacy) 1 each PRN DAILY PRN MC SEE COMMENTS Last administered on 11/04/16 09:20; Start 11/02/16 at 18:15 Piperacillin Sod/ Tazobactam Sod (Zosyn Per Pharmacy) 1 each PRN DAILY PRN MC SEE COMMENTS; Start 11/02/16 at 18:15 Levofloxacin/ Dextrose (Levaquin Per Pharmacy) 1 each PRN DAILY PRN MC SEE COMMENTS; Start 11/02/16 at 18:15 Enoxaparin Sodium (Lovenox 60mg Syringe) 60 mg Q12HR SQ Last administered on 08:41; Start 11/02/16 at 21:00; Stop 11/03/16 at 09:17; Status DC Info (Anti-Coagulation Monitoring By Pharmacy) 1 each PRN DAILY PRN MC SEE COMMENTS Last administered on 11/03/16 16:04; Start 11/02/16 at 18:30 Vancomycin HCl 1.5 gm/Sodium Chloride 500 ml @ 250 mls/hr 1X ONCE IV Last administered on 11/02/16 19:05; Start 11/02/16 at 19:00; Stop 11/02/16 at 20:59; Status DC Levofloxacin/ Dextrose 150 ml @ 100 mls/hr 1X ONCE IV ; Start 11/02/16 at 21:00 ; Stop 11/02/16 at 21:00; Status DC Vancomycin HCl 1 each 1X ONCE MC ; Start 11/04/16 at 08:30; Stop 11/04/16 at 08: 31; Status DC Levofloxacin/ Dextrose 100 ml @ 100 mls/hr Q24H IV Last administered on 20:26; Start 11/03/16 at 21:00 Vancomycin HCl 1 gm/Sodium Chloride 250 ml @ 250 mls/hr Q12H IV Last administered on 11/03/16 21:58; Start 11/03/16 at 09:00 Levofloxacin/ Dextrose 150 ml @ 100 mls/hr 1X ONCE IV Last administered on 22:05; Start 11/02/16 at 21:00; Stop 11/02/16 at 22:29; Status DC Piperacillin Sod/ Tazobactam Sod 3.375 gm/Sodium Chloride 50 ml @ 100 mls/hr Q6HRS IV Last administered on 11/04/16 06:26; Start 11/03/16 at 00:00 Methadone HCl (Dolophine) 20 mg TID PO Last administered on 11/04/16 08:41; Start 11/02/16 at 23:30 Oxycodone HCl (Oxycontin) 40 mg TID PO Last administered on 11/04/16 08:41; Start 11/03/16 at 00:00 Rivaroxaban (Xarelto) 15 mg BIDWMEALS PO ; Start 11/03/16 at 17:00; Stop 11/03/16 at 17:00; Status DC Polyethylene Glycol (miraLAX PACKET) 17 gm DAILY PO Last administered on 08:41; Start 11/03/16 at 09:15 Docusate Sodium (Colace) 100 mg DAILY PO Last administered on 11/04/16 08:41; Start 11/03/16 at 09:15 Alprazolam (Xanax) 0.5 mg PRN DAILY PRN PO ANXIETY / AGITATION; Start 11/03/16 at 09:30 Sertraline HCl (Zoloft) 50 mg HS PO Last administered on 11/03/16 23:21; Start 11/03/16 at 21:00 Prednisone (Prednisone) 30 mg DAILY PO Last administered on 11/04/16 08:40; Start 11/03/16 at 10:00 Albuterol/ Ipratropium (Duoneb) 3 ml RTQID NEB Last administered on 11/03/16 19 :48; Start 11/03/16 at 10:00 Gadobutrol (Gadavist) 6 mmol 1X ONCE IV Last administered on 11/03/16 10:27; Start 11/03/16 at 10:30; Stop 11/03/16 at 10:31; Status DC Apixaban (Eliquis) 10 mg BID PO Last administered on 11/04/16 08:40; Start 11/03 at 21:00; Stop 11/10/16 at 09:01 Apixaban (Eliquis) 5 mg BID PO ; Start 11/10/16 at 21:00 Active Scripts Active Reported Miralax (Polyethylene Glycol 3350) 17 Gm Powd.pack 1 Packet PO PRN DAILY PRN Prednisone 10 Mg Tablet 10 Mg PO DAILY Prednisone 50 Mg Tablet 50 Mg PO DAILY Zoloft (Sertraline Hcl) 50 Mg Tablet 50 Mg PO HS Methadone Hcl 10 Mg Tablet 20 Mg PO TID Xanax (Alprazolam) 0.5 Mg Tablet 0.5 Mg PO DAILY PRN Stool Softener (Docusate Sodium) 100 Mg Capsule 100 Mg PO PRN BID PRN Propranolol Hcl 10 Mg Tablet 10 Mg PO DAILY Oxycodone Hcl 20 Mg Tablet 40 Mg PO TID Vitals/I & O Vital Sign - Last 24 Hours 11/03/16 11/03/16 11/03/16 11/03/16 11:00 12:10 12:45 13:11 Temp 98.2 98.2 Pulse 112 B/P (MAP) 91/53 (66) Pulse Ox 92 92 92 92 O2 Delivery Nasal Cannula Nasal Cannula Nasal Cannula Nasal Cannula O2 Flow Rate 4.0 4.0 3.0 3.0 11/03/16 11/03/16 11/03/16 11/03/16 13:32 15:00 15:58 19:50 Temp 98.2 97.7 98.2 97.7 Pulse 96 100 Resp 18 16 B/P (MAP) 92/54 (67) 86/54 (65) Pulse Ox 92 95 95 O2 Delivery Nasal Cannula Nasal Cannula Nasal Cannula Nasal Cannula O2 Flow Rate 3.0 2.0 3.0 3.0 11/03/16 11/03/16 11/03/16 11/03/16 19:50 20:00 22:41 23:21 Temp 96.9 96.9 Pulse 90 Resp 20 16 B/P (MAP) 105/68 (80) Pulse Ox 98 97 97 O2 Delivery Nasal Cannula Nasal Cannula Nasal Cannula Nasal Cannula O2 Flow Rate 3.0 2.0 3.0 3.0 11/04/16 11/04/16 11/04/16 11/04/16 03:03 03:04 07:00 08:41 Temp 98.1 98.1 Pulse 80 Resp 15 18 B/P (MAP) 97/64 (75) Pulse Ox 97 96 O2 Delivery Nasal Cannula Nasal Cannula Nasal Cannula Nasal Cannula O2 Flow Rate 2.0 2.0 2.5 Intake and Output 11/03/16 11/03/16 11/04/16 14:59 22:59 06:59 Intake Total 600 ml Output Total 200 ml 200 ml Balance 400 ml -200 ml CHASE VELASQUEZ MD November 04, 2016 09:52
[2016-11-04] MEDS ORDERED: BISACODYL 5 MG TABLET.DR. PO PRN (10:00)
[2016-11-04] MEDS: MORPHINE SULFATE 2 MG/ML DISP.SYRIN. IV PRN (10:01)
[2016-11-04 10:56] VITALS: BP 103/62
--- NOTE | 2016-11-04 11:30 | PDOC ---
PULMONARY PROGRESS NOTES Subjective feels better Vitals Vital Signs Date Time Temp Pulse Resp B/P (MAP) Pulse Ox O2 Delivery O2 Flow Rate FiO2 11/04/16 11:01 Nasal Cannula 11/04/16 10:56 98.2 96 18 103/62 (76) 93 3.0 98.2 General: Alert, No acute distress Lungs: Other (decrease bs left) Cardiovascular: S1, S2 Abdomen: Soft, Non-tender Extremities: No Edema Skin: Warm Labs Laboratory Tests Test 11/02/16 16:15 11/03/16 09:30 11/04/16 08:35 White Blood Count 28.4 x10^3/uL (4.0-11.0) 22.1 x10^3/uL (4.0-11.0) Red Blood Count 5.61 x10^6/uL (4.30-5.70) 4.99 x10^6/uL (4.30-5.70) Hemoglobin 12.8 g/dL (13.0-17.5) 11.3 g/dL (13.0-17.5) Hematocrit 39.8 % (39.0-53.0) 35.8 % (39.0-53.0) Mean Corpuscular Volume 71 fL (79-100) 72 fL (79-100) Mean Corpuscular Hemoglobin 23 pg (25-35) 23 pg (25-35) Mean Corpuscular Hemoglobin Concent 32 g/dL (31-37) 32 g/dL (31-37) Red Cell Distribution Width 17.9 % (11.5-14.5) 18.3 % (11.5-14.5) Platelet Count 409 x10^3/uL (140-400) 354 x10^3/uL (140-400) Neutrophils (%) (Auto) 96 % (31-73) 93 % (31-73) Lymphocytes (%) (Auto) 1 % (24-48) 3 % (24-48) Monocytes (%) (Auto) 2 % (0-9) 4 % (0-9) Eosinophils (%) (Auto) 0 % (0-3) 1 % (0-3) Basophils (%) (Auto) 1 % (0-3) 0 % (0-3) Neutrophils # (Auto) 27.4 x10^3uL (1.8-7.7) 20.5 x10^3uL (1.8-7.7) Lymphocytes # (Auto) 0.3 x10^3/uL (1.0-4.8) 0.6 x10^3/uL (1.0-4.8) Monocytes # (Auto) 0.6 x10^3/uL (0.0-1.1) 0.8 x10^3/uL (0.0-1.1) Eosinophils # (Auto) 0.0 x10^3/uL (0.0-0.7) 0.1 x10^3/uL (0.0-0.7) Basophils # (Auto) 0.1 x10^3/uL (0.0-0.2) 0.0 x10^3/uL (0.0-0.2) Segmented Neutrophils % 93 % (35-66) Band Neutrophils % 4 % (0-9) Monocytes % 3 % (0-10) Toxic Granulation Mod Platelet Estimate Adequate (ADEQUATE) Hypochromasia Slight Anisocytosis Slight Microcytosis Mod D-Dimer (Marta) 1.46 ug/mlFEU (0.00-0.50) Sodium Level 132 mmol/L (136-145) 135 mmol/L (136-145) Potassium Level 4.4 mmol/L (3.5-5.1) 3.4 mmol/L (3.5-5.1) Chloride Level 97 mmol/L (98-107) 101 mmol/L (98-107) Carbon Dioxide Level 29 mmol/L (21-32) 27 mmol/L (21-32) Anion Gap 6 (6-14) 7 (6-14) Blood Urea Nitrogen 20 mg/dL (8-26) 15 mg/dL (8-26) Creatinine 0.8 mg/dL (0.7-1.3) 0.7 mg/dL (0.7-1.3) Estimated GFR (Cockcroft-Gault) 95.6 111.5 Glucose Level 139 mg/dL (70-99) 115 mg/dL (70-99) Calcium Level 8.5 mg/dL (8.5-10.1) 8.1 mg/dL (8.5-10.1) BUN/Creatinine Ratio 21 (6-20) Total Bilirubin 0.6 mg/dL (0.2-1.0) Direct Bilirubin 0.4 mg/dL (0.0-0.2) Aspartate Amino Transf (AST/SGOT) 59 U/L (15-37) Alanine Aminotransferase (ALT/SGPT) 132 U/L (16-63) Alkaline Phosphatase 268 U/L (46-116) Total Protein 5.7 g/dL (6.4-8.2) Albumin 1.8 g/dL (3.4-5.0) Albumin/Globulin Ratio 0.5 (1.0-1.7) Vancomycin Level Trough 15.9 mcg/mL (10.0-20.0) Vancomycin Last Dose Date 11/03/16 Vancomycin Last Dose Time 2100 Laboratory Tests Test 11/04/16 08:35 Vancomycin Level Trough 15.9 mcg/mL (10.0-20.0) Vancomycin Last Dose Date 11/03/16 Vancomycin Last Dose Time 2100 Medications Active Scripts Medications Dose Route/Sig Max Daily Dose Days Date Category Miralax (Polyethylene Glycol 3350) 17 Gm Powd.pack 1 Packet PO PRN DAILY PRN 11/02/16 Reported Prednisone 10 Mg Tablet 10 Mg PO DAILY 11/02/16 Reported Prednisone 50 Mg Tablet 50 Mg PO DAILY 11/02/16 Reported Zoloft (Sertraline Hcl) 50 Mg Tablet 50 Mg PO HS 08/07/15 Reported Methadone Hcl 10 Mg Tablet 20 Mg PO TID 08/07/15 Reported Xanax (Alprazolam) 0.5 Mg Tablet 0.5 Mg PO DAILY PRN 08/16/13 Reported Stool Softener (Docusate Sodium) 100 Mg Capsule 100 Mg PO PRN BID PRN 08/16/13 Reported Propranolol Hcl 10 Mg Tablet 10 Mg PO DAILY 08/16/13 Reported Oxycodone Hcl 20 Mg Tablet 40 Mg PO TID 08/16/13 Reported Impression . 1. Acute hypoxic respiratory failure secondary to multifactorial etiologies including a combination of progressive lung cancer with possible postobstructive consolidation versus radiation-induce changes, small pulmonary embolism involving the lingula and the right upper lobe, and underlying COPD along with progressive weakness secondary to malignancy. 2. Underlying chronic obstructive pulmonary disease. 3. Abnormal CT chest as discussed above. 4. Marked leukocytosis. Plan . 1. Continue with present oxygen. 2. Continue broad-spectrum antibiotics. 3. Continue anticoagulation with Xarelto. He would need lifelong treatment until cancer is resolved 4. Bronchodilators. 5. I have addressed advanced directives. He wants to stay full code. 6. Follow with Medical Oncology and Radiation Oncology recommendations. 7. steroids for possible postradiation pneumonitis. CHATO GARCIA MD November 04, 2016 11:30
--- NOTE | 2016-11-04 11:37 | PDOC ---
Subjective: Subjective: No GI complaints. Wants to know when he can go home. Objective: Vital Signs: Vital Signs Date Time Temp Pulse Resp B/P (MAP) Pulse Ox O2 Delivery O2 Flow Rate FiO2 11/04/16 11:01 Nasal Cannula 11/04/16 10:56 98.2 96 18 103/62 (76) 93 3.0 98.2 Labs: Laboratory Tests Test 11/04/16 08:35 Vancomycin Level Trough 15.9 mcg/mL Vancomycin Last Dose Date 11/03/16 Vancomycin Last Dose Time 2100 Imaging: RUQ US 11/04/16 The gallbladder is somewhat distended measuring approximately 10.6 cm in greatest dimension. No cholelithiasis or wall thickening is seen. The common bile duct is not well demonstrated but significant intrahepatic bile duct dilatation is not suggested on this study. A focal mass is not seen in the visualized liver. There is some atherosclerotic plaquing seen associated with the visualized abdominal aorta. The right kidney appears normal. The pancreas was not well demonstrated and largely obscured. IMPRESSION: Distended gallbladder. No cholelithiasis seen. Midline structures largely obscured by gas. 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 Prasad. Can recheck labs tomorrow. KAYLEE AKHTAR November 04, 2016 11:37
[2016-11-04] MEDS: MORPHINE SULFATE 10 MG/ML VIAL. IV PRN ×3 (12:05→19:15)
[2016-11-04 15:23] VITALS: BP 100/47
[2016-11-04 19:00] VITALS: BP 90/54
[2016-11-04] MEDS: SERTRALINE 50 MG TABLET. PO SCH (20:40)
[2016-11-04 22:59] VITALS: BP 96/66
[2016-11-05] MEDS: PIPERACILLIN/TAZOBACTAM 3.375 GM in IV NORMAL SALINE 50ML 50 ML IV SCH ×5 (00:30→23:26)
[2016-11-05 05:59] LABS: ALBUMIN 1.6 g/dL (3.4-5.0); DIRECT BILIRUBIN 0.3 mg/dL (0.0-0.2); TOTAL BILIRUBIN 0.4 mg/dL (0.2-1.0); TOTAL PROTEIN 4.9 g/dL (6.4-8.2)
[2016-11-05 07:00] VITALS: BP 93/58
[2016-11-05] MEDS: IPRATRPIUM/ALBUTEROL 0.5/2.5MG 3 ML NEBU. NEB SCH ×4 (07:35→19:20)
[2016-11-05] MEDS: METHADONE 10 MG TABLET. PO SCH ×3 (08:21→20:49)
[2016-11-05] MEDS: ALPRAZolam 0.5 MG TABLET PO PRN (08:21)
[2016-11-05] MEDS: oxyCODONE ER 40 MG TAB.ER.12H PO SCH ×3 (08:22→20:50)
[2016-11-05] MEDS: DOCUSATE SODIUM 100 MG CAPSULE. PO SCH (08:22)
[2016-11-05] MEDS: predniSONE 10 MG TABLET PO SCH (08:23)
[2016-11-05] MEDS: APIXABAN 5 MG TABLET. PO SCH ×2 (08:23→20:50)
[2016-11-05] MEDS: POLYETHYLENE GLYCOL 3350 17 GM PACKET. PO SCH (09:12)
--- NOTE | 2016-11-05 09:13 | PDOC ---
PROGRESS NOTES Subjective Subjective Patient reports he does feel some better, wonders when he can go home. Objective Objective Vital Signs Date Time Temp Pulse Resp B/P (MAP) Pulse Ox O2 Delivery O2 Flow Rate FiO2 11/05/16 08:22 1 Nasal Cannula 11/05/16 07:36 97 1.0 11/04/16 22:59 98.2 53 96/66 (76) 98.2 Intake and Output 11/05/16 07:00 Intake Total 600 ml Output Total 600 ml Balance 0 ml Intake Oral 600 ml Output Urine Total 600 ml # Voids 2 Physical Exam Abdomen: Normal bowel sounds, Soft, No tenderness Heart: Regular rate Extremities: No edema General: Alert, Oriented X3, No acute distress Lungs: Other (BS decreased throughout, few dry crackles heard, no wheezes) Assessment Assessment Problems Medical Problems: (1) Pulmonary embolism Status: Acute Plan Plan of Care 1. Pulmonary emboli - stable, continue Eliquis. 2. pneumonia with lung cancer - patient's symptoms apparently improving. Continue triple abx and Prednisone. Will do 6 minute walk when ready for discharge. 3. hepatitis - lab improved. 4. constipation - persists, patient has not had bowel movement since admission. Has not asked for the prn Dulcolax yet, one-time dose ordered now. Continue Colace and Miralax daily. 5. chronic back pain - improved with prn IV Morphine. Continue po meds also. 6. tachycardia - mild, intermittent, patient denies symptoms. Continue to hold Propranolol as BP mildly low. Comment Review of Relevant I have reviewed the following items rubi (where applicable) has been applied. Labs Laboratory Tests Test 11/03/16 09:30 11/04/16 08:35 11/05/16 05:10 White Blood Count 22.1 x10^3/uL (4.0-11.0) Red Blood Count 4.99 x10^6/uL (4.30-5.70) Hemoglobin 11.3 g/dL (13.0-17.5) Hematocrit 35.8 % (39.0-53.0) Mean Corpuscular Volume 72 fL (79-100) Mean Corpuscular Hemoglobin 23 pg (25-35) Mean Corpuscular Hemoglobin Concent 32 g/dL (31-37) Red Cell Distribution Width 18.3 % (11.5-14.5) Platelet Count 354 x10^3/uL (140-400) Neutrophils (%) (Auto) 93 % (31-73) Lymphocytes (%) (Auto) 3 % (24-48) Monocytes (%) (Auto) 4 % (0-9) Eosinophils (%) (Auto) 1 % (0-3) Basophils (%) (Auto) 0 % (0-3) Neutrophils # (Auto) 20.5 x10^3uL (1.8-7.7) Lymphocytes # (Auto) 0.6 x10^3/uL (1.0-4.8) Monocytes # (Auto) 0.8 x10^3/uL (0.0-1.1) Eosinophils # (Auto) 0.1 x10^3/uL (0.0-0.7) Basophils # (Auto) 0.0 x10^3/uL (0.0-0.2) Sodium Level 135 mmol/L (136-145) Potassium Level 3.4 mmol/L (3.5-5.1) Chloride Level 101 mmol/L (98-107) Carbon Dioxide Level 27 mmol/L (21-32) Anion Gap 7 (6-14) Blood Urea Nitrogen 15 mg/dL (8-26) Creatinine 0.7 mg/dL (0.7-1.3) Estimated GFR (Cockcroft-Gault) 111.5 BUN/Creatinine Ratio 21 (6-20) Glucose Level 115 mg/dL (70-99) Calcium Level 8.1 mg/dL (8.5-10.1) Total Bilirubin 0.6 mg/dL (0.2-1.0) 0.4 mg/dL (0.2-1.0) Direct Bilirubin 0.4 mg/dL (0.0-0.2) 0.3 mg/dL (0.0-0.2) Aspartate Amino Transf (AST/SGOT) 59 U/L (15-37) 40 U/L (15-37) Alanine Aminotransferase (ALT/SGPT) 132 U/L (16-63) 85 U/L (16-63) Alkaline Phosphatase 268 U/L (46-116) 204 U/L (46-116) Total Protein 5.7 g/dL (6.4-8.2) 4.9 g/dL (6.4-8.2) Albumin 1.8 g/dL (3.4-5.0) 1.6 g/dL (3.4-5.0) Albumin/Globulin Ratio 0.5 (1.0-1.7) Vancomycin Level Trough 15.9 mcg/mL (10.0-20.0) Vancomycin Last Dose Date 11/03/16 Vancomycin Last Dose Time 2100 Laboratory Tests Test 11/05/16 05:10 Total Bilirubin 0.4 mg/dL (0.2-1.0) Direct Bilirubin 0.3 mg/dL (0.0-0.2) Aspartate Amino Transf (AST/SGOT) 40 U/L (15-37) Alanine Aminotransferase (ALT/SGPT) 85 U/L (16-63) Alkaline Phosphatase 204 U/L (46-116) Total Protein 4.9 g/dL (6.4-8.2) Albumin 1.6 g/dL (3.4-5.0) Medications Current Medications Sodium Chloride 1,000 ml @ 1,000 mls/hr Q1H IV Last administered on 11/02/16 16:35; Start 11/02/16 at 16:30; Stop 11/02/16 at 17:29; Status DC Iohexol (Omnipaque 300 Mg/ml) 75 ml 1X ONCE IV Last administered on 11/02/16 17:09; Start 11/02/16 at 17:15; Stop 11/02/16 at 17:16; Status DC Ondansetron HCl (Zofran) 4 mg PRN Q8HRS PRN IV NAUSEA/VOMITING; Start 11/02/16 at 18:15; Stop 11/03/16 at 18:14; Status DC Morphine Sulfate 10 mg PRN Q2HR PRN IV PAIN Last administered on 11/03/16 12:10 ; Start 11/02/16 at 18:15; Stop 11/03/16 at 18:14; Status DC Acetaminophen (Tylenol) 650 mg PRN Q4HRS PRN PO FEVER; Start 11/02/16 at 18:15; Stop 11/03/16 at 18:14; Status DC Vancomycin HCl (Vanco Per Pharmacy) 1 each PRN DAILY PRN MC SEE COMMENTS Last administered on 11/04/16 09:20; Start 11/02/16 at 18:15 Piperacillin Sod/ Tazobactam Sod (Zosyn Per Pharmacy) 1 each PRN DAILY PRN MC SEE COMMENTS; Start 11/02/16 at 18:15; Stop 11/04/16 at 14:10; Status DC Levofloxacin/ Dextrose (Levaquin Per Pharmacy) 1 each PRN DAILY PRN MC SEE COMMENTS; Start 11/02/16 at 18:15; Stop 11/04/16 at 14:10; Status DC Enoxaparin Sodium (Lovenox 60mg Syringe) 60 mg Q12HR SQ Last administered on 08:41; Start 11/02/16 at 21:00; Stop 11/03/16 at 09:17; Status DC Info (Anti-Coagulation Monitoring By Pharmacy) 1 each PRN DAILY PRN MC SEE COMMENTS Last administered on 11/03/16 16:04; Start 11/02/16 at 18:30 Vancomycin HCl 1.5 gm/Sodium Chloride 500 ml @ 250 mls/hr 1X ONCE IV Last administered on 11/02/16 19:05; Start 11/02/16 at 19:00; Stop 11/02/16 at 20:59; Status DC Levofloxacin/ Dextrose 150 ml @ 100 mls/hr 1X ONCE IV ; Start 11/02/16 at 21:00 ; Stop 11/02/16 at 21:00; Status DC Vancomycin HCl 1 each 1X ONCE MC Last administered on 11/04/16 08:30; Start at 08:30; Stop 11/04/16 at 08:31; Status DC Levofloxacin/ Dextrose 100 ml @ 100 mls/hr Q24H IV Last administered on 22:10; Start 11/03/16 at 21:00 Vancomycin HCl 1 gm/Sodium Chloride 250 ml @ 250 mls/hr Q12H IV Last administered on 11/04/16 20:41; Start 11/03/16 at 09:00 Levofloxacin/ Dextrose 150 ml @ 100 mls/hr 1X ONCE IV Last administered on 22:05; Start 11/02/16 at 21:00; Stop 11/02/16 at 22:29; Status DC Piperacillin Sod/ Tazobactam Sod 3.375 gm/Sodium Chloride 50 ml @ 100 mls/hr Q6HRS IV Last administered on 11/05/16 05:43; Start 11/03/16 at 00:00 Methadone HCl (Dolophine) 20 mg TID PO Last administered on 11/05/16 08:21; Start 11/02/16 at 23:30 Oxycodone HCl (Oxycontin) 40 mg TID PO Last administered on 11/05/16 08:22; Start 11/03/16 at 00:00 Rivaroxaban (Xarelto) 15 mg BIDWMEALS PO ; Start 11/03/16 at 17:00; Stop 11/03/16 at 17:00; Status DC Polyethylene Glycol (miraLAX PACKET) 17 gm DAILY PO Last administered on 08:41; Start 11/03/16 at 09:15 Docusate Sodium (Colace) 100 mg DAILY PO Last administered on 11/05/16 08:22; Start 11/03/16 at 09:15 Alprazolam (Xanax) 0.5 mg PRN DAILY PRN PO ANXIETY / AGITATION Last administered on 11/05/16 08:21; Start 11/03/16 at 09:30 Sertraline HCl (Zoloft) 50 mg HS PO Last administered on 11/04/16 20:40; Start 11/03/16 at 21:00 Prednisone (Prednisone) 30 mg DAILY PO Last administered on 11/05/16 08:23; Start 11/03/16 at 10:00 Albuterol/ Ipratropium (Duoneb) 3 ml RTQID NEB Last administered on 11/05/16 07 :35; Start 11/03/16 at 10:00 Gadobutrol (Gadavist) 6 mmol 1X ONCE IV Last administered on 11/03/16 10:27; Start 11/03/16 at 10:30; Stop 11/03/16 at 10:31; Status DC Apixaban (Eliquis) 10 mg BID PO Last administered on 11/05/16 08:23; Start 11/03 at 21:00; Stop 11/10/16 at 09:01 Apixaban (Eliquis) 5 mg BID PO ; Start 11/10/16 at 21:00 Morphine Sulfate 2 mg PRN Q2HR PRN IV PAIN Last administered on 11/04/16 10:01 ; Start 11/04/16 at 09:45 Morphine Sulfate 5 mg PRN Q2HR PRN IV PAIN Last administered on 11/04/16 19:15 ; Start 11/04/16 at 09:45 Bisacodyl (Dulcolax Tab) 10 mg PRN DAILY PRN PO CONSTIPATION; Start 11/04/16 at 10:00 Active Scripts Active Reported Miralax (Polyethylene Glycol 3350) 17 Gm Powd.pack 1 Packet PO PRN DAILY PRN Prednisone 10 Mg Tablet 10 Mg PO DAILY Prednisone 50 Mg Tablet 50 Mg PO DAILY Zoloft (Sertraline Hcl) 50 Mg Tablet 50 Mg PO HS Methadone Hcl 10 Mg Tablet 20 Mg PO TID Xanax (Alprazolam) 0.5 Mg Tablet 0.5 Mg PO DAILY PRN Stool Softener (Docusate Sodium) 100 Mg Capsule 100 Mg PO PRN BID PRN Propranolol Hcl 10 Mg Tablet 10 Mg PO DAILY Oxycodone Hcl 20 Mg Tablet 40 Mg PO TID Vitals/I & O Vital Sign - Last 24 Hours 11/04/16 11/04/16 11/04/16 11/04/16 10:01 10:56 10:56 11:01 Temp 98.2 98.2 Pulse 96 Resp 18 B/P (MAP) 103/62 (76) Pulse Ox 97 93 O2 Delivery Nasal Cannula Nasal Cannula Room Air Nasal Cannula O2 Flow Rate 3.0 3.0 11/04/16 11/04/16 11/04/16 11/04/16 12:05 13:00 13:00 14:42 O2 Delivery Nasal Cannula Nasal Cannula Nasal Cannula Nasal Cannula 11/04/16 11/04/16 11/04/16 11/04/16 15:20 15:23 15:42 19:00 Temp 98.2 97.7 98.2 97.7 Pulse 92 113 Resp 18 18 B/P (MAP) 100/47 (64) 90/54 (66) Pulse Ox 95 95 O2 Delivery Nasal Cannula Room Air Nasal Cannula Nasal Cannula O2 Flow Rate 3.0 2.0 2.0 11/04/16 11/04/16 11/04/16 11/04/16 19:15 20:04 20:09 20:40 Resp 22 20 Pulse Ox 96 O2 Delivery Room Air Nasal Cannula Nasal Cannula Nasal Cannula O2 Flow Rate 3.0 2.0 2.0 11/04/16 11/05/16 11/05/16 22:59 07:36 08:22 Temp 98.2 98.2 Pulse 53 Resp 18 1 B/P (MAP) 96/66 (76) Pulse Ox 96 97 O2 Delivery Room Air Nasal Cannula Nasal Cannula O2 Flow Rate 1.0 Intake and Output 11/04/16 11/04/16 11/05/16 15:00 23:00 07:00 Intake Total 360 ml 240 ml Output Total 400 ml 200 ml Balance -40 ml 40 ml CHASE VELASQUEZ MD November 05, 2016 09:13
--- NOTE | 2016-11-05 09:13 | PDOC ---
Subjective: Subjective: Onc f/u- Lung cancer / pt concerned about falls on Eliquis. Want to do any PT at home Eager to DC today if possible Still seems SOB, weak Objective: Vital Signs: Vital Signs Date Time Temp Pulse Resp B/P (MAP) Pulse Ox O2 Delivery O2 Flow Rate FiO2 11/05/16 08:22 1 Nasal Cannula 11/05/16 07:36 97 1.0 11/04/16 22:59 98.2 53 96/66 (76) 98.2 Physical Exam: Extremities: No edema General: Alert, Oriented X3, Cooperative, No acute distress, Other (cachectic) Lungs: Other Musculoskeletal: Other (overall weak, deconditioned) Psych/Mental Status: Mental status NL, Mood NL Assessment/Plan A/P: 1. 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 On palliative Keytruda with his last 10/06/2016. Treatment has been held, as he has continued to have cough and transaminitis. However, he appears to be having an excellent treatment response. Treatment will be on hold until he recovers from these acute events. F/u with Dr Moore after DC. 2. Double vision, falls. MRI brain was negative. Chronic problem. PT consulted but they already decline rehab placement. 3. Acute on chronic neutrophilia. Possibly related to the underlying pneumonia. Now started on antibiotics. 4. Transaminitis, continues despite his last dose of Keytruda being one month ago. He was previously started on prednisone and remains on this. GI following. Thought to be tx related, no new recs. 5. Pulmonary embolism, acute. D/w and pt concern of falls, seems about monthly. They don't want coumadin. He is high risk for worsening PE which could be catastrophic as well with active cancer, sedentary. Eliquis with low bleeding rate. Agreeable to proceed for now. PT consulted for falls. D/W , nurse. Will f/u with Dr. Moore as outpt. GIGI BELLAMY DO November 05, 2016 09:13
[2016-11-05] MEDS: VANCOMYCIN 1 GM in IV NORMAL SALINE 250ML 250 ML IV SCH ×2 (09:14→20:49)
[2016-11-05] MEDS ORDERED: BISACODYL 5 MG TABLET.DR. PO ONE (09:15)
--- NOTE | 2016-11-05 09:59 | PDOC ---
Subjective: Subjective: "Doing real good." Objective: Objective: Per RN - still no BM. Vital Signs: Vital Signs Date Time Temp Pulse Resp B/P (MAP) Pulse Ox O2 Delivery O2 Flow Rate FiO2 11/05/16 08:22 1 Nasal Cannula 11/05/16 07:36 97 1.0 11/05/16 07:00 97.6 115 93/58 (70) 97.6 Labs: Laboratory Tests Test 11/05/16 05:10 Total Bilirubin 0.4 mg/dL Direct Bilirubin 0.3 mg/dL Aspartate Amino Transf (AST/SGOT) 40 U/L Alanine Aminotransferase (ALT/SGPT) 85 U/L Alkaline Phosphatase 204 U/L Total Protein 4.9 g/dL Albumin 1.6 g/dL PE: GEN: NAD LUNGS: decreased, nasal cannula HEART: RRR ABD: S/ND/NT NEURO/PSYCH: A & O 3 A/P: Stage IV Lung adenocarcinoma w/ met to rib Abnormal LFTs - improved Constipation -has Miralax, Dulcolax, Colace -- No new GI recs re: LFTs. Will add Amitiza if pt wants. KAYLEE AKHTAR November 05, 2016 09:59
[2016-11-05] MEDS: MORPHINE SULFATE 2 MG/ML DISP.SYRIN. IV PRN ×2 (10:59→23:45)
[2016-11-05 11:00] VITALS: BP 91/48
--- NOTE | 2016-11-05 14:46 | PDOC ---
PULMONARY PROGRESS NOTES Subjective feels better, has less sob, has cough, clear sputum, back pain Vitals Vital Signs Date Time Temp Pulse Resp B/P (MAP) Pulse Ox O2 Delivery O2 Flow Rate FiO2 11/05/16 14:34 99 Nasal Cannula 2.0 11/05/16 11:00 97.5 114 91/48 (62) 97.5 11/05/16 08:22 1 ROS: No Nausea, No Abdominal Pain General: Alert, No acute distress Lungs: Other (decrease bs left) Cardiovascular: S1, S2 Abdomen: Soft, Non-tender Neuro Exam: Alert Extremities: No Edema Skin: Warm Labs Laboratory Tests Test 11/04/16 08:35 11/05/16 05:10 Vancomycin Level Trough 15.9 mcg/mL (10.0-20.0) Vancomycin Last Dose Date 11/03/16 Vancomycin Last Dose Time 2100 Total Bilirubin 0.4 mg/dL (0.2-1.0) Direct Bilirubin 0.3 mg/dL (0.0-0.2) Aspartate Amino Transf (AST/SGOT) 40 U/L (15-37) Alanine Aminotransferase (ALT/SGPT) 85 U/L (16-63) Alkaline Phosphatase 204 U/L (46-116) Total Protein 4.9 g/dL (6.4-8.2) Albumin 1.6 g/dL (3.4-5.0) Laboratory Tests Test 11/05/16 05:10 Total Bilirubin 0.4 mg/dL (0.2-1.0) Direct Bilirubin 0.3 mg/dL (0.0-0.2) Aspartate Amino Transf (AST/SGOT) 40 U/L (15-37) Alanine Aminotransferase (ALT/SGPT) 85 U/L (16-63) Alkaline Phosphatase 204 U/L (46-116) Total Protein 4.9 g/dL (6.4-8.2) Albumin 1.6 g/dL (3.4-5.0) Medications Active Scripts Medications Dose Route/Sig Max Daily Dose Days Date Category Miralax (Polyethylene Glycol 3350) 17 Gm Powd.pack 1 Packet PO PRN DAILY PRN 11/02/16 Reported Prednisone 10 Mg Tablet 10 Mg PO DAILY 11/02/16 Reported Prednisone 50 Mg Tablet 50 Mg PO DAILY 11/02/16 Reported Zoloft (Sertraline Hcl) 50 Mg Tablet 50 Mg PO HS 08/07/15 Reported Methadone Hcl 10 Mg Tablet 20 Mg PO TID 08/07/15 Reported Xanax (Alprazolam) 0.5 Mg Tablet 0.5 Mg PO DAILY PRN 08/16/13 Reported Stool Softener (Docusate Sodium) 100 Mg Capsule 100 Mg PO PRN BID PRN 08/16/13 Reported Propranolol Hcl 10 Mg Tablet 10 Mg PO DAILY 08/16/13 Reported Oxycodone Hcl 20 Mg Tablet 40 Mg PO TID 08/16/13 Reported Impression . 1. Acute hypoxic respiratory failure secondary to multifactorial etiologies including a combination of progressive lung cancer with possible postobstructive consolidation versus radiation-induce changes, small pulmonary embolism involving the lingula and the right upper lobe, and underlying COPD along with progressive weakness secondary to malignancy. 2. Underlying chronic obstructive pulmonary disease. 3. Abnormal CT chest as discussed above. 4. Marked leukocytosis. Plan . 1. oxygen titration to keep sat 90%, 6 min walk bf dc. 2. Continue broad-spectrum antibiotics, may change to po levoquin. 3. Continue anticoagulation with Xarelto. He would need lifelong treatment until cancer is resolved 4. Bronchodilators. 5. dr allison has addressed advanced directives. He wants to stay full code. 6. Follow with Medical Oncology and Radiation Oncology recommendations. 7. steroids w taper for possible postradiation pneumonitis. discussed w pt GEORGIA FOSTER MD November 05, 2016 14:46
[2016-11-05 15:00] VITALS: BP 90/43
[2016-11-05] MEDS: VANCOMYCIN PER PHARMACY MC PRN (15:07)
[2016-11-05] MEDS: LUBIPROSTONE 8 MCG CAPSULE PO SCH (17:27)
[2016-11-05 19:10] VITALS: BP 84/62
[2016-11-05] MEDS: SERTRALINE 50 MG TABLET. PO SCH (20:49)
[2016-11-05 22:50] VITALS: BP 94/56
[2016-11-06 03:10] VITALS: BP 100/72
[2016-11-06] MEDS: PIPERACILLIN/TAZOBACTAM 3.375 GM in IV NORMAL SALINE 50ML 50 ML IV SCH (05:13)
[2016-11-06] MEDS: MORPHINE SULFATE 2 MG/ML DISP.SYRIN. IV PRN ×2 (05:13→10:05)
[2016-11-06 07:00] VITALS: BP 90/65
[2016-11-06] MEDS: IPRATRPIUM/ALBUTEROL 0.5/2.5MG 3 ML NEBU. NEB SCH ×4 (07:59→20:10)
[2016-11-06] MEDS: VANCOMYCIN 1 GM in IV NORMAL SALINE 250ML 250 ML IV SCH (09:37)
[2016-11-06] MEDS: POLYETHYLENE GLYCOL 3350 17 GM PACKET. PO SCH (09:40)
[2016-11-06] MEDS: DOCUSATE SODIUM 100 MG CAPSULE. PO SCH (09:40)
[2016-11-06] MEDS: METHADONE 10 MG TABLET. PO SCH ×3 (09:41→21:00)
[2016-11-06] MEDS: LUBIPROSTONE 8 MCG CAPSULE PO SCH ×2 (09:41→19:12)
[2016-11-06] MEDS: APIXABAN 5 MG TABLET. PO SCH ×2 (09:42→21:00)
[2016-11-06] MEDS: predniSONE 10 MG TABLET PO SCH (09:42)
[2016-11-06] MEDS: oxyCODONE ER 40 MG TAB.ER.12H PO SCH ×3 (09:43→20:59)
--- NOTE | 2016-11-06 10:08 | PDOC ---
PULMONARY PROGRESS NOTES Subjective feels better, has sob, has cough, occ sputum, back pain Vitals Vital Signs Date Time Temp Pulse Resp B/P (MAP) Pulse Ox O2 Delivery O2 Flow Rate FiO2 11/06/16 10:05 22 Nasal Cannula 3.0 11/06/16 07:00 97.3 103 90/65 (73) 98 97.3 ROS: No Nausea, No Abdominal Pain General: Alert, No acute distress Lungs: Other (decrease bs left) Cardiovascular: S1, S2 Abdomen: Soft, Non-tender Neuro Exam: Alert Extremities: No Edema Skin: Warm Labs Laboratory Tests Test 11/05/16 05:10 Total Bilirubin 0.4 mg/dL (0.2-1.0) Direct Bilirubin 0.3 mg/dL (0.0-0.2) Aspartate Amino Transf (AST/SGOT) 40 U/L (15-37) Alanine Aminotransferase (ALT/SGPT) 85 U/L (16-63) Alkaline Phosphatase 204 U/L (46-116) Total Protein 4.9 g/dL (6.4-8.2) Albumin 1.6 g/dL (3.4-5.0) Medications Active Scripts Medications Dose Route/Sig Max Daily Dose Days Date Category Miralax (Polyethylene Glycol 3350) 17 Gm Powd.pack 1 Packet PO PRN DAILY PRN 11/02/16 Reported Prednisone 10 Mg Tablet 10 Mg PO DAILY 11/02/16 Reported Prednisone 50 Mg Tablet 50 Mg PO DAILY 11/02/16 Reported Zoloft (Sertraline Hcl) 50 Mg Tablet 50 Mg PO HS 08/07/15 Reported Methadone Hcl 10 Mg Tablet 20 Mg PO TID 08/07/15 Reported Xanax (Alprazolam) 0.5 Mg Tablet 0.5 Mg PO DAILY PRN 08/16/13 Reported Stool Softener (Docusate Sodium) 100 Mg Capsule 100 Mg PO PRN BID PRN 08/16/13 Reported Propranolol Hcl 10 Mg Tablet 10 Mg PO DAILY 08/16/13 Reported Oxycodone Hcl 20 Mg Tablet 40 Mg PO TID 08/16/13 Reported Comments cxr reviewed, Impression . 1. Acute hypoxic respiratory failure secondary to multifactorial etiologies including a combination of progressive lung cancer with possible postobstructive consolidation versus radiation-induce changes, small pulmonary embolism involving the lingula and the right upper lobe, and underlying COPD along with progressive weakness secondary to malignancy. 2. Underlying chronic obstructive pulmonary disease. 3. Abnormal CT chest as discussed above. 4. leukocytosis, improving. Plan . 1. oxygen titration to keep sat 90%, 6 min walk bf dc. 2. Continue broad-spectrum antibiotics, may change to po levoquin. 3. Continue anticoagulation with Xarelto. He would need lifelong treatment until cancer is resolved 4. Bronchodilators. 5. dr allison has addressed advanced directives. He wants to stay full code. 6. Follow with Medical Oncology and Radiation Oncology recommendations. 7. steroids w taper for possible postradiation pneumonitis. discussed w pt GEORGIA FOSTER MD November 06, 2016 10:08
[2016-11-06 11:00] VITALS: BP 95/61
[2016-11-06 13:20] LABS: BASO # 0.1 x10^3/uL (0.0-0.2); BASO % 1 % (0-3); EOS % 1 % (0-3); HEMATOCRIT 33.9 % (39.0-53.0); HEMOGLOBIN 10.4 g/dL (13.0-17.5); LYMPH # 0.1 x10^3/uL (1.0-4.8); LYMPH % 1 % (24-48); MEAN CORPUSCULAR HEMOGLOBIN 22 pg (25-35); MEAN CORPUSCULAR HGB CONC 31 g/dL (31-37); MEAN CORPUSCULAR VOLUME 72 fL (79-100); MONO % 3 % (0-9); NEUT % 95 % (31-73); PLATELET COUNT 258 x10^3/uL (140-400); RED BLOOD COUNT 4.69 x10^6/uL (4.30-5.70); RED CELL DISTRIBUTION WIDTH 18.1 % (11.5-14.5); WHITE BLOOD COUNT 15.1 x10^3/uL (4.0-11.0)
[2016-11-06 13:40] LABS: CALCIUM 7.9 mg/dL (8.5-10.1); CREATININE 0.8 mg/dL (0.7-1.3); GFR 95.6; POTASSIUM 3.9 mmol/L (3.5-5.1)
--- NOTE | 2016-11-06 14:14 | PDOC ---
PROGRESS NOTES Subjective Subjective Patient feeling better. Pulm note appreciated. Change to PO meds. arrange for home o2 tuesday. Objective Objective Vital Signs Date Time Temp Pulse Resp B/P (MAP) Pulse Ox O2 Delivery O2 Flow Rate FiO2 11/06/16 11:29 Nasal Cannula 3.0 11/06/16 11:00 97.2 108 22 95/61 (72) 96 97.2 Intake and Output 11/06/16 07:00 Intake Total 1110 ml Output Total 740 ml Balance 370 ml Intake Oral 790 ml IV Total 320 ml Output Urine Total 740 ml Physical Exam Abdomen: Normal bowel sounds Heart: Regular rate Extremities: No edema General: Alert Lungs: Other (Course) Assessment Assessment Problems Medical Problems: (1) Pulmonary embolism Status: Acute 1. Pulmonary emboli 2. pneumonia with lung cancer 3. hepatitis 4. constipation - improved. 5. chronic back pain Plan Plan of Care Change to PO antibx Arrange for home O2 Proceed with Pt/OT Home with H/H tuesday. Comment Review of Relevant I have reviewed the following items rubi (where applicable) has been applied. Labs Laboratory Tests Test 11/05/16 05:10 11/06/16 13:05 Total Bilirubin 0.4 mg/dL (0.2-1.0) Direct Bilirubin 0.3 mg/dL (0.0-0.2) Aspartate Amino Transf (AST/SGOT) 40 U/L (15-37) Alanine Aminotransferase (ALT/SGPT) 85 U/L (16-63) Alkaline Phosphatase 204 U/L (46-116) Total Protein 4.9 g/dL (6.4-8.2) Albumin 1.6 g/dL (3.4-5.0) White Blood Count 15.1 x10^3/uL (4.0-11.0) Red Blood Count 4.69 x10^6/uL (4.30-5.70) Hemoglobin 10.4 g/dL (13.0-17.5) Hematocrit 33.9 % (39.0-53.0) Mean Corpuscular Volume 72 fL (79-100) Mean Corpuscular Hemoglobin 22 pg (25-35) Mean Corpuscular Hemoglobin Concent 31 g/dL (31-37) Red Cell Distribution Width 18.1 % (11.5-14.5) Platelet Count 258 x10^3/uL (140-400) Neutrophils (%) (Auto) 95 % (31-73) Lymphocytes (%) (Auto) 1 % (24-48) Monocytes (%) (Auto) 3 % (0-9) Eosinophils (%) (Auto) 1 % (0-3) Basophils (%) (Auto) 1 % (0-3) Neutrophils # (Auto) 14.3 x10^3uL (1.8-7.7) Lymphocytes # (Auto) 0.1 x10^3/uL (1.0-4.8) Monocytes # (Auto) 0.5 x10^3/uL (0.0-1.1) Eosinophils # (Auto) 0.1 x10^3/uL (0.0-0.7) Basophils # (Auto) 0.1 x10^3/uL (0.0-0.2) Sodium Level 133 mmol/L (136-145) Potassium Level 3.9 mmol/L (3.5-5.1) Chloride Level 98 mmol/L (98-107) Carbon Dioxide Level 29 mmol/L (21-32) Anion Gap 6 (6-14) Blood Urea Nitrogen 13 mg/dL (8-26) Creatinine 0.8 mg/dL (0.7-1.3) Estimated GFR (Cockcroft-Gault) 95.6 Glucose Level 114 mg/dL (70-99) Calcium Level 7.9 mg/dL (8.5-10.1) Laboratory Tests Test 11/06/16 13:05 White Blood Count 15.1 x10^3/uL (4.0-11.0) Red Blood Count 4.69 x10^6/uL (4.30-5.70) Hemoglobin 10.4 g/dL (13.0-17.5) Hematocrit 33.9 % (39.0-53.0) Mean Corpuscular Volume 72 fL (79-100) Mean Corpuscular Hemoglobin 22 pg (25-35) Mean Corpuscular Hemoglobin Concent 31 g/dL (31-37) Red Cell Distribution Width 18.1 % (11.5-14.5) Platelet Count 258 x10^3/uL (140-400) Neutrophils (%) (Auto) 95 % (31-73) Lymphocytes (%) (Auto) 1 % (24-48) Monocytes (%) (Auto) 3 % (0-9) Eosinophils (%) (Auto) 1 % (0-3) Basophils (%) (Auto) 1 % (0-3) Neutrophils # (Auto) 14.3 x10^3uL (1.8-7.7) Lymphocytes # (Auto) 0.1 x10^3/uL (1.0-4.8) Monocytes # (Auto) 0.5 x10^3/uL (0.0-1.1) Eosinophils # (Auto) 0.1 x10^3/uL (0.0-0.7) Basophils # (Auto) 0.1 x10^3/uL (0.0-0.2) Sodium Level 133 mmol/L (136-145) Potassium Level 3.9 mmol/L (3.5-5.1) Chloride Level 98 mmol/L (98-107) Carbon Dioxide Level 29 mmol/L (21-32) Anion Gap 6 (6-14) Blood Urea Nitrogen 13 mg/dL (8-26) Creatinine 0.8 mg/dL (0.7-1.3) Estimated GFR (Cockcroft-Gault) 95.6 Glucose Level 114 mg/dL (70-99) Calcium Level 7.9 mg/dL (8.5-10.1) Medications Current Medications Sodium Chloride 1,000 ml @ 1,000 mls/hr Q1H IV Last administered on 11/02/16 16:35; Start 11/02/16 at 16:30; Stop 11/02/16 at 17:29; Status DC Iohexol (Omnipaque 300 Mg/ml) 75 ml 1X ONCE IV Last administered on 11/02/16 17:09; Start 11/02/16 at 17:15; Stop 11/02/16 at 17:16; Status DC Ondansetron HCl (Zofran) 4 mg PRN Q8HRS PRN IV NAUSEA/VOMITING; Start 11/02/16 at 18:15; Stop 11/03/16 at 18:14; Status DC Morphine Sulfate 10 mg PRN Q2HR PRN IV PAIN Last administered on 11/03/16 12:10 ; Start 11/02/16 at 18:15; Stop 11/03/16 at 18:14; Status DC Acetaminophen (Tylenol) 650 mg PRN Q4HRS PRN PO FEVER; Start 11/02/16 at 18:15; Stop 11/03/16 at 18:14; Status DC Vancomycin HCl (Vanco Per Pharmacy) 1 each PRN DAILY PRN MC SEE COMMENTS Last administered on 11/05/16 15:07; Start 11/02/16 at 18:15; Stop 11/06/16 at 11:51; Status DC Piperacillin Sod/ Tazobactam Sod (Zosyn Per Pharmacy) 1 each PRN DAILY PRN MC SEE COMMENTS; Start 11/02/16 at 18:15; Stop 11/04/16 at 14:10; Status DC Levofloxacin/ Dextrose (Levaquin Per Pharmacy) 1 each PRN DAILY PRN MC SEE COMMENTS; Start 11/02/16 at 18:15; Stop 11/04/16 at 14:10; Status DC Enoxaparin Sodium (Lovenox 60mg Syringe) 60 mg Q12HR SQ Last administered on 08:41; Start 11/02/16 at 21:00; Stop 11/03/16 at 09:17; Status DC Info (Anti-Coagulation Monitoring By Pharmacy) 1 each PRN DAILY PRN MC SEE COMMENTS Last administered on 11/03/16 16:04; Start 11/02/16 at 18:30 Vancomycin HCl 1.5 gm/Sodium Chloride 500 ml @ 250 mls/hr 1X ONCE IV Last administered on 11/02/16 19:05; Start 11/02/16 at 19:00; Stop 11/02/16 at 20:59; Status DC Levofloxacin/ Dextrose 150 ml @ 100 mls/hr 1X ONCE IV ; Start 11/02/16 at 21:00 ; Stop 11/02/16 at 21:00; Status DC Vancomycin HCl 1 each 1X ONCE MC Last administered on 11/04/16 08:30; Start at 08:30; Stop 11/04/16 at 08:31; Status DC Levofloxacin/ Dextrose 100 ml @ 100 mls/hr Q24H IV Last administered on 22:10; Start 11/03/16 at 21:00; Stop 11/05/16 at 15:04; Status DC Vancomycin HCl 1 gm/Sodium Chloride 250 ml @ 250 mls/hr Q12H IV Last administered on 11/06/16 09:37; Start 11/03/16 at 09:00; Stop 11/06/16 at 11:51; Status DC Levofloxacin/ Dextrose 150 ml @ 100 mls/hr 1X ONCE IV Last administered on 22:05; Start 11/02/16 at 21:00; Stop 11/02/16 at 22:29; Status DC Piperacillin Sod/ Tazobactam Sod 3.375 gm/Sodium Chloride 50 ml @ 100 mls/hr Q6HRS IV Last administered on 11/06/16 05:13; Start 11/03/16 at 00:00; Stop 11/06 at 11:51; Status DC Methadone HCl (Dolophine) 20 mg TID PO Last administered on 11/06/16 09:41; Start 11/02/16 at 23:30 Oxycodone HCl (Oxycontin) 40 mg TID PO Last administered on 11/06/16 09:43; Start 11/03/16 at 00:00 Rivaroxaban (Xarelto) 15 mg BIDWMEALS PO ; Start 11/03/16 at 17:00; Stop 11/03/16 at 17:00; Status DC Polyethylene Glycol (miraLAX PACKET) 17 gm DAILY PO Last administered on 09:40; Start 11/03/16 at 09:15 Docusate Sodium (Colace) 100 mg DAILY PO Last administered on 11/06/16 09:40; Start 11/03/16 at 09:15 Alprazolam (Xanax) 0.5 mg PRN DAILY PRN PO ANXIETY / AGITATION Last administered on 11/05/16 08:21; Start 11/03/16 at 09:30 Sertraline HCl (Zoloft) 50 mg HS PO Last administered on 11/05/16 20:49; Start 11/03/16 at 21:00 Prednisone (Prednisone) 30 mg DAILY PO Last administered on 11/06/16 09:42; Start 11/03/16 at 10:00 Albuterol/ Ipratropium (Duoneb) 3 ml RTQID NEB Last administered on 11/06/16 11 :26; Start 11/03/16 at 10:00 Gadobutrol (Gadavist) 6 mmol 1X ONCE IV Last administered on 11/03/16 10:27; Start 11/03/16 at 10:30; Stop 11/03/16 at 10:31; Status DC Apixaban (Eliquis) 10 mg BID PO Last administered on 11/06/16 09:42; Start 11/03 at 21:00; Stop 11/10/16 at 09:01 Apixaban (Eliquis) 5 mg BID PO ; Start 11/10/16 at 21:00 Morphine Sulfate 2 mg PRN Q2HR PRN IV PAIN Last administered on 11/06/16 10:05 ; Start 11/04/16 at 09:45 Morphine Sulfate 5 mg PRN Q2HR PRN IV PAIN Last administered on 11/04/16 19:15 ; Start 11/04/16 at 09:45 Bisacodyl (Dulcolax Tab) 10 mg PRN DAILY PRN PO CONSTIPATION; Start 11/04/16 at 10:00 Bisacodyl (Dulcolax Tab) 10 mg ONCE ONCE PO Last administered on 11/05/16 09: 24; Start 11/05/16 at 09:15; Stop 11/05/16 at 09:20; Status DC Lubiprostone (Amitiza) 8 mcg BIDWMEALS PO Last administered on 11/06/16 09:41; Start 11/05/16 at 17:00 Levofloxacin (Levaquin) 500 mg DAILY06 PO Last administered on 11/06/16 05:13; Start 11/05/16 at 16:00 Active Scripts Active Reported Miralax (Polyethylene Glycol 3350) 17 Gm Powd.pack 1 Packet PO PRN DAILY PRN Prednisone 10 Mg Tablet 10 Mg PO DAILY Prednisone 50 Mg Tablet 50 Mg PO DAILY Zoloft (Sertraline Hcl) 50 Mg Tablet 50 Mg PO HS Methadone Hcl 10 Mg Tablet 20 Mg PO TID Xanax (Alprazolam) 0.5 Mg Tablet 0.5 Mg PO DAILY PRN Stool Softener (Docusate Sodium) 100 Mg Capsule 100 Mg PO PRN BID PRN Propranolol Hcl 10 Mg Tablet 10 Mg PO DAILY Oxycodone Hcl 20 Mg Tablet 40 Mg PO TID Vitals/I & O Vital Sign - Last 24 Hours 11/05/16 11/05/16 11/05/16 5/5/17 14:34 15:00 15:24 18:34 Temp 96.8 96.8 Pulse 120 Resp 18 B/P (MAP) 90/43 (59) Pulse Ox 99 93 93 94 O2 Delivery Nasal Cannula Nasal Cannula Nasal Cannula Nasal Cannula O2 Flow Rate 2.0 1.0 1.5 1.5 11/05/16 11/05/16 11/05/16 11/05/16 19:10 19:22 20:00 20:50 Temp 98.4 98.4 Pulse 112 Resp B/P (MAP) 84/62 (69) Pulse Ox 94 94 94 O2 Delivery Nasal Cannula Nasal Cannula Nasal Cannula Nasal Cannula O2 Flow Rate 2.0 1.5 1.5 1.5 11/05/16 11/05/16 11/06/16 11/06/16 22:50 23:45 03:10 05:13 Temp 97.9 98.3 97.9 98.3 Pulse 111 111 Resp 18 B/P (MAP) 94/56 (69) 100/72 (81) Pulse Ox 92 92 88 88 O2 Delivery Nasal Cannula Nasal Cannula Nasal Cannula O2 Flow Rate 2.0 2.0 2.5 2.5 11/06/16 11/06/16 11/06/16 11/06/16 05:41 07:00 08:01 09:43 Temp 97.3 97.3 Pulse 103 Resp B/P (MAP) 90/65 (73) Pulse Ox 88 98 O2 Delivery Nasal Cannula Nasal Cannula O2 Flow Rate 3.0 3.0 11/06/16 11/06/16 11/06/16 11/06/16 10:05 10:35 11:00 11:29 Temp 97.2 97.2 Pulse 108 Resp B/P (MAP) 95/61 (72) Pulse Ox 96 O2 Delivery Nasal Cannula Nasal Cannula Nasal Cannula O2 Flow Rate 3.0 3.0 3.0 Intake and Output 11/05/16 11/05/16 11/06/16 15:00 23:00 07:00 Intake Total 260 ml 850 ml Output Total 250 ml 490 ml Balance 10 ml 360 ml Nutrition Consultation Dietary Evaluation: Recommendations by RD: Increase Calorie Intake, Protein supplementation Comments: boost plus tid: 360 kcal, 14 g protein/ serving pt calling dietary for foods he likes per meal to improve intake Expected Outcomes/Goals: to meet > 75% est nutr needs Interpretation of weight loss: >10% in 6 months Malnutrition Findings: Body Fat Depletion (Non Severe: Mod to Severe Weight Status: Appropriate VAISHALI FONTAINE MD November 06, 2016 14:14
[2016-11-06 15:00] VITALS: BP 90/86
[2016-11-06 19:00] VITALS: BP 83/53
[2016-11-06] MEDS: SERTRALINE 50 MG TABLET. PO SCH (21:00)
[2016-11-06] MEDS: ALPRAZolam 0.5 MG TABLET PO PRN (21:00)
[2016-11-06 23:00] VITALS: BP 95/67
[2016-11-07 03:00] VITALS: BP 106/68
[2016-11-07 07:00] VITALS: BP 99/65
[2016-11-07] MEDS: IPRATRPIUM/ALBUTEROL 0.5/2.5MG 3 ML NEBU. NEB SCH ×4 (07:25→19:52)
[2016-11-07] MEDS: MORPHINE SULFATE 2 MG/ML DISP.SYRIN. IV PRN ×3 (07:45→14:59)
[2016-11-07] MEDS: POLYETHYLENE GLYCOL 3350 17 GM PACKET. PO SCH (08:18)
[2016-11-07] MEDS: LUBIPROSTONE 8 MCG CAPSULE PO SCH ×2 (08:19→18:40)
[2016-11-07] MEDS: predniSONE 10 MG TABLET PO SCH (08:19)
[2016-11-07] MEDS: DOCUSATE SODIUM 100 MG CAPSULE. PO SCH (08:20)
[2016-11-07] MEDS: oxyCODONE ER 40 MG TAB.ER.12H PO SCH ×3 (08:20→20:58)
[2016-11-07] MEDS: APIXABAN 5 MG TABLET. PO SCH ×2 (08:20→20:57)
[2016-11-07] MEDS: METHADONE 10 MG TABLET. PO SCH ×3 (08:20→20:57)
--- NOTE | 2016-11-07 10:05 | PDOC ---
PULMONARY PROGRESS NOTES Subjective is tired, has sob, has cough, occ sputum, has runny nose, back pain Vitals Vital Signs Date Time Temp Pulse Resp B/P (MAP) Pulse Ox O2 Delivery O2 Flow Rate FiO2 11/07/16 08:20 22 Nasal Cannula 3.0 11/07/16 07:26 95 11/07/16 07:00 97.2 106 99/65 (76) 97.2 ROS: No Nausea, No Abdominal Pain General: Alert, No acute distress Lungs: Other (decrease bs left) Cardiovascular: S1, S2 Abdomen: Soft, Non-tender Neuro Exam: Alert Extremities: No Edema Skin: Warm Labs Laboratory Tests Test 11/06/16 13:05 White Blood Count 15.1 x10^3/uL (4.0-11.0) Red Blood Count 4.69 x10^6/uL (4.30-5.70) Hemoglobin 10.4 g/dL (13.0-17.5) Hematocrit 33.9 % (39.0-53.0) Mean Corpuscular Volume 72 fL (79-100) Mean Corpuscular Hemoglobin 22 pg (25-35) Mean Corpuscular Hemoglobin Concent 31 g/dL (31-37) Red Cell Distribution Width 18.1 % (11.5-14.5) Platelet Count 258 x10^3/uL (140-400) Neutrophils (%) (Auto) 95 % (31-73) Lymphocytes (%) (Auto) 1 % (24-48) Monocytes (%) (Auto) 3 % (0-9) Eosinophils (%) (Auto) 1 % (0-3) Basophils (%) (Auto) 1 % (0-3) Neutrophils # (Auto) 14.3 x10^3uL (1.8-7.7) Lymphocytes # (Auto) 0.1 x10^3/uL (1.0-4.8) Monocytes # (Auto) 0.5 x10^3/uL (0.0-1.1) Eosinophils # (Auto) 0.1 x10^3/uL (0.0-0.7) Basophils # (Auto) 0.1 x10^3/uL (0.0-0.2) Sodium Level 133 mmol/L (136-145) Potassium Level 3.9 mmol/L (3.5-5.1) Chloride Level 98 mmol/L (98-107) Carbon Dioxide Level 29 mmol/L (21-32) Anion Gap 6 (6-14) Blood Urea Nitrogen 13 mg/dL (8-26) Creatinine 0.8 mg/dL (0.7-1.3) Estimated GFR (Cockcroft-Gault) 95.6 Glucose Level 114 mg/dL (70-99) Calcium Level 7.9 mg/dL (8.5-10.1) Laboratory Tests Test 11/06/16 13:05 White Blood Count 15.1 x10^3/uL (4.0-11.0) Red Blood Count 4.69 x10^6/uL (4.30-5.70) Hemoglobin 10.4 g/dL (13.0-17.5) Hematocrit 33.9 % (39.0-53.0) Mean Corpuscular Volume 72 fL (79-100) Mean Corpuscular Hemoglobin 22 pg (25-35) Mean Corpuscular Hemoglobin Concent 31 g/dL (31-37) Red Cell Distribution Width 18.1 % (11.5-14.5) Platelet Count 258 x10^3/uL (140-400) Neutrophils (%) (Auto) 95 % (31-73) Lymphocytes (%) (Auto) 1 % (24-48) Monocytes (%) (Auto) 3 % (0-9) Eosinophils (%) (Auto) 1 % (0-3) Basophils (%) (Auto) 1 % (0-3) Neutrophils # (Auto) 14.3 x10^3uL (1.8-7.7) Lymphocytes # (Auto) 0.1 x10^3/uL (1.0-4.8) Monocytes # (Auto) 0.5 x10^3/uL (0.0-1.1) Eosinophils # (Auto) 0.1 x10^3/uL (0.0-0.7) Basophils # (Auto) 0.1 x10^3/uL (0.0-0.2) Sodium Level 133 mmol/L (136-145) Potassium Level 3.9 mmol/L (3.5-5.1) Chloride Level 98 mmol/L (98-107) Carbon Dioxide Level 29 mmol/L (21-32) Anion Gap 6 (6-14) Blood Urea Nitrogen 13 mg/dL (8-26) Creatinine 0.8 mg/dL (0.7-1.3) Estimated GFR (Cockcroft-Gault) 95.6 Glucose Level 114 mg/dL (70-99) Calcium Level 7.9 mg/dL (8.5-10.1) Medications Active Scripts Medications Dose Route/Sig Max Daily Dose Days Date Category Miralax (Polyethylene Glycol 3350) 17 Gm Powd.pack 1 Packet PO PRN DAILY PRN 11/02/16 Reported Prednisone 10 Mg Tablet 10 Mg PO DAILY 11/02/16 Reported Prednisone 50 Mg Tablet 50 Mg PO DAILY 11/02/16 Reported Zoloft (Sertraline Hcl) 50 Mg Tablet 50 Mg PO HS 08/07/15 Reported Methadone Hcl 10 Mg Tablet 20 Mg PO TID 08/07/15 Reported Xanax (Alprazolam) 0.5 Mg Tablet 0.5 Mg PO DAILY PRN 08/16/13 Reported Stool Softener (Docusate Sodium) 100 Mg Capsule 100 Mg PO PRN BID PRN 08/16/13 Reported Propranolol Hcl 10 Mg Tablet 10 Mg PO DAILY 08/16/13 Reported Oxycodone Hcl 20 Mg Tablet 40 Mg PO TID 08/16/13 Reported Comments cxr reviewed, Impression . 1. Acute hypoxic respiratory failure secondary to multifactorial etiologies including a combination of progressive lung cancer with possible postobstructive consolidation versus radiation-induce changes, small pulmonary embolism involving the lingula and the right upper lobe, and underlying COPD along with progressive weakness secondary to malignancy. 2. Underlying chronic obstructive pulmonary disease. 3. Abnormal CT chest as discussed above. 4. leukocytosis, improving. 5. allergic rhinitis Plan . 1. oxygen titration to keep sat 90%, 6 min walk bf dc. 2. Continue abx. 3. Continue anticoagulation with Xarelto. He would need lifelong treatment until cancer is resolved 4. Bronchodilators. 5. dr allison has addressed advanced directives. pt wants to stay full code. 6. Follow with Medical Oncology and Radiation Oncology recommendations. 7. steroids w taper for possible postradiation pneumonitis. 8. add delicia discussed w pt GEORGIA FOSTER MD November 07, 2016 10:05
[2016-11-07 11:00] VITALS: BP 98/59
[2016-11-07 15:00] VITALS: BP 96/56
[2016-11-07 19:00] VITALS: BP 92/57
[2016-11-07] MEDS: ALPRAZolam 0.5 MG TABLET PO PRN (20:56)
[2016-11-07] MEDS: SERTRALINE 50 MG TABLET. PO SCH (20:57)
[2016-11-07] MEDS ORDERED: MONTELUKAST SODIUM 10 MG TABLET. PO SCH (21:00)
[2016-11-07 23:00] VITALS: BP 84/55
[2016-11-07] MEDS ORDERED: ALBUTEROL SULFATE 2.5 MG/3 ML NEBU. NEB ONE (23:45)
[2016-11-08 03:00] VITALS: BP 90/56
[2016-11-08 07:30] VITALS: BP 100/65
[2016-11-08] MEDS: IPRATRPIUM/ALBUTEROL 0.5/2.5MG 3 ML NEBU. NEB SCH ×3 (07:50→15:34)
--- NOTE | 2016-11-08 08:58 | PDOC ---
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 Previously he has been on palliative Keytruda with his last dose being on 10/06/2016. Treatment has been held, as he has continued to have cough and transaminitis. However, he appears to be having an excellent treatment response. Treatment will be on hold until he recovers from these acute events. Suspect liver dysfunction may be treatment related. 2. Double vision, falls. MRI brain was negative. 3. Acute on chronic neutrophilia. Possibly related to the underlying pneumonia and steroids. 4. Transaminitis, continues despite his last dose of Keytruda being one month ago. He was previously started on prednisone and remains on this. Check LFTs. 5. Pulmonary embolism, acute. Would recommend Eliquis. f/u with me 1 week after discharge Comment Review of Relevant I have reviewed the following items rubi (where applicable) has been applied. Labs Laboratory Tests Test 11/06/16 13:05 White Blood Count 15.1 x10^3/uL (4.0-11.0) Red Blood Count 4.69 x10^6/uL (4.30-5.70) Hemoglobin 10.4 g/dL (13.0-17.5) Hematocrit 33.9 % (39.0-53.0) Mean Corpuscular Volume 72 fL (79-100) Mean Corpuscular Hemoglobin 22 pg (25-35) Mean Corpuscular Hemoglobin Concent 31 g/dL (31-37) Red Cell Distribution Width 18.1 % (11.5-14.5) Platelet Count 258 x10^3/uL (140-400) Neutrophils (%) (Auto) 95 % (31-73) Lymphocytes (%) (Auto) 1 % (24-48) Monocytes (%) (Auto) 3 % (0-9) Eosinophils (%) (Auto) 1 % (0-3) Basophils (%) (Auto) 1 % (0-3) Neutrophils # (Auto) 14.3 x10^3uL (1.8-7.7) Lymphocytes # (Auto) 0.1 x10^3/uL (1.0-4.8) Monocytes # (Auto) 0.5 x10^3/uL (0.0-1.1) Eosinophils # (Auto) 0.1 x10^3/uL (0.0-0.7) Basophils # (Auto) 0.1 x10^3/uL (0.0-0.2) Sodium Level 133 mmol/L (136-145) Potassium Level 3.9 mmol/L (3.5-5.1) Chloride Level 98 mmol/L (98-107) Carbon Dioxide Level 29 mmol/L (21-32) Anion Gap 6 (6-14) Blood Urea Nitrogen 13 mg/dL (8-26) Creatinine 0.8 mg/dL (0.7-1.3) Estimated GFR (Cockcroft-Gault) 95.6 Glucose Level 114 mg/dL (70-99) Calcium Level 7.9 mg/dL (8.5-10.1) Medications Current Medications Sodium Chloride 1,000 ml @ 1,000 mls/hr Q1H IV Last administered on 11/02/16 16:35; Start 11/02/16 at 16:30; Stop 11/02/16 at 17:29; Status DC Iohexol (Omnipaque 300 Mg/ml) 75 ml 1X ONCE IV Last administered on 11/02/16 17:09; Start 11/02/16 at 17:15; Stop 11/02/16 at 17:16; Status DC Ondansetron HCl (Zofran) 4 mg PRN Q8HRS PRN IV NAUSEA/VOMITING; Start 11/02/16 at 18:15; Stop 11/03/16 at 18:14; Status DC Morphine Sulfate 10 mg PRN Q2HR PRN IV PAIN Last administered on 11/03/16 12:10 ; Start 11/02/16 at 18:15; Stop 11/03/16 at 18:14; Status DC Acetaminophen (Tylenol) 650 mg PRN Q4HRS PRN PO FEVER; Start 11/02/16 at 18:15; Stop 11/03/16 at 18:14; Status DC Vancomycin HCl (Vanco Per Pharmacy) 1 each PRN DAILY PRN MC SEE COMMENTS Last administered on 11/05/16 15:07; Start 11/02/16 at 18:15; Stop 11/06/16 at 11:51; Status DC Piperacillin Sod/ Tazobactam Sod (Zosyn Per Pharmacy) 1 each PRN DAILY PRN MC SEE COMMENTS; Start 11/02/16 at 18:15; Stop 11/04/16 at 14:10; Status DC Levofloxacin/ Dextrose (Levaquin Per Pharmacy) 1 each PRN DAILY PRN MC SEE COMMENTS; Start 11/02/16 at 18:15; Stop 11/04/16 at 14:10; Status DC Enoxaparin Sodium (Lovenox 60mg Syringe) 60 mg Q12HR SQ Last administered on 08:41; Start 11/02/16 at 21:00; Stop 11/03/16 at 09:17; Status DC Info (Anti-Coagulation Monitoring By Pharmacy) 1 each PRN DAILY PRN MC SEE COMMENTS Last administered on 11/03/16 16:04; Start 11/02/16 at 18:30 Vancomycin HCl 1.5 gm/Sodium Chloride 500 ml @ 250 mls/hr 1X ONCE IV Last administered on 11/02/16 19:05; Start 11/02/16 at 19:00; Stop 11/02/16 at 20:59; Status DC Levofloxacin/ Dextrose 150 ml @ 100 mls/hr 1X ONCE IV ; Start 11/02/16 at 21:00 ; Stop 11/02/16 at 21:00; Status DC Vancomycin HCl 1 each 1X ONCE MC Last administered on 11/04/16 08:30; Start at 08:30; Stop 11/04/16 at 08:31; Status DC Levofloxacin/ Dextrose 100 ml @ 100 mls/hr Q24H IV Last administered on 22:10; Start 11/03/16 at 21:00; Stop 11/05/16 at 15:04; Status DC Vancomycin HCl 1 gm/Sodium Chloride 250 ml @ 250 mls/hr Q12H IV Last administered on 11/06/16 09:37; Start 11/03/16 at 09:00; Stop 11/06/16 at 11:51; Status DC Levofloxacin/ Dextrose 150 ml @ 100 mls/hr 1X ONCE IV Last administered on 22:05; Start 11/02/16 at 21:00; Stop 11/02/16 at 22:29; Status DC Piperacillin Sod/ Tazobactam Sod 3.375 gm/Sodium Chloride 50 ml @ 100 mls/hr Q6HRS IV Last administered on 11/06/16 05:13; Start 11/03/16 at 00:00; Stop 11/06 at 11:51; Status DC Methadone HCl (Dolophine) 20 mg TID PO Last administered on 11/07/16 20:57; Start 11/02/16 at 23:30 Oxycodone HCl (Oxycontin) 40 mg TID PO Last administered on 11/07/16 20:58; Start 11/03/16 at 00:00 Rivaroxaban (Xarelto) 15 mg BIDWMEALS PO ; Start 11/03/16 at 17:00; Stop 11/03/16 at 17:00; Status DC Polyethylene Glycol (miraLAX PACKET) 17 gm DAILY PO Last administered on 08:18; Start 11/03/16 at 09:15 Docusate Sodium (Colace) 100 mg DAILY PO Last administered on 11/07/16 08:20; Start 11/03/16 at 09:15 Alprazolam (Xanax) 0.5 mg PRN DAILY PRN PO ANXIETY / AGITATION Last administered on 11/07/16 20:56; Start 11/03/16 at 09:30 Sertraline HCl (Zoloft) 50 mg HS PO Last administered on 11/07/16 20:57; Start 11/03/16 at 21:00 Prednisone (Prednisone) 30 mg DAILY PO Last administered on 11/07/16 08:19; Start 11/03/16 at 10:00 Albuterol/ Ipratropium (Duoneb) 3 ml RTQID NEB Last administered on 11/08/16 07 :50; Start 11/03/16 at 10:00 Gadobutrol (Gadavist) 6 mmol 1X ONCE IV Last administered on 11/03/16 10:27; Start 11/03/16 at 10:30; Stop 11/03/16 at 10:31; Status DC Apixaban (Eliquis) 10 mg BID PO Last administered on 11/07/16 20:57; Start 11/03 at 21:00; Stop 11/10/16 at 09:01 Apixaban (Eliquis) 5 mg BID PO ; Start 11/10/16 at 21:00 Morphine Sulfate 2 mg PRN Q2HR PRN IV PAIN Last administered on 11/07/16 14:20 ; Start 11/04/16 at 09:45 Morphine Sulfate 5 mg PRN Q2HR PRN IV PAIN Last administered on 11/04/16 19:15 ; Start 11/04/16 at 09:45 Bisacodyl (Dulcolax Tab) 10 mg PRN DAILY PRN PO CONSTIPATION; Start 11/04/16 at 10:00 Bisacodyl (Dulcolax Tab) 10 mg ONCE ONCE PO Last administered on 11/05/16 09: 24; Start 11/05/16 at 09:15; Stop 11/05/16 at 09:20; Status DC Lubiprostone (Amitiza) 8 mcg BIDWMEALS PO Last administered on 11/07/16 18:40; Start 11/05/16 at 17:00 Levofloxacin (Levaquin) 500 mg DAILY06 PO Last administered on 11/08/16 05:25; Start 11/05/16 at 16:00 Montelukast Sodium (Singulair) 10 mg QHS PO Last administered on 11/07/16 20:57 ; Start 11/07/16 at 21:00 Albuterol Sulfate (Ventolin Neb Soln) 2.5 mg 1X ONCE NEB Last administered on 11/07/16 23:40; Start 11/07/16 at 23:45; Stop 11/07/16 at 23:46; Status DC Active Scripts Active Reported Miralax (Polyethylene Glycol 3350) 17 Gm Powd.pack 1 Packet PO PRN DAILY PRN Prednisone 10 Mg Tablet 10 Mg PO DAILY Prednisone 50 Mg Tablet 50 Mg PO DAILY Zoloft (Sertraline Hcl) 50 Mg Tablet 50 Mg PO HS Methadone Hcl 10 Mg Tablet 20 Mg PO TID Xanax (Alprazolam) 0.5 Mg Tablet 0.5 Mg PO DAILY PRN Stool Softener (Docusate Sodium) 100 Mg Capsule 100 Mg PO PRN BID PRN Propranolol Hcl 10 Mg Tablet 10 Mg PO DAILY Oxycodone Hcl 20 Mg Tablet 40 Mg PO TID Vitals/I & O Vital Sign - Last 24 Hours 11/07/16 11/07/16 11/07/16 11/07/16 11:00 11:27 14:20 14:50 Temp 97.6 97.6 Pulse 104 Resp B/P (MAP) 98/59 (72) Pulse Ox 94 O2 Delivery Nasal Cannula Nasal Cannula Room Air Nasal Cannula O2 Flow Rate 3.0 3.0 2.0 3.0 11/07/16 11/07/16 11/07/16 11/07/16 15:00 15:15 15:31 19:00 Temp 97.4 98.0 97.4 98.0 Pulse 106 104 Resp 18 B/P (MAP) 96/56 (69) 92/57 (69) Pulse Ox 94 94 90 O2 Delivery Room Air Nasal Cannula Nasal Cannula Room Air O2 Flow Rate 3.0 3.0 11/07/16 11/07/16 11/07/16 11/07/16 19:31 19:43 20:18 20:58 Resp 18 18 Pulse Ox 94 94 O2 Delivery Nasal Cannula Room Air Nasal Cannula Nasal Cannula O2 Flow Rate 3.0 1.5 1.5 11/07/16 11/08/16 11/08/16 11/08/16 23:00 03:00 07:30 07:50 Temp 97.6 98.1 97.7 97.6 98.1 97.7 Pulse 107 109 101 Resp 18 B/P (MAP) 84/55 (65) 90/56 (67) 100/65 (77) Pulse Ox 90 90 94 O2 Delivery Nasal Cannula Nasal Cannula Nasal Cannula Nasal Cannula O2 Flow Rate 3.0 4.0 Intake and Output 11/07/16 11/07/16 11/08/16 15:00 23:00 07:00 Intake Total 360 ml 240 ml 660 ml Output Total 200 ml 250 ml 400 ml Balance 160 ml -10 ml 260 ml Nutrition Consultation Dietary Evaluation: Recommendations by RD: Increase Calorie Intake, Protein supplementation Comments: boost plus tid: 360 kcal, 14 g protein/ serving pt calling dietary for foods he likes per meal to improve intake Expected Outcomes/Goals: to meet > 75% est nutr needs Interpretation of weight loss: >10% in 6 months Malnutrition Findings: Body Fat Depletion (Non Severe: Mod to Severe Weight Status: Appropriate AMANDA COULTER MD November 08, 2016 08:58
[2016-11-08] MEDS: APIXABAN 5 MG TABLET. PO SCH (09:07)
[2016-11-08] MEDS: METHADONE 10 MG TABLET. PO SCH ×2 (09:08→13:53)
[2016-11-08] MEDS: LUBIPROSTONE 8 MCG CAPSULE PO SCH (09:09)
[2016-11-08] MEDS: DOCUSATE SODIUM 100 MG CAPSULE. PO SCH (09:09)
[2016-11-08] MEDS: predniSONE 10 MG TABLET PO SCH (09:09)
[2016-11-08] MEDS: POLYETHYLENE GLYCOL 3350 17 GM PACKET. PO SCH (09:09)
[2016-11-08] MEDS: oxyCODONE ER 40 MG TAB.ER.12H PO SCH ×2 (09:09→13:53)
--- NOTE | 2016-11-08 09:24 | PDOC ---
PULMONARY PROGRESS NOTES Subjective is tired, has sob, has cough, occ sputum, has runny nose, back pain Vitals Vital Signs Date Time Temp Pulse Resp B/P (MAP) Pulse Ox O2 Delivery O2 Flow Rate FiO2 11/08/16 07:50 Nasal Cannula 4.0 11/08/16 07:30 97.7 101 18 100/65 (77) 94 97.7 ROS: No Nausea, No Abdominal Pain General: Alert, No acute distress, Lethargic Lungs: Other (decrease bs left) Cardiovascular: S1, S2 Abdomen: Soft, Non-tender Neuro Exam: Alert Extremities: No Edema Skin: Warm Labs Laboratory Tests Test 11/06/16 13:05 White Blood Count 15.1 x10^3/uL (4.0-11.0) Red Blood Count 4.69 x10^6/uL (4.30-5.70) Hemoglobin 10.4 g/dL (13.0-17.5) Hematocrit 33.9 % (39.0-53.0) Mean Corpuscular Volume 72 fL (79-100) Mean Corpuscular Hemoglobin 22 pg (25-35) Mean Corpuscular Hemoglobin Concent 31 g/dL (31-37) Red Cell Distribution Width 18.1 % (11.5-14.5) Platelet Count 258 x10^3/uL (140-400) Neutrophils (%) (Auto) 95 % (31-73) Lymphocytes (%) (Auto) 1 % (24-48) Monocytes (%) (Auto) 3 % (0-9) Eosinophils (%) (Auto) 1 % (0-3) Basophils (%) (Auto) 1 % (0-3) Neutrophils # (Auto) 14.3 x10^3uL (1.8-7.7) Lymphocytes # (Auto) 0.1 x10^3/uL (1.0-4.8) Monocytes # (Auto) 0.5 x10^3/uL (0.0-1.1) Eosinophils # (Auto) 0.1 x10^3/uL (0.0-0.7) Basophils # (Auto) 0.1 x10^3/uL (0.0-0.2) Sodium Level 133 mmol/L (136-145) Potassium Level 3.9 mmol/L (3.5-5.1) Chloride Level 98 mmol/L (98-107) Carbon Dioxide Level 29 mmol/L (21-32) Anion Gap 6 (6-14) Blood Urea Nitrogen 13 mg/dL (8-26) Creatinine 0.8 mg/dL (0.7-1.3) Estimated GFR (Cockcroft-Gault) 95.6 Glucose Level 114 mg/dL (70-99) Calcium Level 7.9 mg/dL (8.5-10.1) Medications Active Scripts Medications Dose Route/Sig Max Daily Dose Days Date Category Miralax (Polyethylene Glycol 3350) 17 Gm Powd.pack 1 Packet PO PRN DAILY PRN 11/02/16 Reported Prednisone 10 Mg Tablet 10 Mg PO DAILY 11/02/16 Reported Prednisone 50 Mg Tablet 50 Mg PO DAILY 11/02/16 Reported Zoloft (Sertraline Hcl) 50 Mg Tablet 50 Mg PO HS 08/07/15 Reported Methadone Hcl 10 Mg Tablet 20 Mg PO TID 08/07/15 Reported Xanax (Alprazolam) 0.5 Mg Tablet 0.5 Mg PO DAILY PRN 08/16/13 Reported Stool Softener (Docusate Sodium) 100 Mg Capsule 100 Mg PO PRN BID PRN 08/16/13 Reported Propranolol Hcl 10 Mg Tablet 10 Mg PO DAILY 08/16/13 Reported Oxycodone Hcl 20 Mg Tablet 40 Mg PO TID 08/16/13 Reported Comments cxr reviewed, Impression . 1. Acute hypoxic respiratory failure secondary to multifactorial etiologies including a combination of progressive lung cancer with possible postobstructive consolidation versus radiation-induce changes, small pulmonary embolism involving the lingula and the right upper lobe, and underlying COPD along with progressive weakness secondary to malignancy. 2. Underlying chronic obstructive pulmonary disease. 3. Abnormal CT chest as discussed above. 4. leukocytosis, improving. 5. allergic rhinitis 6. Abnormal LFT, suspect chemo related Plan . 1. oxygen titration to keep sat 90%, 6 min walk at dc. 2. Continue abx.(on PO) 3. Continue anticoagulation with Xarelto. He would need lifelong treatment until cancer is resolved 4. Bronchodilators. 5. I have addressed advanced directives. pt wants to stay full code. 6. Follow with Medical Oncology and Radiation Oncology recommendations. 7. steroids w taper for possible postradiation pneumonitis. 8. delicia discussed w pt/ prognosis guarded. Does not want to go to rehab. Consider Home with CHATO PIKE MD November 08, 2016 09:24
[2016-11-08] MEDS ORDERED: ALBUTEROL SULFATE 2.5 MG/3 ML NEBU. NEB PRN (09:45)
[2016-11-08 10:57] LABS: ALBUMIN 1.9 g/dL (3.4-5.0); ALBUMIN/GLOBULIN RATIO 0.4 (1.0-1.7); CALCIUM 8.7 mg/dL (8.5-10.1); CREATININE 0.7 mg/dL (0.7-1.3); GFR 111.5; POTASSIUM 3.5 mmol/L (3.5-5.1); TOTAL BILIRUBIN 0.6 mg/dL (0.2-1.0); TOTAL PROTEIN 6.5 g/dL (6.4-8.2)
[2016-11-08 11:41] VITALS: BP 94/64
--- NOTE | 2016-11-08 11:56 | PDOC ---
Subjective: Subjective: No BMs. Stable pain. Objective: Vital Signs: Vital Signs Date Time Temp Pulse Resp B/P (MAP) Pulse Ox O2 Delivery O2 Flow Rate FiO2 11/08/16 11:41 97.4 113 21 94/64 (74) 94 Nasal Cannula 3.0 97.4 Labs: Laboratory Tests Test 11/08/16 09:45 Sodium Level 133 mmol/L Potassium Level 3.5 mmol/L Chloride Level 96 mmol/L Carbon Dioxide Level 29 mmol/L Anion Gap 8 Blood Urea Nitrogen 15 mg/dL Creatinine 0.7 mg/dL Estimated GFR (Cockcroft-Gault) 111.5 BUN/Creatinine Ratio 21 Glucose Level 122 mg/dL Calcium Level 8.7 mg/dL Total Bilirubin 0.6 mg/dL Aspartate Amino Transf (AST/SGOT) 31 U/L Alanine Aminotransferase (ALT/SGPT) 56 U/L Alkaline Phosphatase 183 U/L Total Protein 6.5 g/dL Albumin 1.9 g/dL Albumin/Globulin Ratio 0.4 PE: GEN: NAD LUNGS: decreased ABD: tender - stable, BS+ NEURO/PSYCH: A & O 3 A/P: Stage IV Lung adenocarcinoma w/ met to rib Abnormal LFTs - resolving Constipation -has Miralax, Dulcolax, Colace, Amitiza 8mcg -- Increase Amitiza dose. KAYLEE AKHTAR November 08, 2016 11:56
[2016-11-08] MEDS ORDERED: IPRA3AMP NEB (13:20)
[2016-11-08] MEDS ORDERED: PRED-220 PO (13:20)
[2016-11-08] MEDS ORDERED: APIX5TAB PO (13:20)
[2016-11-08] MEDS ORDERED: LEVO500T38 PO (13:20)
[2016-11-08 15:00] VITALS: BP 68/47
[2016-11-08] MEDS ORDERED: LUBIPROSTONE 8 MCG CAPSULE PO SCH (17:00)
--- NOTE | 2016-11-08 23:40 | DS ---
DATE OF DISCHARGE: 11/08/2016 ADMITTING DIAGNOSES: 1. Acute on chronic respiratory failure. 2. Pulmonary embolus. 3. Postobstructive pneumonia. 4. Metastatic lung cancer. 5. Chronic back pain and debilitation. 6. Protein malnutrition. HISTORY OF PRESENT ILLNESS AND HOSPITAL COURSE: This patient is a 71-year-old male with known metastatic lung cancer, undergoing chemo and status post radiation, came to the hospital with increasing shortness of breath and weakness, was found to have a new pulmonary embolus as well as suspected postobstructive pneumonia, was treated with IV antibiotics and oxygen support as well as anticoagulation. He continued to be debilitated and required home oxygen due to progressive decline in respiratory status, but came back to baseline, was tolerating diet and ambulating with physical therapy. The 6-minute walk revealed O2 needs of 3 liters, walking about 100 feet requiring rest and 5 liters of oxygen temporarily. At this point, per the patient's wishes, the patient was stable enough to be discharged home, but will be followed by home health for continued PT and OT needs as well as RT set up nebulizer and home oxygen. He will follow up with Hematology and Oncology. DISCHARGE MEDICATIONS: Continue current medications as follows: Eliquis 5 mg b.i.d.; DuoNeb nebulizer treatments q. 6 hours; levofloxacin 500 mg daily for 10 days; prednisone taper starting at 30 mg daily for 1 week, 20 mg daily for 1 week and then 10 mg daily for 1 month or until evaluated by Pulmonary Medicine. The patient will continue Xanax at 0.5 every day p.r.n., Colace 100 mg b.i.d. p.r.n., methadone 20 mg t.i.d., oxycodone 40 mg t.i.d., propylene glycol, MiraLax 17 grams daily, propranolol 10 mg daily, Zoloft 50 mg daily and he will be followed per home health and in the office in 1 week. VAISHALI FONTAINE MD DR: ADELA/mayra JOB#: [id number] / [id number]
[2016-11-10] MEDS ORDERED: APIXABAN 5 MG TABLET. PO SCH (21:00)
== END 2016-11-08 16:03 | disposition home health service (06) | DRG 175 ==
LOC: ER 16:02 → 5 SOUTH 18:00
PROVIDERS: ADMIT Family Medicine; ATTEND Family Medicine
DX: I26.99 Other pulmonary embolism without acute cor pulmonale (principal); J96.21 Acute and chronic respiratory failure with hypoxia; J18.8 Other pneumonia, unspecified organism; C34.12 Malignant neoplasm of upper lobe, left bronchus or lung; E44.0 Moderate protein-calorie malnutrition; J44.0 Chronic obstructive pulmonary disease with (acute) lower respiratory infection; C79.51 Secondary malignant neoplasm of bone; Z68.1 Body mass index [BMI] 19.9 or less, adult; F32.9 Major depressive disorder, single episode, unspecified; F41.9 Anxiety disorder, unspecified; G43.909 Migraine, unspecified, not intractable, without status migrainosus; G56.03 Carpal tunnel syndrome, bilateral upper limbs; G89.29 Other chronic pain; J30.9 Allergic rhinitis, unspecified; F11.90 Opioid use, unspecified, uncomplicated; R74.0 Nonspecific elevation of levels of transaminase and lactic acid dehydrogenase [LDH]; D72.829 Elevated white blood cell count, unspecified; H53.2 Diplopia; K75.9 Inflammatory liver disease, unspecified; K57.90 Diverticulosis of intestine, part unspecified, without perforation or abscess without bleeding; K59.09 Other constipation; Z83.3 Family history of diabetes mellitus; Z85.118 Personal history of other malignant neoplasm of bronchus and lung; Z85.828 Personal history of other malignant neoplasm of skin; Z86.73 Personal history of transient ischemic attack (TIA), and cerebral infarction without residual deficits; Z87.891 Personal history of nicotine dependence; Z92.21 Personal history of antineoplastic chemotherapy; Z92.3 Personal history of irradiation; Z98.41 Cataract extraction status, right eye; M54.9 Dorsalgia, unspecified
CPT/HCPCS: 36415; 70553; 71275; 76705; 80048; 80053; 80076; 80202; 82248; 85007; 85027; 85379; 93005; 94250; 94620; 94640; 94760; 96361; 96365; 96366; J1650; J1956; J2270; J2543; J3370; J7030; J7040; J7050; J7512; J7620; Q9967; 99285-25; A9585